=== PATIENT | male | born 1930 | race Caucasian/White ===

== ENCOUNTER 2017-03-14 21:44 | Emergency (ER) | payer OTHER ==
[~2017-03-14] VITALS: Ht 165.1 cm; Wt 110.7 kg
[~2017-03-14 21:44] MED LIST: ASPI81TA28 PO; ATEN-175 PO; CHOL100010 PO; CPR500 PO; HYG/25 PO; INDO25CA14 PO; LOSA50TA54 PO; OXYB10TA PO; PANT40TA PO; ZNTT/150 PO
[2017-03-14 21:50] VITALS: Ht 165.1 cm; Wt 110.7 kg
[2017-03-14] MEDS ORDERED: TNR50 PO (22:33)
[2017-03-14] MEDS ORDERED: CHOL100010 PO (22:33)
[2017-03-14] MEDS ORDERED: OPTIRAY 320 IV PRN (22:45)
--- NOTE | 2017-03-14 22:52 | DIAGNOSTIC IMAGING REPORT ---
CHEST ONE VIEW PORTABLE CLINICAL HISTORY: abd pain, fever dyspnea COMPARISON STUDY: 05/22/2015 FINDINGS: Moderate stable cardiomegaly. Diaphragms are smooth. Slight prominence of pulmonary vasculature and basilar interstitial findings.. No well-defined focal infiltrate. IMPRESSION: Moderate stable cardia megaly. Slight basilar interstitial prominence. No focal infiltrate. The above report was generated using voice recognition software. It may contain grammatical, syntax or spelling errors. Electronically signed by: Dre Murguia M.D. 03/14/2017 10:50 PM Dictated Date/Time: 03/14/2017 10:49 PM
[2017-03-14 23:38] LABS: BASO % 0.2 %; BASO ABS # 0.02 K/uL (0-0.2); COMPLETE YES; EOS % 1.8 %; HEMATOCRIT 39.1 % (42-52); IG% 0.2 %; LYMPH % 4.9 %; LYMPH ABS # 0.47 K/uL (1.2-3.4); MEAN CELL VOLUME 90.1 fL (80-100); MEAN CORPUSCULAR HEMOGLOBIN 30.2 pg (25-34); MEAN CORPUSCULAR HGB CONC 33.5 g/dl (32-36); MEAN PLATELET VOLUME 9.7 fL (7.4-10.4); MONO % 10.5 %; NEUT % 82.4 %; PLATELET COUNT 188 K/uL (130-400); RED BLOOD COUNT 4.34 M/uL (4.7-6.1); WHITE BLOOD COUNT 9.54 K/uL (4.8-10.8)
[2017-03-14 23:54] LABS: ALT/SGPT 10 U/L (12-78); AST/SGOT 14 U/L (15-37); BLOOD UREA NITROGEN 17 mg/dl (7-18); BUN/CREATININE RATIO 12.9 (10-20); CALCIUM 8.7 mg/dl (8.5-10.1); CARBON DIOXIDE 29 mmol/L (21-32); CHLORIDE 102 mmol/L (98-107); GLUCOSE 107 mg/dl (70-99); POTASSIUM 4.1 mmol/L (3.5-5.1); SODIUM 139 mmol/L (136-145)
[2017-03-14 23:56] LABS: ALB/GLOB RATIO 1.1 (0.9-2); ALKALINE PHOSPHATASE 44 U/L (45-117)
[2017-03-15 01:28] VITALS: TEMP 37.4
[2017-03-15] MEDS ORDERED: GI COCKTAIL PO STA (02:09)
[2017-03-15] MEDS ORDERED: ALUMINUM/MAGNESIUM SUSP 30 ML UDC ONE (02:13)
[2017-03-15] MEDS ORDERED: LIDOCAINE HCL 2% VISC SOLN 20 ML UDC ONE (02:13)
--- NOTE | 2017-03-15 02:14 | EMERGENCY ROOM VISIT NOTE ---
ED Visit Note First contact with patient: 22:16 The patient was seen and examined with IZZY Delgado. I agree with the history , physical and findings. Please see the note for disposition and details.
--- NOTE | 2017-03-15 03:21 | EMERGENCY ROOM VISIT NOTE ---
History First contact with patient: 22:16 Chief Complaint: NAUSEA Stated Complaint: SICK STOMACH, CHILLS Nursing Triage Summary: Patients states, "He has been very sick in the stomach to the point that it takes it all out of him. He only eats a few bites." Denies CP, SOB, N/V/D. History of Present Illness The patient is a 87 year old male who presents to the Emergency Room accompanied by his and daughter with complaints of abdominal pain. The patient reports that he has had symptoms for 1-2 months. He states the pain occurs after eating. The pain comes in waves and is "all over" the abdomen. He states that this pain occurs every time after he eats. He denies any vomiting. He denies nausea. He does report a history of stomach issues and states that his primary care provider has started on Zantac. The patient states that he is fairly healthy. He has had a prior cholecystectomy and appendectomy. He denies any fevers/chills, urinary symptoms, changes in bowel movements, chest pain or shortness of breath. Review of Systems A complete 10 point review of systems was reviewed with the patient with pertinent positives and negatives as per history of present illness. All else were negative. Past Medical/Surgical History Medical Problems: (1) Carotid artery stenosis (2) CKD (chronic kidney disease), stage III (3) GERD (gastroesophageal reflux disease) (4) Gout (5) HTN (hypertension) Surgical Problems: (1) S/P appendectomy (2) S/P cholecystectomy (3) S/P repair of ventral hernia (4) Status post total left knee replacement Family History Insignificant due to advanced age Social History Smoking Status: Never Smoker Alcohol Use: none Marital Status: Housing Status: lives with family Current/Historical Medications Scheduled Aspirin (Aspirin Ec), 81 MG PO DAILY Atenolol (Atenolol), 100 MG PO DAILY Chlorthalidone (Hygroton), 25 MG PO DAILY Cholecalciferol (Vitamin D), 1,000 UNITS PO DAILY Ciprofloxacin (Ciprofloxacin HCl), 1 TAB PO BIDM Losartan Potassium (Cozaar), 50 MG PO DAILY Oxybutynin Chloride Er (Ditropan Xl), 10 MG PO DAILY Pantoprazole (Protonix), 40 MG PO DAILY Scheduled PRN Indomethacin (Indomethacin), 25 MG PO TIDM PRN for Gout pain Ranitidine (Zantac), 150 MG PO BID PRN for GERD Physical Exam Vital Signs Date Time Temp Pulse Resp B/P (MAP) Pulse Ox O2 Delivery O2 Flow Rate FiO2 03/15/17 03:23 66 16 121/57 93 Room Air 03/15/17 03:03 69 20 118/54 93 Room Air 03/15/17 01:28 37.4 80 16 119/57 94 Room Air 03/14/17 23:55 80 16 119/57 94 Room Air 03/14/17 21:50 37.7 80 18 162/72 94 Room Air Physical Exam VITALS: Vitals are noted on the nurse's note and reviewed by myself. Vital signs stable. GENERAL: This is an 87-year-old male, in no acute distress, nondiaphoretic, well -developed well-nourished. HEENT: Normocephalic. PERRLA. Mucous membranes moist. Neck is supple without nuchal rigidity. HEART: Regular rate and rhythm without murmurs gallops or rubs. LUNGS: Clear to auscultation bilaterally without wheezes, rales or rhonchi. ABDOMEN: Positive bowel sounds x 4. Soft, nontender without masses or organomegaly. NEURO: Patient was alert and oriented to person place and time. Medical Decision & Procedures ER Provider Diagnostic Interpretation: CT ABDOMEN & PELVIS: No evidence of colitis or bowel obstruction. Appendectomy. Left inguinal hernia containing fat and bowel. No secondary bowel obstruction. Small fat-containing right inguinal hernia. Cardiomegaly. Small hiatal hernia. Fatty liver and too small to characterize low attenuation foci. Cholecystectomy. Left renal cysts. Bilateral small low attenuation lesions. Nonobstructing left renal stone. Abdominal mesh. Radiologist: Sabrina Meyer MD Laboratory Results 03/14/17 23:21 Red Blood Count 4.34, Mean Corpuscular Volume 90.1, Mean Corpuscular Hemoglobin 30.2, Mean Corpuscular Hemoglobin Concent 33.5, Mean Platelet Volume 9.7, Neutrophils (%) (Auto) 82.4, Lymphocytes (%) (Auto) 4.9, Monocytes (%) (Auto) 10.5, Eosinophils (%) (Auto) 1.8, Basophils (%) (Auto) 0.2, Neutrophils # (Auto ) 7.86, Lymphocytes # (Auto) 0.47, Monocytes # (Auto) 1.00, Eosinophils # (Auto ) 0.17, Basophils # (Auto) 0.02 03/14/17 23:21 Test 03/14/17 23:21 White Blood Count 9.54 K/uL (4.8-10.8) Red Blood Count 4.34 M/uL (4.7-6.1) Hemoglobin 13.1 g/dL (14.0-18.0) Hematocrit 39.1 % (42-52) Mean Corpuscular Volume 90.1 fL (80-100) Mean Corpuscular Hemoglobin 30.2 pg (25-34) Mean Corpuscular Hemoglobin Concent 33.5 g/dl (32-36) Platelet Count 188 K/uL (130-400) Mean Platelet Volume 9.7 fL (7.4-10.4) Neutrophils (%) (Auto) 82.4 % Lymphocytes (%) (Auto) 4.9 % Monocytes (%) (Auto) 10.5 % Eosinophils (%) (Auto) 1.8 % Basophils (%) (Auto) 0.2 % Neutrophils # (Auto) 7.86 K/uL (1.4-6.5) Lymphocytes # (Auto) 0.47 K/uL (1.2-3.4) Monocytes # (Auto) 1.00 K/uL (0.11-0.59) Eosinophils # (Auto) 0.17 K/uL (0-0.5) Basophils # (Auto) 0.02 K/uL (0-0.2) RDW Standard Deviation 42.0 fL (36.4-46.3) RDW Coefficient of Variation 12.8 % (11.5-14.5) Immature Granulocyte % (Auto) 0.2 % Immature Granulocyte # (Auto) 0.02 K/uL (0.00-0.02) Anion Gap 8.0 mmol/L (3-11) Est Creatinine Clear Calc Drug Dose 46.8 ml/min Estimated GFR () 57.3 Estimated GFR (Non- 49.4 BUN/Creatinine Ratio 12.9 (10-20) Lactic Acid Level 1.0 mmol/L (0.4-2.0) Calcium Level 8.7 mg/dl (8.5-10.1) Total Bilirubin 1.3 mg/dl (0.2-1) Aspartate Amino Transf (AST/SGOT) 14 U/L (15-37) Alanine Aminotransferase (ALT/SGPT) 10 U/L (12-78) Alkaline Phosphatase 44 U/L (45-117) Troponin I < 0.015 ng/ml (0-0.045) Total Protein 6.9 gm/dl (6.4-8.2) Albumin 3.6 gm/dl (3.4-5.0) Globulin 3.3 gm/dl (2.5-4.0) Albumin/Globulin Ratio 1.1 (0.9-2) Lipase 105 U/L (73-393) Medications Administered Medications (Trade) Dose Ordered Sig/Vicky Route Start Time Stop Time Status Last Admin Dose Admin Al Hydroxide/Mg Hydroxide (Maalox Susp) 30 ml STK-MED ONCE .ROUTE 03/15/17 02:13 03/15/17 02:15 DC 03/15/17 02:19 30 ML Lidocaine HCl (Viscous Lidocaine 2% Soln) 20 ml STK-MED ONCE .ROUTE 03/15/17 02:13 03/15/17 02:15 DC 03/15/17 02:19 20 ML ECG Indication: abdominal pain Rate (beats per minute): 80 Rhythm: normal sinus Findings: RBBB (incomplete), no acute ischemic change ED Course The patient was evaluated as above. Labs were drawn and IV access was obtained. CT of the abdomen and pelvis was performed and read by statrad as above. Patient was given a GI cocktail. Patient was reevaluated and states is feeling better. He denies any complaints at this time. Discharge instructions were reviewed with the patient. The patient verbalized understanding of my assessment and treatment plan and was discharged home in good condition. Medical Decision Differential diagnosis includes gastroenteritis, gastritis, duodenal ulcer, bowel obstruction, mesenteric ischemia, intestinal ischemia, SMA syndrome, pancreatitis, hepatitis, diverticulitis, malignancy, among others. The patient is an 87-year-old male who presents today complaining of abdominal pain which has been present intermittently for one month. There has been no associated vomiting or changes in bowel movements. Labs revealed no leukocytosis, concerning anemia or significant electrolyte abnormalities. Lipase was not elevated. Lactic acid was within normal limits. Troponin was not elevated. CT of the abdomen and pelvis showed no acute infectious or inflammatory findings. Patient was unable to provide a urine sample despite a 5 + hours stay in the emergency department. He requested discharge prior to providing a urine sample and I recommended that he follow-up with his primary care provider to have his urine checked. The patient had some improvement with a GI cocktail. I do not suspect this is secondary to an ischemic process as his lactic acid is not elevated and he has no leukocytosis. The patient has no abdominal tenderness on my examination. I' m unsure of the cause of his pain. It may be gastritis. He does take Protonix and Zantac at home. He was encouraged to follow-up closely with his primary care provider for further evaluation and treatment. He was advised to return here if his symptoms worsen in the meantime. The patient was independently evaluated by Dr. Schultz, ED attending physician, who agreed with my assessment and treatment plan. Based on the patient's presentation and work up, I feel the patient is stable for outpatient treatment. The patient was educated to return to the emergency department for any worsening of their current condition or new/concerning symptoms. He will follow up with his PCP. Medication Reconcilliation Current Medication List: was personally reviewed by me Blood Pressure Screening Patient's blood pressure: Normal blood pressure Impression Primary Impression: Epigastric abdominal pain Departure Information Dispostion Home / Self-Care Condition GOOD Referrals Bert Gresham M.D. (PCP) Patient Instructions [facility] Additional Instructions You have been treated in the Emergency Department for your Abdominal Pain. Laboratory results and imaging studies have ruled out any emergent causes for your abdominal pain which would warrant admission or surgery. You may use Maalox as needed for any symptoms. Drink plenty of water and stay well hydrated. As with any trip to the Emergency Department, you should follow-up with your Primary Care Provider from today's visit. Return to the emergency department if your symptoms persist despite treatment plan outlined above or if the following symptoms occur: increased fevers, chills , worsening nausea/vomiting, blood in your stool or urine.
[2017-03-15 03:23] VITALS: BP 121/57; PULSE 66; O2SAT 93
--- NOTE | 2017-03-15 07:31 | DIAGNOSTIC IMAGING REPORT ---
ABD/PELVIS IV CONTRAST ONLY CLINICAL HISTORY: 87 years-old Male presenting with abdominal pain, difficulty eating, chills. TECHNIQUE: Multidetector CT of the abdomen and pelvis was performed after the administration of intravenous contrast. IV contrast: 92 mL of Optiray 320. A dose lowering technique was used consistent with the principles of ALARA (as low as reasonably achievable). COMPARISON: 12/29/2012. CT DOSE (mGy.cm): The estimated cumulative dose is 1431.00 mGy.cm. FINDINGS: Cytology Supervisor topogram: Cholecystectomy clips noted. Lung bases: Minimal dependent changes likely atelectasis. Multichamber enlargement of the heart. Aortic valve and coronary artery calcification. No pericardial or pleural effusion. Liver: Few small hypodensities, indeterminate but likely hepatic cysts or hamartomas. Normal liver morphology. Patent hepatic vasculature. Biliary: No intrahepatic or extrahepatic biliary ductal dilatation. Gallbladder surgically absent. Pancreas: Moderate parenchymal atrophy. Spleen: Splenule noted. Adrenal glands: Normal. Kidneys and ureters: Multiple well-defined hypodensities in the kidneys bilaterally, left greater than right, likely simple cysts. Nonobstructing 4 mm calculus at the lower pole the left kidney. Nonspecific perinephric fat stranding bilaterally. Ureters normal. Bladder: Although the bladder is incompletely distended, suggestion of circumferential bladder wall thickening. Pelvic organs: Prostate and seminal vesicles normal. Bowel: Peripherally calcified focus adjacent to the sigmoid colon in the mesentery may represent a lymph node, diverticulum or prior fat necrosis. The left inguinal hernia contains the junction of the descending and sigmoid colon. No pericolonic inflammatory change. No gross evidence of bowel wall thickening. Small fat-containing focus in the descending duodenum may represent an intramural lipoma. No bowel obstruction. Appendix surgically absent. Peritoneal cavity: No free fluid or intraperitoneal gas. Vasculature: Atherosclerosis of the normal caliber abdominal aorta. Tortuosity and irregularity of the aortic contour most pronounced in the infrarenal portion. IVC patent. Lymph nodes: No enlarged lymph nodes in the abdomen or pelvis. Abdominal wall: Evidence of surgical mesh along the ventral midline abdominal wall from prior hernia repair. Small fat-containing umbilical hernia. Bilateral inguinal hernias, left greater than right. Musculoskeletal: Degenerative changes of the spine. IMPRESSION: 1. No convincing evidence of acute intra-abdominal pathology. 2. Patient is now status post appendectomy. 3. Left inguinal hernia containing large bowel are no bowel obstruction. 4. Nonobstructing 4 mm calculus at the lower pole the left kidney. Electronically signed by: Yordy Gerard M.D. 03/15/2017 7:30 AM Dictated Date/Time: 03/15/2017 7:15 AM
[2017-04-05] MEDS ORDERED: DAPT500I IV (19:04)
== END 2017-03-15 03:25 | disposition home or self-care (01) ==
LOC: C.EDB 21:44 → C.EDA 03-15 03:25
DX: R10.9 Unspecified abdominal pain (principal); Z90.49 Acquired absence of other specified parts of digestive tract; N18.3 Chronic kidney disease, stage 3 (moderate); I12.9 Hypertensive chronic kidney disease with stage 1 through stage 4 chronic kidney disease, or unspecified chronic kidney disease; K21.9 Gastro-esophageal reflux disease without esophagitis; M10.9 Gout, unspecified; Z96.652 Presence of left artificial knee joint; Z79.82 Long term (current) use of aspirin; Z79.899 Other long term (current) drug therapy

== ENCOUNTER 2017-03-29 18:12 | Inpatient (IN) | payer OTHER ==
[~2017-03-29] VITALS: Ht 167.6 cm; Wt 108.3 kg
[~2017-03-29 18:12] MED LIST changes: -ATEN-175 PO; +TNR50 PO
[2017-03-29] MEDS ORDERED: VANCOMYCIN INJ 2,000 MG in SODIUM CHLORIDE 0.9% 500ML 500 ML IV STA (18:20)
[2017-03-29] MEDS ORDERED: SODIUM CHLORIDE 0.9% 1000ML 1,000 ML IV STA ×2 (18:20)
[2017-03-29] MEDS ORDERED: LEVAQUIN 750MG / 150ML D5W IV STA (18:20)
[2017-03-29] MEDS ORDERED: ACETAMINOPHEN 500 MG TAB PO STA (18:20)
[2017-03-29] MEDS ORDERED: LEVOFLOXACIN PO (18:32)
[2017-03-29 18:33] LABS: HEMATOCRIT 41.8 % (42-52); MEAN CELL VOLUME 87.8 fL (80-100); MEAN CORPUSCULAR HEMOGLOBIN 29.6 pg (25-34); MEAN CORPUSCULAR HGB CONC 33.7 g/dl (32-36); PLATELET COUNT 203 K/uL (130-400); RED BLOOD COUNT 4.76 M/uL (4.7-6.1); WHITE BLOOD COUNT 12.63 K/uL (4.8-10.8)
[2017-03-29] MEDS ORDERED: OMEG10007 PO (18:33)
[2017-03-29 18:45] LABS: INR 1.1 (0.9-1.1); PARTIAL THROMBOPLASTIN RATIO 1.1; PROTHROMBIN TIME (PATIENT) 11.5 SECONDS (9.0-12.0)
[2017-03-29] MEDS ORDERED: OPTIRAY 320 IV PRN (18:45)
[2017-03-29 18:58] LABS: CALCIUM 8.9 mg/dl (8.5-10.1); CREATININE 1.8 mg/dl (0.60-1.40); MAGNESIUM 1.2 mg/dl (1.8-2.4); POTASSIUM 3.1 mmol/L (3.5-5.1)
[2017-03-29 19:03] LABS: BASO % 0.1 %; BASO ABS # 0.01 K/uL (0-0.2); COMPLETE YES; EOS % 0.2 %; IG% 0.4 %; LYMPH % 1.9 %; LYMPH ABS # 0.24 K/uL (1.2-3.4); MONO % 1.6 %; NEUT % 95.8 %
--- NOTE | 2017-03-29 19:06 | DIAGNOSTIC IMAGING REPORT ---
CHEST ONE VIEW PORTABLE HISTORY: EVALUATE WEAKNESS COMPARISON: Chest 03/14/2017. FINDINGS: The heart remains mildly enlarged. No pneumothorax. Bibasilar interstitial thickening persists. Stable blunting the left lateral costophrenic sulcus. No pneumothorax. IMPRESSION: No change in the cardiomegaly and bibasilar interstitial thickening. Electronically signed by: Geoff Alford M.D. 03/29/2017 7:04 PM Dictated Date/Time: 03/29/2017 7:03 PM
[2017-03-29 19:34] LABS: CKMB/CK RATIO 0.8 (0-3.0); THYROID STIMULATING HORMONE 1.75 uIu/ml (0.300-4.500)
[2017-03-29] MEDS ORDERED: MAGNESIUM SULFATE 1GM / D5W 1 GM BAG IV STA (19:34)
[2017-03-29] MEDS ORDERED: POTASSIUM CHLORIDE 10 MEQ / 100ML WTR IV STA (19:34)
[2017-03-29 20:38] LABS: URINE APPEARANCE CLOUDY (CLEAR); URINE BILIRUBIN NEG (NEG); URINE COLOR YELLOW; URINE NITRITE POS (NEG); URINE SPECIFIC GRAVITY 1.017 (1.000-1.030); UROBILINOGEN NEG (NEG)
[2017-03-29 20:42] LABS: MANUAL MICROSCOPIC REQUIRED? NO; REVIEW REQ? NO
--- NOTE | 2017-03-29 20:47 | DIAGNOSTIC IMAGING REPORT ---
(CHEST) THORAX WITHOUT, ABD/PELVIS NO IV OR ORAL CONT CT DOSE: 1602.73 mGy.cm HISTORY: fever of unknown origin, sepsis TECHNIQUE: Multiaxial CT images of the chest, abdomen, pelvis were performed without contrast. A dose lowering technique was utilized adhering to the principles of ALARA. COMPARISON: Abdomen and pelvis CT 03/15/2017. FINDINGS: No mediastinal or hilar lymphadenopathy. The heart is normal in size. No pleural or pericardial effusions. Coronary artery calcifications are again noted. 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 Stable rim calcified low density structure posterior to the descending thoracic aorta. The long-term stability favors a benign process. Tiny hiatus hernia. No suspicious lytic or blastic osseous lesions. No pneumothorax. Bibasilar linear densities are nonspecific but favor subsegmental atelectasis. No pneumoperitoneum. No pneumatosis. Prior anterior abdominal wall mesh. Tiny fat-containing umbilical hernia. Small fat-containing right inguinal hernia. Left inguinal hernia contains a short segment of the descending colon/sigmoid colon junction. This remains unchanged. The unenhanced spleen, adrenal glands, and pancreas are unremarkable. Cholecystectomy. Bilateral perinephric edema, unchanged. There are few stones within the lower pole the left kidney with the largest measuring 7 mm. Hepatic and bilateral renal hypodense lesions are not significant changed. Incomplete characterize on this noncontrast study but favor cysts. No change in the bilateral perinephric edema. No ureteral stones. No hydronephrosis. The bladder is not well-distended but appears unremarkable. Dominant left renal hypodense lesion measures approximately 4.6 cm. No retroperitoneal lymphadenopathy. Suboptimal evaluation for bowel pathology due to the lack of intravenous and oral contrast. However, there is no definite bowel wall thickening or obstruction. The appendix is surgically absent. IMPRESSION: 1. Bibasilar linear densities within the lungs are nonspecific but favor subsegmental atelectasis. No focal lung consolidations to suggest pneumonia. 2. No significant change within the abdomen and pelvis since the prior studies. No acute infectious process identified. 3. Left inguinal hernia containing a short segment of the colon. No evidence for bowel obstruction. 4. Prior appendectomy. 5. Stable bilateral perinephric edema. 6. Left-sided nephrolithiasis. No ureteral stones. No hydronephrosis. 7. Additional findings as described above. Electronically signed by: Geoff Alford M.D. 03/29/2017 8:46 PM Dictated Date/Time: 03/29/2017 8:32 PM
--- NOTE | 2017-03-29 21:24 | EMERGENCY ROOM VISIT NOTE ---
History Report prepared by Mikeibe: Mona Perez Under the Supervision of: Dr. Gibson Shea M.D. First contact with patient: 18:15 Stated Complaint: BACK PAIN, DIZZY, NAUSEA History of Present Illness The patient is an 87 year old male who presents to the Emergency Room with complaints of worsening bilateral flank pain for the past 1 week. He was brought to the ED via EMS from home. The patient was seen here in the ED recently for similar symptoms. He was sent home with no antibiotics, but followed up with his PCP, Dr. Irwin with [facility], and received a call today to start Levaquin. He has taken 1 pill so far. His O2 was 85% on room air in the field and EMS placed him on 2LNC. He was also tachycardic and hypotensive in the field, so EMS started him on fluids, giving him 500 mL in the field. The patient also complains of a cough, breathing issues, nausea and dizziness. He has not had much of an appetite recently but has states he has not vomited. The patient denies LOC, headache, chills, diaphoresis, visual changes, neck pain, chest pain, abdominal pain, melena, hematochezia, urinary symptoms, numbness, weakness, lymphadenopathy, rash, or other complaints. 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 A total of ten systems were reviewed and were otherwise negative. Past Medical & Surgical Medical Problems: (1) Carotid artery stenosis (2) CKD (chronic kidney disease), stage III (3) GERD (gastroesophageal reflux disease) (4) Gout (5) HTN (hypertension) (6) Sepsis (7) UTI (urinary tract infection) Surgical Problems: (1) S/P appendectomy (2) S/P cholecystectomy (3) S/P repair of ventral hernia (4) Status post total left knee replacement Family History Insignificant due to advanced age Social History Smoking Status: Never Smoker Alcohol Use: none Drug Use: none Marital Status: Housing Status: lives with family Occupation Status: retired Current/Historical Medications Scheduled Aspirin (Aspirin Ec), 81 MG PO DAILY Atenolol (Atenolol), 100 MG PO DAILY Chlorthalidone (Hygroton), 25 MG PO DAILY Cholecalciferol (Vitamin D), 1,000 UNITS PO DAILY Fish Oil ([place]-3), 2 CAP PO DAILY Losartan Potassium (Cozaar), 50 MG PO DAILY Oxybutynin Chloride Er (Ditropan Xl), 10 MG PO DAILY Pantoprazole (Protonix), 40 MG PO DAILY [Levofloxacin], 1 TAB PO DAILY Scheduled PRN Ranitidine (Zantac), 150 MG PO BID PRN for GERD Allergies Coded Allergies: Amoxicillin (Verified Allergy, Severe, SWELLING OF TONGUE AND THROAT, ) Omeprazole (Verified Allergy, Unknown, ?, 01/11/12) Phenobarbital (Verified Allergy, Unknown, ?, 01/11/12) Statins (Verified Allergy, Unknown, RASH, 12/08/11) Physical Exam Vital Signs Date Time Temp Pulse Resp B/P (MAP) Pulse Ox O2 Delivery O2 Flow Rate FiO2 03/29/17 19:56 117 20 120/67 97 Nasal Cannula 2.0 03/29/17 18:45 121 03/29/17 18:41 94 Nasal Cannula 2.0 03/29/17 18:28 94 Nasal Cannula 2.0 03/29/17 18:20 37.5 120 22 95/59 95 Room Air Physical Exam GENERAL: Awake, alert, tired-appearing, in no distress HENT: Normocephalic, atraumatic. Oropharynx unremarkable. EYES: Normal conjunctiva. Sclera non-icteric. NECK: Supple. No nuchal rigidity. FROM. No JVD. RESPIRATORY: Clear to auscultation. CARDIAC: Tachycardic heart rate, normal rhythm. Extremities warm and well perfused. Pulses equal. ABDOMEN: Soft, non-distended. LLQ tenderness to palpation. No rebound or guarding. No masses. RECTAL: Deferred. MUSCULOSKELETAL: Chest examination reveals no tenderness. The back is symmetrical on inspection without obvious abnormality. There is no CVA tenderness to palpation. No joint edema. LOWER EXTREMITIES: Calves are equal size bilaterally and non-tender. No edema. No discoloration. NEURO: Normal sensorium. No sensory or motor deficits noted. SKIN: No rash or jaundice noted. Medical Decision & Procedures ER Provider Diagnostic Interpretation: Radiology results as stated below per my review and radiologist interpretation: CHEST ONE VIEW PORTABLE HISTORY: EVALUATE WEAKNESS COMPARISON: Chest 03/14/2017. FINDINGS: The heart remains mildly enlarged. No pneumothorax. Bibasilar interstitial thickening persists. Stable blunting the left lateral costophrenic sulcus. No pneumothorax. IMPRESSION: No change in the cardiomegaly and bibasilar interstitial thickening. Electronically signed by: Geoff Alford M.D. 03/29/2017 7:04 PM (CHEST) THORAX WITHOUT, ABD/PELVIS NO IV OR ORAL CONT CT DOSE: 1602.73 mGy.cm HISTORY: fever of unknown origin, sepsis TECHNIQUE: Multiaxial CT images of the chest, abdomen, pelvis were performed without contrast. A dose lowering technique was utilized adhering to the principles of ALARA. COMPARISON: Abdomen and pelvis CT 03/15/2017. FINDINGS: No mediastinal or hilar lymphadenopathy. The heart is normal in size. No pleural or pericardial effusions. Coronary artery calcifications are again noted. 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 Stable rim calcified low density structure posterior to the descending thoracic aorta. The long-term stability favors a benign process. Tiny hiatus hernia. No suspicious lytic or blastic osseous lesions. No pneumothorax. Bibasilar linear densities are nonspecific but favor subsegmental atelectasis. No pneumoperitoneum. No pneumatosis. Prior anterior abdominal wall mesh. Tiny fat-containing umbilical hernia. Small fat-containing right inguinal hernia. Left inguinal hernia contains a short segment of the descending colon/sigmoid colon junction. This remains unchanged. The unenhanced spleen, adrenal glands, and pancreas are unremarkable. Cholecystectomy. Bilateral perinephric edema, unchanged. There are few stones within the lower pole the left kidney with the largest measuring 7 mm. Hepatic and bilateral renal hypodense lesions are not significant changed. Incomplete characterize on this noncontrast study but favor cysts. No change in the bilateral perinephric edema. No ureteral stones. No hydronephrosis. The bladder is not well-distended but appears unremarkable. Dominant left renal hypodense lesion measures approximately 4.6 cm. No retroperitoneal lymphadenopathy. Suboptimal evaluation for bowel pathology due to the lack of intravenous and oral contrast. However, there is no definite bowel wall thickening or obstruction. The appendix is surgically absent. IMPRESSION: 1. Bibasilar linear densities within the lungs are nonspecific but favor subsegmental atelectasis. No focal lung consolidations to suggest pneumonia. 2. No significant change within the abdomen and pelvis since the prior studies. No acute infectious process identified. 3. Left inguinal hernia containing a short segment of the colon. No evidence for bowel obstruction. 4. Prior appendectomy. 5. Stable bilateral perinephric edema. 6. Left-sided nephrolithiasis. No ureteral stones. No hydronephrosis. 7. Additional findings as described above. Electronically signed by: Geoff Alford M.D. 03/29/2017 8:46 PM Laboratory Results 03/29/17 17:36 Red Blood Count 4.76, Mean Corpuscular Volume 87.8, Mean Corpuscular Hemoglobin 29.6, Mean Corpuscular Hemoglobin Concent 33.7, Mean Platelet Volume 10.0, Neutrophils (%) (Auto) 95.8, Lymphocytes (%) (Auto) 1.9, Monocytes (%) (Auto) 1.6, Eosinophils (%) (Auto) 0.2, Basophils (%) (Auto) 0.1, Neutrophils # (Auto) 12.11, Lymphocytes # (Auto) 0.24, Monocytes # (Auto) 0.20, Eosinophils # (Auto) 0.02, Basophils # (Auto) 0.01 03/29/17 17:36 Test 03/29/17 17:36 03/29/17 18:20 03/29/17 18:48 03/29/17 20:45 White Blood Count 12.63 K/uL (4.8-10.8) Red Blood Count 4.76 M/uL (4.7-6.1) Hemoglobin 14.1 g/dL (14.0-18.0) Hematocrit 41.8 % (42-52) Mean Corpuscular Volume 87.8 fL (80-100) Mean Corpuscular Hemoglobin 29.6 pg (25-34) Mean Corpuscular Hemoglobin Concent 33.7 g/dl (32-36) Platelet Count 203 K/uL (130-400) Mean Platelet Volume 10.0 fL (7.4-10.4) Neutrophils (%) (Auto) 95.8 % Lymphocytes (%) (Auto) 1.9 % Monocytes (%) (Auto) 1.6 % Eosinophils (%) (Auto) 0.2 % Basophils (%) (Auto) 0.1 % Neutrophils # (Auto) 12.11 K/uL (1.4-6.5) Lymphocytes # (Auto) 0.24 K/uL (1.2-3.4) Monocytes # (Auto) 0.20 K/uL (0.11-0.59) Eosinophils # (Auto) 0.02 K/uL (0-0.5) Basophils # (Auto) 0.01 K/uL (0-0.2) RDW Standard Deviation 41.5 fL (36.4-46.3) RDW Coefficient of Variation 13.0 % (11.5-14.5) Immature Granulocyte % (Auto) 0.4 % Immature Granulocyte # (Auto) 0.05 K/uL (0.00-0.02) Prothrombin Time 11.5 SECONDS (9.0-12.0) Prothromb Time International Ratio 1.1 (0.9-1.1) Activated Partial Thromboplast Time 27.6 SECONDS (21.0-31.0) Partial Thromboplastin Ratio 1.1 Anion Gap 14.0 mmol/L (3-11) Est Creatinine Clear Calc Drug Dose 34.2 ml/min Estimated GFR () 38.6 Estimated GFR (Non- 33.3 BUN/Creatinine Ratio 10.0 (10-20) Calcium Level 8.9 mg/dl (8.5-10.1) Magnesium Level 1.2 mg/dl (1.8-2.4) Total Bilirubin 2.0 mg/dl (0.2-1) Direct Bilirubin 0.4 mg/dl (0-0.2) Aspartate Amino Transf (AST/SGOT) 19 U/L (15-37) Alanine Aminotransferase (ALT/SGPT) 16 U/L (12-78) Alkaline Phosphatase 49 U/L (45-117) Total Creatine Kinase 86 U/L (39-308) Creatine Kinase MB 0.7 ng/ml (0.5-3.6) Creatine Kinase MB Ratio 0.8 (0-3.0) Troponin I 0.062 ng/ml (0-0.045) Total Protein 7.3 gm/dl (6.4-8.2) Albumin 3.7 gm/dl (3.4-5.0) Lipase 122 U/L (73-393) Thyroid Stimulating Hormone (TSH) 1.750 uIu/ml (0.300-4.500) Urine Color YELLOW Urine Appearance CLOUDY (CLEAR) Urine pH 6.0 (4.5-7.5) Urine Specific [place] 1.017 (1.000-1.030) Urine Protein 1+ (NEG) Urine Glucose (UA) NEG (NEG) Urine Ketones TRACE (NEG) Urine Occult Blood 1+ (NEG) Urine Nitrite POS (NEG) Urine Bilirubin NEG (NEG) Urine Urobilinogen NEG (NEG) Urine Leukocyte Esterase TRACE (NEG) Urine WBC (Auto) 5-10 /hpf (0-5) Urine RBC (Auto) 5-10 /hpf (0-4) Urine Hyaline Casts (Auto) 1-5 /lpf (0-5) Urine Epithelial Cells (Auto) 5-10 /lpf (0-5) Urine Bacteria (Auto) 4+ (NEG) Bedside Lactic Acid Venous 3.11 mmol/L (0.90-1.70) Laboratory results reviewed by me Medications Administered Medications (Trade) Dose Ordered Sig/Vicky Route Start Time Stop Time Status Last Admin Dose Admin Sodium Chloride 1,000 ml @ 999 mls/hr Q1H1M STAT IV 03/29/17 18:20 03/29/17 19:20 DC 03/29/17 18:40 999 MLS/HR Acetaminophen (Tylenol Tab) 1,000 mg NOW STAT PO 03/29/17 18:20 03/29/17 18:25 DC 03/29/17 19:49 1,000 MG Levofloxacin (Levaquin / D5W) 750 mg NOW STAT IV 03/29/17 18:20 03/29/17 18:25 DC 03/29/17 19:50 750 MG Vancomycin HCl 2000 mg/Sodium Chloride 540 ml @ 200 mls/hr ONE STAT IV 03/29/17 18:20 03/29/17 21:01 DC 03/29/17 21:17 200 MLS/HR Potassium Chloride (Kcl 10 Meq / Wtr) 10 meq NOW STAT IV 03/29/17 19:34 03/29/17 19:35 DC 03/29/17 19:50 10 MEQ Magnesium Sulfate (Magnesium Sulfate) 2 gm NOW STAT IV 03/29/17 19:34 03/29/17 19:35 DC 03/29/17 19:51 2 GM ECG Indication: nausea Rate (beats per minute): 119 Rhythm: sinus tachycardia Findings: LAFB, nonspecific-ST abn, no acute ischemic change, no ectopy Change: Pre-Hospital EKG on 03/29/17: Sinus tachycardia, rate of 137, non-specific ST abnormalities, Left Anterior Fascicular Block. ED Course 1815: The patient was evaluated in room A12. A complete history and physical exam was performed. 1819: Vancomycin HCl 2000 mg/NSS 540 ml @ 200 mls/hr IV, Levaquin 750 mg IV, Tylenol 1000 mg PO, NSS 1000 ml @ 125 mls/hr IV, NSS 1000 ml @ 999 mls/hr IV. 1849: I spoke with the patients family. They said he had blood work done at [facility] recently which showed a possible infection. 1933: Magnesium Sulfate 2 gm IV, Potassium Chloride 10 meq IV. 1943: I reevaluated the patient. He is feeling better but his BP is still high. 2025: I discussed the patients case with Dr. Villatoro, [facility] Hospitalist. The patient will be further evaluated. 2054: I reevaluated the patient. He is resting comfortably and his vitals are stable. I discussed my recommendation he remain in the hospital for further evaluation and management and he and his family verbalized complete understanding and agreement. Medical Decision Triage Nursing notes reviewed. The patient's presentation and history were concerning for fever and weakness. Family also notes the patient had some pain with urination. Etiologies such as metabolic, infection, hypo/hyperglycemia, electrolyte abnormalities, cardiac sources, intracerebral event, toxicologic, neurologic, as well as others were entertained. The patient was evaluated. He was hypotensive, tachycardic and febrile. He was treated as above. He was hydrated. He did well with this. His lactate was mildly elevated as well as his white blood cell count. The patient was empirically given Levaquin and vancomycin after cultures. He did note some cough. Chest x-ray was performed. Because of his symptoms and some difficulty figuring the source of his infection a CT scan of the chest, abdomen and pelvis was performed. These findings as above. The patient's urinalysis returned with significant findings concerning for infection. The patient had an elevated troponin, hypomagnesemia and hypokalemia. He received IV magnesium and IV potassium. On reassessment he was doing well. I updated family. Consultation was made with [facility] Internal Medicine. The patient was evaluated in the Emergency Room for further management. Medication Reconcilliation Current Medication List: was personally reviewed by me Blood Pressure Screening Patient's blood pressure: Normal blood pressure Blood pressure disposition: Did not require urgent referral Consults Time Called: 2023 [facility]ing Phys[facility] Return[facility] Call: 2025 I [facility] the [facility] The patient will be further evaluated. Impression Primary Impression: Sepsis Additional Impressions: Elevated troponin Elevated LFTs Hypomagnesemia Hypokalemia Fever Urinary tract infection Critical Care I have personally spent greater than 30 minutes of critical care time in the direct management of this patient. This includes bedside care, interpretation of diagnostic studies, and testing, discussion with consultants, patient, and family members, and other required patient management activities. This 30 minutes is in excess of all separately billable procedures. Scribe Attestation The scribe's documentation has been prepared under my direction and personally reviewed by me in its entirety. I confirm that the note above accurately reflects all work, treatment, procedures, and medical decision making performed by me. Departure Information Dispostion Being Evaluated By Hospitalist Referrals Bert Gresham M.D. (PCP) Problem Qualifiers
[2017-03-29] MEDS ORDERED: ONDANSETRON INJ 2 MG/ML 2 ML VIAL IV PRN (21:30)
[2017-03-29] MEDS ORDERED: SODIUM CHLORIDE 0.9% 1000ML 1,000 ML IV SCH (21:45)
[2017-03-29] MEDS ORDERED: LEVOFLOXACIN CONSULT ACTIVE PRN (22:05)
[2017-03-29 22:15] VITALS: BP 114/65; PULSE 107; TEMP 37.1; O2SAT 95; Ht 167.6 cm; Wt 108.3 kg
--- NOTE | 2017-03-29 22:58 | History and Physical ---
History & Physical Date & Time of Service: Mar 29, 2017 ~ 21:00 Chief Complaint: Weakness, Nausea Primary Care Physician: Bert Gresham M.D. History of Present Illness 87 year old male who presents to the ED with weakness and nausea. Patient reports he has been sick for the past 6 weeks. He reports generally not feeling well. He was seen in in the ED on 03/14 for similar symptoms and work up including labs and CT abd/pelvis was unrevealing. He also has been evaluated by his PCP and has had a negative work up with labs, blood cultures, and echocardiogram with was unrevealing as well. Patient reports persistent nausea and a very poor appetite. He reports weight loss but he unsure of exactly how much (PCP notes reports 17 pounds). He has felt generally weak. He has had chills but denies fever. He has chronic exertional shortness of breath at baseline which is unchanged. He reports an occasional dry cough. He has felt lightheaded and dizzy and times but denies any syncopal event. No chest pain. He has some mild intermittent left sided abdominal pain. He denies vomiting, diarrhea, BRBPR, or dark tarry stools. He reports he had urinary burning that developed today. In the ED, patient's U/A is consistent with UTI. CT abd/pelvis is negative for acute findings. He is tachycardic but other vitals are stable. POC lactic acid 3.11. Creat 1.8 (up from baseline ~ 1.3). K+ and Mg+ are also low. He was given IVF, Vanco, Levaquin, Tylenol, and Mg+ and K+ replacements. Past Medical/Surgical History Medical Problems: (1) Carotid artery stenosis Permanent Comment: 50-69% MADALYN, < 50% LICA 01/2014 Status: Chronic (2) CKD (chronic kidney disease), stage III Status: Chronic (3) GERD (gastroesophageal reflux disease) Status: Chronic (4) Gout Status: Chronic (5) HTN (hypertension) Status: Chronic Surgical Problems: (1) S/P appendectomy Status: Chronic (2) S/P cholecystectomy Status: Chronic (3) S/P repair of ventral hernia Status: Chronic (4) Status post total left knee replacement Status: Chronic Family History Insignificant due to advanced age Social History Smoking Status: Former Smoker Alcohol Use: none Marital Status: Housing status: lives with family Immunizations History of Influenza Vaccine: Yes Influenza Vaccine Date: Mar 01, 2017 History of Tetanus Vaccine?: Yes Tetanus Immunization Date: Jul 11, 2012 History of Pneumococcal: Yes Pneumococcal Date: Aug 28, 2014 Allergies Coded Allergies: Amoxicillin (Verified Allergy, Severe, SWELLING OF TONGUE AND THROAT, ) Omeprazole (Verified Allergy, Unknown, ?, 01/11/12) Phenobarbital (Verified Allergy, Unknown, ?, 01/11/12) Statins (Verified Allergy, Unknown, RASH, 12/08/11) Home Medications Scheduled Aspirin (Aspirin Ec), 81 MG PO DAILY Chlorthalidone (Hygroton), 25 MG PO DAILY Cholecalciferol (Vitamin D), 1,000 UNITS PO DAILY Losartan Potassium (Cozaar), 50 MG PO DAILY Oxybutynin Chloride Er (Ditropan Xl), 10 MG PO DAILY Pantoprazole (Protonix), 40 MG PO DAILY Scheduled PRN Ranitidine (Zantac), 150 MG PO BID PRN for GERD Review of Systems ROS per HPI, all other systems reviewed and negative Physical Exam Vital Signs Date Time Temp Pulse Resp B/P (MAP) Pulse Ox O2 Delivery O2 Flow Rate FiO2 03/29/17 22:19 36.8 113 22 105/51 96 03/29/17 21:27 36.8 113 22 105/51 96 Nasal Cannula 2.0 03/29/17 19:56 117 20 120/67 97 Nasal Cannula 2.0 03/29/17 18:45 121 03/29/17 18:41 94 Nasal Cannula 2.0 03/29/17 18:28 94 Nasal Cannula 2.0 03/29/17 18:20 37.5 120 22 95/59 95 Room Air General Appearance: WD/WN, no apparent distress Head: normocephalic, atraumatic Eyes: normal inspection, EOMI, sclerae normal ENT: hearing grossly normal, + pertinent finding (dry mucous membranes) Neck: supple, no JVD, trachea midline Respiratory/Chest: lungs clear, normal breath sounds, no respiratory distress Cardiovascular: no edema, normal peripheral pulses, + tachycardia (regular rhythm) Abdomen/GI: normal bowel sounds, non tender, soft, no organomegaly Extremities/Musculoskelatal: normal inspection, no calf tenderness Neurologic/Psych: no motor/sensory deficits, alert, normal mood/affect, oriented x 3 Skin: normal color, warm/dry Diagnostics Laboratory Results Results Past 24 Hours Test 03/29/17 17:36 03/29/17 18:20 03/29/17 18:48 03/29/17 20:45 Range/Units White Blood Count 12.63 4.8-10.8 K/uL Red Blood Count 4.76 4.7-6.1 M/uL Hemoglobin 14.1 14.0-18.0 g/dL Hematocrit 41.8 42-52 % Mean Corpuscular Volume 87.8 80-100 fL Mean Corpuscular Hemoglobin 29.6 25-34 pg Mean Corpuscular Hemoglobin Concent 33.7 32-36 g/dl Platelet Count 203 130-400 K/uL Mean Platelet Volume 10.0 7.4-10.4 fL Neutrophils (%) (Auto) 95.8 % Lymphocytes (%) (Auto) 1.9 % Monocytes (%) (Auto) 1.6 % Eosinophils (%) (Auto) 0.2 % Basophils (%) (Auto) 0.1 % Neutrophils # (Auto) 12.11 1.4-6.5 K/uL Lymphocytes # (Auto) 0.24 1.2-3.4 K/uL Monocytes # (Auto) 0.20 0.11-0.59 K/uL Eosinophils # (Auto) 0.02 0-0.5 K/uL Basophils # (Auto) 0.01 0-0.2 K/uL RDW Standard Deviation 41.5 36.4-46.3 fL RDW Coefficient of Variation 13.0 11.5-14.5 % Immature Granulocyte % (Auto) 0.4 % Immature Granulocyte # (Auto) 0.05 0.00-0.02 K/uL Prothrombin Time 11.5 9.0-12.0 SECONDS Prothromb Time International Ratio 1.1 0.9-1.1 Activated Partial Thromboplast Time 27.6 21.0-31.0 SECONDS Partial Thromboplastin Ratio 1.1 Sodium Level 136 136-145 mmol/L Potassium Level 3.1 3.5-5.1 mmol/L Chloride Level 101 98-107 mmol/L Carbon Dioxide Level 21 21-32 mmol/L Anion Gap 14.0 3-11 mmol/L Blood Urea Nitrogen 18 7-18 mg/dl Creatinine 1.80 0.60-1.40 mg/dl Est Creatinine Clear Calc Drug Dose 34.2 ml/min Estimated GFR () 38.6 Estimated GFR (Non- 33.3 BUN/Creatinine Ratio 10.0 10-20 Random Glucose 142 70-99 mg/dl Calcium Level 8.9 8.5-10.1 mg/dl Magnesium Level 1.2 1.8-2.4 mg/dl Total Bilirubin 2.0 0.2-1 mg/dl Direct Bilirubin 0.4 0-0.2 mg/dl Aspartate Amino Transf (AST/SGOT) 19 15-37 U/L Alanine Aminotransferase (ALT/SGPT) 16 12-78 U/L Alkaline Phosphatase 49 45-117 U/L Total Creatine Kinase 86 39-308 U/L Creatine Kinase MB 0.7 0.5-3.6 ng/ml Creatine Kinase MB Ratio 0.8 0-3.0 Troponin I 0.062 0-0.045 ng/ml Total Protein 7.3 6.4-8.2 gm/dl Albumin 3.7 3.4-5.0 gm/dl Lipase 122 73-393 U/L Thyroid Stimulating Hormone (TSH) 1.750 0.300-4.500 uIu/ml Urine Color YELLOW Urine Appearance CLOUDY CLEAR Urine pH 6.0 4.5-7.5 Urine Specific [place] 1.017 1.000-1.030 Urine Protein 1+ NEG Urine Glucose (UA) NEG NEG Urine Ketones TRACE NEG Urine Occult Blood 1+ NEG Urine Nitrite POS NEG Urine Bilirubin NEG NEG Urine Urobilinogen NEG NEG Urine Leukocyte Esterase TRACE NEG Urine WBC (Auto) 5-10 0-5 /hpf Urine RBC (Auto) 5-10 0-4 /hpf Urine Hyaline Casts (Auto) 1-5 0-5 /lpf Urine Epithelial Cells (Auto) 5-10 0-5 /lpf Urine Bacteria (Auto) 4+ NEG Bedside Lactic Acid Venous 3.11 0.90-1.70 mmol/L Influenza Type A Antigen Neg for Influ A NEG Influenza Type B Antigen Neg for Influ B NEG Test 03/29/17 21:29 Range/Units Microbiology Results 03/29/17 Blood Culture, Received Pending 03/29/17 Blood Culture, Received Pending 03/29/17 Urine Culture, Received Pending Diagnostic Radiology CXR IMPRESSION: No change in the cardiomegaly and bibasilar interstitial thickening. CT CHEST/ABD/PELVIS IMPRESSION: 1. Bibasilar linear densities within the lungs are nonspecific but favor subsegmental atelectasis. No focal lung consolidations to suggest pneumonia. 2. No significant change within the abdomen and pelvis since the prior studies. No acute infectious process identified. 3. Left inguinal hernia containing a short segment of the colon. No evidence for bowel obstruction. 4. Prior appendectomy. 5. Stable bilateral perinephric edema. 6. Left-sided nephrolithiasis. No ureteral stones. No hydronephrosis. 7. Additional findings as described above. Impression Assessment and Plan SEVERE SEPSIS DUE TO UTI - admit to tele - patient presenting to the ED with several weeks of feeling generally ill, weak , and nauseous; in the ED, U/A consistent with UTI - WBC 12.6K, tachycardic, elevated POC lactic acid; BP stable - s/p Levaquin and Vanco in the ED; for now will continue with Levaquin only; Vanco dose should provide coverage for 24 hours due to decreased renal function - will await preliminary urine culture results and add back if needed - noted prior urine culture grew Enterococcus from 2015 - CT chest/abd/pelvis negative for acute findings - will give an additional 1L IVF then start maintenance @ 125ml/hr - recheck and follow lactic acid - blood and urine cultures ELEVATED TROPONIN - likely demand ischemia from sepsis - no reports of chest pain, EKG without acute ST changes - recent outpatient echo - EF 55-59%, mild aortic stenosis - continue to trend cardiac enzymes NICKO ON CKD STAGE III - baseline creat ~ 1.3, up to 1.8 today - likely prerenal due to poor PO intake / sepsis - hold ARB and diuretic - IVF, follow up labs in AM HYPOKALEMIA, HYPOMAGNESEMIA - due to poor PO intake - replace, follow up labs in AM NAUSEA, POOR APPETITE - suspect due to acute illness/UTI - if does not improve, could consider GI consult for possible EGD HTN - BP borderline low and also with NICKO so will hold ARB and chlorthalidone DVT PROPHYLAXIS - SQ Heparin CODE STATUS - Patient is a full code as per my discussion with him. DISPO - In my clinical judgment this beneficiary meets acute admission criteria, established by [facility], that includes being hospitalized through two midnights. VTE Prophylaxis VTE Risk Assessment Done? Y/N: Yes Risk Level: Moderate Note ATTENDING ADDENDUM Record reviewed. Patient interviewed and examined in ED. Care coordinated with LV Bey. Please refer to her documentation for patient's history. Briefly, 87 YO male with history of hypertension, CKD, and other problems. Presented to ED with generalized weakness, nausea, dysuria. EXAM: General- no acute distress VS- as noted HEENT- anicteric Neck- no JVD Lungs- clear to auscultation Heart- RRR, tachy Abdomen- + BS, soft, nontender Extremities- no pretibial edema or calf tenderness Neuro- alert DATA: WBC 12,630. Lactate 3.1. Creatinine 1.8. K 3.1, Mg 1.2. Trop 0.062. UA - WBC's, bacteria Other lab studies as noted. CXR- cardiomegaly, no infiltrates CT chest / abdomen - bibasilar atelectasis, no pulmonary infiltrates, left renal calculi, no ureteral calculi, perinephric stranding, left inguinal hernia without bowel obstruction. EKG performed at 18:[address] at 120 / minute, incomplete RBBB, poor R-wave progression, slight lateral ST depression (compared to tracings 03/14/17 and 05/22/15, rate increased and ST segments now depressed laterally) . ASSESSMENT AND PLAN: Severe sepsis (per 2001 definition and current CMS guidelines), probably secondary to UTI. Systolic BP's > 90. WBC 12,630. Serum lactate 3.1. Blood and urine cultures obtained in ED. Allergic to penicillin. Received broad spectrum antibiotic coverage in ED with levofloxacin and vancomycin. Continue levofloxacin. No further dosing of vancomycin unless warranted per cultures. Troponin slightly elevated. Suspect that troponin elevation nonspecific due to sepsis and does not represent an acute coronary syndrome. Nevertheless, chest x-ray shows cardiomegaly and EKG is abnormal. Check serial cardiac markers. Check echo. Replace K and Mg. Follow. Please refer to CLARENCE Nielsen's documentation for discussion of other issues. Gibson Gallagher MD .
[2017-03-29] MEDS ORDERED: POTASSIUM CHLORIDE 20 MEQ TABCR PO ONE (23:30)
[2017-03-30] VITALS (9 sets, daily range): BP systolic 97–138; BP diastolic 61–77; PULSE 70–86; TEMP 36.4–37.5; O2SAT 97–99
[2017-03-30] MEDS: MAGNESIUM SULFATE 1GM / D5W 1 GM in PREMIXED IN D5W 100 ML IV SCH ×2 (00:32→01:32)
[2017-03-30] MEDS: SODIUM CHLORIDE 0.9% 1000ML 1,000 ML IV SCH ×4 (01:29→15:46)
[2017-03-30] MEDS: HEPARIN SOD 5000 UNIT/0.5 ML CARP SQ SCH ×3 (05:51→20:59)
[2017-03-30] MEDS ORDERED: PERFLUTREN LIPID MICROSPHERE (DEFINITY) IV ONE (06:50)
[2017-03-30 08:04] LABS: HEMATOCRIT 32.9 % (42-52); MEAN CELL VOLUME 89.4 fL (80-100); MEAN CORPUSCULAR HEMOGLOBIN 30.7 pg (25-34); MEAN CORPUSCULAR HGB CONC 34.3 g/dl (32-36); MEAN PLATELET VOLUME 9.6 fL (7.4-10.4); PLATELET COUNT 153 K/uL (130-400); RED BLOOD COUNT 3.68 M/uL (4.7-6.1); WHITE BLOOD COUNT 12.49 K/uL (4.8-10.8)
[2017-03-30] MEDS: PANTOprazole SOD 40 MG TAB PO SCH (08:05)
[2017-03-30] MEDS: ASPIRIN 81 MG ECTAB PO SCH (08:05)
[2017-03-30] MEDS: OXYBUTYNIN CHLORIDE 5 MG TABCR PO SCH (08:06)
[2017-03-30] MEDS: CHOLECALCIFEROL 1000 INTER.UNIT TAB PO SCH (08:06)
[2017-03-30 08:33] LABS: BUN/CREATININE RATIO 13.9 (10-20); CALCIUM 7.5 mg/dl (8.5-10.1); CREATININE 1.3 mg/dl (0.60-1.40); MAGNESIUM 2.1 mg/dl (1.8-2.4); POTASSIUM 4.4 mmol/L (3.5-5.1)
[2017-03-30 08:37] LABS: CHOLESTEROL/HDL RATIO 3.8; CKMB/CK RATIO 1.8 (0-3.0)
--- NOTE | 2017-03-30 10:12 | ECHOCARDIOGRAM REPORT ---
*NOTICE TO RECEIVING LIBERTARIAN AGENCY This information is strictly Confidential and protected under [place] law. [place] law prohibits you from making any further disclosure of this information unless further disclosure is expressly permitted by the written consent of the person to whom it pertains or is authorized by law. A general authorization for the release of medical or other information is not sufficient for this purpose. Hospital accepts no responsibility if the information is made available to any other person, INCLUDING THE PATIENT. Interpretation Summary * Name: JESS ESCUDERO Study Date: 03/30/2017 06:30 AM BP: 97/61 mmHg * Patient Location: C.2T\S\S242\S\2 HR: 86 * : 1930 (M/d/yyy) Gender: Male Height: 66 in * Age: 87 yrs Ethnicity: CA Weight: 229 lb * Ordering Physician: Gibson Gallagher * Performed By: Shamika Mora * * Reason For Study: ELEVATED TROPONIN, ABNORMAL EKG * BSA: 2.1 m2 * -- Conclusions -- * Normal LV chamber size with borderline concentric LVH. * Normal LV systolic function, EF 65-70%. * No segmental left ventricular wall motion abnormalities are noted. * Grade II diastolic dysfunction. * No significant valvular pathology. * Small anterior and apical pericardial effusion without hemodynamic significance. Stranding present to suggest chronicity. Procedure Details * A complete two-dimensional transthoracic echocardiogram was performed (2D, M-mode, Doppler and color flow Doppler). * The study was technically difficult. * A contrast injection of Definity was performed to improve assessment of LV function. * Contrast was injected into an intravenous site in the left arm. * One vial of Definity ultrasound contrast was diluted in normal saline to a total volume of 10 ml. A total of '2' ml of solution was administered during imaging. * Lot # [id number] of Definity utilized for procedure. * Expiration date 04/07. * The attending nurse who injected the contrast agent was JAMARCUS LORENZO RN. Left Ventricle * The left ventricle is normal in size. * There is borderline concentric left ventricular hypertrophy. * Ejection Fraction = 65-70%. * Left ventricular systolic function is normal. * No segmental left ventricular wall motion abnormalities are noted. * The left ventricular wall motion is normal. Right Ventricle * The right ventricular cavity size is normal (basal dimension <4.2 cm in right ventricular apical 4-chamber view). * The right ventricular systolic function is normal as assessed by tricuspid annular plane systolic excursion (TAPSE) (normal >1.5 cm). Atria * The left atrial size is normal. * Right atrial size is normal. * No ASD detected; PFO is not assessed. Mitral Valve * The mitral valve is normal in structure and function. Tricuspid Valve * The tricuspid valve is normal in structure and function. Aortic Valve * The aortic valve is not well visualized. * No hemodynamically significant valvular aortic stenosis. * There is no significant aortic regurgitation. Pulmonic Valve * The pulmonary valve is not well seen, but the Doppler examination is normal without significant regurgitation or stenosis. Great Vessels * The aortic root and proximal ascending aorta are normal sized. Pericardium/Pleural * Small pericardial effusion. * There are no echocardiographic indications of cardiac tamponade. Left Ventricular Diastolic Function * Diastolic dysfunction, Grade II (pseudonormalization pattern). MMode 2D Measurements and Calculations IVSd 1.0 cm IVSs 1.7 cm LVIDd 4.6 cm LVIDs 2.9 cm LVPWd 1.2 cm LVPWs 2.0 cm IVS/LVPW 0.87 FS 36.8 % EDV(Teich) 96.8 ml ESV(Teich) 32.2 ml EF(Teich) 66.7 % EDV(cubed) 96.6 ml ESV(cubed) 24.4 ml EF(cubed) 74.7 % % IVS thick 72.2 % % LVPW thick 69.8 % LV mass(C)d 177.7 grams LV mass(C)dI 83.9 grams/m\S\2 LV mass(C)s 221.6 grams LV mass(C)sI 104.6 grams/m\S\2 SV(Teich) 64.5 ml SI(Teich) 30.5 ml/m\S\2 SV(cubed) 72.2 ml SI(cubed) 34.1 ml/m\S\2 asc Aorta Diam 3.3 cm LVOT diam 2.1 cm LVOT area 3.5 cm\S\2 LVAd ap4 37.7 cm\S\2 LVLd ap4 8.4 cm EDV(MOD-sp4) 140.8 ml EDV(sp4-el) 143.1 ml LVAs ap4 20.0 cm\S\2 LVLs ap4 7.4 cm ESV(MOD-sp4) 46.8 ml ESV(sp4-el) 46.0 ml EF(MOD-sp4) 66.8 % EF(sp4-el) 67.8 % LVAd ap2 31.6 cm\S\2 LVLd ap2 7.9 cm EDV(MOD-sp2) 101.4 ml EDV(sp2-el) 107.5 ml LVAs ap2 16.5 cm\S\2 LVLs ap2 6.9 cm ESV(MOD-sp2) 33.7 ml ESV(sp2-el) 33.7 ml EF(MOD-sp2) 66.7 % EF(sp2-el) 68.6 % LVLd %diff -6.69 % EDV(MOD-bp) 120.2 ml LVLs %diff -7.86 % ESV(MOD-bp) 40.9 ml EF(MOD-bp) 66.0 % SV(MOD-sp4) 94.1 ml SI(MOD-sp4) 44.4 ml/m\S\2 SV(MOD-sp2) 67.7 ml SI(MOD-sp2) 32.0 ml/m\S\2 SV(MOD-bp) 79.4 ml SI(MOD-bp) 37.5 ml/m\S\2 SV(sp4-el) 97.1 ml SI(sp4-el) 45.8 ml/m\S\2 SV(sp2-el) 73.8 ml SI(sp2-el) 34.8 ml/m\S\2 Doppler Measurements and Calculations MV E max colton 104.2 cm/sec MV A max colton 87.4 cm/sec MV E/A 1.2 MV dec time 0.20 sec Ao V2 max 195.0 cm/sec Ao max PG 15.2 mmHg Ao max PG (full) 12.8 mmHg GUALBERTO(V,A) 1.4 cm\S\2 GUALBERTO(V,D) 1.4 cm\S\2 LV V1 max PG 2.4 mmHg LV V1 max 76.9 cm/sec PA V2 max 91.7 cm/sec PA max PG 3.4 mmHg
--- NOTE | 2017-03-30 19:22 | Progress Note ---
Medicine Progress Note Date & Time of Visit: Mar 30, 2017 at 10:08. Subjective Pt was seen and examined Lying in bed with no distress Pt said that he feels slightly better today he said that he continue to feel week denies any chest pain, palpitation, dizziness and SOB Objective Last 8 Hrs Date Time Temp Pulse Resp B/P (MAP) Pulse Ox O2 Delivery O2 Flow Rate FiO2 03/30/17 16:00 Nasal Cannula 2.0 03/30/17 15:51 36.6 75 18 138/69 (92) 98 Nasal Cannula 2.0 03/30/17 12:00 99 Nasal Cannula 2.0 03/30/17 11:25 36.5 74 18 118/72 (87) 98 Nasal Cannula 2.0 Physical Exam: General- No acute distress Head- atraumatic Eyes- PERRL, EOMI ENT- oropharynx clear Neck- supple, no JVD Lungs- clear to auscultation Heart- regular rhythm Abdomen- normal bowel sounds, soft Extremities- no calf tenderness Neuro- alert, oriented x 3; PERRL, EOMI Skin- warm & dry Laboratory Results: Last 24 Hours Test 03/29/17 20:45 03/29/17 22:58 03/30/17 07:29 Influenza Type A Antigen Neg for Influ A Influenza Type B Antigen Neg for Influ B Lactic Acid Level 2.4 mmol/L 1.2 mmol/L Creatine Kinase MB 0.8 ng/ml 1.8 ng/ml Creatine Kinase MB Ratio 1.8 Troponin I 0.225 ng/ml 0.138 ng/ml White Blood Count 12.49 K/uL Red Blood Count 3.68 M/uL Hemoglobin 11.3 g/dL Hematocrit 32.9 % Mean Corpuscular Volume 89.4 fL Mean Corpuscular Hemoglobin 30.7 pg Mean Corpuscular Hemoglobin Concent 34.3 g/dl RDW Standard Deviation 43.2 fL RDW Coefficient of Variation 13.2 % Platelet Count 153 K/uL Mean Platelet Volume 9.6 fL Sodium Level 139 mmol/L Potassium Level 4.4 mmol/L Chloride Level 107 mmol/L Carbon Dioxide Level 27 mmol/L Anion Gap 5.0 mmol/L Blood Urea Nitrogen 18 mg/dl Creatinine 1.30 mg/dl Est Creatinine Clear Calc Drug Dose 46.1 ml/min Estimated GFR () 57.3 Estimated GFR (Non- 49.4 BUN/Creatinine Ratio 13.9 Random Glucose 97 mg/dl Calcium Level 7.5 mg/dl Magnesium Level 2.1 mg/dl Total Creatine Kinase 98 U/L Triglycerides Level 89 mg/dl Cholesterol Level 119 mg/dl HDL Cholesterol 31 mg/dl LDL Cholesterol, Calculated 70 mg/dl VLDL Cholesterol, Calculated 18 mg/dl Cholesterol/HDL Ratio 3.8 Date/Time Source Procedure Growth Status 03/29/17 19:17 Blood Blood Culture Pending Received Assessment & Plan SEVERE SEPSIS DUE TO UTI Meet sepsis criteria on admission with WBC 12.6K, tachycardic, elevated POC lactic acid, with positive UA Received Levaquin and Vanco in the ED preliminary urine culture results and add back if needed Prior urine culture grew Enterococcus from 2014 CT chest/abd/pelvis showed no acute findings Received IVL Continue monitor cbc Blood cx penting Urine cx grew pinpoint, will reincubate Received Vanco Continue Levaquin ELEVATED TROPONIN likely demand ischemia from sepsis and NICKO Denies any chest pain EKG showed no ischemic ST changes CM trending down ECHO done today showed * Normal LV chamber size with borderline concentric LVH. * Normal LV systolic function, EF 65-70%. * No segmental left ventricular wall motion abnormalities are noted. * Grade II diastolic dysfunction. * No significant valvular pathology. * Small anterior and apical pericardial effusion without hemodynamic significance. Stranding present to suggest chronicity. NICKO ON CKD STAGE III Baseline creat ~ 1.3 Creatine on admission 1.8 today Creatine improved to 1.3 today Likely prerenal due to dehydration from poor PO intake / sepsis Continue holding ARB and diuretic Received On IVF HYPOKALEMIA, HYPOMAGNESEMIA Due to poor PO intake Stable Continue monitor WEAKNESS Due to acute illness fall precaution PT/OT NAUSEA, POOR APPETITE suspect due to acute illness/UTI if does not improve, could consider GI consult for possible EGD stable HTN BP was in the low side continue holding BP med Monitor BP DVT PROPHYLAXIS SQ Heparin CODE STATUS FULL CODE Current Inpatient Medications: Current Inpatient Medications Medications (Trade) Dose Ordered Sig/Vicky Route Start Time Stop Time Status Last Admin Dose Admin Ioversol (Optiray 320) 111 ml UD PRN IV 03/29/17 18:45 04/02/17 18:44 Heparin Sodium (Porcine) (Heparin Sq 5000 Unit/0.5ml) 5,000 unit Q8 SQ 03/30/17 06:00 04/29/17 05:59 03/30/17 13:50 5,000 UNIT Sodium Chloride 1,000 ml @ 125 mls/hr Q8H IV 03/29/17 21:20 04/28/17 21:19 03/30/17 15:46 125 MLS/HR Acetaminophen (Tylenol Tab) 650 mg Q4H PRN PO 03/29/17 21:30 04/28/17 21:29 Ondansetron HCl (Zofran Inj) 4 mg Q6H PRN IV 03/29/17 21:30 04/28/17 21:29 Levofloxacin (Consult) 1 ea UD PRN N/A 03/29/17 22:05 04/28/17 22:04 Aspirin (Ecotrin Tab) 81 mg DAILY PO 03/30/17 09:00 04/29/17 08:59 03/30/17 08:05 81 MG Cholecalciferol (Vitamin D Tab) 1,000 inter.unit DAILY PO 03/30/17 09:00 04/29/17 08:59 03/30/17 08:06 1,000 INTER.UNIT Oxybutynin Chloride (Ditropan-Xl Tab) 10 mg DAILY PO 03/30/17 09:00 04/29/17 08:59 03/30/17 08:06 10 MG Pantoprazole Sodium (Protonix Tab) 40 mg DAILY PO 03/30/17 09:00 04/29/17 08:59 03/30/17 08:05 40 MG Levofloxacin 750 mg/Prmx 150 ml @ 100 mls/hr Q48H IV 03/31/17 20:00 04/08/17 19:59
[2017-03-30] MEDS ORDERED: ACETAMINOPHEN 500 MG TAB PO ONE ×2 (21:30→23:40)
[2017-03-31] VITALS (9 sets, daily range): BP systolic 110–164; BP diastolic 68–89; PULSE 75–106; TEMP 36.6–37.6; O2SAT 91–100
[2017-03-31] MEDS ORDERED: ZOLPIDEM TARTRATE 5 MG TAB ONE (02:22)
[2017-03-31] MEDS ORDERED: ZOLPIDEM TARTRATE 5 MG TAB PO ONE ×2 (02:30→21:30)
[2017-03-31] MEDS: HEPARIN SOD 5000 UNIT/0.5 ML CARP SQ SCH ×3 (05:59→21:20)
[2017-03-31] MEDS ORDERED: VANCOMYCIN CONSULT ACTIVE PRN (06:32)
[2017-03-31] MEDS ORDERED: VANCOMYCIN INJ 2,000 MG in SODIUM CHLORIDE 0.9% 500ML 500 ML IV ONE (07:00)
[2017-03-31 07:17] LABS: HEMATOCRIT 35.2 % (42-52); MEAN CORPUSCULAR HEMOGLOBIN 29.7 pg (25-34); MEAN PLATELET VOLUME 9.7 fL (7.4-10.4); PLATELET COUNT 157 K/uL (130-400); RED BLOOD COUNT 3.91 M/uL (4.7-6.1); WHITE BLOOD COUNT 7.96 K/uL (4.8-10.8)
[2017-03-31] MEDS: OXYBUTYNIN CHLORIDE 5 MG TABCR PO SCH (07:53)
[2017-03-31] MEDS: ASPIRIN 81 MG ECTAB PO SCH (07:53)
[2017-03-31] MEDS: PANTOprazole SOD 40 MG TAB PO SCH (07:53)
[2017-03-31] MEDS: CHOLECALCIFEROL 1000 INTER.UNIT TAB PO SCH (07:53)
[2017-03-31 07:57] LABS: CREATININE 1.2 mg/dl (0.60-1.40)
[2017-03-31 07:58] LABS: BUN/CREATININE RATIO 13.8 (10-20); CALCIUM 8.2 mg/dl (8.5-10.1); POTASSIUM 4.2 mmol/L (3.5-5.1)
--- NOTE | 2017-03-31 09:00 | Pharmacy Progress Note ---
Pharmacy Abx Dose Short Note Date of Service Mar 31, 2017. Assessment & Plan Pt is being re-started on Vancomycin after 1/2 BC growing Gram(+) cocci ( sensitivities pending). He received 2000mg on 03/29/17. And now receiving 2nd loading dose of 2000mg (19mg/kg). Goal trough: 15-20mcg/mL. Pt population p'kinetics: T1/2=14.8hrs, ke=0.0467, Vd= 0.6. His renal fxn is close enough to his baseline that I fee comfortable initiating a scheduled maintenance dose. Will start maintenance dose of 1500mg ( 14mg/kg) q16 at 1800 on 03/31/17. Trough ordered for 04/02/17 @0130. Leukocytosis resolving, afebrile. UA from 03/29/17 (+) for nitrites. Good gram(- ) coverage with Levaquin. Levaquin may need increased to LVQ 750mg QD if eCrCl remains >50cc/min. Pharmacy will continue to monitor UO and renal fxn. Pharmacy will continue to follow and will adjust dose/frequency as necessary. Thank you.
--- NOTE | 2017-03-31 11:04 | Progress Note ---
Progress Note Date of Service Mar 31, 2017. Progress Note ID Consult Dictated #[id number] A/P: 1. GPC sepsis 2. Leukocytosis -Continue abx, follow final ID/sensitivity -Repeat cultures ordered -thank you
[2017-03-31] MEDS ORDERED: CHLORTHALIDONE 25 MG TAB PO ONE (11:37)
--- NOTE | 2017-03-31 11:38 | INFECT. DISEASE CONSULTATION ---
DATE OF CONSULTATION: 03/31/2017 REQUESTING PHYSICIAN: Julianna Diaz MD HISTORY OF PRESENT ILLNESS: This is an 87-year-old gentleman who was admitted with increasing weakness and nausea. His family is at the bedside. He reports he has had very poor p.o. intake for the last 2 weeks and has not been feeling like himself. Per the H&P, he has had a significant workup as an outpatient which was unremarkable. As part of his workup in the ER, blood cultures were obtained and 1/2 sets are growing gram positive cocci. Repeat cultures were repeated today. His urinalysis had only 5-10 WBCs, 4+ bacteria. He states he has been having increased frequency and has been having significant urination, but he denies any dysuria or hematuria associated with this. He has no abdominal pain. He states he has had an almost 20-pound weight loss in the past few weeks. He has some occasional dry cough but denies any productive cough or hemoptysis. He has no shortness of breath or chest pain. He has no vomiting or diarrhea. He denies any rectal bleeding. He initially had a white blood cell count of 12.6 and this improved to 7.9. A flu swab was negative in the ER. Urine culture is pending. He did have a CAT scan of the chest, abdomen and pelvis which was negative for infection; however, he does have a retained abdominal mesh. There is no surrounding collection. An echocardiogram was done to rule out endocarditis and transthoracic echo was negative. He was placed on Levaquin and vancomycin. He remains on these antibiotics and appears to be tolerating them well. He has been afebrile since admission. On exam today, he states overall he is feeling significantly better. He did eat breakfast but did not finish his meal. He has no complaints at this time. All remaining review of systems is reviewed and unremarkable. PAST MEDICAL HISTORY: Significant for carotid artery stenosis, chronic kidney disease, GERD, gout, hypertension. FAMILY HISTORY: Noncontributory. PAST SURGICAL HISTORY: Significant for appendectomy, cholecystectomy, ventral hernia repair with mesh placement and the left knee replacement. SOCIAL HISTORY: Significant for history of tobacco use. He has no drug or alcohol use. He lives with family. He denies any sick contacts. ALLERGIES: INCLUDE PENICILLIN, OMEPRAZOLE, PHENOBARBITAL AND STATIN DRUGS. CURRENT MEDICATIONS: Include Levaquin, vancomycin, aspirin, vitamin D, Ditropan, Protonix, subQ heparin, Tylenol, and Zofran. PHYSICAL EXAMINATION: VITAL SIGNS: He is afebrile, pulse 86, respiratory rate 18, blood pressure 143/73, oxygen saturation is 99% on 2 liters nasal cannula. GENERAL: He is awake, alert and oriented x3. He is in no acute distress. HEENT: Mucous membranes are moist. Extraocular muscles are intact. HEART: Regular and I do not auscultate a murmur. LUNGS: Clear bilaterally. ABDOMEN: Soft, nontender, and nondistended. There is no edema bilaterally. LABORATORY STUDIES: CBC today reveals a white blood cell count of 7.9, hemoglobin 11.6, platelets are 157. Chemistry panel: Sodium 138, potassium 4.2, chloride 106, bicarbonate 28, BUN 17, creatinine 1.2, glucose 96. LFTs in the ER were within normal limits. Lactic acid was 2.4, down to 1.2. Urinalysis again and 4+ bacteria and 5-10 WBCs. Flu swab was negative. Blood cultures from the 9th are growing gram positive cocci in 1 out of 2 sets. Urine culture is pinpoint growth and is being reintubated. Blood cultures from the 11th are pending. IMAGING: As above. ASSESSMENT AND PLAN: 1. Gram Gram-positive septicemia. 2. Leukocytosis, resolved at this time. He will remain on empiric antibiotics pending the results of repeat blood cultures as well as identification of his gram positive from the bloodstream and additional antibiotic recommendation will be made at that time. Thank you for this consultation.
--- NOTE | 2017-03-31 11:41 | Progress Note ---
Medicine Progress Note Date & Time of Visit: Mar 31, 2017 at 11:28. Subjective Pt was seen examined Lying in bed comfortable with and daughter at bedside Pt said that he feels much better today he said that he slept well last night his strength is getting better has not had a BM yet denies any chest pain, palpitation, dizziness and sob Objective Last 8 Hrs Date Time Temp Pulse Resp B/P (MAP) Pulse Ox O2 Delivery O2 Flow Rate FiO2 03/31/17 08:00 99 Nasal Cannula 2.0 03/31/17 07:41 36.7 86 18 143/73 (96) 99 Nasal Cannula 2.0 03/31/17 04:08 36.6 106 18 123/76 (92) 97 Nasal Cannula 2.0 03/31/17 04:00 Nasal Cannula 2.0 Physical Exam: General- No acute distress Head- atraumatic Eyes- PERRL, EOMI ENT- oropharynx clear Neck- supple, no JVD Lungs- +mild wheezing Heart- regular rhythm Abdomen- normal bowel sounds, soft Extremities- no calf tenderness Neuro- alert, oriented x 3; PERRL, EOMI Skin- warm & dry Laboratory Results: Last 24 Hours Test 03/31/17 07:01 White Blood Count 7.96 K/uL Red Blood Count 3.91 M/uL Hemoglobin 11.6 g/dL Hematocrit 35.2 % Mean Corpuscular Volume 90.0 fL Mean Corpuscular Hemoglobin 29.7 pg Mean Corpuscular Hemoglobin Concent 33.0 g/dl RDW Standard Deviation 43.0 fL RDW Coefficient of Variation 13.2 % Platelet Count 157 K/uL Mean Platelet Volume 9.7 fL Sodium Level 138 mmol/L Potassium Level 4.2 mmol/L Chloride Level 106 mmol/L Carbon Dioxide Level 28 mmol/L Anion Gap 4.0 mmol/L Blood Urea Nitrogen 17 mg/dl Creatinine 1.20 mg/dl Est Creatinine Clear Calc Drug Dose 51.0 ml/min Estimated GFR () 63.1 Estimated GFR (Non- 54.4 BUN/Creatinine Ratio 13.8 Random Glucose 96 mg/dl Calcium Level 8.2 mg/dl Magnesium Level 2.0 mg/dl Date/Time Source Procedure Growth Status 03/31/17 10:15 Blood Blood Culture Pending Received 03/31/17 09:59 Blood Blood Culture Pending Received Assessment & Plan SEVERE SEPSIS Meet sepsis criteria on admission with WBC 12.6K, tachycardic, elevated POC lactic acid, with positive UA Received Levaquin and Vanco in the ED preliminary urine culture results and add back if needed Prior urine culture grew Enterococcus from 2014 CT chest/abd/pelvis showed no acute findings Received IVF Continue monitor cbc Blood cx grew gram positive cocci Urine cx grew pinpoint Restarted IV vanco Continue Levaquin ID consulted will repeat blood cx echo already done on 03/30 did not mention any feature for vegetation continue monitor ELEVATED TROPONIN likely demand ischemia from sepsis and NICKO Denies any chest pain EKG showed no ischemic ST changes CM trending down ECHO done today showed * Normal LV chamber size with borderline concentric LVH. * Normal LV systolic function, EF 65-70%. * No segmental left ventricular wall motion abnormalities are noted. * Grade II diastolic dysfunction. * No significant valvular pathology. * Small anterior and apical pericardial effusion without hemodynamic significance. Stranding present to suggest chronicity. NICKO ON CKD STAGE III Baseline creat ~ 1.3 Creatine on admission 1.8 today Creatine improved to 1.2 today Likely prerenal due to dehydration from poor PO intake / sepsis Continue holding ARB Will resume chlorthalidone since mild wheezing presents on exam D/C IVF HYPOKALEMIA, HYPOMAGNESEMIA Due to poor PO intake Stable Continue monitor WEAKNESS Due to acute illness fall precaution PT/OT NAUSEA, POOR APPETITE suspect due to acute illness/UTI if does not improve, could consider GI consult for possible EGD stable HTN BP was in the low side continue holding losartan Resume chlorthalidone Monitor BP DVT PROPHYLAXIS SQ Heparin CODE STATUS FULL CODE DISPOSITION Will discharge once medically stable Current Inpatient Medications: Current Inpatient Medications Medications (Trade) Dose Ordered Sig/Vicky Route Start Time Stop Time Status Last Admin Dose Admin Ioversol (Optiray 320) 111 ml UD PRN IV 03/29/17 18:45 04/02/17 18:44 Heparin Sodium (Porcine) (Heparin Sq 5000 Unit/0.5ml) 5,000 unit Q8 SQ 03/30/17 06:00 04/29/17 05:59 03/31/17 05:59 5,000 UNIT Acetaminophen (Tylenol Tab) 650 mg Q4H PRN PO 03/29/17 21:30 04/28/17 21:29 Ondansetron HCl (Zofran Inj) 4 mg Q6H PRN IV 03/29/17 21:30 04/28/17 21:29 Levofloxacin (Consult) 1 ea UD PRN N/A 03/29/17 22:05 04/28/17 22:04 Aspirin (Ecotrin Tab) 81 mg DAILY PO 03/30/17 09:00 04/29/17 08:59 03/31/17 07:53 81 MG Cholecalciferol (Vitamin D Tab) 1,000 inter.unit DAILY PO 03/30/17 09:00 04/29/17 08:59 03/31/17 07:53 1,000 INTER.UNIT Oxybutynin Chloride (Ditropan-Xl Tab) 10 mg DAILY PO 03/30/17 09:00 04/29/17 08:59 03/31/17 07:53 10 MG Pantoprazole Sodium (Protonix Tab) 40 mg DAILY PO 03/30/17 09:00 04/29/17 08:59 03/31/17 07:53 40 MG Levofloxacin 750 mg/Prmx 150 ml @ 100 mls/hr Q48H IV 03/31/17 20:00 04/08/17 19:59 Vancomycin HCl (Consult) 1 ea UD PRN N/A 03/31/17 06:32 04/30/17 06:31 Vancomycin HCl 1500 mg/Sodium Chloride 530 ml @ 200 mls/hr Q16H IV 03/31/17 18:00 04/10/17 17:59
[2017-03-31] MEDS: ACETAMINOPHEN 325 MG TAB PO PRN (16:43)
[2017-03-31] MEDS: VANCOMYCIN INJ 1,500 MG in SODIUM CHLORIDE 0.9% 500ML 500 ML IV SCH (18:04)
[2017-03-31] MEDS ORDERED: LEVOFLOXACIN 750MG / D5W IV SCH (20:00)
[2017-04-01] VITALS (11 sets, daily range): BP systolic 136–167; BP diastolic 71–85; PULSE 79–109; TEMP 36.6–36.9; O2SAT 93–99
[2017-04-01] MEDS: HEPARIN SOD 5000 UNIT/0.5 ML CARP SQ SCH ×3 (05:50→20:59)
[2017-04-01] MEDS: CHOLECALCIFEROL 1000 INTER.UNIT TAB PO SCH (07:57)
[2017-04-01] MEDS: OXYBUTYNIN CHLORIDE 5 MG TABCR PO SCH (07:57)
[2017-04-01] MEDS: PANTOprazole SOD 40 MG TAB PO SCH (07:57)
[2017-04-01] MEDS: ASPIRIN 81 MG ECTAB PO SCH (07:57)
[2017-04-01] MEDS: CHLORTHALIDONE 25 MG TAB PO SCH (07:58)
[2017-04-01] MEDS: VANCOMYCIN INJ 1,500 MG in SODIUM CHLORIDE 0.9% 500ML 500 ML IV SCH (10:29)
[2017-04-01 14:15] LABS: CREATININE 1.1 mg/dl (0.60-1.40)
[2017-04-01] MEDS ORDERED: LEVOFLOXACIN 750MG / D5W IV SCH (20:00)
--- NOTE | 2017-04-01 20:06 | Progress Note ---
Medicine Progress Note Date & Time of Visit: Apr 01, 2017 at 10:00. Subjective Pt was seen and examined Lying in bed with no distress Pt said that he feels much better he said that he walked with PT he said that he is getting a little stronger denies any fever, palpitation, dizziness and sob Objective Last 8 Hrs Date Time Temp Pulse Resp B/P (MAP) Pulse Ox O2 Delivery O2 Flow Rate FiO2 04/01/17 16:00 99 Nasal Cannula 2.0 04/01/17 15:37 36.6 79 18 137/75 (95) 97 Room Air 04/01/17 12:17 36.8 82 16 155/81 (105) 94 Room Air Physical Exam: General- No acute distress Head- atraumatic Eyes- PERRL, EOMI ENT- oropharynx clear Neck- supple, no JVD Lungs- +mild wheezing Heart- regular rhythm Abdomen- normal bowel sounds, soft Extremities- no calf tenderness Neuro- alert, oriented x 3; PERRL, EOMI Skin- warm & dry Laboratory Results: Last 24 Hours Test 04/01/17 13:46 Creatinine 1.10 mg/dl Est Creatinine Clear Calc Drug Dose 55.6 ml/min Estimated GFR () 70.1 Estimated GFR (Non- 60.5 Assessment & Plan SEVERE SEPSIS Meet sepsis criteria on admission with WBC 12.6K, tachycardic, elevated POC lactic acid, with positive UA Received Levaquin and Vanco in the ED preliminary urine culture results and add back if needed Prior urine culture grew Enterococcus from 2014 CT chest/abd/pelvis showed no acute findings Received IVF Continue monitor cbc Blood cx grew gram positive cocci Urine cx grew pinpoint Restarted IV vanco Continue Levaquin ID consulted will repeat blood cx echo already done on 03/30 did not mention any feature for vegetation continue monitor 04/01 Clinically improved Preliminary blood cx grew staph species Repeat blood cx pending ID on board recommended to continue current abx WBC normal ELEVATED TROPONIN likely demand ischemia from sepsis and NICKO Denies any chest pain EKG showed no ischemic ST changes CM trending down ECHO done today showed * Normal LV chamber size with borderline concentric LVH. * Normal LV systolic function, EF 65-70%. * No segmental left ventricular wall motion abnormalities are noted. * Grade II diastolic dysfunction. * No significant valvular pathology. * Small anterior and apical pericardial effusion without hemodynamic significance. Stranding present to suggest chronicity. NICKO ON CKD STAGE III Baseline creat ~ 1.3 Creatine on admission 1.8 today Creatine improved to 1.1 today Likely prerenal due to dehydration from poor PO intake / sepsis Continue holding ARB Will resume chlorthalidone since mild wheezing presents on exam D/C IVF HYPOKALEMIA, HYPOMAGNESEMIA Due to poor PO intake Stable Continue monitor WEAKNESS Due to acute illness fall precaution PT/OT NAUSEA, POOR APPETITE suspect due to acute illness/UTI if does not improve, could consider GI consult for possible EGD Resolved HTN BP was in the low side Resume chlorthalidone will consider to resume losartan in am Monitor BP DVT PROPHYLAXIS SQ Heparin CODE STATUS FULL CODE DISPOSITION Will discharge once medically stable D/c telemetry Consultants: ID Current Inpatient Medications: Current Inpatient Medications Medications (Trade) Dose Ordered Sig/Vicky Route Start Time Stop Time Status Last Admin Dose Admin Ioversol (Optiray 320) 111 ml UD PRN IV 03/29/17 18:45 04/02/17 18:44 Heparin Sodium (Porcine) (Heparin Sq 5000 Unit/0.5ml) 5,000 unit Q8 SQ 03/30/17 06:00 04/29/17 05:59 04/01/17 14:17 5,000 UNIT Acetaminophen (Tylenol Tab) 650 mg Q4H PRN PO 03/29/17 21:30 04/28/17 21:29 03/31/17 16:43 650 MG Ondansetron HCl (Zofran Inj) 4 mg Q6H PRN IV 03/29/17 21:30 04/28/17 21:29 Levofloxacin (Consult) 1 ea UD PRN N/A 03/29/17 22:05 04/28/17 22:04 Aspirin (Ecotrin Tab) 81 mg DAILY PO 03/30/17 09:00 04/29/17 08:59 04/01/17 07:57 81 MG Cholecalciferol (Vitamin D Tab) 1,000 inter.unit DAILY PO 03/30/17 09:00 04/29/17 08:59 04/01/17 07:57 1,000 INTER.UNIT Oxybutynin Chloride (Ditropan-Xl Tab) 10 mg DAILY PO 03/30/17 09:00 04/29/17 08:59 04/01/17 07:57 10 MG Pantoprazole Sodium (Protonix Tab) 40 mg DAILY PO 03/30/17 09:00 04/29/17 08:59 04/01/17 07:57 40 MG Vancomycin HCl (Consult) 1 ea UD PRN N/A 03/31/17 06:32 04/30/17 06:31 Vancomycin HCl 1500 mg/Sodium Chloride 530 ml @ 200 mls/hr Q16H IV 03/31/17 18:00 04/10/17 17:59 04/01/17 10:29 200 MLS/HR Chlorthalidone (Hygroton Tab) 25 mg DAILY PO 04/01/17 09:00 05/01/17 08:59 04/01/17 07:58 25 MG Levofloxacin 750 mg/Prmx 150 ml @ 100 mls/hr Q24H IV 04/01/17 20:00 04/08/17 19:59
[2017-04-02] MEDS: ACETAMINOPHEN 325 MG TAB PO PRN (00:36)
[2017-04-02] MEDS ORDERED: VANCOMYCIN TROUGH ONE (01:30)
[2017-04-02] MEDS: VANCOMYCIN INJ 1,500 MG in SODIUM CHLORIDE 0.9% 500ML 500 ML IV SCH (02:53)
[2017-04-02] MEDS: HEPARIN SOD 5000 UNIT/0.5 ML CARP SQ SCH ×3 (05:14→22:00)
[2017-04-02 07:10] LABS: HEMATOCRIT 37.3 % (42-52); MEAN CELL VOLUME 87.6 fL (80-100); MEAN CORPUSCULAR HEMOGLOBIN 28.9 pg (25-34); MEAN PLATELET VOLUME 9.5 fL (7.4-10.4); PLATELET COUNT 158 K/uL (130-400); RED BLOOD COUNT 4.26 M/uL (4.7-6.1); WHITE BLOOD COUNT 5.63 K/uL (4.8-10.8)
[2017-04-02 07:41] LABS: BUN/CREATININE RATIO 8.7 (10-20); CALCIUM 8.7 mg/dl (8.5-10.1); CREATININE 1.2 mg/dl (0.60-1.40); POTASSIUM 4.4 mmol/L (3.5-5.1)
[2017-04-02 07:44] VITALS: BP 159/79; PULSE 76; TEMP 36.4; O2SAT 95
[2017-04-02] MEDS: ASPIRIN 81 MG ECTAB PO SCH (09:10)
[2017-04-02] MEDS: CHLORTHALIDONE 25 MG TAB PO SCH (09:10)
[2017-04-02] MEDS: CHOLECALCIFEROL 1000 INTER.UNIT TAB PO SCH (09:10)
[2017-04-02] MEDS: OXYBUTYNIN CHLORIDE 5 MG TABCR PO SCH (09:11)
[2017-04-02] MEDS: PANTOprazole SOD 40 MG TAB PO SCH (09:11)
[2017-04-02] MEDS ORDERED: NURSING VERBAL MED ORDER ONE (10:00)
[2017-04-02] MEDS ORDERED: PROMETHAZINE HCL INJ 12.5 MG in SODIUM CHLORIDE 0.9% 50ML 50 ML IV ONE (10:15)
--- NOTE | 2017-04-02 11:27 | Pharmacy Progress Note ---
Pharmacy Antibiotic Prog Note Date of Service Apr 02, 2017. Subjective The patient is currently receiving vancomycin 1500 mg IV every 16 hours. The patient is currently on day # 3 of resumed vancomycin IV therapy. Objective Height (Feet): 5 Height (Inches): 6.00 Weight (Kilograms): 108.300 Lab Results (24hrs): Test 04/01/17 13:46 04/02/17 01:21 04/02/17 06:52 Creatinine 1.10 mg/dl (0.60-1.40) 1.20 mg/dl (0.60-1.40) Est Creatinine Clear Calc Drug Dose 55.6 ml/min 51.0 ml/min Estimated GFR () 70.1 63.1 Estimated GFR (Non- 60.5 54.4 Vancomycin Level Trough 20.6 mcg/ml (SEE COMMENT) White Blood Count 5.63 K/uL (4.8-10.8) Red Blood Count 4.26 M/uL (4.7-6.1) Hemoglobin 12.3 g/dL (14.0-18.0) Hematocrit 37.3 % (42-52) Mean Corpuscular Volume 87.6 fL (80-100) Mean Corpuscular Hemoglobin 28.9 pg (25-34) Mean Corpuscular Hemoglobin Concent 33.0 g/dl (32-36) RDW Standard Deviation 41.8 fL (36.4-46.3) RDW Coefficient of Variation 13.1 % (11.5-14.5) Platelet Count 158 K/uL (130-400) Mean Platelet Volume 9.5 fL (7.4-10.4) Sodium Level 135 mmol/L (136-145) Potassium Level 4.4 mmol/L (3.5-5.1) Chloride Level 102 mmol/L (98-107) Carbon Dioxide Level 25 mmol/L (21-32) Anion Gap 8.0 mmol/L (3-11) Blood Urea Nitrogen 10 mg/dl (7-18) BUN/Creatinine Ratio 8.7 (10-20) Random Glucose 118 mg/dl (70-99) Calcium Level 8.7 mg/dl (8.5-10.1) Assessment & Plan Assessment * 87 yo M with Staphylococcal bacteremia with unclear source. ? urinary as patient was symptomatic but no definitive organism isolated in urine culture. * Repeat blood cultures currently w no growth * On levofloxacin and vancomycin * ID consulted * Goal vancomycin trough 15-20 mcg/mL * Trough of 20.6 mcg/mL is slightly supratherapeutic. * Would normally continue current dose despite this as would prefer higher trough for bacteremia and this trough is only slightly supratherapeutic. However, will instead decrease dose very slightly as this patient is at risk for accumulation 2nd BMI * Repeat trough prior to 3rd dose of new regimen Vancomycin Plan * Decrease vancomycin 1250 mg IV q16h * Trough 04/04 @ 0130 Recommendation * Consider discontinuation of levofloxacin IV. Or if continued therapy desired , please consider transition to PO Pharmacy will continue to follow and will adjust dose/frequency as necessary. Thank you
--- NOTE | 2017-04-02 11:45 | Progress Note ---
Subjective Date of Service: Apr 02, 2017. Subjective Pt evaluation today including: conversation w/ patient, physical exam, chart review, lab review pt feeling much better, denies fevers. tolerating abx. repeat blood cultures pending, initial blood culture with staph species, final pending. echo negative but limited, tte. 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 denies wounds, lacerations, dental issues etc, unclear source of staph. currently feeling much better. no cp, no cough, no n/v/d. all remaining ros reviewed and are negative. Objective Vital Signs Date Time Temp Pulse Resp B/P (MAP) Pulse Ox O2 Delivery O2 Flow Rate FiO2 04/02/17 08:00 Room Air 04/02/17 07:44 36.4 76 18 159/79 (105) 95 04/02/17 00:00 Room Air 04/01/17 22:19 36.9 109 18 167/85 (112) 95 Room Air 04/01/17 22:00 36.9 79 20 96 2.0 04/01/17 20:00 Room Air 04/01/17 19:58 36.9 79 20 166/80 (108) 96 Room Air 04/01/17 16:00 99 Nasal Cannula 2.0 04/01/17 15:37 36.6 79 18 137/75 (95) 97 Room Air 04/01/17 12:17 36.8 82 16 155/81 (105) 94 Room Air 04/01/17 12:00 99 Nasal Cannula 2.0 Physical Exam General Appearance: WD/WN, no apparent distress Eyes: normal inspection, EOMI Neck: supple Respiratory/Chest: lungs clear, normal breath sounds, no respiratory distress Cardiovascular: regular rate, rhythm, no edema Abdomen: soft Extremities: non-tender, normal inspection, no pedal edema Neurologic/Psychiatric: alert, oriented x 3 Skin: normal color Laboratory Results Item Value Date Time Blood Culture - Preliminary Resulted 03/29/17 1842 Blood Staph Species Blood Culture - Preliminary Resulted 03/29/17 1917 Blood Staph Species Blood Culture - Preliminary Resulted 03/31/17 0959 Blood NO GROWTH TO DATE. Blood Culture - Preliminary Resulted 03/31/17 1015 Blood NO GROWTH TO DATE. Last 24 Hours Test 04/01/17 13:46 04/02/17 01:21 04/02/17 06:52 Creatinine 1.10 mg/dl 1.20 mg/dl Est Creatinine Clear Calc Drug Dose 55.6 ml/min 51.0 ml/min Estimated GFR () 70.1 63.1 Estimated GFR (Non- 60.5 54.4 Vancomycin Level Trough 20.6 mcg/ml White Blood Count 5.63 K/uL Red Blood Count 4.26 M/uL Hemoglobin 12.3 g/dL Hematocrit 37.3 % Mean Corpuscular Volume 87.6 fL Mean Corpuscular Hemoglobin 28.9 pg Mean Corpuscular Hemoglobin Concent 33.0 g/dl RDW Standard Deviation 41.8 fL RDW Coefficient of Variation 13.1 % Platelet Count 158 K/uL Mean Platelet Volume 9.5 fL Sodium Level 135 mmol/L Potassium Level 4.4 mmol/L Chloride Level 102 mmol/L Carbon Dioxide Level 25 mmol/L Anion Gap 8.0 mmol/L Blood Urea Nitrogen 10 mg/dl BUN/Creatinine Ratio 8.7 Random Glucose 118 mg/dl Calcium Level 8.7 mg/dl Assessment and Plan (1) Staphylococcus aureus septicemia Assessment & Plan: awaiting final culture results. repeat cultures negative, ok for picc. 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 tentative stop date 04/28. will need weekly cbc, cmp, while on abx. has pcn allergy, will change to dapto today for once daily dosing but will await insurance coverage. if dapto not covered would continue with vanco.
[2017-04-02 15:08] VITALS: BP 156/79; PULSE 87; TEMP 36.7; O2SAT 95
[2017-04-02] MEDS ORDERED: VANCOMYCIN INJ 1,250 MG in SODIUM CHLORIDE 0.9% 250ML 250 ML IV SCH (18:00)
[2017-04-02] MEDS: DAPTOmycin IV 600 MG in SODIUM CHLORIDE 0.9% 50ML 50 ML IV SCH (18:18)
--- NOTE | 2017-04-02 19:44 | Progress Note ---
Medicine Progress Note Date & Time of Visit: Apr 02, 2017 at 09:30. Subjective Pt was seen and examined Pt said that he did not have a good night last night He said that he had headache last night He said that headache usually resolves after drinking coffee He said that he drink 2 cups of coffee last night, then feel nauseated after that He was given Phenergan this morning that makes him sleeping and drowsy Denies any chest pain, palpitation, dizziness and SOB Objective Last 8 Hrs Date Time Temp Pulse Resp B/P (MAP) Pulse Ox O2 Delivery O2 Flow Rate FiO2 04/02/17 15:45 Room Air 04/02/17 15:08 36.7 87 20 156/79 (104) 95 Physical Exam: General- No acute distress Head- atraumatic Eyes- PERRL, EOMI ENT- oropharynx clear Neck- supple, no JVD Lungs- No wheezing Heart- regular rhythm Abdomen- normal bowel sounds, soft Extremities- no calf tenderness Neuro- alert, oriented x 3; PERRL, EOMI Skin- warm & dry Laboratory Results: Last 24 Hours Test 04/02/17 01:21 04/02/17 06:52 Vancomycin Level Trough 20.6 mcg/ml White Blood Count 5.63 K/uL Red Blood Count 4.26 M/uL Hemoglobin 12.3 g/dL Hematocrit 37.3 % Mean Corpuscular Volume 87.6 fL Mean Corpuscular Hemoglobin 28.9 pg Mean Corpuscular Hemoglobin Concent 33.0 g/dl RDW Standard Deviation 41.8 fL RDW Coefficient of Variation 13.1 % Platelet Count 158 K/uL Mean Platelet Volume 9.5 fL Sodium Level 135 mmol/L Potassium Level 4.4 mmol/L Chloride Level 102 mmol/L Carbon Dioxide Level 25 mmol/L Anion Gap 8.0 mmol/L Blood Urea Nitrogen 10 mg/dl Creatinine 1.20 mg/dl Est Creatinine Clear Calc Drug Dose 51.0 ml/min Estimated GFR () 63.1 Estimated GFR (Non- 54.4 BUN/Creatinine Ratio 8.7 Random Glucose 118 mg/dl Calcium Level 8.7 mg/dl Assessment & Plan SEVERE SEPSIS Meet sepsis criteria on admission with WBC 12.6K, tachycardic, elevated POC lactic acid, with positive UA Received Levaquin and Vanco in the ED preliminary urine culture results and add back if needed Prior urine culture grew Enterococcus from 2014 CT chest/abd/pelvis showed no acute findings Received IVF Continue monitor cbc Blood cx grew gram positive cocci Urine cx grew pinpoint Restarted IV vanco Continue Levaquin ID consulted will repeat blood cx echo already done on 03/30 did not mention any feature for vegetation continue monitor 04/02 Clinically improved WBC normal, afebrile blood cx grew coag neg staph not lugdunensis Abx changed to dapto since it is once daily Repeat blood cx no growth so far ID on board recommended 4 weeks of IV abx with Dapto or vanco whichever his insurance will cover Consent sign for picc line placement Will talk to sample case porter in the morning to arrange for home abx infusion ELEVATED TROPONIN likely demand ischemia from sepsis and NICKO Denies any chest pain EKG showed no ischemic ST changes CM trends down ECHO done today showed * Normal LV chamber size with borderline concentric LVH. * Normal LV systolic function, EF 65-70%. * No segmental left ventricular wall motion abnormalities are noted. * Grade II diastolic dysfunction. * No significant valvular pathology. * Small anterior and apical pericardial effusion without hemodynamic significance. Stranding present to suggest chronicity. INCKO ON CKD STAGE III Baseline creat ~ 1.3 Creatine on admission 1.8 today Creatine improved to 1.2 today Likely prerenal due to dehydration from poor PO intake / sepsis Continue holding ARB on chlorthalidone since mild wheezing presents on exam D/Dione IVF HYPOKALEMIA, HYPOMAGNESEMIA Due to poor PO intake Stable Continue monitor WEAKNESS Due to acute illness fall precaution PT/OT NAUSEA, POOR APPETITE suspect due to acute illness/UTI if does not improve, could consider GI consult for possible EGD Resolved HTN BP was in the low side Resume chlorthalidone Resume losartan in am Monitor BP DVT PROPHYLAXIS SQ Heparin CODE STATUS FULL CODE DISPOSITION D/dione telemetry Will need 4 weeks IV abx Consultants: ID Current Inpatient Medications: Current Inpatient Medications Medications (Trade) Dose Ordered Sig/Vicky Route Start Time Stop Time Status Last Admin Dose Admin Heparin Sodium (Porcine) (Heparin Sq 5000 Unit/0.5ml) 5,000 unit Q8 SQ 03/30/17 06:00 04/29/17 05:59 04/02/17 14:14 5,000 UNIT Acetaminophen (Tylenol Tab) 650 mg Q4H PRN PO 03/29/17 21:30 04/28/17 21:29 04/02/17 00:36 650 MG Ondansetron HCl (Zofran Inj) 4 mg Q6H PRN IV 03/29/17 21:30 04/28/17 21:29 04/02/17 08:29 4 MG Aspirin (Ecotrin Tab) 81 mg DAILY PO 03/30/17 09:00 04/29/17 08:59 04/02/17 09:10 81 MG Cholecalciferol (Vitamin D Tab) 1,000 inter.unit DAILY PO 03/30/17 09:00 04/29/17 08:59 04/02/17 09:10 1,000 INTER.UNIT Oxybutynin Chloride (Ditropan-Xl Tab) 10 mg DAILY PO 03/30/17 09:00 04/29/17 08:59 04/02/17 09:11 10 MG Pantoprazole Sodium (Protonix Tab) 40 mg DAILY PO 03/30/17 09:00 04/29/17 08:59 04/02/17 09:11 40 MG Chlorthalidone (Hygroton Tab) 25 mg DAILY PO 04/01/17 09:00 05/01/17 08:59 04/02/17 09:10 25 MG Daptomycin 600 mg/ Sodium Chloride 62 ml @ 100 mls/hr DAILY@1800 IV 04/02/17 18:00 04/28/17 17:59 04/02/17 18:18 100 MLS/HR
[2017-04-02] MEDS ORDERED: HydrALAZINE HCL 20 MG/ML VIAL IV. PRN (19:45)
[2017-04-03] VITALS (8 sets, daily range): BP systolic 75–139; BP diastolic 46–78; PULSE 76–94; TEMP 36.6–37; O2SAT 93–97
[2017-04-03 05:56] LABS: HEMATOCRIT 36.9 % (42-52); MEAN CELL VOLUME 87.9 fL (80-100); MEAN CORPUSCULAR HEMOGLOBIN 29.8 pg (25-34); MEAN CORPUSCULAR HGB CONC 33.9 g/dl (32-36); MEAN PLATELET VOLUME 9.8 fL (7.4-10.4); PLATELET COUNT 176 K/uL (130-400); WHITE BLOOD COUNT 6.59 K/uL (4.8-10.8)
[2017-04-03] MEDS: HEPARIN SOD 5000 UNIT/0.5 ML CARP SQ SCH ×3 (06:15→20:46)
[2017-04-03 06:37] LABS: BUN/CREATININE RATIO 10.1 (10-20); CALCIUM 8.9 mg/dl (8.5-10.1); CREATININE 1.3 mg/dl (0.60-1.40); POTASSIUM 3.7 mmol/L (3.5-5.1)
[2017-04-03] MEDS ORDERED: LOSARTAN POTASSIUM 50 MG TAB PO SCH (09:00)
[2017-04-03] MEDS: CHLORTHALIDONE 25 MG TAB PO SCH (09:24)
[2017-04-03] MEDS: CHOLECALCIFEROL 1000 INTER.UNIT TAB PO SCH (09:24)
[2017-04-03] MEDS: PANTOprazole SOD 40 MG TAB PO SCH (09:24)
[2017-04-03] MEDS: ASPIRIN 81 MG ECTAB PO SCH (09:24)
[2017-04-03] MEDS: OXYBUTYNIN CHLORIDE 5 MG TABCR PO SCH (09:24)
--- NOTE | 2017-04-03 10:58 | Progress Note ---
Medicine Progress Note Date & Time of Visit: Apr 03, 2017 at 10:52. Subjective Pt was seen and examined Lying in bed with no distress Pt said that he feels fine He said that he does not have any nausea Denies any chest pain, palpitation, dizziness and SOB Objective Last 8 Hrs Date Time Temp Pulse Resp B/P (MAP) Pulse Ox O2 Delivery O2 Flow Rate FiO2 04/03/17 07:37 36.6 94 18 122/78 (93) 94 Physical Exam: General- No acute distress Head- atraumatic Eyes- PERRL, EOMI ENT- oropharynx clear Neck- supple, no JVD Lungs- No wheezing Heart- regular rhythm Abdomen- normal bowel sounds, soft Extremities- no calf tenderness Neuro- alert, oriented x 3; PERRL, EOMI Skin- warm & dry Laboratory Results: Last 24 Hours Test 04/03/17 05:21 White Blood Count 6.59 K/uL Red Blood Count 4.20 M/uL Hemoglobin 12.5 g/dL Hematocrit 36.9 % Mean Corpuscular Volume 87.9 fL Mean Corpuscular Hemoglobin 29.8 pg Mean Corpuscular Hemoglobin Concent 33.9 g/dl RDW Standard Deviation 41.6 fL RDW Coefficient of Variation 12.9 % Platelet Count 176 K/uL Mean Platelet Volume 9.8 fL Sodium Level 136 mmol/L Potassium Level 3.7 mmol/L Chloride Level 102 mmol/L Carbon Dioxide Level 26 mmol/L Anion Gap 8.0 mmol/L Blood Urea Nitrogen 13 mg/dl Creatinine 1.30 mg/dl Est Creatinine Clear Calc Drug Dose 47.1 ml/min Estimated GFR () 57.3 Estimated GFR (Non- 49.4 BUN/Creatinine Ratio 10.1 Random Glucose 118 mg/dl Calcium Level 8.9 mg/dl Assessment & Plan SEVERE SEPSIS Meet sepsis criteria on admission with WBC 12.6K, tachycardic, elevated POC lactic acid, with positive UA Received Levaquin and Vanco in the ED preliminary urine culture results and add back if needed Prior urine culture grew Enterococcus from 2014 CT chest/abd/pelvis showed no acute findings Received IVF Continue monitor cbc Blood cx grew gram positive cocci Urine cx grew pinpoint Restarted IV vanco Continue Levaquin ID consulted will repeat blood cx echo already done on 03/30 did not mention any feature for vegetation continue monitor 04/03 Clinically improved WBC normal, afebrile blood cx grew coag neg staph not lugdunensis Abx changed to dapto since it is once daily Repeat blood cx preliminary report showed no growth ID on board recommended 4 weeks of IV abx with Dapto or vanco whichever his insurance will cover(Will give 2 scripts to community case manager to check with insurance ) Tentative antibiotic stops date 04/28. Will need weekly cbc, cmp while on abx. Consent sign for picc line placement assistant general manager is working to arrange for home abx infusion and home health services Waiting for insurance approval ELEVATED TROPONIN likely demand ischemia from sepsis and NICKO Denies any chest pain EKG showed no ischemic ST changes CM trends down ECHO done today showed * Normal LV chamber size with borderline concentric LVH. * Normal LV systolic function, EF 65-70%. * No segmental left ventricular wall motion abnormalities are noted. * Grade II diastolic dysfunction. * No significant valvular pathology. * Small anterior and apical pericardial effusion without hemodynamic significance. Stranding present to suggest chronicity. NICKO ON CKD STAGE III Baseline creat ~ 1.3 Creatine on admission 1.8 today Creatine improved to 1.2 today Likely prerenal due to dehydration from poor PO intake / sepsis Continue holding ARB on chlorthalidone since mild wheezing presents on exam D/Dione IVF HYPOKALEMIA, HYPOMAGNESEMIA Due to poor PO intake Stable Continue monitor WEAKNESS Due to acute illness fall precaution PT/OT NAUSEA, POOR APPETITE suspect due to acute illness/UTI if does not improve, could consider GI consult for possible EGD Resolved HTN BP was in the low side Continue chlorthalidone and Losartan Monitor BP DVT PROPHYLAXIS SQ Heparin CODE STATUS FULL CODE DISPOSITION D/dione telemetry Will need 4 weeks IV abx Consultants: ID Current Inpatient Medications: Current Inpatient Medications Medications (Trade) Dose Ordered Sig/Vicky Route Start Time Stop Time Status Last Admin Dose Admin Heparin Sodium (Porcine) (Heparin Sq 5000 Unit/0.5ml) 5,000 unit Q8 SQ 03/30/17 06:00 04/29/17 05:59 04/03/17 06:15 5,000 UNIT Acetaminophen (Tylenol Tab) 650 mg Q4H PRN PO 03/29/17 21:30 04/28/17 21:29 04/02/17 00:36 650 MG Ondansetron HCl (Zofran Inj) 4 mg Q6H PRN IV 03/29/17 21:30 11/8/17 21:29 04/02/17 08:29 4 MG Aspirin (Ecotrin Tab) 81 mg DAILY PO 03/30/17 09:00 04/29/17 08:59 04/03/17 09:24 81 MG Cholecalciferol (Vitamin D Tab) 1,000 inter.unit DAILY PO 03/30/17 09:00 04/29/17 08:59 04/03/17 09:24 1,000 INTER.UNIT Oxybutynin Chloride (Ditropan-Xl Tab) 10 mg DAILY PO 03/30/17 09:00 04/29/17 08:59 04/03/17 09:24 10 MG Pantoprazole Sodium (Protonix Tab) 40 mg DAILY PO 03/30/17 09:00 04/29/17 08:59 04/03/17 09:24 40 MG Chlorthalidone (Hygroton Tab) 25 mg DAILY PO 04/01/17 09:00 05/01/17 08:59 04/03/17 09:24 25 MG Daptomycin 600 mg/ Sodium Chloride 62 ml @ 100 mls/hr DAILY@1800 IV 04/02/17 18:00 04/28/17 17:59 04/02/17 18:18 100 MLS/HR Losartan Potassium (coZAAR TAB) 50 mg DAILY PO 04/03/17 09:00 05/03/17 08:59 04/03/17 09:24 50 MG Hydralazine HCl (HydrALAZINE INJ) 5 mg Q6 PRN IV. 04/02/17 19:45 05/02/17 19:44 Heparin Sodium (Porcine) (Heparin 10 Unit/ ml 5 ml Flush) 5 ml PRN PRN FLUSH 04/02/17 22:15 05/02/17 22:14 04/03/17 05:21 5 ML
[2017-04-03] MEDS: ACETAMINOPHEN 325 MG TAB PO PRN ×2 (14:25→23:29)
[2017-04-03] MEDS ORDERED: SODIUM CHLORIDE 0.9% 500ML 500 ML IV SCH (15:30)
[2017-04-03] MEDS ORDERED: SODIUM CHLORIDE 0.9% 1000ML 500 ML IV SCH (17:00)
[2017-04-03] MEDS ORDERED: NURSING VERBAL MED ORDER ONE (17:00)
[2017-04-03] MEDS: DAPTOmycin IV 600 MG in SODIUM CHLORIDE 0.9% 50ML 50 ML IV SCH (17:52)
--- NOTE | 2017-04-03 22:20 | DIAGNOSTIC IMAGING REPORT ---
LEFT ANKLE 2 VIEWS CLINICAL HISTORY: Left ankle pain. FINDINGS: AP and lateral views of the left ankle are obtained. No prior studies are available for comparison at the time of dictation. The skeletal structures are osteopenic. No fracture is seen. The ankle mortise is intact. There are dorsal and plantar calcaneal enthesophytes. Degenerative spurring is seen along the anterior tibial plafond. No joint effusion is identified. Mild soft tissue edema is noted. There is atherosclerotic calcification of the regional arteries. IMPRESSION: Osteopenia and degenerative change as above. No left ankle fracture is seen. Electronically signed by: Jesús Burnett M.D. 04/03/2017 10:19 PM Dictated Date/Time: 04/03/2017 10:18 PM
--- NOTE | 2017-04-03 22:21 | DIAGNOSTIC IMAGING REPORT ---
RIGHT ANKLE 2 VIEWS CLINICAL HISTORY: Right ankle pain. FINDINGS: AP and lateral views of the right ankle are obtained. No prior studies are available for comparison at the time of dictation. The skeletal structures are osteopenic. No fracture is seen. The ankle mortise is intact. A large enthesophyte versus chronic avulsion injury is seen along the inferior aspect of the medial malleolus. There is a large dorsal calcaneal enthesophyte. No joint effusion is identified. Mild soft tissue edema is noted. There is atherosclerotic calcification of the regional arteries. IMPRESSION: Osteopenia and degenerative change as above. No right ankle fracture is seen. Electronically signed by: Jesús Burnett M.D. 04/03/2017 10:20 PM Dictated Date/Time: 04/03/2017 10:19 PM
[2017-04-04] MEDS ORDERED: VANCOMYCIN TROUGH ONE (01:30)
[2017-04-04] MEDS: HEPARIN SOD 5000 UNIT/0.5 ML CARP SQ SCH ×3 (06:03→21:19)
[2017-04-04 07:09] LABS: CREATININE 1.7 mg/dl (0.60-1.40)
[2017-04-04 07:24] VITALS: BP 134/76; PULSE 83; TEMP 36.8; O2SAT 95
[2017-04-04] MEDS ORDERED: SODIUM CHLORIDE 0.9% 1000ML 1,000 ML IV SCH ×2 (07:45→18:45)
[2017-04-04 08:00] VITALS: O2SAT 95
[2017-04-04] MEDS: ASPIRIN 81 MG ECTAB PO SCH (08:36)
[2017-04-04] MEDS: OXYBUTYNIN CHLORIDE 5 MG TABCR PO SCH (08:36)
[2017-04-04] MEDS: PANTOprazole SOD 40 MG TAB PO SCH (08:36)
[2017-04-04] MEDS: CHOLECALCIFEROL 1000 INTER.UNIT TAB PO SCH (08:36)
[2017-04-04] MEDS: CHLORTHALIDONE 25 MG TAB PO SCH (08:36)
[2017-04-04 14:41] VITALS: BP 128/73; PULSE 97; TEMP 36.7; O2SAT 92
[2017-04-04 17:34] VITALS: O2SAT 92
[2017-04-04] MEDS: DAPTOmycin IV 600 MG in SODIUM CHLORIDE 0.9% 50ML 50 ML IV SCH (17:40)
--- NOTE | 2017-04-04 18:33 | Progress Note ---
Medicine Progress Note Date & Time of Visit: Apr 04, 2017 at 10:21. Subjective Pt was seen and examined Sitting in chair with no distress with daughter and at bedside Pt said that he continue to have tenderness in his ankle Pt said that he does have gout and his gout usually starts like that he said that he last gout attack was last month He said that he has prednisone at home to take when he has a gout attack Denies any chest pain, palpitation, fever and SOB Objective Last 8 Hrs Date Time Temp Pulse Resp B/P (MAP) Pulse Ox O2 Delivery O2 Flow Rate FiO2 04/04/17 17:34 92 Room Air 04/04/17 14:41 36.7 97 20 128/73 (91) 92 Room Air Physical Exam: General- No acute distress Head- atraumatic Eyes- PERRL, EOMI ENT- oropharynx clear Neck- supple, no JVD Lungs- No wheezing Heart- regular rhythm Abdomen- normal bowel sounds, soft Extremities- no calf tenderness, +b/l ankle tenderness Neuro- alert, oriented x 3; PERRL, EOMI Skin- warm & dry Laboratory Results: Last 24 Hours Test 04/04/17 05:45 Creatinine 1.70 mg/dl Est Creatinine Clear Calc Drug Dose 36.0 ml/min Estimated GFR () 41.4 Estimated GFR (Non- 35.7 Assessment & Plan SEVERE SEPSIS Meet sepsis criteria on admission with WBC 12.6K, tachycardic, elevated POC lactic acid, with positive UA Received Levaquin and Vanco in the ED preliminary urine culture results and add back if needed Prior urine culture grew Enterococcus from 2014 CT chest/abd/pelvis showed no acute findings Received IVF Continue monitor cbc Blood cx grew gram positive cocci Urine cx grew pinpoint Restarted IV vanco Continue Levaquin ID consulted will repeat blood cx echo already done on 03/30 did not mention any feature for vegetation continue monitor 04/04 Clinically improved WBC normal, afebrile blood cx grew coag neg staph not lugdunensis Abx changed to dapto since it is once daily Repeat blood cx preliminary report showed no growth ID on board recommended 4 weeks of IV abx with Dapto or vanco whichever his insurance will cover(Will give 2 scripts to window caser to check with insurance ) Tentative antibiotic stops date 04/28. Will need weekly cbc, cmp while on abx. Consent signed and for picc line placed statement clerks manager is working to arrange for home abx infusion and home health services Insurance approval pending due to the weekend ELEVATED TROPONIN likely demand ischemia from sepsis and NICKO Denies any chest pain EKG showed no ischemic ST changes CM trends down ECHO done today showed * Normal LV chamber size with borderline concentric LVH. * Normal LV systolic function, EF 65-70%. * No segmental left ventricular wall motion abnormalities are noted. * Grade II diastolic dysfunction. * No significant valvular pathology. * Small anterior and apical pericardial effusion without hemodynamic significance. Stranding present to suggest chronicity. NICKO ON CKD STAGE III Baseline creat ~ 1.3 Creatine on admission 1.8 today Creatine 1.7 today Likely prerenal due to dehydration from poor PO intake / sepsis Continue holding ARB and diuretic Today dose of Chlorthalidone already given Continue IVF Continue monitor BMP GOUT/ B/L ANKLE TENDERNESS C/o b/l ankle tenderness Ankles Xray showed Osteopenia and degenerative. No left ankle fracture unable to give NSAIDs because of Elevating creatine Will start on low dose prednisone Continue Tylenol prn continue monitor HYPOKALEMIA, HYPOMAGNESEMIA Due to poor PO intake Stable Continue monitor WEAKNESS Due to acute illness fall precaution PT/OT NAUSEA, POOR APPETITE suspect due to acute illness/UTI if does not improve, could consider GI consult for possible EGD Resolved HTN BP was in the low side Continue chlorthalidone and Losartan Monitor BP DVT PROPHYLAXIS SQ Heparin CODE STATUS FULL CODE DISPOSITION D/dione telemetry Will need 4 weeks IV abx Consultants: ID Current Inpatient Medications: Current Inpatient Medications Medications (Trade) Dose Ordered Sig/Vicky Route Start Time Stop Time Status Last Admin Dose Admin Heparin Sodium (Porcine) (Heparin Sq 5000 Unit/0.5ml) 5,000 unit Q8 SQ 03/30/17 06:00 04/29/17 05:59 04/04/17 14:11 5,000 UNIT Acetaminophen (Tylenol Tab) 650 mg Q4H PRN PO 03/29/17 21:30 04/28/17 21:29 04/03/17 23:29 650 MG Ondansetron HCl (Zofran Inj) 4 mg Q6H PRN IV 03/29/17 21:30 04/28/17 21:29 04/02/17 08:29 4 MG Aspirin (Ecotrin Tab) 81 mg DAILY PO 03/30/17 09:00 04/29/17 08:59 04/04/17 08:36 81 MG Cholecalciferol (Vitamin D Tab) 1,000 inter.unit DAILY PO 03/30/17 09:00 04/29/17 08:59 04/04/17 08:36 1,000 INTER.UNIT Oxybutynin Chloride (Ditropan-Xl Tab) 10 mg DAILY PO 03/30/17 09:00 04/29/17 08:59 04/04/17 08:36 10 MG Pantoprazole Sodium (Protonix Tab) 40 mg DAILY PO 03/30/17 09:00 04/29/17 08:59 04/04/17 08:36 40 MG Chlorthalidone (Hygroton Tab) 25 mg DAILY PO 04/01/17 09:00 05/01/17 08:59 Future Hold 04/04/17 08:36 25 MG Daptomycin 600 mg/ Sodium Chloride 62 ml @ 100 mls/hr DAILY@1800 IV 04/02/17 18:00 04/28/17 17:59 04/04/17 17:40 100 MLS/HR Losartan Potassium (coZAAR TAB) 50 mg DAILY PO 04/03/17 09:00 05/03/17 08:59 Future Hold 04/03/17 09:24 50 MG Hydralazine HCl (HydrALAZINE INJ) 5 mg Q6 PRN IV. 04/02/17 19:45 05/02/17 19:44 Heparin Sodium (Porcine) (Heparin 10 Unit/ ml 5 ml Flush) 5 ml PRN PRN FLUSH 04/02/17 22:15 05/02/17 22:14 04/04/17 05:45 5 ML Sodium Chloride 1,000 ml @ 80 mls/hr [id number] IV 04/04/17 07:45 04/04/17 20:14 04/04/17 08:32 80 MLS/HR
[2017-04-05] VITALS: BP 145/72; PULSE 88; TEMP 36.6; O2SAT 95
[2017-04-05] MEDS: ACETAMINOPHEN 325 MG TAB PO PRN (01:15)
[2017-04-05] MEDS: HEPARIN SOD 5000 UNIT/0.5 ML CARP SQ SCH ×2 (06:10→14:31)
[2017-04-05 06:26] LABS: BUN/CREATININE RATIO 12.4 (10-20); CALCIUM 8.3 mg/dl (8.5-10.1); CREATININE 1.74 mg/dl (0.60-1.40); POTASSIUM 3.8 mmol/L (3.5-5.1); URIC ACID 8.6 mg/dl (2.6-7.2)
[2017-04-05 07:14] VITALS: BP 153/71; PULSE 91; TEMP 36.6; O2SAT 95
[2017-04-05 08:00] VITALS: O2SAT 95
[2017-04-05] MEDS: CHOLECALCIFEROL 1000 INTER.UNIT TAB PO SCH (08:16)
[2017-04-05] MEDS: ASPIRIN 81 MG ECTAB PO SCH (08:16)
[2017-04-05] MEDS: PANTOprazole SOD 40 MG TAB PO SCH (08:18)
[2017-04-05] MEDS: OXYBUTYNIN CHLORIDE 5 MG TABCR PO SCH (08:18)
--- NOTE | 2017-04-05 10:32 | Progress Note ---
Subjective Date of Service: Apr 05, 2017. Subjective pt afebrile. tolerating abx. repeat blood cultures negative to date. no overnight events. awaiting insurance approval. Objective Vital Signs Date Time Temp Pulse Resp B/P (MAP) Pulse Ox O2 Delivery O2 Flow Rate FiO2 04/05/17 07:14 36.6 91 20 153/71 (98) 95 Room Air 04/05/17 00:00 36.6 88 20 145/72 (96) 95 Room Air 04/05/17 00:00 Room Air 04/04/17 17:34 92 Room Air 04/04/17 14:41 36.7 97 20 128/73 (91) 92 Room Air Laboratory Results Item Value Date Time Blood Culture - Final Complete 03/29/17 1842 Blood Coag Neg Staph Not Lugdunensis Blood Culture - Final Complete 03/29/17 1917 Blood Coag Neg Staph Not Lugdunensis Blood Culture - Preliminary Resulted 03/31/17 0959 Blood NO GROWTH TO DATE. Blood Culture - Preliminary Resulted 03/31/17 1015 Blood NO GROWTH TO DATE. Last 24 Hours Test 04/05/17 05:18 Sodium Level 137 mmol/L Potassium Level 3.8 mmol/L Chloride Level 103 mmol/L Carbon Dioxide Level 25 mmol/L Anion Gap 9.0 mmol/L Blood Urea Nitrogen 22 mg/dl Creatinine 1.74 mg/dl Est Creatinine Clear Calc Drug Dose 35.2 ml/min Estimated GFR () 40.3 Estimated GFR (Non- 34.7 BUN/Creatinine Ratio 12.4 Random Glucose 110 mg/dl Uric Acid 8.6 mg/dl Calcium Level 8.3 mg/dl Assessment and Plan (1) Sepsis due to coagulase-negative staphylococcal infection Assessment & Plan: will continue dapto, awaiting approval. alternate is vanco. repeat cultures negative, will need 4 weeks from first negative, echo negative but difficult.
[2017-04-05] MEDS ORDERED: SODIUM CHLORIDE 0.9% 1000ML 1,000 ML IV SCH (11:00)
--- NOTE | 2017-04-05 15:32 | Progress Note ---
Medicine Progress Note Date & Time of Visit: Apr 05, 2017 at 10:09. Subjective Pt was seen and examined Lying in bed comfortable with no distress reading newspaper Pt said that he feels much better today He said that the pain in his ankles improve significantly He said that he walked yesterday with no distress Denies any chest pain, palpitation, dizziness and SOB Objective Last 8 Hrs Date Time Temp Pulse Resp B/P (MAP) Pulse Ox O2 Delivery O2 Flow Rate FiO2 04/05/17 08:00 95 Room Air 04/05/17 07:14 36.6 91 20 153/71 (98) 95 Room Air Physical Exam: General- No acute distress Head- atraumatic Eyes- PERRL, EOMI ENT- oropharynx clear Neck- supple, no JVD Lungs- No wheezing Heart- regular rhythm Abdomen- normal bowel sounds, soft Extremities- no calf tenderness, +b/l ankle tenderness Neuro- alert, oriented x 3; PERRL, EOMI Skin- warm & dry Laboratory Results: Last 24 Hours Test 04/05/17 05:18 Sodium Level 137 mmol/L Potassium Level 3.8 mmol/L Chloride Level 103 mmol/L Carbon Dioxide Level 25 mmol/L Anion Gap 9.0 mmol/L Blood Urea Nitrogen 22 mg/dl Creatinine 1.74 mg/dl Est Creatinine Clear Calc Drug Dose 35.2 ml/min Estimated GFR () 40.3 Estimated GFR (Non- 34.7 BUN/Creatinine Ratio 12.4 Random Glucose 110 mg/dl Uric Acid 8.6 mg/dl Calcium Level 8.3 mg/dl Assessment & Plan SEVERE SEPSIS Meet sepsis criteria on admission with WBC 12.6K, tachycardic, elevated POC lactic acid, with positive UA Received Levaquin and Vanco in the ED preliminary urine culture results and add back if needed Prior urine culture grew Enterococcus from 2014 CT chest/abd/pelvis showed no acute findings Received IVF Continue monitor cbc Blood cx grew gram positive cocci Urine cx grew pinpoint Restarted IV vanco Continue Levaquin ID consulted will repeat blood cx echo already done on 03/30 did not mention any feature for vegetation continue monitor 04/05 Clinically improved WBC normal, afebrile blood cx grew coag neg staph not lugdunensis Abx changed to dapto since it is once daily Repeat blood cx preliminary report showed no growth ID on board recommended 4 weeks of IV abx with Dapto or vanco whichever his insurance will cover(Will give 2 scripts to case specialist to check with insurance ) Tentative antibiotic stops date 04/28. Will need weekly cbc, cmp while on abx. Consent signed and for picc line placed commercial manager arranged for home abx infusion with Dapto and home health services Follow up with Sury CHOWDHURY on 04/09 @ 7:45 AM ELEVATED TROPONIN likely demand ischemia from sepsis and NICKO Denies any chest pain EKG showed no ischemic ST changes CM trends down ECHO done today showed * Normal LV chamber size with borderline concentric LVH. * Normal LV systolic function, EF 65-70%. * No segmental left ventricular wall motion abnormalities are noted. * Grade II diastolic dysfunction. * No significant valvular pathology. * Small anterior and apical pericardial effusion without hemodynamic significance. Stranding present to suggest chronicity. NICKO ON CKD STAGE III Creatine on 03/18/17 was 1.5 Creatine on admission 1.8 today Likely prerenal due to dehydration from poor PO intake / sepsis Creatine 1.6 today Continue holding Losartan and Chlorthalidone Continue IVF Continue monitor BMP GOUT/ B/L ANKLE TENDERNESS C/o b/l ankle tenderness Ankles Xray showed Osteopenia and degenerative. No left ankle fracture unable to give NSAIDs because of Elevating creatine Will start on low dose prednisone Continue Tylenol prn Uric acid elevated 8.6, consider to add allopurinol as an outpatient (Defer to PCP) HYPOKALEMIA, HYPOMAGNESEMIA Due to poor PO intake Stable Continue monitor WEAKNESS Due to acute illness fall precaution PT/OT NAUSEA, POOR APPETITE suspect due to acute illness/UTI if does not improve, could consider GI consult for possible EGD Resolved HTN BP was in the low side Hold chlorthalidone and Losartan due to elevate creatine Consider decrease chlorthalidone to 12.5 mg daily on discharge Monitor BP DVT PROPHYLAXIS SQ Heparin CODE STATUS FULL CODE DISPOSITION D/C home today if creatine trending down Continue IV abx with Dapto for 4 weeks Consultants: ID Current Inpatient Medications: Current Inpatient Medications Medications (Trade) Dose Ordered Sig/Vicky Route Start Time Stop Time Status Last Admin Dose Admin Heparin Sodium (Porcine) (Heparin Sq 5000 Unit/0.5ml) 5,000 unit Q8 SQ 03/30/17 06:00 04/29/17 05:59 04/05/17 14:31 5,000 UNIT Acetaminophen (Tylenol Tab) 650 mg Q4H PRN PO 03/29/17 21:30 04/28/17 21:29 04/05/17 01:15 650 MG Ondansetron HCl (Zofran Inj) 4 mg Q6H PRN IV 03/29/17 21:30 04/28/17 21:29 04/02/17 08:29 4 MG Aspirin (Ecotrin Tab) 81 mg DAILY PO 03/30/17 09:00 04/29/17 08:59 04/05/17 08:16 81 MG Cholecalciferol (Vitamin D Tab) 1,000 inter.unit DAILY PO 03/30/17 09:00 04/29/17 08:59 04/05/17 08:16 1,000 INTER.UNIT Oxybutynin Chloride (Ditropan-Xl Tab) 10 mg DAILY PO 03/30/17 09:00 04/29/17 08:59 04/05/17 08:18 10 MG Pantoprazole Sodium (Protonix Tab) 40 mg DAILY PO 03/30/17 09:00 04/29/17 08:59 04/05/17 08:18 40 MG Chlorthalidone (Hygroton Tab) 25 mg DAILY PO 04/01/17 09:00 05/01/17 08:59 Future Hold 04/04/17 08:36 25 MG Daptomycin 600 mg/ Sodium Chloride 62 ml @ 100 mls/hr DAILY@1800 IV 04/02/17 18:00 04/28/17 17:59 04/04/17 17:40 100 MLS/HR Losartan Potassium (coZAAR TAB) 50 mg DAILY PO 04/03/17 09:00 05/03/17 08:59 Future Hold 04/03/17 09:24 50 MG Hydralazine HCl (HydrALAZINE INJ) 5 mg Q6 PRN IV. 04/02/17 19:45 05/02/17 19:44 Heparin Sodium (Porcine) (Heparin 10 Unit/ ml 5 ml Flush) 5 ml PRN PRN FLUSH 04/02/17 22:15 05/02/17 22:14 04/04/17 05:45 5 ML Sodium Chloride 1,000 ml @ 100 mls/hr Q10H IV 04/05/17 11:00 04/05/17 20:59 04/05/17 12:20 100 MLS/HR
[2017-04-05 15:35] VITALS: BP 149/75; PULSE 93; TEMP 36.7; O2SAT 96
[2017-04-05] MEDS: DAPTOmycin IV 600 MG in SODIUM CHLORIDE 0.9% 50ML 50 ML IV SCH (16:07)
[2017-04-05 18:03] LABS: CREATININE 1.63 mg/dl (0.60-1.40)
[2017-04-05 18:40] VITALS: BP 149/75; PULSE 93; TEMP 36.7; O2SAT 96
[2017-04-05] MEDS ORDERED: DAPT500I IV (19:04)
--- NOTE | 2017-04-05 19:15 | Discharge Instructions ---
Discharge Instructions Date of Service Apr 05, 2017. Admission Reason for Admission: Sepsis, Uti Discharge Discharge Diagnosis / Problem: Sepsis, NICKO ON CKD STAGE III, Elevated troponin , Gout, Hypertention Discharge Goals Goal(s): Decrease discomfort, Improve function, Improve disease control Activity Recommendations Activity Limitations: resume your previous activity (as tolerated) . Instructions / Follow-Up Instructions / Follow-Up Discharge home with home services Follow up with Brea CHOWDHURY (Dr. [place] colleague) on 04/09 @ 7:45 AM Continue antibiotic Daptomycin home infusion tentative completion on 04/28 Check CBC and CMP weekly while on IV daptomycin antibiotic Check BMP on 04/08 to monitor kidney function Hold chlorthalidone for now. Your physician will tell you when to resume it after the blood test on . Monitor your blood pressure Increase fluid intake avoid medications that can damage your kidney such as aleve, ibuprofen, motrin, naproxen, meloxicam,.. Fall precaution Keep PICC line area clean Current Hospital Diet Patient's current hospital diet: AHA Diet (Heart Healthy) Discharge Diet Recommended Diet: AHA Diet (Heart Healthy) Pending Studies Studies pending at discharge: no Laboratory Results Lipid Panel Test 03/30/17 07:29 Range/Units Triglycerides Level 89 0-150 mg/dl Cholesterol Level 119 0-200 mg/dl HDL Cholesterol 31 mg/dl Cholesterol/HDL Ratio 3.8 LDL Cholesterol, Calculated 70 mg/dl Medical Emergencies . Who to Call and When: Medical Emergencies: If at any time you feel your situation is an emergency, please call 911 immediately. . Non-Emergent Contact Non-Emergency issues call your: Primary Care Provider Call Non-Emergent contact if: you have a fever, your pain is not controlled, you have any medication questions . . "Provider Documentation" section prepared by Julianna Diaz. . VTE Core Measure Inpt VTE Proph given/why not?: Unfractionated heparin SQ
--- NOTE | 2017-04-06 08:03 | Discharge Summary ---
Discharge Summary Date of Service Apr 06, 2017. Discharge Summary Admission Date: Mar 29, 2017 at 21:22 Discharge Date: Apr 05, 2017 Discharge Disposition: Home with services Principal Diagnosis: Sepsis Secondary Diagnoses/Problems: ELEVATED TROPONIN NICKO ON CKD STAGE III GOUT/ B/L ANKLE TENDERNESS HYPOKALEMIA/ HYPOMAGNESEMIA NAUSEA/ POOR APPETITE WEAKNESS HTN Procedures: (CHEST) THORAX WITHOUT, ABD/PELVIS NO IV OR ORAL CONT CT DOSE: 1602.73 mGy.cm HISTORY: fever of unknown origin, sepsis TECHNIQUE: Multiaxial CT images of the chest, abdomen, pelvis were performed without contrast. A dose lowering technique was utilized adhering to the principles of ALARA. COMPARISON: Abdomen and pelvis CT 03/15/2017. FINDINGS: No mediastinal or hilar lymphadenopathy. The heart is normal in size. No pleural or pericardial effusions. Coronary artery calcifications are again noted. 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 Stable rim calcified low density structure posterior to the descending thoracic aorta. The long-term stability favors a benign process. Tiny hiatus hernia. No suspicious lytic or blastic osseous lesions. No pneumothorax. Bibasilar linear densities are nonspecific but favor subsegmental atelectasis. No pneumoperitoneum. No pneumatosis. Prior anterior abdominal wall mesh. Tiny fat-containing umbilical hernia. Small fat-containing right inguinal hernia. Left inguinal hernia contains a short segment of the descending colon/sigmoid colon junction. This remains unchanged. The unenhanced spleen, adrenal glands, and pancreas are unremarkable. Cholecystectomy. Bilateral perinephric edema, unchanged. There are few stones within the lower pole the left kidney with the largest measuring 7 mm. Hepatic and bilateral renal hypodense lesions are not significant changed. Incomplete characterize on this noncontrast study but favor cysts. No change in the bilateral perinephric edema. No ureteral stones. No hydronephrosis. The bladder is not well-distended but appears unremarkable. Dominant left renal hypodense lesion measures approximately 4.6 cm. No retroperitoneal lymphadenopathy. Suboptimal evaluation for bowel pathology due to the lack of intravenous and oral contrast. However, there is no definite bowel wall thickening or obstruction. The appendix is surgically absent. IMPRESSION: 1. Bibasilar linear densities within the lungs are nonspecific but favor subsegmental atelectasis. No focal lung consolidations to suggest pneumonia. 2. No significant change within the abdomen and pelvis since the prior studies. No acute infectious process identified. 3. Left inguinal hernia containing a short segment of the colon. No evidence for bowel obstruction. 4. Prior appendectomy. 5. Stable bilateral perinephric edema. 6. Left-sided nephrolithiasis. No ureteral stones. No hydronephrosis. 7. Additional findings as described above. Electronically signed by: Geoff Alford M.D. 03/29/2017 8:46 PM Dictated Date/Time: 03/29/2017 8:32 PM (CHEST) THORAX WITHOUT, ABD/PELVIS NO IV OR ORAL CONT CT DOSE: 1602.73 mGy.cm HISTORY: fever of unknown origin, sepsis TECHNIQUE: Multiaxial CT images of the chest, abdomen, pelvis were performed without contrast. A dose lowering technique was utilized adhering to the principles of ALARA. COMPARISON: Abdomen and pelvis CT 03/15/2017. FINDINGS: No mediastinal or hilar lymphadenopathy. The heart is normal in size. No pleural or pericardial effusions. Coronary artery calcifications are again noted. 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 Stable rim calcified low density structure posterior to the descending thoracic aorta. The long-term stability favors a benign process. Tiny hiatus hernia. No suspicious lytic or blastic osseous lesions. No pneumothorax. Bibasilar linear densities are nonspecific but favor subsegmental atelectasis. No pneumoperitoneum. No pneumatosis. Prior anterior abdominal wall mesh. Tiny fat-containing umbilical hernia. Small fat-containing right inguinal hernia. Left inguinal hernia contains a short segment of the descending colon/sigmoid colon junction. This remains unchanged. The unenhanced spleen, adrenal glands, and pancreas are unremarkable. Cholecystectomy. Bilateral perinephric edema, unchanged. There are few stones within the lower pole the left kidney with the largest measuring 7 mm. Hepatic and bilateral renal hypodense lesions are not significant changed. Incomplete characterize on this noncontrast study but favor cysts. No change in the bilateral perinephric edema. No ureteral stones. No hydronephrosis. The bladder is not well-distended but appears unremarkable. Dominant left renal hypodense lesion measures approximately 4.6 cm. No retroperitoneal lymphadenopathy. Suboptimal evaluation for bowel pathology due to the lack of intravenous and oral contrast. However, there is no definite bowel wall thickening or obstruction. The appendix is surgically absent. IMPRESSION: 1. Bibasilar linear densities within the lungs are nonspecific but favor subsegmental atelectasis. No focal lung consolidations to suggest pneumonia. 2. No significant change within the abdomen and pelvis since the prior studies. No acute infectious process identified. 3. Left inguinal hernia containing a short segment of the colon. No evidence for bowel obstruction. 4. Prior appendectomy. 5. Stable bilateral perinephric edema. 6. Left-sided nephrolithiasis. No ureteral stones. No hydronephrosis. 7. Additional findings as described above. Electronically signed by: Geoff Alford M.D. 03/29/2017 8:46 PM Dictated Date/Time: 03/29/2017 8:32 PM CHEST ONE VIEW PORTABLE HISTORY: EVALUATE WEAKNESS COMPARISON: Chest 03/14/2017. FINDINGS: The heart remains mildly enlarged. No pneumothorax. Bibasilar interstitial thickening persists. Stable blunting the left lateral costophrenic sulcus. No pneumothorax. IMPRESSION: No change in the cardiomegaly and bibasilar interstitial thickening. Electronically signed by: Geoff Alford M.D. 03/29/2017 7:04 PM Dictated Date/Time: 03/29/2017 7:03 PM RIGHT ANKLE 2 VIEWS CLINICAL HISTORY: Right ankle pain. FINDINGS: AP and lateral views of the right ankle are obtained. No prior studies are available for comparison at the time of dictation. The skeletal structures are osteopenic. No fracture is seen. The ankle mortise is intact. A large enthesophyte versus chronic avulsion injury is seen along the inferior aspect of the medial malleolus. There is a large dorsal calcaneal enthesophyte. No joint effusion is identified. Mild soft tissue edema is noted. There is atherosclerotic calcification of the regional arteries. IMPRESSION: Osteopenia and degenerative change as above. No right ankle fracture is seen. Electronically signed by: Jesús Burnett M.D. 04/03/2017 10:20 PM Dictated Date/Time: 04/03/2017 10:19 PM LEFT ANKLE 2 VIEWS CLINICAL HISTORY: Left ankle pain. FINDINGS: AP and lateral views of the left ankle are obtained. No prior studies are available for comparison at the time of dictation. The skeletal structures are osteopenic. No fracture is seen. The ankle mortise is intact. There are dorsal and plantar calcaneal enthesophytes. Degenerative spurring is seen along the anterior tibial plafond. No joint effusion is identified. Mild soft tissue edema is noted. There is atherosclerotic calcification of the regional arteries. IMPRESSION: Osteopenia and degenerative change as above. No left ankle fracture is seen. Electronically signed by: Jesús Burnett M.D. 04/03/2017 10:19 PM Dictated Date/Time: 04/03/2017 10:18 PM Consultations: ID Medication Reconciliation New Medications: Daptomycin (Daptomycin) 500 Mg Inj 600 MG IV DAILY for 30 Days Complete antibiotic on 04/28 Continued Medications: Aspirin (Aspirin Ec) 81 Mg Tab 81 MG PO DAILY Cholecalciferol (Vitamin D) 1,000 Unit Tab 1000 UNITS PO DAILY Losartan Potassium (Cozaar) 50 Mg Tab 50 MG PO DAILY, TAB Oxybutynin Chloride Er (Ditropan Xl) 10 Mg Tab 10 MG PO DAILY, TAB Pantoprazole (Protonix) 40 Mg Tab 40 MG PO DAILY, #30 0 Refills Ranitidine (Zantac) 150 Mg Tab 150 MG PO BID PRN for GERD Discontinued Medications: Chlorthalidone (Hygroton) 25 Mg Tab 25 MG PO DAILY, TAB Admission Information HPI (per Admitting provider): 87 year old male who presents to the ED with weakness and nausea. Patient reports he has been sick for the past 6 weeks. He reports generally not feeling well. He was seen in in the ED on 03/14 for similar symptoms and work up including labs and CT abd/pelvis was unrevealing. He also has been evaluated by his PCP and has had a negative work up with labs, blood cultures, and echocardiogram with was unrevealing as well. Patient reports persistent nausea and a very poor appetite. He reports weight loss but he unsure of exactly how much (PCP notes reports 17 pounds). He has felt generally weak. He has had chills but denies fever. He has chronic exertional shortness of breath at baseline which is unchanged. He reports an occasional dry cough. He has felt lightheaded and dizzy and times but denies any syncopal event. No chest pain. He has some mild intermittent left sided abdominal pain. He denies vomiting, diarrhea, BRBPR, or dark tarry stools. He reports he had urinary burning that developed today. In the ED, patient's U/A is consistent with UTI. CT abd/pelvis is negative for acute findings. He is tachycardic but other vitals are stable. POC lactic acid 3.11. Creat 1.8 (up from baseline ~ 1.3). K+ and Mg+ are also low. He was given IVF, Vanco, Levaquin, Tylenol, and Mg+ and K+ replacements. Physical Exam (per Admitting): General Appearance: WD/WN, no apparent distress Head: normocephalic, atraumatic Eyes: normal inspection, EOMI, sclerae normal ENT: hearing grossly normal, + pertinent finding (dry mucous membranes) Neck: supple, no JVD, trachea midline Respiratory/Chest: lungs clear, normal breath sounds, no respiratory distress Cardiovascular: no edema, normal peripheral pulses, + tachycardia (regular rhythm) Abdomen/GI: normal bowel sounds, non tender, soft, no organomegaly Extremities/Musculoskelatal: normal inspection, no calf tenderness Neurologic/Psych: no motor/sensory deficits, alert, normal mood/affect, oriented x 3 Skin: normal color, warm/dry Hospital Course SEVERE SEPSIS Meet sepsis criteria on admission with WBC 12.6K, tachycardic, elevated POC lactic acid, with positive UA Received Levaquin and Vanco in the ED preliminary urine culture results and add back if needed Prior urine culture grew Enterococcus from 2014 CT chest/abd/pelvis showed no acute findings Received IVF Continue monitor cbc Blood cx grew gram positive cocci Urine cx grew pinpoint Restarted IV vanco Continue Levaquin ID consulted will repeat blood cx echo already done on 03/30 did not mention any feature for vegetation continue monitor 04/05 Clinically improved WBC normal, afebrile blood cx grew coag neg staph not lugdunensis Abx changed to dapto since it is once daily Repeat blood cx preliminary report showed no growth ID on board recommended 4 weeks of IV abx with Dapto or vanco whichever his insurance will cover(Will give 2 scripts to residential case manager to check with insurance ) Tentative antibiotic stops date 04/28. Will need weekly cbc, cmp while on abx. Consent signed and for picc line placed manager urology arranged for home abx infusion with Dapto and home health services Follow up with Sury CHOWDHURY on 04/09 @ 7:45 AM ELEVATED TROPONIN likely demand ischemia from sepsis and NICKO Denies any chest pain EKG showed no ischemic ST changes CM trends down ECHO done today showed * Normal LV chamber size with borderline concentric LVH. * Normal LV systolic function, EF 65-70%. * No segmental left ventricular wall motion abnormalities are noted. * Grade II diastolic dysfunction. * No significant valvular pathology. * Small anterior and apical pericardial effusion without hemodynamic significance. Stranding present to suggest chronicity. NICKO ON CKD STAGE III Creatine on 03/18/17 was 1.5 Creatine on admission 1.8 today Likely prerenal due to dehydration from poor PO intake / sepsis Creatine 1.6 today Continue holding Losartan and Chlorthalidone Continue IVF Continue monitor BMP GOUT/ B/L ANKLE TENDERNESS C/o b/l ankle tenderness Ankles Xray showed Osteopenia and degenerative. No left ankle fracture unable to give NSAIDs because of Elevating creatine Will start on low dose prednisone Continue Tylenol prn Uric acid elevated 8.6, consider to add allopurinol as an outpatient (Defer to PCP) HYPOKALEMIA, HYPOMAGNESEMIA Due to poor PO intake Stable Continue monitor WEAKNESS Due to acute illness fall precaution PT/OT NAUSEA, POOR APPETITE suspect due to acute illness/UTI if does not improve, could consider GI consult for possible EGD Resolved HTN BP was in the low side Hold chlorthalidone and Losartan due to elevate creatine Consider decrease chlorthalidone to 12.5 mg daily on discharge Monitor BP DVT PROPHYLAXIS SQ Heparin CODE STATUS FULL CODE DISPOSITION D/C home today if creatine trending down Continue IV abx with Dapto for 4 weeks Total time spent on discharge = 40 minutes This includes examination of the patient, discharge planning, medication reconciliation, and communication with other providers. Discharge Instructions Discharge Instructions Date of Service Apr 05, 2017. Admission Reason for Admission: Sepsis, Uti Discharge Discharge Diagnosis / Problem: Sepsis, NICKO ON CKD STAGE III, Elevated troponin , Gout, Hypertention Discharge Goals Goal(s): Decrease discomfort, Improve function, Improve disease control Activity Recommendations Activity Limitations: resume your previous activity (as tolerated) . Instructions / Follow-Up Instructions / Follow-Up Discharge home with home services Follow up with Brea CHOWDHURY (Dr. Gresham colleague) on 04/09 @ 7:45 AM Continue antibiotic Daptomycin home infusion tentative completion on 04/28 Check CBC and CMP weekly while on IV daptomycin antibiotic (Lab order given) Check BMP on 04/08 to monitor kidney function (Lab order given) Hold chlorthalidone for now. Your physician will tell you when to resume it after the blood test on . Monitor your blood pressure Increase fluid intake avoid medications that can damage your kidney such as Aleve, ibuprofen, Motrin, naproxen, meloxicam,.. Fall precaution Keep PICC line area clean Current Hospital Diet Patient's current hospital diet: AHA Diet (Heart Healthy) Discharge Diet Recommended Diet: AHA Diet (Heart Healthy) Pending Studies Studies pending at discharge: no Laboratory Results Lipid Panel Test 03/30/17 07:29 Range/Units Triglycerides Level 89 0-150 mg/dl Cholesterol Level 119 0-200 mg/dl HDL Cholesterol 31 mg/dl Cholesterol/HDL Ratio 3.8 LDL Cholesterol, Calculated 70 mg/dl Medical Emergencies . Who to Call and When: Medical Emergencies: If at any time you feel your situation is an emergency, please call 911 immediately. . Non-Emergent Contact Non-Emergency issues call your: Primary Care Provider Call Non-Emergent contact if: you have a fever, your pain is not controlled, you have any medication questions . . "Provider Documentation" section prepared by Julianna Diaz. . VTE Core Measure Inpt VTE Proph given/why not?: Unfractionated heparin SQ Additional Copies To Bert Gresham M.D.
== END 2017-04-05 19:51 | disposition home health service (06) | DRG 872 ==
LOC: EDBD 18:12 → C.EDA 18:13 → C.2T 21:22 → ENRESERV 21:45 → C.MS2W 04-01 22:13
PROVIDERS: ADMIT Hospitalist; ATTEND Internal Medicine
DX: A41.01 Sepsis due to Methicillin susceptible Staphylococcus aureus (principal); N39.0 Urinary tract infection, site not specified; N17.9 Acute kidney failure, unspecified; I24.8 Other forms of acute ischemic heart disease; N18.3 Chronic kidney disease, stage 3 (moderate); K21.9 Gastro-esophageal reflux disease without esophagitis; M10.9 Gout, unspecified; I12.9 Hypertensive chronic kidney disease with stage 1 through stage 4 chronic kidney disease, or unspecified chronic kidney disease; R65.20 Severe sepsis without septic shock; E87.6 Hypokalemia; E83.42 Hypomagnesemia; Z79.82 Long term (current) use of aspirin; Z79.899 Other long term (current) drug therapy

== ENCOUNTER 2017-04-09 09:15 | Emergency (ER) | payer OTHER ==
[~2017-04-09] VITALS: Ht 167.6 cm; Wt 107.0 kg
[~2017-04-09 09:15] MED LIST changes: -CPR500 PO; +DAPT500I IV; -HYG/25 PO; -INDO25CA14 PO; -TNR50 PO
[2017-04-09 09:20] VITALS: BP 155/86; PULSE 82; TEMP 36.8; O2SAT 98; Ht 167.6 cm; Wt 107.0 kg
--- NOTE | 2017-04-09 17:03 | EMERGENCY ROOM VISIT NOTE ---
History Report prepared by Raymundo: Gerardo Tierney Under the Supervision of: Dr. Gibson Shea M.D. First contact with patient: 09:40 Chief Complaint: PICC LINE CLOTTED Stated Complaint: PICC LINE-CALL IV TEAM-PER PATIENT History of Present Illness The patient is a 87 year old male who presents to the Emergency Room with complaints of constant redness of a PICC line site beginning today. The patient presents today with concerns of possible infection. He had the line placed in his right arm one week ago. He is seen by home health nursing who told him the PICC line appeared normal yesterday. The patient was admitted to the hospital for sepsis and UTI last week before his PICC line was placed. He has had regular Heparin flushes of his PICC line since placement. The patient denies fevers, chills, SOB, urinary symptoms, abnormal leg swelling, or arm swelling. Source of History: patient Onset: Today Position: arm (right) Quality: other (redness of PICC line site) Timing: constant Review of Systems See HPI for pertinent positives and negatives. A total of six systems were reviewed and were otherwise negative. Past Medical & Surgical Medical Problems: (1) Carotid artery stenosis (2) CKD (chronic kidney disease), stage III (3) GERD (gastroesophageal reflux disease) (4) Gout (5) HTN (hypertension) (6) Sepsis due to coagulase-negative staphylococcal infection (7) Staphylococcus aureus septicemia Surgical Problems: (1) S/P appendectomy (2) S/P cholecystectomy (3) S/P repair of ventral hernia (4) Status post total left knee replacement Family History Insignificant due to advanced age Social History Smoking Status: Never Smoker Alcohol Use: none Marital Status: Housing Status: lives with family Current/Historical Medications Scheduled Aspirin (Aspirin Ec), 81 MG PO DAILY Cholecalciferol (Vitamin D), 1,000 UNITS PO DAILY Daptomycin (Daptomycin), 600 MG IV DAILY Losartan Potassium (Cozaar), 50 MG PO DAILY Oxybutynin Chloride Er (Ditropan Xl), 10 MG PO DAILY Pantoprazole (Protonix), 40 MG PO DAILY Scheduled PRN Ranitidine (Zantac), 150 MG PO BID PRN for GERD Allergies Coded Allergies: Amoxicillin (Verified Allergy, Severe, SWELLING OF TONGUE AND THROAT, 11/ 29/15) Omeprazole (Verified Allergy, Unknown, ?, 01/11/12) Phenobarbital (Verified Allergy, Unknown, ?, 01/11/12) Statins (Verified Allergy, Unknown, RASH, 12/08/11) Physical Exam Vital Signs Date Time Temp Pulse Resp B/P (MAP) Pulse Ox O2 Delivery O2 Flow Rate FiO2 04/09/17 09:20 36.8 82 16 155/86 98 Room Air Physical Exam GENERAL: Awake, alert, well-appearing, in no distress HENT: Normocephalic, atraumatic. Oropharynx unremarkable. EYES: Normal conjunctiva. Sclera non-icteric. NECK: Supple. No nuchal rigidity. FROM. No JVD. RESPIRATORY: Clear to auscultation. CARDIAC: Regular rate, normal rhythm. Extremities warm and well perfused. Pulses equal. ABDOMEN: Soft, non-distended. No tenderness to palpation. No rebound or guarding. No masses. RUE: PICC Line in place. Small amount of dried blood around the insertion site. No tenderness, swelling or erythema. PICC line functioning well. LOWER EXTREMITIES: Calves are equal size bilaterally and non-tender. No discoloration. 1+ LE edema noted bilaterally. NEURO: Normal sensorium. No sensory or motor deficits noted. SKIN: No rash or jaundice noted. Medical Decision & Procedures ED Course 0950: The patient was evaluated in room B8. A complete history and physical exam was performed. IV team is present at bedside. 1005: I reevaluated the patient. Discussed results and discharge instructions: he verbalized understanding and agreement. The patient is ready for discharge. Medical Decision Patient presented to emergency department for evaluation of his PICC line. Etiologies such as cellulitis, abscess, MRSA infection, dermatitis, drug eruption,necrotizing fasciitis, DVT as well as others were entertained. The site was looking good. The PICC line was vomiting well. There was some small amount of blood that is down onto the gel dressing. I believe this is what caused the red appearance. There is no stigmata of DVT. There are no palpable cords or edema. The patient feels well. IV team did evaluate the line and it was functioning normally. The dressing was changed. I discussed conservative management with patient and . They felt very comfortable. If he has any problems with Bactrim and Cipro for reevaluation. By the evaluation outlined above other emergent etiologies such as those listed in the differential, as well as others, were deemed relatively unlikely. The patient was educated about the findings as listed above. All questions were answered and the patient was pleased with the treatment. Return instructions were outlined and the patient was discharged in stable condition. The patient was referred to his PCP for follow-up for a recheck of the current condition. Impression Primary Impression: Bleeding from PICC line Scribe Attestation The scribe's documentation has been prepared under my direction and personally reviewed by me in its entirety. I confirm that the note above accurately reflects all work, treatment, procedures, and medical decision making performed by me. Departure Information Dispostion Home / Self-Care Referrals Bert Gresham M.D. (PCP) Forms HOME CARE DOCUMENTATION FORM, IMPORTANT VISIT INFORMATION, WORK / SCHOOL INSTRUCTIONS Patient Instructions My [facility] Additional Instructions Continue current care of the PICC line. Return to the ER immediately for spreading redness, fevers, pus-like drainage, severe pain, or as needed. Follow-up with scheduled appointments. Return to the Emergency Room for any PICC line problems as well.
[2017-05-02] MEDS ORDERED: CYAN10004 PO (04:27)
== END 2017-04-09 10:04 | disposition home or self-care (01) ==
LOC: C.EDB 09:16
DX: T82.838A Hemorrhage due to vascular prosthetic devices, implants and grafts, initial encounter (principal); Y84.8 Other medical procedures as the cause of abnormal reaction of the patient, or of later complication, without mention of misadventure at the time of the procedure; I12.9 Hypertensive chronic kidney disease with stage 1 through stage 4 chronic kidney disease, or unspecified chronic kidney disease; N18.3 Chronic kidney disease, stage 3 (moderate); K21.9 Gastro-esophageal reflux disease without esophagitis; Z96.652 Presence of left artificial knee joint; Z79.82 Long term (current) use of aspirin

== ENCOUNTER 2017-04-09 20:15 | Emergency (ER) | payer OTHER ==
[~2017-04-09] VITALS: Ht 167.6 cm; Wt 106.3 kg
[2017-04-09 20:18] VITALS: BP 154/87; PULSE 118; TEMP 36.9; O2SAT 94; Ht 167.6 cm; Wt 106.3 kg
--- NOTE | 2017-04-09 22:14 | DIAGNOSTIC IMAGING REPORT ---
ULTRASOUND VENOUS DOPPLER ULTRASOUND OF THE RIGHT UPPER EXTREMITY CLINICAL HISTORY: Right arm pain area indwelling PICC catheter. COMPARISON STUDY: No previous studies for comparison. FINDINGS: No intraluminal thrombus was visualized. The internal jugular, subclavian, axillary, cephalic, brachial, basilic, radial, and ulnar veins were patent. A right-sided PICC catheter is visualized. IMPRESSION: No evidence of right upper extremity DVT. Electronically signed by: Wilner Epperson M.D. 04/09/2017 10:12 PM Dictated Date/Time: 04/09/2017 10:11 PM
--- NOTE | 2017-04-09 22:55 | EMERGENCY ROOM VISIT NOTE ---
History First contact with patient: 20:32 Chief Complaint: NEED IV START Stated Complaint: PAIN FROM PICC LINE History of Present Illness The patient is a 87 year old male who presents to the Emergency Room via private vehicle accompanied by female with complaints of "pain from PICC line". The patient states that he was here this morning and had his PICC line dressing repositioned as it was hurting him. He states that for more the PICC line is out of the vein through the skin and the short piece that is extruding from the arm to administer medication is no longer in a straight line, rather it is bent and he believes this is causing him resistance with medication infusion and subsequent pain. He is here to have this redressed in a more parallel or straight position with the vein. He notes his last infusion was around 4 PM and was painful at that region. Review of Systems A complete 6-point Review of Systems was discussed with the patient, with pertinent positives and negatives listed in the History of Present Illness. All remaining Review of Systems questions can be considered negative unless otherwise specified. Past Medical/Surgical History Medical Problems: (1) Carotid artery stenosis (2) CKD (chronic kidney disease), stage III (3) GERD (gastroesophageal reflux disease) (4) Gout (5) HTN (hypertension) (6) Sepsis due to coagulase-negative staphylococcal infection (7) Staphylococcus aureus septicemia Surgical Problems: (1) S/P appendectomy (2) S/P cholecystectomy (3) S/P repair of ventral hernia (4) Status post total left knee replacement Family History Insignificant due to advanced age Social History Smoking Status: Never Smoker Alcohol Use: none Marital Status: Housing Status: lives with family Current/Historical Medications Scheduled Aspirin (Aspirin Ec), 81 MG PO DAILY Cholecalciferol (Vitamin D), 1,000 UNITS PO DAILY Daptomycin (Daptomycin), 600 MG IV DAILY Losartan Potassium (Cozaar), 50 MG PO DAILY Oxybutynin Chloride Er (Ditropan Xl), 10 MG PO DAILY Pantoprazole (Protonix), 40 MG PO DAILY Scheduled PRN Ranitidine (Zantac), 150 MG PO BID PRN for GERD Physical Exam Vital Signs Date Time Temp Pulse Resp B/P (MAP) Pulse Ox O2 Delivery O2 Flow Rate FiO2 04/09/17 20:18 36.9 118 18 154/87 94 Room Air Physical Exam VITAL SIGNS - Vital signs and nursing notes were reviewed. Stable. GENERAL -87-year-old male appearing his stated age who is in no acute distress. Communicates well with provider and answers questions appropriately. SKIN - Without rashes. No petechial rashes. There is a small red Speck near the PICC line insertion. No drainage noted. ARM: No tenderness around the PICC line or throughout the arm. Medical Decision & Procedures ER Provider Diagnostic Interpretation: ULTRASOUND VENOUS DOPPLER ULTRASOUND OF THE RIGHT UPPER EXTREMITY CLINICAL HISTORY: Right arm pain area indwelling PICC catheter. COMPARISON STUDY: No previous studies for comparison. FINDINGS: No intraluminal thrombus was visualized. The internal jugular, subclavian, axillary, cephalic, brachial, basilic, radial, and ulnar veins were patent. A right-sided PICC catheter is visualized. IMPRESSION: No evidence of right upper extremity DVT. Electronically signed by: Wilner Epperson M.D. 04/09/2017 10:12 PM Dictated Date/Time: 04/09/2017 10:11 PM Medical Decision Patient was seen and evaluated as above. He presents today to have the dressing change of his PICC line so that the external portion of the catheter is straight and not a 90 angle. I had this evaluated by the PICC line team and they recommended ultrasound first. This was performed and found to be negative with results as above. Patient then preferred that the dressing be changed. I consult the PICC line team who came and change the dressing. This was successful. Patient was happy. He'll be discharged home in good condition. He was noted to be hypertensive, but I believe that secondary to situation. Medication list was reviewed. He was also seen by the attending physician. In evaluation treatment this patient the following differential diagnoses were entertained: Need for PICC line readjustment, among others. Impression Primary Impression: picc line irritation Departure Information Dispostion Home / Self-Care Condition GOOD Referrals Bert Gresham M.D. (PCP) Patient Instructions My [facility] Additional Instructions You were seen in the emergency Department for a change of the PICC line direction. Ultrasound was also normal. Please resume your normal medications. Please return with any new/concerning symptoms.
== END 2017-04-09 23:01 | disposition home or self-care (01) ==
LOC: C.EDB 20:16 → C.EDD 23:01
DX: T82.848A Pain due to vascular prosthetic devices, implants and grafts, initial encounter (principal); X58.XXXA Exposure to other specified factors, initial encounter; I65.29 Occlusion and stenosis of unspecified carotid artery; I12.9 Hypertensive chronic kidney disease with stage 1 through stage 4 chronic kidney disease, or unspecified chronic kidney disease; N18.3 Chronic kidney disease, stage 3 (moderate); K21.9 Gastro-esophageal reflux disease without esophagitis; M10.9 Gout, unspecified; Z96.652 Presence of left artificial knee joint; Z79.82 Long term (current) use of aspirin

== ENCOUNTER 2017-05-02 00:45 | Inpatient (IN) | payer OTHER ==
[2017-05-02] VITALS (11 sets, daily range): BP systolic 135–175; BP diastolic 74–85; PULSE 82–98; TEMP 36.4–37.2; O2SAT 93–98; Ht 167.6 cm; Wt 100.0 kg
[~2017-05-02] VITALS: Ht 167.6 cm; Wt 100.0 kg
[2017-05-02] MEDS ORDERED: ONDANSETRON INJ 2 MG/ML 2 ML VIAL ONE ×2 (01:06→09:45)
--- NOTE | 2017-05-02 01:14 | EMERGENCY ROOM VISIT NOTE ---
History Report prepared by Mikeibmaisha: Carolina Blunt Under the Supervision of: Dr. Flaquita Manning D.O. First contact with patient: 00:57 Chief Complaint: CONSTIPATION Stated Complaint: CONSTIPATION/STOMACH CRAMPING Nursing Triage Summary: pt c/o constipation x 4 days with lower abd cramping. pt took m.o.m x 2 and fleets enema x 2 without results. pt reports dry heaving. pt was here last month for blood infection. LBM 4 days ago History of Present Illness The patient is an 87 year old male who presents to the Emergency Room with complaints of constant constipation beginning 4 days ago. The patient had a blood infection a month ago and was on antibiotics. He is not on antibiotics anymore. Per nursing note, the patient took m.o.m. twice and used a fleet enema twice without any results. The patient notes abdominal cramping and dry heaving. His last bowel movement was 4 days ago. The patient has a history of a cholecystectomy, appendectomy, and a hernia. Source of History: patient Onset: 4 days ago Position: abdomen Quality: other (cramping) Modifying Factors (Relieving): other (none) Note: The patient notes abdominal cramping and dry heaving. Review of Systems See HPI for pertinent positives & negatives. A total of 10 systems reviewed and were otherwise negative. Past Medical & Surgical Medical Problems: (1) Carotid artery stenosis (2) CKD (chronic kidney disease), stage III (3) GERD (gastroesophageal reflux disease) (4) Gout (5) HTN (hypertension) (6) Sepsis due to coagulase-negative staphylococcal infection (7) Staphylococcus aureus septicemia Surgical Problems: (1) S/P appendectomy (2) S/P cholecystectomy (3) S/P repair of ventral hernia (4) Status post total left knee replacement Family History Insignificant due to advanced age Social History Smoking Status: Never Smoker Alcohol Use: none Marital Status: Housing Status: lives with family Current/Historical Medications Scheduled Aspirin (Aspirin Ec), 81 MG PO DAILY Cholecalciferol (Vitamin D), 1,000 UNITS PO DAILY Cyanocobalamin (Vitamin B-12), 1,000 MCG INJ MONTHLY Furosemide (Lasix), 20 MG PO UD Losartan Potassium (Cozaar), 50 MG PO DAILY Ondasetron Odt (Zofran Odt), 4 MG SL Q6H Oxybutynin Chloride Er (Ditropan Xl), 10 MG PO DAILY Pantoprazole (Protonix), 40 MG PO DAILY Scheduled PRN Acetaminophen Tab (Tylenol), 325 MG PO for Headache Promethazine Hcl (Phenergan), 25 MG PO Q6H PRN for Nausea or Vomiting Ranitidine (Zantac), 150 MG PO BID PRN for GERD Allergies Coded Allergies: Amoxicillin (Verified Allergy, Severe, SWELLING OF TONGUE AND THROAT, ) Daptomycin (Verified Allergy, Unknown, unknown, 05/02/17) Lethargy/ Weakness Omeprazole (Verified Allergy, Unknown, ?, 01/11/12) Phenobarbital (Verified Allergy, Unknown, ?, 01/11/12) Statins (Verified Allergy, Unknown, RASH, 12/08/11) Physical Exam Vital Signs Date Time Temp Pulse Resp B/P (MAP) Pulse Ox O2 Delivery O2 Flow Rate FiO2 05/02/17 04:09 103 24 149/73 95 Nasal Cannula 2.0 05/02/17 03:06 101 24 171/89 99 Nasal Cannula 2.0 05/02/17 02:32 101 05/02/17 01:57 101 16 175/95 96 Nasal Cannula 2.0 05/02/17 00:54 93 Nasal Cannula 2.0 05/02/17 00:49 36.7 100 20 149/74 89 Room Air Physical Exam HEENT: Head - normocephalic and atraumatic Pupils are equal, round, and reactive to light. Extraocular eye muscles are intact, and sclera are anicteric. Nose - moist nasal mucosa without discharge. Mouth - dry buccal mucosa. Oropharynx is nonerythematous and there is no tonsillar exudate or edema noted. Neck: Supple; no JVD, nuchal rigidity, cervical lymphadenopathy. Heart: Regular rate and rhythm. There is a normal S1 and S2 with no murmurs, clicks, or gallops appreciated. Lungs: Clear to auscultation bilaterally with no wheezes, rales, or rhonchi. Abdomen: Distended, absent bowel sounds, pain to right of umbilicus and right lower quadrant with palpation. Extremities: No evidence of cyanosis, clubbing, or edema. There are easily palpable peripheral pulses. Skin: warm and dry with good turgor and no rashes. Medical Decision & Procedures ER Provider Diagnostic Interpretation: Radiology results as stated below per my review and the radiologist's interpretation: Obstruction series: multiple dilated loops of small bowel, small air fluids levels, moderate colonic rectal retention, concerning for possible small bowel obstructions, significant scoliosis. CT ABDOMEN & PELVIS with contrast: Impression: Large bowel obstruction with the transitional point within a left inguinal hernia. No evidence of incarceration. Additional findings: Probable atelectasis and scarring within the lung bases. Gallbladder is surgically absent. There are a 2 low density lesions within both hepatic lobes, which are too small to characterize. Spleen, pancreas and adrenal glands are unremarkable. Cysts are seen within both kidneys. No obstructing calculus within the left kidney. No hydronephrosis. Urinary bladder is unremarkable. Appendix is not visualized and may be surgically absent. Degenerative changes of the osseous structures. Radiologist: Eric Foss Laboratory Results Test 05/02/17 00:55 05/02/17 01:18 05/02/17 03:05 Total Bilirubin 1.1 mg/dl (0.2-1) Aspartate Amino Transf (AST/SGOT) 17 U/L (15-37) Alanine Aminotransferase (ALT/SGPT) 17 U/L (12-78) Alkaline Phosphatase 41 U/L (45-117) Troponin I < 0.015 ng/ml (0-0.045) Total Protein 7.3 gm/dl (6.4-8.2) Albumin 3.6 gm/dl (3.4-5.0) Globulin 3.7 gm/dl (2.5-4.0) Albumin/Globulin Ratio 1.0 (0.9-2) Immature Granulocyte % (Auto) 0.3 % White Blood Count 14.53 K/uL (4.8-10.8) Red Blood Count 4.25 M/uL (4.7-6.1) Hemoglobin 12.7 g/dL (14.0-18.0) Hematocrit 38.1 % (42-52) Mean Corpuscular Volume 89.6 fL (80-100) Mean Corpuscular Hemoglobin 29.9 pg (25-34) Mean Corpuscular Hemoglobin Concent 33.3 g/dl (32-36) Platelet Count 238 K/uL (130-400) Mean Platelet Volume 8.9 fL (7.4-10.4) Neutrophils (%) (Auto) 84.8 % Lymphocytes (%) (Auto) 3.9 % Monocytes (%) (Auto) 9.6 % Eosinophils (%) (Auto) 1.2 % Basophils (%) (Auto) 0.2 % Neutrophils # (Auto) 12.32 K/uL (1.4-6.5) Lymphocytes # (Auto) 0.56 K/uL (1.2-3.4) Monocytes # (Auto) 1.40 K/uL (0.11-0.59) Eosinophils # (Auto) 0.17 K/uL (0-0.5) Basophils # (Auto) 0.03 K/uL (0-0.2) Immature Granulocyte # (Auto) 0.05 K/uL (0.00-0.02) Urine Color DK YELLOW Urine Appearance CLEAR (CLEAR) Urine pH 8.0 (4.5-7.5) Urine Specific [place] 1.026 (1.000-1.030) Urine Protein NEG (NEG) Urine Glucose (UA) NEG (NEG) Urine Ketones 1+ (NEG) Urine Occult Blood NEG (NEG) Urine Nitrite NEG (NEG) Urine Bilirubin NEG (NEG) Urine Urobilinogen POS (NEG) Urine Leukocyte Esterase NEG (NEG) Urine WBC (Auto) 1-5 /hpf (0-5) Urine RBC (Auto) 0-4 /hpf (0-4) Urine Hyaline Casts (Auto) 1-5 /lpf (0-5) Urine Epithelial Cells (Auto) 10-20 /lpf (0-5) Urine Bacteria (Auto) NEG (NEG) Laboratory results per my review. Medications Administered Medications (Trade) Dose Ordered Sig/Vicky Route Start Time Stop Time Status Last Admin Dose Admin Ondansetron HCl (Zofran Inj) 4 mg STK-MED ONCE .ROUTE 05/02/17 01:06 05/02/17 01:07 DC 05/02/17 01:08 4 MG Sodium Chloride 1,000 ml @ 200 mls/hr Q5H STAT IV 05/02/17 03:32 05/02/17 07:26 DC 05/02/17 04:04 200 MLS/HR Ondansetron HCl (Zofran Inj) 4 mg NOW STAT IV 05/02/17 03:49 05/02/17 03:50 DC 05/02/17 04:04 4 MG Procedure Zofran IV, NSS IV ECG Indication: other (constipation) Rate (beats per minute): 93 Rhythm: normal sinus Findings: 1st degree AV block, ST depression (AV 1) Comparison ECG Date: 06/13/17 Change: ST depression is new ED Course 0101: Past medical records reviewed. The patient was evaluated in room B11B. A complete history and physical exam was performed. An IV lock was initiated and labs are drawn as above. 0106: Zofran Inj 4 mg IV. The patient went for plain films of the abdomen which were concerning for bowel obstruction. He then went for CT scan of the abdomen/pelvis which revealed evidence of a large bowel obstruction. 0318: Discussed the patient's case with Dr. Guevara Surgery. 0331: Discussed the patient's case with Dr. Malcolm. The patient will be evaluated for further management. 0332: Sodium Chloride 1000 ml @ 200 mls/hr [place]. [address]: The patient is resting with at beside. He wants something for his nausea. 0349: Zofran Inj 4 mg IV. Medical Decision The patient is a 87 year old male who presents to the Emergency Room with complaints of constant constipation beginning 4 days ago. Differential diagnosis includes: small bowel obstruction, constipation, colitis, diverticulitis, ileus. Lab results show: White blood cell count of 14.5, hemoglobin 12.7, hematocrit 38.1, platelet count 238 Normal renal function, glucose 149, normal troponin, total bilirubin of 1.1 Urinalysis 1+ ketones and positive urobilinogen This is an 87 year old male patient who presents to the emergency department describing episodes of crampy abdominal pain for the past 4 days. He has not had a bowel movement since that time. On Physical exam, the patient's abdomen is significantly distended. X-ray was concerning for bowel obstruction. CT scan confirmed large bowel obstruction. I discussed the case with surgery first and they recommended evaluation by medicine and consult surgery. I discussed the case with the [facility] Hospitalist and they will evaluate for further management. The patient remains hemodynamically stable. Medication Reconcilliation Current Medication List: was personally reviewed by me Blood Pressure Screening Patient's blood pressure: Elevated blood pressure Blood pressure disposition: Referred to PCP (evaluated by hospitalist) Consults Time Called: 315 Consulting Physician: Dr. BerumenG Surgery Returned Call: [phone] Discussed the patient's case. Additional Consults: Time Called: 330 Consulted Physician: Dr. Malcolm Returned Call: [phone] Additional Comments: Discussed the patient's case. The patient will be evaluated for further management. Impression Primary Impression: Large bowel obstruction Scribe Attestation The scribe's documentation has been prepared under my direction and personally reviewed by me in its entirety. I confirm that the note above accurately reflects all work, treatment, procedures, and medical decision making performed by me. Departure Information Dispostion Being Evaluated By Hospitalist Referrals Bert Gresham M.D. (PCP) Patient Instructions My [facility]
[2017-05-02 01:25] LABS: BASO % 0.2 %; BASO ABS # 0.03 K/uL (0-0.2); COMPLETE YES; EOS % 1.2 %; HEMATOCRIT 38.1 % (42-52); IG% 0.3 %; LYMPH % 3.9 %; LYMPH ABS # 0.56 K/uL (1.2-3.4); MEAN CELL VOLUME 89.6 fL (80-100); MEAN CORPUSCULAR HEMOGLOBIN 29.9 pg (25-34); MEAN CORPUSCULAR HGB CONC 33.3 g/dl (32-36); MEAN PLATELET VOLUME 8.9 fL (7.4-10.4); MONO % 9.6 %; NEUT % 84.8 %; PLATELET COUNT 238 K/uL (130-400); RED BLOOD COUNT 4.25 M/uL (4.7-6.1); WHITE BLOOD COUNT 14.53 K/uL (4.8-10.8)
[2017-05-02 01:43] LABS: ALT/SGPT 17 U/L (12-78); AST/SGOT 17 U/L (15-37); BLOOD UREA NITROGEN 15 mg/dl (7-18); BUN/CREATININE RATIO 11.4 (10-20); CALCIUM 9.1 mg/dl (8.5-10.1); CARBON DIOXIDE 31 mmol/L (21-32); CHLORIDE 99 mmol/L (98-107); CREATININE 1.29 mg/dl (0.60-1.40); GLUCOSE 149 mg/dl (70-99); POTASSIUM 3.6 mmol/L (3.5-5.1); SODIUM 138 mmol/L (136-145)
[2017-05-02 01:46] LABS: ALKALINE PHOSPHATASE 41 U/L (45-117)
[2017-05-02] MEDS ORDERED: OPTIRAY 320 IV PRN (02:15)
[2017-05-02 03:18] LABS: URINE APPEARANCE CLEAR (CLEAR); URINE BILIRUBIN NEG (NEG); URINE COLOR DK YELLOW; URINE NITRITE NEG (NEG); URINE SPECIFIC GRAVITY 1.026 (1.000-1.030); UROBILINOGEN POS (NEG)
[2017-05-02 03:20] LABS: MANUAL MICROSCOPIC REQUIRED? NO; REVIEW REQ? NO; SULFASALICYLIC ACID NEG (NEG)
[2017-05-02] MEDS ORDERED: SODIUM CHLORIDE 0.9% 1000ML 1,000 ML IV STA (03:32)
[2017-05-02] MEDS ORDERED: ONDANSETRON INJ 2 MG/ML 2 ML VIAL IV STA (03:49)
[2017-05-02] MEDS ORDERED: ONDANSETRON INJ 2 MG/ML 2 ML VIAL IV PRN ×2 (04:15→08:45)
[2017-05-02] MEDS ORDERED: CYAN10004 PO (04:27)
[2017-05-02] MEDS ORDERED: FURO-85 PO (04:27)
[2017-05-02] MEDS ORDERED: ACET325T96 PO (04:27)
[2017-05-02] MEDS ORDERED: PROM12.56 PO (04:27)
[2017-05-02] MEDS ORDERED: ONDA4TAB10 SL (04:27)
[2017-05-02] MEDS ORDERED: CYAN100048 INJ (04:27)
[2017-05-02] MEDS ORDERED: MoRPHine SULFATE 2 MG/ML CARP IV PRN ×2 (04:30→11:45)
--- NOTE | 2017-05-02 04:56 | History and Physical ---
History & Physical Date & Time of Service: May 02, 2017 at 04:34 Chief Complaint: Constipation/Stomach Cramping Primary Care Physician: Bert Gresham M.D. History of Present Illness Source: patient, spouse, clinic records, hospital records 87 year old male with PMH of HTN, Gout, CKD Stage 3, Vit D def, Pernicious anemia, recently discharge from [facility] for sepsis and was treated for 4 weeks IV abx that was completed last Wednesday, presents to the Emergency Room with complaints of constipation associated with LLQ abdominal pain. Pt said that he was doing fine until for days ago he developed constipation. He said that he took laxative and enema with no relief. Pt said that his last bowel movement was 4 days ago. He said that yesterday He developed severe abdominal pain associated with nausea/dry heaving. He describes the pain as cramping, come and goes, grade 4/10. Pain is non radiating. He said that last time he ate something was for breakfast (barely ate breakfast yesterday). He said that he feels weak. Denies any chest pain, palpitation, fever and SOB. Past Medical/Surgical History Medical Problems: (1) Carotid artery stenosis Permanent Comment: 50-69% MADALYN, < 50% LICA 01/2014 Status: Chronic (2) CKD (chronic kidney disease), stage III Status: Chronic (3) GERD (gastroesophageal reflux disease) Status: Chronic (4) Gout Status: Chronic (5) HTN (hypertension) Status: Chronic Surgical Problems: (1) S/P appendectomy Status: Chronic (2) S/P cholecystectomy Status: Chronic (3) S/P repair of ventral hernia Status: Chronic (4) Status post total left knee replacement Status: Chronic Family History Insignificant due to advanced age Social History Smoking Status: Never Smoker Marital Status: Housing status: lives with family Immunizations History of Influenza Vaccine: Yes Influenza Vaccine Date: Mar 01, 2017 History of Tetanus Vaccine?: Yes Tetanus Immunization Date: Jul 11, 2012 History of Pneumococcal: Yes Pneumococcal Date: Aug 28, 2014 Allergies Coded Allergies: Amoxicillin (Verified Allergy, Severe, SWELLING OF TONGUE AND THROAT, ) Daptomycin (Verified Allergy, Unknown, unknown, 05/02/17) Lethargy/ Weakness Omeprazole (Verified Allergy, Unknown, ?, 01/11/12) Phenobarbital (Verified Allergy, Unknown, ?, 01/11/12) Statins (Verified Allergy, Unknown, RASH, 12/08/11) Home Medications Scheduled Aspirin (Aspirin Ec), 81 MG PO DAILY Cholecalciferol (Vitamin D), 1,000 UNITS PO DAILY Cyanocobalamin (Vitamin B-12), 1,000 MCG INJ MONTHLY Furosemide (Lasix), 20 MG PO UD Losartan Potassium (Cozaar), 50 MG PO DAILY Ondasetron Odt (Zofran Odt), 4 MG SL Q6H Oxybutynin Chloride Er (Ditropan Xl), 10 MG PO DAILY Pantoprazole (Protonix), 40 MG PO DAILY Scheduled PRN Acetaminophen Tab (Tylenol), 325 MG PO for Headache Promethazine Hcl (Phenergan), 25 MG PO Q6H PRN for Nausea or Vomiting Ranitidine (Zantac), 150 MG PO BID PRN for GERD Review of Systems Constitutional: + weakness, + fatigue, No fever Eyes: No eye pain, No discharge ENT: No nasal symptoms, No sore throat Respiratory: No cough, No sputum, No shortness of breath Cardiovascular: No chest pain, No claudication, No palpitations Abdomen: + pain, + nausea, + constipation Musculoskeletal: No calf pain Genitourinary - Male: No dysuria Neurologic: + weakness Psychiatric: No substance abuse Endocrine: + fatigue Hematologic / Lymphatic: No abnormal bleeding/bruising Integumentary: No rash, No itch Physical Exam Vital Signs Date Time Temp Pulse Resp B/P (MAP) Pulse Ox O2 Delivery O2 Flow Rate FiO2 05/02/17 04:09 103 24 149/73 95 Nasal Cannula 2.0 05/02/17 03:06 101 24 171/89 99 Nasal Cannula 2.0 05/02/17 02:32 101 05/02/17 01:57 101 16 175/95 96 Nasal Cannula 2.0 05/02/17 00:54 93 Nasal Cannula 2.0 05/02/17 00:49 36.7 100 20 149/74 89 Room Air General Appearance: WD/WN, no apparent distress, + moderate distress Head: normocephalic, atraumatic Eyes: PERRL, EOMI ENT: hearing grossly normal Neck: no JVD, trachea midline Respiratory/Chest: normal breath sounds, no respiratory distress, no accessory muscle use Cardiovascular: no JVD, + tachycardia Abdomen/GI: + tenderness (LLQ, hypoactive bowel sound) Back: no CVA tenderness Extremities/Musculoskelatal: no calf tenderness, + swelling Neurologic/Psych: no motor/sensory deficits, alert, normal mood/affect Skin: warm/dry, no rash Diagnostics Laboratory Results Results Past 24 Hours Test 05/02/17 00:55 05/02/17 01:18 05/02/17 03:05 Range/Units Sodium Level 138 136-145 mmol/L Potassium Level 3.6 3.5-5.1 mmol/L Chloride Level 99 98-107 mmol/L Carbon Dioxide Level 31 21-32 mmol/L Anion Gap 8.0 3-11 mmol/L Blood Urea Nitrogen 15 7-18 mg/dl Creatinine 1.29 0.60-1.40 mg/dl Est Creatinine Clear Calc Drug Dose 50.1 ml/min Estimated GFR () 57.8 Estimated GFR (Non- 49.9 BUN/Creatinine Ratio 11.4 10-20 Random Glucose 149 70-99 mg/dl Calcium Level 9.1 8.5-10.1 mg/dl Total Bilirubin 1.1 0.2-1 mg/dl Aspartate Amino Transf (AST/SGOT) 17 15-37 U/L Alanine Aminotransferase (ALT/SGPT) 17 12-78 U/L Alkaline Phosphatase 41 45-117 U/L Troponin I < 0.015 0-0.045 ng/ml Total Protein 7.3 6.4-8.2 gm/dl Albumin 3.6 3.4-5.0 gm/dl Globulin 3.7 2.5-4.0 gm/dl Albumin/Globulin Ratio 1.0 0.9-2 White Blood Count 14.53 4.8-10.8 K/uL Red Blood Count 4.25 4.7-6.1 M/uL Hemoglobin 12.7 14.0-18.0 g/dL Hematocrit 38.1 42-52 % Mean Corpuscular Volume 89.6 80-100 fL Mean Corpuscular Hemoglobin 29.9 25-34 pg Mean Corpuscular Hemoglobin Concent 33.3 32-36 g/dl Platelet Count 238 130-400 K/uL Mean Platelet Volume 8.9 7.4-10.4 fL Neutrophils (%) (Auto) 84.8 % Lymphocytes (%) (Auto) 3.9 % Monocytes (%) (Auto) 9.6 % Eosinophils (%) (Auto) 1.2 % Basophils (%) (Auto) 0.2 % Neutrophils # (Auto) 12.32 1.4-6.5 K/uL Lymphocytes # (Auto) 0.56 1.2-3.4 K/uL Monocytes # (Auto) 1.40 0.11-0.59 K/uL Eosinophils # (Auto) 0.17 0-0.5 K/uL Basophils # (Auto) 0.03 0-0.2 K/uL RDW Standard Deviation 44.7 36.4-46.3 fL RDW Coefficient of Variation 13.7 11.5-14.5 % Immature Granulocyte % (Auto) 0.3 % Immature Granulocyte # (Auto) 0.05 0.00-0.02 K/uL Urine Color DK YELLOW Urine Appearance CLEAR CLEAR Urine pH 8.0 4.5-7.5 Urine Specific [place] 1.026 1.000-1.030 Urine Protein NEG NEG Urine Glucose (UA) NEG NEG Urine Ketones 1+ NEG Urine Occult Blood NEG NEG Urine Nitrite NEG NEG Urine Bilirubin NEG NEG Urine Urobilinogen POS NEG Urine Leukocyte Esterase NEG NEG Urine WBC (Auto) 1-5 0-5 /hpf Urine RBC (Auto) 0-4 0-4 /hpf Urine Hyaline Casts (Auto) 1-5 0-5 /lpf Urine Epithelial Cells (Auto) 10-20 0-5 /lpf Urine Bacteria (Auto) NEG NEG Diagnostic Radiology CT ABDOMEN & PELVIS with contrast: Impression: Large bowel obstruction with the transitional point within a left inguinal hernia. No evidence of incarceration. Additional findings: Probable atelectasis and scarring within the lung bases. Gallbladder is surgically absent. There are a 2 low density lesions within both hepatic lobes, which are too small to characterize. Spleen, pancreas and adrenal glands are unremarkable. Cysts are seen within both kidneys. No obstructing calculus within the left kidney. No hydronephrosis. Urinary bladder is unremarkable. Appendix is not visualized and may be surgically absent. Degenerative changes of the osseous structures. Radiologist: Eric Foss Impression Assessment and Plan Large Bowel obstruction Present with constipation associated with abdominal pain CT abd/pelvis showed aarge bowel obstruction with the transitional point within a left inguinal hernia. No evidence of incarceration. Additional findings: Probable atelectasis and scarring within the lung bases. Elevated WBC Will keep NPO Conservative management for now Surgery consult Morphine for pain IVF and Zofran If starting to vomit, consider NG tube Check abdominal xray Consider abx if pt becomes decompensated or WBC trending up for bacterial translocation Continue monitor Matt Inguinal Hernia Surgery on board, waiting for input CKD stage 3 Creatine 1.29 on admission Stable Continue monitor BMP HTN BP elevated mostly due to abdominal pain On Losartan (Hold since NPO) Consider PRN IV BP med since NPO DVT px SCDs for now (in case pt going to OR) will start on heparin subq if no plan for surgery CODE STATUS FULL NO mech ventilation as per my discussion with patient and . Level of Care Med/Surg Resuscitation Status FULL NO MECH VENTILATION VTE Prophylaxis VTE Risk Assessment Done? Y/N: Yes Risk Level: Moderate Given or contraindicated: SCD's
--- NOTE | 2017-05-02 06:50 | DIAGNOSTIC IMAGING REPORT ---
ABDOMEN 2VIEW W/PA CHEST RTN HISTORY: 87 years-old Male eval for sbo follow-up study to evaluate small bowel obstruction COMPARISON: Chest radiograph 03/29/2017, CT 03/29/2017, CT 05/02/2017 TECHNIQUE: AP view of the chest with supine and left lateral decubitus views of the abdomen FINDINGS: Cardiac silhouette is again moderately enlarged. Atherosclerosis of the aorta. Mild right hemidiaphragmatic elevation without pneumothorax or pleural effusion. Bibasilar reticular interstitial opacities appear unchanged, right greater the left. Bones are grossly intact. There are a few air-fluid levels noted in the central abdomen. There is a dilated loop of large bowel within the right midabdomen measuring up to 9 cm transversely. No evidence of small bowel obstruction. Vascular calcifications of the pelvis. Degenerative changes of the spine and hips. No pneumoperitoneum identified.] Cholecystectomy clips noted. IMPRESSION: 1. Dilated loop of large bowel of the right midabdomen is better evaluated on comparison CT of same day. No pneumoperitoneum. 2. Cardiomegaly with unchanged bibasilar interstitial opacities. The above report was generated using voice recognition software. It may contain grammatical, syntax or spelling errors. Electronically signed by: Vidal Prasad M.D. 05/02/2017 6:49 AM Dictated Date/Time: 05/02/2017 6:44 AM
--- NOTE | 2017-05-02 07:00 | DIAGNOSTIC IMAGING REPORT ---
ABDOMEN AND PELVIS CT WITH IV CONTRAST CT DOSE: 1675.03 mGy.cm HISTORY: Acute abdominal distention with concern for small bowel obstruction eval for sbo TECHNIQUE: Multiaxial CT images of the abdomen and pelvis were performed following the use of intravenous contrast. 92 mL Optiray 320 was administered A dose lowering technique was utilized adhering to the principles of ALARA. COMPARISON STUDY: CT abdomen and pelvis 03/29/2017. FINDINGS: Moderate enlargement of the imaged inferior cardiac chambers. Dense calcifications of the mitral and aortic annulus with coronary arterial calcifications. Bibasilar and subpleural reticular and groundglass opacities appear unchanged from comparison study suggesting chronic interstitial scarring. No pneumoperitoneum identified. 10 mm low attenuating lesion of the lateral left hepatic lobe is indeterminate, however suggests cyst with similar appearing unchanged and 1.3 cm lesions of the inferior right hepatic lobe also suggesting cysts which are unchanged. Prior cholecystectomy. No intrahepatic biliary ductal dilation. The spleen and adrenal glands are unremarkable. Moderate to severe diffuse pancreatic atrophy. Multiple low attenuating lesions of the bilateral kidneys are again seen suggesting cysts, largest measuring up to 4.8 cm within the inferior pole left kidney. Unchanged mild bilateral perinephric infiltrative changes. Nonobstructing calculi of the inferior pole left kidney again seen measuring up to 7 mm. No ureteral calculi or hydronephrosis. Ureters and urinary bladder are unremarkable. Phleboliths of the pelvis are noted. Moderate to extensive atherosclerotic plaquing of the abdominal aorta with dominant aortic tortuosity. There is mild ectasia of the infrarenal abdominal aorta measuring up to 2.5 cm transversely. Fluid noted within the distal esophagus. Probable lipoma of the duodenum, 7 mm which is unchanged. There is a large left inguinal hernia which contains nonobstructed loop of the transverse colon. Transition point is noted within the hernia sac as seen on image 465 series 3. No pneumatosis or pneumoperitoneum. Dilated fluid-filled large bowel with air-fluid levels noted proximally to the obstruction. Post surgical changes compatible with prior appendectomy. Peripherally there is no small bowel obstruction. Postsurgical changes of prior ventral abdominal wall herniorrhaphy. Small fat filled periumbilical hernia, diastases 1.5 cm. Bones are mildly demineralized. Multilevel degenerative changes of the spine, hips and pelvis. IMPRESSION: 1. Moderate-sized left inguinal hernia contains mesenteric fat and an obstructed loop of transverse colon with fluid-filled large bowel dilation present proximally. No pneumatosis or pneumoperitoneum. No small bowel obstruction. 2. Left nephrolithiasis without ureteral calculi or hydronephrosis. 3. Prior cholecystectomy and appendectomy. 4. Cardiomegaly with unchanged bibasilar reticular interstitial opacities suggesting chronic scarring. 5. Additional findings as above. Electronically signed by: Vidal Prasad M.D. 05/02/2017 6:59 AM Dictated Date/Time: 05/02/2017 6:49 AM
--- NOTE | 2017-05-02 08:17 | Medical Consult ---
Consultation Date of Consultation: May 02, 2017. Attending Physician: Suzette Crawley D.O. Reason for Consultation: large bowel obstruction, left inguinal hernia History of Present Illness 87 year old male admitted overnight with large bowel obstruction and left inguinal hernia with colonic transition point. He was admitted last month with sepsis of unknown source and treated with IV antibiotics as outpatient. He became constipated a few days ago and hasn't been able to have a bowel movement since despite laxatives. He presented to ED with cramping pain and some nausea. CT showed left inguinal hernia containing colon with transition point, no evidence of ischemia on imaging. Past Medical/Surgical History PMHx: CKD stage III, recent sepsis, GERD, HTN, CAD, Gout PSHX: ventral hernia repair, appendectomy, cholecystectomy, L TKA Family History Insignificant due to advanced age Social History Smoking Status: Former Smoker Marital Status: Housing Status: lives with family Allergies Coded Allergies: Amoxicillin (Verified Allergy, Severe, SWELLING OF TONGUE AND THROAT, ) Daptomycin (Verified Allergy, Unknown, unknown, 05/02/17) Lethargy/ Weakness Omeprazole (Verified Allergy, Unknown, ?, 01/11/12) Phenobarbital (Verified Allergy, Unknown, ?, 01/11/12) Statins (Verified Allergy, Unknown, RASH, 12/08/11) Home Medications Active Reported Vitamin B-12 (Cyanocobalamin) 1,000 Mcg Sub 1,000 Mcg INJ MONTHLY Tylenol (Acetaminophen) 325 Mg Tab 325 Mg PO PRN Phenergan (Promethazine Hcl) 12.5 Mg Tab 25 Mg PO Q6H PRN Zofran Odt (Ondansetron HCl) 4 Mg Tab 4 Mg SL Q6H Lasix (Furosemide) 20 Mg Tab 20 Mg PO UD 1 tab daily prn for lower extremities swelling and weight gain Vitamin D (Cholecalciferol) 1,000 Unit Tab 1,000 Units PO DAILY Cozaar (Losartan Potassium) 50 Mg Tab 50 Mg PO DAILY Ditropan Xl (Oxybutynin Chloride) 10 Mg Tab 10 Mg PO DAILY Aspirin Ec (Aspirin) 81 Mg Tab 81 Mg PO DAILY Protonix (Pantoprazole Sodium) 40 Mg Tab 40 Mg PO DAILY Zantac (Ranitidine HCl) 150 Mg Tab 150 Mg PO BID PRN Current Inpatient Medications Current Inpatient Medications Medications (Trade) Dose Ordered Sig/Vicky Route Start Time Stop Time Status Last Admin Dose Admin Ioversol (Optiray 320) 100 ml UD PRN IV 05/02/17 02:15 05/06/17 02:14 Ondansetron HCl (Zofran Inj) 4 mg Q6H PRN IV 05/02/17 04:15 06/01/17 04:14 Morphine Sulfate (MoRPHine SULFATE INJ) 2 mg Q4HWA PRN IV 05/02/17 04:30 05/16/17 04:29 Sodium Chloride 1,000 ml @ 80 mls/hr [id number] IV 05/02/17 12:00 06/01/17 11:59 Review of Systems 10 point review of systems negative except as above Physical Exam Date Time Temp Pulse Resp B/P (MAP) Pulse Ox O2 Delivery O2 Flow Rate FiO2 05/02/17 07:31 36.9 98 18 167/81 (109) 97 Nasal Cannula 2.0 05/02/17 05:35 37.2 96 16 175/81 96 Nasal Cannula 2.0 05/02/17 04:09 103 24 149/73 95 Nasal Cannula 2.0 05/02/17 03:06 101 24 171/89 99 Nasal Cannula 2.0 05/02/17 02:32 101 05/02/17 01:57 101 16 175/95 96 Nasal Cannula 2.0 05/02/17 00:54 93 Nasal Cannula 2.0 05/02/17 00:49 36.7 100 20 149/74 89 Room Air General Appearance: WD/WN, no apparent distress, + obese Head: normocephalic, atraumatic Eyes: normal inspection, PERRL ENT: normal ENT inspection, TMs normal Neck: supple, no adenopathy, no JVD Respiratory/Chest: chest non-tender, lungs clear, normal breath sounds, no respiratory distress, no accessory muscle use Cardiovascular: regular rate, rhythm, no JVD, normal peripheral pulses Abdomen/GI: soft, + tenderness, + distended, + hernia (incarcerated left inguinal hernia, no evidence of strangulation.) Genitourinary - Male: normal male genitalia, normal phallus, normal testicles Back: normal inspection, no CVA tenderness Extremities/Musculoskelatal: normal inspection Neurologic/Psych: 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, alert, normal mood/affect, oriented x 3 Skin: normal color, warm/dry, no rash Lymphatic: no adenopathy Laboratory Results Last 24 Hours Test 05/02/17 00:55 05/02/17 01:18 05/02/17 03:05 Sodium Level 138 mmol/L Potassium Level 3.6 mmol/L Chloride Level 99 mmol/L Carbon Dioxide Level 31 mmol/L Anion Gap 8.0 mmol/L Blood Urea Nitrogen 15 mg/dl Creatinine 1.29 mg/dl Est Creatinine Clear Calc Drug Dose 50.1 ml/min Estimated GFR () 57.8 Estimated GFR (Non- 49.9 BUN/Creatinine Ratio 11.4 Random Glucose 149 mg/dl Calcium Level 9.1 mg/dl Total Bilirubin 1.1 mg/dl Aspartate Amino Transf (AST/SGOT) 17 U/L Alanine Aminotransferase (ALT/SGPT) 17 U/L Alkaline Phosphatase 41 U/L Troponin I < 0.015 ng/ml Total Protein 7.3 gm/dl Albumin 3.6 gm/dl Globulin 3.7 gm/dl Albumin/Globulin Ratio 1.0 White Blood Count 14.53 K/uL Red Blood Count 4.25 M/uL Hemoglobin 12.7 g/dL Hematocrit 38.1 % Mean Corpuscular Volume 89.6 fL Mean Corpuscular Hemoglobin 29.9 pg Mean Corpuscular Hemoglobin Concent 33.3 g/dl Platelet Count 238 K/uL Mean Platelet Volume 8.9 fL Neutrophils (%) (Auto) 84.8 % Lymphocytes (%) (Auto) 3.9 % Monocytes (%) (Auto) 9.6 % Eosinophils (%) (Auto) 1.2 % Basophils (%) (Auto) 0.2 % Neutrophils # (Auto) 12.32 K/uL Lymphocytes # (Auto) 0.56 K/uL Monocytes # (Auto) 1.40 K/uL Eosinophils # (Auto) 0.17 K/uL Basophils # (Auto) 0.03 K/uL RDW Standard Deviation 44.7 fL RDW Coefficient of Variation 13.7 % Immature Granulocyte % (Auto) 0.3 % Immature Granulocyte # (Auto) 0.05 K/uL Urine Color DK YELLOW Urine Appearance CLEAR Urine pH 8.0 Urine Specific Olden 1.026 Urine Protein NEG Urine Glucose (UA) NEG Urine Ketones 1+ Urine Occult Blood NEG Urine Nitrite NEG Urine Bilirubin NEG Urine Urobilinogen POS Urine Leukocyte Esterase NEG Urine WBC (Auto) 1-5 /hpf Urine RBC (Auto) 0-4 /hpf Urine Hyaline Casts (Auto) 1-5 /lpf Urine Epithelial Cells (Auto) 10-20 /lpf Urine Bacteria (Auto) NEG ABDOMEN AND PELVIS CT WITH IV CONTRAST CT DOSE: 1675.03 mGy.cm HISTORY: Acute abdominal distention with concern for small bowel obstruction eval for sbo TECHNIQUE: Multiaxial CT images of the abdomen and pelvis were performed following the use of intravenous contrast. 92 mL Optiray 320 was administered A dose lowering technique was utilized adhering to the principles of ALARA. COMPARISON STUDY: CT abdomen and pelvis 03/29/2017. FINDINGS: Moderate enlargement of the imaged inferior cardiac chambers. Dense calcifications of the mitral and aortic annulus with coronary arterial calcifications. Bibasilar and subpleural reticular and groundglass opacities appear unchanged from comparison study suggesting chronic interstitial scarring. No pneumoperitoneum identified. 10 mm low attenuating lesion of the lateral left hepatic lobe is indeterminate, however suggests cyst with similar appearing unchanged and 1.3 cm lesions of the inferior right hepatic lobe also suggesting cysts which are unchanged. Prior cholecystectomy. No intrahepatic biliary ductal dilation. The spleen and adrenal glands are unremarkable. Moderate to severe diffuse pancreatic atrophy. Multiple low attenuating lesions of the bilateral kidneys are again seen suggesting cysts, largest measuring up to 4.8 cm within the inferior pole left kidney. Unchanged mild bilateral perinephric infiltrative changes. Nonobstructing calculi of the inferior pole left kidney again seen measuring up to 7 mm. No ureteral calculi or hydronephrosis. Ureters and urinary bladder are unremarkable. Phleboliths of the pelvis are noted. Moderate to extensive atherosclerotic plaquing of the abdominal aorta with dominant aortic tortuosity. There is mild ectasia of the infrarenal abdominal aorta measuring up to 2.5 cm transversely. Fluid noted within the distal esophagus. Probable lipoma of the duodenum, 7 mm which is unchanged. There is a large left inguinal hernia which contains nonobstructed loop of the transverse colon. Transition point is noted within the hernia sac as seen on image 465 series 3. No pneumatosis or pneumoperitoneum. Dilated fluid-filled large bowel with air-fluid levels noted proximally to the obstruction. Post surgical changes compatible with prior appendectomy. Peripherally there is no small bowel obstruction. Postsurgical changes of prior ventral abdominal wall herniorrhaphy. Small fat filled periumbilical hernia, diastases 1.5 cm. Bones are mildly demineralized. Multilevel degenerative changes of the spine, hips and pelvis. IMPRESSION: 1. Moderate-sized left inguinal hernia contains mesenteric fat and an obstructed loop of transverse colon with fluid-filled large bowel dilation present proximally. No pneumatosis or pneumoperitoneum. No small bowel obstruction. 2. Left nephrolithiasis without ureteral calculi or hydronephrosis. 3. Prior cholecystectomy and appendectomy. 4. Cardiomegaly with unchanged bibasilar reticular interstitial opacities suggesting chronic scarring. 5. Additional findings as above. Assessment & Plan 87 year old male with incarcerated left inguinal hernia with large bowel obstruction, no evidence of strangulation at this time. Plan for left inguinal hernia repair with mesh, possible bowel resection today in OR Risks discussed to include but not limited bleeding, infection, recurrence, need for future or more extensive surgery, damage to surrounding structures, need for laparotomy, bowel resection, or colostomy, chronic pain, and risks of anesthesia abx pre op the diagnosis, treatment options, details of surgery, recovery, and plan of care were discussed, all questions answered, the patient expressed understanding and agrees to proceed with surgery as planned
[2017-05-02] MEDS ORDERED: EpHEDrine SULFATE INJ 50 MG/ML AMP IV PRN (08:45)
[2017-05-02] MEDS ORDERED: FENTANYL CITRATE INJ 50 MCG/1 ML 2 ML VIAL IV PRN (08:45)
[2017-05-02] MEDS ORDERED: ATROPINE SULFATE 0.1 MG/ML 5ML SYR IV PRN (08:45)
[2017-05-02] MEDS ORDERED: GLYCOPYRROLATE INJ 0.2 MG/ML VIAL ONE (09:45)
[2017-05-02] MEDS ORDERED: FENTANYL CITRATE INJ 50 MCG/1 ML 2 ML VIAL ONE (09:45)
[2017-05-02] MEDS ORDERED: LIDOCAINE HCL 2% 2 ML VIAL (20MG/ML) ONE (09:45)
[2017-05-02] MEDS ORDERED: PROPOFOL IV EMULSION 10 MG/ML 20 ML VIAL IV ONE ×2 (09:45→10:52)
[2017-05-02] MEDS ORDERED: DEXAMETHASONE SOD INJ 4 MG/ML VIAL ONE (09:45)
[2017-05-02] MEDS ORDERED: NEOSTIGMINE METHYLSULFATE 5 MG/5 ML SYR ONE (09:45)
[2017-05-02] MEDS ORDERED: BUPIVACAINE 0.5 % 5 MG/1 ML MPF 30ML VIAL ONE ×2 (11:10→11:12)
--- NOTE | 2017-05-02 11:22 | [facility] Post Operative Brief Note ---
Immediate Operative Summary Operative Date May 02, 2017. Pre-Operative Diagnosis Incarcerated left inguinal hernia with obstruction Post-Operative Diagnosis Same as preoperative diagnosis Procedure(s) Performed Repair left incarcerated inguinal hernia with mesh Surgeon Dr. Valentin License Examiner Surgeon(s) Humble Brandon Estimated Blood Loss 6ml Findings Large direct inguinal hernia. After relaxation the colon had reduced, the hernia sac was not opened. Repaired with plug and patch. Closest papito. Specimens None Drains None Anesthesia GETA Complication(s) None Disposition Recovery Room / PACU
[2017-05-02] MEDS ORDERED: MoRPHine SULFATE 4 MG/ML 1 ML CARP\\VIAL IV PRN (11:45)
[2017-05-02] MEDS ORDERED: OXYCODONE/ACETAMINOPHEN 5-325 TAB PO PRN ×2 (11:45)
--- NOTE | 2017-05-02 11:52 | [facility] Operative Report ---
Operative Report Operative Date May 02, 2017. Pre-Operative Diagnosis Incarcerated left inguinal hernia with obstruction Post-Operative Diagnosis incarcerated direct left inguinal hernia with large bowel obstruction Procedure(s) Performed Open left inguinal hernia repair with plug and patch mesh, incarcerated Surgeon Dr. Valentin Car Washer Surgeon(s) Humble Brandon Estimated Blood Loss 6ml Findings Large direct inguinal hernia. After relaxation the colon had reduced, the hernia sac was not opened. Repaired with plug and patch. Closed with papito. Specimens None Drains None Anesthesia GETA Complication(s) None Disposition Recovery Room / PACU Indications 87-year-old male admitted overnight with incarcerated left inguinal hernia containing colon causing a large bowel obstruction. There was no evidence of ischemia to the bowel. Plan for open left inguinal hernia repair with mesh and possible bowel resection. The risks of the procedure were discussed, all questions were answered, and the patient agreed to proceed with surgery as planned. Description of Procedure The patient was properly identified, consented, and taken to the operating room where he was placed in the supine position. General endotracheal anesthesia was induced. SCDs and a safety belt were placed. Preoperative antibiotics were administered. The patient's groins and abdomen were prepped and draped in the standard sterile fashion. A surgical timeout was performed and all parties were in agreement that this was the correct patient and procedure to be performed and we continued as planned. After induction, the hernia partially reduced and the colon was no longer palpable within the hernia. Local anesthetic in the form of 0.5% Marcaine was injected along the proposed incision site. An oblique incision was made in the left groin and deepened down to subcutaneous tissue with electrocautery. The aponeurosis of the external oblique muscle was cleared of investing tissue. The initial incision in the external oblique was medial and superior to the patient's body habitus, after this was realized it was closed with a running Vicryl suture. A small incision was made in the aponeurosis of the external oblique muscle with a knife and lengthened under direct visualization with Metzenbaum scissors. Flaps were raised cephalad and caudad on the posterior portion of the external oblique. The ilioinguinal nerve was not identified. The cord structures were circumferentially dissected and encircled with a Goehner drain. A large direct hernia was noted. The hernia sac was dissected away from the cord structures, and reduced back into the abdomen. Hemostasis was achieved within the wound. A large polypropylene plug was placed in the defect and secured into position with interrupted 0 Nurolon sutures. A piece of polypropylene mesh was sewn into place using interrupted 0 Nurolon sutures. It was secured to the pubic tubercle medially, the inguinal ligament caudad, and the conjoined tendon cephalad. The internal ring was recreated by securing the tails and could accommodate the tip of the surgeons fifth digit. The wound was irrigated and hemostasis confirmed. The aponeurosis of the external oblique was then closed with a running 3-0 Vicryl suture. The wound was irrigated. Camila's fascia was reapproximated with interrupted 3-0 Vicryl suture. The skin was closed with papito, and a sterile dressing was placed over the incision. The patient was extubated in the operating room and taken to the PACU for recovery without apparent incident. All sponge, instrument, and needle counts were correct at the conclusion of the procedure. The patient tolerated the procedure well. I attest to the content of the Intraoperative Record and any orders documented therein. Any exceptions are noted below.
--- NOTE | 2017-05-02 11:57 | Anesthesiology Progress Note ---
Anesthesia Post Op Note Date & Time May 02, 2017 at 11:57 Vital Signs Pain Intensity: 0 Vital Signs Past 12 Hours Date Time Temp Pulse Resp B/P (MAP) Pulse Ox O2 Delivery O2 Flow Rate FiO2 05/02/17 11:45 100 20 149/79 100 Oxymask 10 05/02/17 11:35 102 18 145/74 98 Oxymask 10 05/02/17 11:27 36.8 101 18 140/71 98 Oxymask 10 05/02/17 07:45 97 Nasal Cannula 2.0 05/02/17 07:31 36.9 98 18 167/81 (109) 97 Nasal Cannula 2.0 05/02/17 05:35 37.2 96 16 175/81 96 Nasal Cannula 2.0 05/02/17 04:09 103 24 149/73 95 Nasal Cannula 2.0 05/02/17 03:06 101 24 171/89 99 Nasal Cannula 2.0 05/02/17 02:32 101 05/02/17 01:57 101 16 175/95 96 Nasal Cannula 2.0 05/02/17 00:54 93 Nasal Cannula 2.0 05/02/17 00:49 36.7 100 20 149/74 89 Room Air Notes Mental Status: alert / awake / arousable, participated in evaluation Pt Amnestic to Procedure: Yes Nausea / Vomiting: adequately controlled Pain: adequately controlled Airway Patency, RR, SpO2: stable & adequate BP & HR: stable & adequate Hydration State: stable & adequate Anesthetic Complications: no major complications apparent
[2017-05-02] MEDS: SODIUM CHLORIDE 0.9% 1000ML 1,000 ML IV SCH (12:30)
--- NOTE | 2017-05-02 15:46 | Progress Note ---
Medicine Progress Note Date & Time of Visit: May 02, 2017 at 15:46. Subjective Patient was seen after surgery; has no complaints other than soreness at the incision site. No complaints otherwise. Patients at the bedside and was updated. Objective Last 8 Hrs Date Time Temp Pulse Resp B/P (MAP) Pulse Ox O2 Delivery O2 Flow Rate FiO2 05/02/17 15:15 37.0 87 18 159/78 (105) 95 Nasal Cannula 3.0 05/02/17 14:15 36.5 97 18 158/85 (109) 97 Nasal Cannula 3.0 05/02/17 13:15 88 18 150/80 (103) 96 05/02/17 12:43 36.4 86 18 154/79 (104) 98 Nasal Cannula 3.0 05/02/17 12:15 97 Nasal Cannula 3.0 05/02/17 12:15 36.4 95 16 151/79 (103) 97 Nasal Cannula 3.0 05/02/17 12:15 97 Nasal Cannula 3.0 05/02/17 12:05 36.4 93 20 151/87 100 Nasal Cannula 3 05/02/17 11:55 36.4 97 20 145/87 100 Nasal Cannula 3 05/02/17 11:45 100 20 149/79 100 Oxymask 10 05/02/17 11:35 102 18 145/74 98 Oxymask 10 05/02/17 11:27 36.8 101 18 140/71 98 Oxymask 10 Physical Exam: GENERAL: Patient is in no acute distress. HEENT: No acute trauma, mucous membranes moist, no nasal congestion, no scleral icterus. NECK: No stridor, trachea is midline. LUNGS: Clear to auscultation bilaterally, no wheeze, no rhonchi, breath sounds equal. HEART: Without murmurs gallops or rubs, regular rate and rhythm. ABDOMEN: Soft, bowel sounds positive, distended, mildly tender in lower quadrants EXTREMITIES: No cyanosis or edema, full range of motion of all the joints without pain or difficulty, no signs for acute trauma. NEUROLOGIC: Oriented x 3, no acute motor or sensory deficits, no focal weakness. SKIN: No rash, no jaundice, no diaphoresis. Laboratory Results: Last 24 Hours Test 05/02/17 00:55 05/02/17 01:18 05/02/17 03:05 Sodium Level 138 mmol/L Potassium Level 3.6 mmol/L Chloride Level 99 mmol/L Carbon Dioxide Level 31 mmol/L Anion Gap 8.0 mmol/L Blood Urea Nitrogen 15 mg/dl Creatinine 1.29 mg/dl Est Creatinine Clear Calc Drug Dose 50.1 ml/min Estimated GFR () 57.8 Estimated GFR (Non- 49.9 BUN/Creatinine Ratio 11.4 Random Glucose 149 mg/dl Calcium Level 9.1 mg/dl Total Bilirubin 1.1 mg/dl Aspartate Amino Transf (AST/SGOT) 17 U/L Alanine Aminotransferase (ALT/SGPT) 17 U/L Alkaline Phosphatase 41 U/L Troponin I < 0.015 ng/ml Total Protein 7.3 gm/dl Albumin 3.6 gm/dl Globulin 3.7 gm/dl Albumin/Globulin Ratio 1.0 White Blood Count 14.53 K/uL Red Blood Count 4.25 M/uL Hemoglobin 12.7 g/dL Hematocrit 38.1 % Mean Corpuscular Volume 89.6 fL Mean Corpuscular Hemoglobin 29.9 pg Mean Corpuscular Hemoglobin Concent 33.3 g/dl Platelet Count 238 K/uL Mean Platelet Volume 8.9 fL Neutrophils (%) (Auto) 84.8 % Lymphocytes (%) (Auto) 3.9 % Monocytes (%) (Auto) 9.6 % Eosinophils (%) (Auto) 1.2 % Basophils (%) (Auto) 0.2 % Neutrophils # (Auto) 12.32 K/uL Lymphocytes # (Auto) 0.56 K/uL Monocytes # (Auto) 1.40 K/uL Eosinophils # (Auto) 0.17 K/uL Basophils # (Auto) 0.03 K/uL RDW Standard Deviation 44.7 fL RDW Coefficient of Variation 13.7 % Immature Granulocyte % (Auto) 0.3 % Immature Granulocyte # (Auto) 0.05 K/uL Urine Color DK YELLOW Urine Appearance CLEAR Urine pH 8.0 Urine Specific [place] 1.026 Urine Protein NEG Urine Glucose (UA) NEG Urine Ketones 1+ Urine Occult Blood NEG Urine Nitrite NEG Urine Bilirubin NEG Urine Urobilinogen POS Urine Leukocyte Esterase NEG Urine WBC (Auto) 1-5 /hpf Urine RBC (Auto) 0-4 /hpf Urine Hyaline Casts (Auto) 1-5 /lpf Urine Epithelial Cells (Auto) 10-20 /lpf Urine Bacteria (Auto) NEG Assessment & Plan Large Bowel obstruction: secondary to incarcerated left inguinal hernia -pt presented with constipation, abdominal pain -CT abd/pelvis: large bowel obstruction with the transitional point within a left inguinal hernia. No evidence of incarceration. Additional findings: Probable atelectasis and scarring within the lung bases. -Surgery consulted, patient underwent operation and repair of incarcerated left inguinal hernia earlier today -leukocytosis likely reactive, repeat labs in AM -NPO, diet to be advanced as per Surgery -PRN pain control and anti-emetics -IV fluids continued CKD Stage III: -Cr: 1.29 on admission -remains stable -monitor -avoid nephrotoxic medications HTN: -BP was elevated, likely situational due to abdominal pain -continue Losartan when able to take PO -monitor for now Current Inpatient Medications: Current Inpatient Medications Medications (Trade) Dose Ordered Sig/Vicky Route Start Time Stop Time Status Last Admin Dose Admin Ioversol (Optiray 320) 100 ml UD PRN IV 05/02/17 02:15 05/06/17 02:14 Ondansetron HCl (Zofran Inj) 4 mg Q6H PRN IV 05/02/17 04:15 06/01/17 04:14 Sodium Chloride 1,000 ml @ 80 mls/hr [id number] IV 05/02/17 12:00 06/01/17 11:59 05/02/17 12:30 80 MLS/HR Docusate Sodium (coLACE CAP) 100 mg BID PO 05/02/17 21:00 06/01/17 20:59 Polyethylene (Miralax Powder Packet) 17 gm DAILY PO 05/03/17 09:00 06/02/17 08:59 Oxycodone/ Acetaminophen (Percocet 5-325mg Tab) 1 tab Q4H PRN PO 05/02/17 11:45 05/16/17 11:44 Morphine Sulfate (MoRPHine SULFATE INJ) 2 mg Q3H PRN IV 05/02/17 11:45 05/16/17 11:44 Oxycodone/ Acetaminophen (Percocet 5-325mg Tab) 2 tab Q4H PRN PO 05/02/17 11:45 05/16/17 11:44 Morphine Sulfate (MoRPHine SULFATE INJ) 4 mg Q3H PRN IV 05/02/17 11:45 05/16/17 11:44
[2017-05-02] MEDS: DOCUSATE SODIUM 100 MG CAP PO SCH (20:59)
[2017-05-03] MEDS ORDERED: ACETAMINOPHEN 325 MG TAB PO PRN (00:30)
[2017-05-03] MEDS: SODIUM CHLORIDE 0.9% 1000ML 1,000 ML IV SCH ×2 (00:49→13:36)
[2017-05-03 03:05] VITALS: BP 133/72; PULSE 86; TEMP 36.7; O2SAT 90
[2017-05-03 06:20] LABS: HEMATOCRIT 32.3 % (42-52); MEAN CORPUSCULAR HEMOGLOBIN 29.5 pg (25-34); MEAN CORPUSCULAR HGB CONC 32.8 g/dl (32-36); MEAN PLATELET VOLUME 9.5 fL (7.4-10.4); PLATELET COUNT 244 K/uL (130-400); RED BLOOD COUNT 3.59 M/uL (4.7-6.1); WHITE BLOOD COUNT 13.06 K/uL (4.8-10.8)
[2017-05-03 06:54] LABS: BUN/CREATININE RATIO 13.6 (10-20); CREATININE 1.21 mg/dl (0.60-1.40); POTASSIUM 4.1 mmol/L (3.5-5.1)
[2017-05-03 07:07] LABS: CALCIUM 7.7 mg/dl (8.5-10.1)
[2017-05-03 07:36] VITALS: BP 132/70; PULSE 82; TEMP 36.9; O2SAT 92
[2017-05-03 08:16] VITALS: O2SAT 92
--- NOTE | 2017-05-03 08:27 | Surgery Progress Note ---
Surgery Progress Note Date of Service May 03, 2017. Subjective Post OP Day: 1 + feeling well, + ambulating, + flatus, + diet (clears), No bowel movement, No nausea Objective Vital Signs: Date Time Temp Pulse Resp B/P (MAP) Pulse Ox O2 Delivery O2 Flow Rate FiO2 05/03/17 08:16 92 Room Air 05/03/17 07:36 36.9 82 16 132/70 (90) 92 Room Air 05/03/17 03:05 36.7 86 16 133/72 (92) 90 Room Air 05/02/17 23:50 Room Air 05/02/17 22:50 36.8 82 16 135/74 (94) 93 Room Air 05/02/17 20:22 94 Room Air 05/02/17 19:51 36.7 97 16 154/79 (104) 96 Nasal Cannula 3.0 05/02/17 15:45 Nasal Cannula 3.0 05/02/17 15:15 37.0 87 18 159/78 (105) 95 Nasal Cannula 3.0 05/02/17 14:15 36.5 97 18 158/85 (109) 97 Nasal Cannula 3.0 05/02/17 13:15 88 18 150/80 (103) 96 05/02/17 12:43 36.4 86 18 154/79 (104) 98 Nasal Cannula 3.0 05/02/17 12:15 97 Nasal Cannula 3.0 05/02/17 12:15 36.4 95 16 151/79 (103) 97 Nasal Cannula 3.0 05/02/17 12:15 97 Nasal Cannula 3.0 05/02/17 12:05 36.4 93 20 151/87 100 Nasal Cannula 3 05/02/17 11:55 36.4 97 20 145/87 100 Nasal Cannula 3 05/02/17 11:45 100 20 149/79 100 Oxymask 10 05/02/17 11:35 102 18 145/74 98 Oxymask 10 05/02/17 11:27 36.8 101 18 140/71 98 Oxymask 10 Abdomen: non distended, soft Incision(s): dry (dressing) Laboratory Results: Results Past 24 Hours Test 05/03/17 05:34 Range/Units White Blood Count 13.06 4.8-10.8 K/uL Red Blood Count 3.59 4.7-6.1 M/uL Hemoglobin 10.6 14.0-18.0 g/dL Hematocrit 32.3 42-52 % Mean Corpuscular Volume 90.0 80-100 fL Mean Corpuscular Hemoglobin 29.5 25-34 pg Mean Corpuscular Hemoglobin Concent 32.8 32-36 g/dl RDW Standard Deviation 45.9 36.4-46.3 fL RDW Coefficient of Variation 13.7 11.5-14.5 % Platelet Count 244 130-400 K/uL Mean Platelet Volume 9.5 7.4-10.4 fL Sodium Level 136 136-145 mmol/L Potassium Level 4.1 3.5-5.1 mmol/L Chloride Level 101 98-107 mmol/L Carbon Dioxide Level 28 21-32 mmol/L Anion Gap 7.0 3-11 mmol/L Blood Urea Nitrogen 16 7-18 mg/dl Creatinine 1.21 0.60-1.40 mg/dl Est Creatinine Clear Calc Drug Dose 48.5 ml/min Estimated GFR () 62.5 Estimated GFR (Non- 53.9 BUN/Creatinine Ratio 13.6 10-20 Random Glucose 125 70-99 mg/dl Calcium Level 7.7 8.5-10.1 mg/dl Assessment & Plan s/p repair incarcerated left inguinal hernia advance diet, probably keep here today seen with Dr. Valentin
[2017-05-03] MEDS: DOCUSATE SODIUM 100 MG CAP PO SCH ×2 (08:54→20:28)
[2017-05-03] MEDS: POLYETHYLENE (MIRALAX) 17 GM PACK PO SCH (08:54)
[2017-05-03 11:39] VITALS: BP 142/86; PULSE 90; TEMP 36.9; O2SAT 92
[2017-05-03 15:09] VITALS: BP 152/83; PULSE 107; TEMP 36.4; O2SAT 95
[2017-05-03] MEDS ORDERED: NURSING DECISION MEDICATION ORDER SCH (15:15)
[2017-05-03] MEDS ORDERED: COUGH DROP (SUGAR FREE) LOZ 24 LOZ/1 BOX PO PRN (15:30)
--- NOTE | 2017-05-03 17:13 | Progress Note ---
Medicine Progress Note Date & Time of Visit: May 03, 2017 at 17:11. Subjective Patient reports feeling well other than not sleeping well at night. States he had a BM today. Denies any nausea. Diet being advanced by surgery and patient is tolerating liquids thus far. Minimal pain in the LLQ. No overnight events noted. Objective Last 8 Hrs Date Time Temp Pulse Resp B/P (MAP) Pulse Ox O2 Delivery O2 Flow Rate FiO2 05/03/17 15:09 36.4 107 18 152/83 (106) 95 Room Air 05/03/17 15:05 Room Air 05/03/17 11:39 36.9 90 14 142/86 (104) 92 Room Air Physical Exam: GENERAL: Patient is in no acute distress. HEENT: No acute trauma, mucous membranes moist, no nasal congestion, no scleral icterus. NECK: No stridor, trachea is midline. LUNGS: Clear to auscultation bilaterally, no wheeze, no rhonchi, breath sounds equal. HEART: Without murmurs gallops or rubs, regular rate and rhythm. ABDOMEN: Soft, bowel sounds positive, distended, mildly tender in left lower quadrant EXTREMITIES: No cyanosis or edema, full range of motion of all the joints without pain or difficulty, no signs for acute trauma. NEUROLOGIC: Oriented x 3, no acute motor or sensory deficits, no focal weakness. SKIN: No rash, no jaundice, no diaphoresis. Laboratory Results: Last 24 Hours Test 05/03/17 05:34 White Blood Count 13.06 K/uL Red Blood Count 3.59 M/uL Hemoglobin 10.6 g/dL Hematocrit 32.3 % Mean Corpuscular Volume 90.0 fL Mean Corpuscular Hemoglobin 29.5 pg Mean Corpuscular Hemoglobin Concent 32.8 g/dl RDW Standard Deviation 45.9 fL RDW Coefficient of Variation 13.7 % Platelet Count 244 K/uL Mean Platelet Volume 9.5 fL Sodium Level 136 mmol/L Potassium Level 4.1 mmol/L Chloride Level 101 mmol/L Carbon Dioxide Level 28 mmol/L Anion Gap 7.0 mmol/L Blood Urea Nitrogen 16 mg/dl Creatinine 1.21 mg/dl Est Creatinine Clear Calc Drug Dose 48.5 ml/min Estimated GFR () 62.5 Estimated GFR (Non- 53.9 BUN/Creatinine Ratio 13.6 Random Glucose 125 mg/dl Calcium Level 7.7 mg/dl Assessment & Plan Large Bowel obstruction: secondary to incarcerated left inguinal hernia -pt presented with constipation, abdominal pain -CT abd/pelvis: large bowel obstruction with the transitional point within a left inguinal hernia. No evidence of incarceration. Additional findings: Probable atelectasis and scarring within the lung bases. -Surgery consulted, patient underwent operation and repair of incarcerated left inguinal hernia POD#1 -leukocytosis likely reactive, not trending up -diet to be advanced as per Surgery; had clear liquids earlier today, and diet advance ordered by Surgery for this evening -PRN pain control and anti-emetics -IV fluids continued, can likely stop now that taking PO CKD Stage III: -Cr: 1.29 on admission-->1.22 today -remains stable -monitor -avoid nephrotoxic medications HTN: -BP was elevated, likely situational due to abdominal pain -restart Losartan -monitor for now Current Inpatient Medications: Current Inpatient Medications Medications (Trade) Dose Ordered Sig/Vicky Route Start Time Stop Time Status Last Admin Dose Admin Ioversol (Optiray 320) 100 ml UD PRN IV 05/02/17 02:15 05/06/17 02:14 Ondansetron HCl (Zofran Inj) 4 mg Q6H PRN IV 05/02/17 04:15 06/01/17 04:14 Sodium Chloride 1,000 ml @ 80 mls/hr [id number] IV 05/02/17 12:00 06/01/17 11:59 05/03/17 13:36 80 MLS/HR Docusate Sodium (coLACE CAP) 100 mg BID PO 05/02/17 21:00 06/01/17 20:59 05/03/17 08:54 100 MG Polyethylene (Miralax Powder Packet) 17 gm DAILY PO 05/03/17 09:00 06/02/17 08:59 05/03/17 08:54 17 GM Oxycodone/ Acetaminophen (Percocet 5-325mg Tab) 1 tab Q4H PRN PO 05/02/17 11:45 05/16/17 11:44 Morphine Sulfate (MoRPHine SULFATE INJ) 2 mg Q3H PRN IV 05/02/17 11:45 05/16/17 11:44 Oxycodone/ Acetaminophen (Percocet 5-325mg Tab) 2 tab Q4H PRN PO 05/02/17 11:45 05/16/17 11:44 Morphine Sulfate (MoRPHine SULFATE INJ) 4 mg Q3H PRN IV 05/02/17 11:45 05/16/17 11:44 Acetaminophen (Tylenol Tab) 650 mg Q6 PRN PO 05/03/17 00:30 06/02/17 00:29 Menthol (Nice Deyanira) 1 deyanira PRN PRN PO 05/03/17 15:30 06/02/17 15:29 05/03/17 15:26 1 DEYANIRA
[2017-05-03 22:58] VITALS: BP 144/74; PULSE 95; TEMP 36.8; O2SAT 92
[2017-05-04 07:15] VITALS: BP 171/79; PULSE 76; TEMP 36.7; O2SAT 92
[2017-05-04 07:45] LABS: HEMATOCRIT 32.6 % (42-52); MEAN CELL VOLUME 90.8 fL (80-100); MEAN CORPUSCULAR HEMOGLOBIN 29.2 pg (25-34); MEAN CORPUSCULAR HGB CONC 32.2 g/dl (32-36); MEAN PLATELET VOLUME 9.3 fL (7.4-10.4); PLATELET COUNT 226 K/uL (130-400); RED BLOOD COUNT 3.59 M/uL (4.7-6.1); WHITE BLOOD COUNT 8.96 K/uL (4.8-10.8)
[2017-05-04 08:11] LABS: BUN/CREATININE RATIO 17.1 (10-20); CALCIUM 8.1 mg/dl (8.5-10.1); CREATININE 1.13 mg/dl (0.60-1.40); POTASSIUM 3.8 mmol/L (3.5-5.1)
[2017-05-04] MEDS: DOCUSATE SODIUM 100 MG CAP PO SCH (08:48)
[2017-05-04] MEDS: POLYETHYLENE (MIRALAX) 17 GM PACK PO SCH (08:48)
[2017-05-04] MEDS ORDERED: LOSARTAN POTASSIUM 50 MG TAB PO SCH (09:00)
[2017-05-04 10:03] VITALS: BP 150/71
--- NOTE | 2017-05-04 10:29 | Surgery Progress Note ---
Surgery Progress Note Date of Service May 04, 2017. Subjective Post OP Day: 2 + feeling well, + bowel movement (multiple), + pain controlled (minimal pain), + diet (regular), No nausea Objective Vital Signs: Date Time Temp Pulse Resp B/P (MAP) Pulse Ox O2 Delivery O2 Flow Rate FiO2 05/04/17 10:03 150/71 (97) 05/04/17 07:20 Room Air 05/04/17 07:15 36.7 76 16 171/79 (109) 92 Room Air 05/03/17 23:21 Room Air 05/03/17 22:58 36.8 95 16 144/74 (97) 92 Room Air 05/03/17 15:09 36.4 107 18 152/83 (106) 95 Room Air 05/03/17 15:05 Room Air 05/03/17 11:39 36.9 90 14 142/86 (104) 92 Room Air Abdomen: non tender, non distended, soft Incision(s): clean, dry, no erythema Laboratory Results: Results Past 24 Hours Test 05/04/17 07:24 Range/Units White Blood Count 8.96 4.8-10.8 K/uL Red Blood Count 3.59 4.7-6.1 M/uL Hemoglobin 10.5 14.0-18.0 g/dL Hematocrit 32.6 42-52 % Mean Corpuscular Volume 90.8 80-100 fL Mean Corpuscular Hemoglobin 29.2 25-34 pg Mean Corpuscular Hemoglobin Concent 32.2 32-36 g/dl RDW Standard Deviation 45.7 36.4-46.3 fL RDW Coefficient of Variation 13.8 11.5-14.5 % Platelet Count 226 130-400 K/uL Mean Platelet Volume 9.3 7.4-10.4 fL Sodium Level 139 136-145 mmol/L Potassium Level 3.8 3.5-5.1 mmol/L Chloride Level 101 98-107 mmol/L Carbon Dioxide Level 31 21-32 mmol/L Anion Gap 7.0 3-11 mmol/L Blood Urea Nitrogen 19 7-18 mg/dl Creatinine 1.13 0.60-1.40 mg/dl Est Creatinine Clear Calc Drug Dose 51.9 ml/min Estimated GFR () 67.8 Estimated GFR (Non- 58.5 BUN/Creatinine Ratio 17.1 10-20 Random Glucose 97 70-99 mg/dl Calcium Level 8.1 8.5-10.1 mg/dl Assessment & Plan s/p repair incarcerated left inguinal hernia tolerating diet bowel function returned ok for d/c from surgical standpoint seen with Dr. Valentin
--- NOTE | 2017-05-04 10:43 | Discharge Instructions ---
Discharge Instructions Date of Service May 04, 2017. Admission Reason for Admission: Large Bowel Obstruction Discharge Discharge Diagnosis / Problem: repair of left inguinal hernia Discharge Goals Goal(s): Decrease discomfort Activity Recommendations Activity Limitations: as noted below Shower/Bathe: no limitations (ok to shower) . Instructions / Follow-Up Instructions / Follow-Up Call to schedule appt with Dr. Valentin in 1-2 weeks, [address], [phone] You may take Tylenol or ibuprofen for pain Current Hospital Diet Patient's current hospital diet: Regular Diet Discharge Diet Recommended Diet: Regular Diet Procedures Procedures Performed: Repair left incarcerated inguinal hernia with mesh Pending Studies Studies pending at discharge: no Laboratory Results Lipid Panel Test 03/30/17 07:29 Range/Units Triglycerides Level 89 0-150 mg/dl Cholesterol Level 119 0-200 mg/dl HDL Cholesterol 31 mg/dl Cholesterol/HDL Ratio 3.8 LDL Cholesterol, Calculated 70 mg/dl Medical Emergencies . Who to Call and When: Medical Emergencies: If at any time you feel your situation is an emergency, please call 911 immediately. . Non-Emergent Contact Non-Emergency issues call your: Surgeon Call Non-Emergent contact if: you have a fever, temperature is above 101.5, your pain is not controlled, wound has increased redness . "Provider Documentation" section prepared by Ricci Finch. . VTE Core Measure Inpt VTE Proph given/why not?: SCD's
--- NOTE | 2017-05-04 12:56 | Progress Note ---
Subjective Date of Service: May 04, 2017. Subjective Pt evaluation today including: conversation w/ patient, physical exam, lab review, review of studies Saw/examined the patient in room 320 He is feeling well +bowel movement no abdominal pain good PO intake Problem List Medical Problems: (1) Large bowel obstruction Status: Acute Review of Systems Constitutional: No fever, No chills Respiratory: No cough, No sputum, No shortness of breath Cardiac: No chest pain Abdomen: No pain, No nausea, No vomiting, No diarrhea, No constipation, No GI bleeding Medications Current Inpatient Medications Medications (Trade) Dose Ordered Sig/Vicky Route Start Time Stop Time Status Last Admin Dose Admin Ioversol (Optiray 320) 100 ml UD PRN IV 05/02/17 02:15 05/06/17 02:14 Ondansetron HCl (Zofran Inj) 4 mg Q6H PRN IV 05/02/17 04:15 06/01/17 04:14 Docusate Sodium (coLACE CAP) 100 mg BID PO 05/02/17 21:00 06/01/17 20:59 05/03/17 08:54 100 MG Polyethylene (Miralax Powder Packet) 17 gm DAILY PO 05/03/17 09:00 06/02/17 08:59 05/03/17 08:54 17 GM Oxycodone/ Acetaminophen (Percocet 5-325mg Tab) 1 tab Q4H PRN PO 05/02/17 11:45 05/16/17 11:44 Morphine Sulfate (MoRPHine SULFATE INJ) 2 mg Q3H PRN IV 05/02/17 11:45 05/16/17 11:44 Oxycodone/ Acetaminophen (Percocet 5-325mg Tab) 2 tab Q4H PRN PO 05/02/17 11:45 05/16/17 11:44 Morphine Sulfate (MoRPHine SULFATE INJ) 4 mg Q3H PRN IV 05/02/17 11:45 05/16/17 11:44 Acetaminophen (Tylenol Tab) 650 mg Q6 PRN PO 05/03/17 00:30 06/02/17 00:29 05/04/17 02:14 650 MG Menthol (Nice Deyanira) 1 deyanira PRN PRN PO 05/03/17 15:30 06/02/17 15:29 05/03/17 15:26 1 DEYANIRA Losartan Potassium (coZAAR TAB) 50 mg QAM PO 05/04/17 09:00 06/03/17 08:59 05/04/17 08:48 50 MG Objective Vital Signs Date Time Temp Pulse Resp B/P (MAP) Pulse Ox O2 Delivery O2 Flow Rate FiO2 05/04/17 10:03 150/71 (97) 05/04/17 07:20 Room Air 05/04/17 07:15 36.7 76 16 171/79 (109) 92 Room Air 05/03/17 23:21 Room Air 05/03/17 22:58 36.8 95 16 144/74 (97) 92 Room Air 05/03/17 15:09 36.4 107 18 152/83 (106) 95 Room Air 05/03/17 15:05 Room Air Physical Exam General Appearance: no apparent distress Respiratory/Chest: chest non-tender, lungs clear, normal breath sounds, no respiratory distress, no accessory muscle use Cardiovascular: regular rate, rhythm, no edema, no murmur Abdomen: normal bowel sounds, non tender, soft Laboratory Results Last 24 Hours Test 05/04/17 07:24 White Blood Count 8.96 K/uL Red Blood Count 3.59 M/uL Hemoglobin 10.5 g/dL Hematocrit 32.6 % Mean Corpuscular Volume 90.8 fL Mean Corpuscular Hemoglobin 29.2 pg Mean Corpuscular Hemoglobin Concent 32.2 g/dl RDW Standard Deviation 45.7 fL RDW Coefficient of Variation 13.8 % Platelet Count 226 K/uL Mean Platelet Volume 9.3 fL Sodium Level 139 mmol/L Potassium Level 3.8 mmol/L Chloride Level 101 mmol/L Carbon Dioxide Level 31 mmol/L Anion Gap 7.0 mmol/L Blood Urea Nitrogen 19 mg/dl Creatinine 1.13 mg/dl Est Creatinine Clear Calc Drug Dose 51.9 ml/min Estimated GFR () 67.8 Estimated GFR (Non- 58.5 BUN/Creatinine Ratio 17.1 Random Glucose 97 mg/dl Calcium Level 8.1 mg/dl Assessment and Plan Large Bowel obstruction: secondary to incarcerated left inguinal hernia 05/04 s/p repair of left inguinal hernia POD #2 white count resolved +bowel movement +pain controlled plan to d/c home today -pt presented with constipation, abdominal pain -CT abd/pelvis: large bowel obstruction with the transitional point within a left inguinal hernia. No evidence of incarceration. Additional findings: Probable atelectasis and scarring within the lung bases. -Surgery consulted, patient underwent operation and repair of incarcerated left inguinal hernia POD#1 -leukocytosis likely reactive, not trending up -diet to be advanced as per Surgery; had clear liquids earlier today, and diet advance ordered by Surgery for this evening -PRN pain control and anti-emetics -IV fluids continued, can likely stop now that taking PO CKD Stage III: -Cr: 1.29 on admission-->1.22 today -remains stable -monitor -avoid nephrotoxic medications HTN: -BP was elevated, likely situational due to abdominal pain -restart Losartan -monitor for now
[2017-05-04 13:04] VITALS: BP 150/71; PULSE 76; TEMP 36.7; O2SAT 92
--- NOTE | 2017-05-04 13:06 | Discharge Summary ---
Discharge Summary Date of Service May 04, 2017. Discharge Summary Admission Date: May 02, 2017 at 04:14 Discharge Date: May 04, 2017 Discharge Disposition: Home Principal Diagnosis: Large Incarcerated Inguinal Hernia s/p repair Bowel Obstruction Medication Reconciliation Continued Medications: Acetaminophen Tab (Tylenol) 325 Mg Tab 325 MG PO PRN for Headache, TAB Aspirin (Aspirin Ec) 81 Mg Tab 81 MG PO DAILY Cholecalciferol (Vitamin D) 1,000 Unit Tab 1000 UNITS PO DAILY Cyanocobalamin (Vitamin B-12) 1,000 Mcg Sub 1000 MCG INJ MONTHLY Furosemide (Lasix) 20 Mg Tab 20 MG PO UD, TAB 1 tab daily prn for lower extremities swelling and weight gain Losartan Potassium (Cozaar) 50 Mg Tab 50 MG PO DAILY, TAB Ondasetron Odt (Zofran Odt) 4 Mg Tab 4 MG SL Q6H for Nausea, TAB Oxybutynin Chloride Er (Ditropan Xl) 10 Mg Tab 10 MG PO DAILY, TAB Pantoprazole (Protonix) 40 Mg Tab 40 MG PO DAILY, 0 Refills Promethazine Hcl (Phenergan) 12.5 Mg Tab 25 MG PO Q6H PRN for Nausea or Vomiting, TAB Ranitidine (Zantac) 150 Mg Tab 150 MG PO BID PRN for GERD Admission Information HPI (per Admitting provider): 87 year old male with PMH of HTN, Gout, CKD Stage 3, Vit D def, Pernicious anemia, recently discharge from [facility] for sepsis and was treated for 4 weeks IV abx that was completed last Wednesday, presents to the Emergency Room with complaints of constipation associated with LLQ abdominal pain. Pt said that he was doing fine until for days ago he developed constipation. He said that he took laxative and enema with no relief. Pt said that his last bowel movement was 4 days ago. He said that yesterday He developed severe abdominal pain associated with nausea/dry heaving. He describes the pain as cramping, come and goes, grade 4/10. Pain is non radiating. He said that last time he ate something was for breakfast (barely ate breakfast yesterday). He said that he feels weak. Denies any chest pain, palpitation, fever and SOB. Physical Exam (per Admitting): General Appearance: WD/WN, no apparent distress, + moderate distress Head: normocephalic, atraumatic Eyes: PERRL, EOMI ENT: hearing grossly normal Neck: no JVD, trachea midline Respiratory/Chest: normal breath sounds, no respiratory distress, no accessory muscle use Cardiovascular: no JVD, + tachycardia Abdomen/GI: + tenderness (LLQ, hypoactive bowel sound) Back: no CVA tenderness Extremities/Musculoskelatal: no calf tenderness, + swelling Neurologic/Psych: no motor/sensory deficits, alert, normal mood/affect Skin: warm/dry, no rash Hospital Course Large Bowel obstruction: secondary to incarcerated left inguinal hernia 11/14 s/p repair of left inguinal hernia POD #2 white count resolved +bowel movement +pain controlled plan to d/c home today -pt presented with constipation, abdominal pain -CT abd/pelvis: large bowel obstruction with the transitional point within a left inguinal hernia. No evidence of incarceration. Additional findings: Probable atelectasis and scarring within the lung bases. -Surgery consulted, patient underwent operation and repair of incarcerated left inguinal hernia POD#1 -leukocytosis likely reactive, not trending up -diet to be advanced as per Surgery; had clear liquids earlier today, and diet advance ordered by Surgery for this evening -PRN pain control and anti-emetics -IV fluids continued, can likely stop now that taking PO CKD Stage III: -Cr: 1.29 on admission-->1.22 today -remains stable -monitor -avoid nephrotoxic medications HTN: -BP was elevated, likely situational due to abdominal pain -restart Losartan -monitor for now Total time spent on discharge = 35 minutes This includes examination of the patient, discharge planning, medication reconciliation, and communication with other providers. Discharge Instructions Call to schedule appt with Dr. Valentin in 1-2 weeks, [address] , [phone] You may take Tylenol or ibuprofen for pain Please follow-up with Dr. Gresham on May 07 at 1:05PM
== END 2017-05-04 13:58 | disposition home or self-care (01) | DRG 352 ==
LOC: EDBD 00:45 → C.EDB 00:46 → C.3E 04:14 → ENRESERV 04:20 → CANRESERV 04:20 → EDBEDREQSVC 04:28 → ENRESERV 04:42
PROVIDERS: ADMIT Internal Medicine; ATTEND Family Medicine
PROC: 0YU60JZ Supplement Left Inguinal Region with Synthetic Substitute, Open Approach (ICD-10-PCS; principal; 2017-05-02 08:30)
DX: K40.30 Unilateral inguinal hernia, with obstruction, without gangrene, not specified as recurrent (principal); D72.829 Elevated white blood cell count, unspecified; I12.9 Hypertensive chronic kidney disease with stage 1 through stage 4 chronic kidney disease, or unspecified chronic kidney disease; N18.3 Chronic kidney disease, stage 3 (moderate); I25.10 Atherosclerotic heart disease of native coronary artery without angina pectoris; K21.9 Gastro-esophageal reflux disease without esophagitis; E55.9 Vitamin D deficiency, unspecified; E66.9 Obesity, unspecified; Z68.35 Body mass index [BMI] 35.0-35.9, adult; Z96.652 Presence of left artificial knee joint; Z87.891 Personal history of nicotine dependence; Z79.82 Long term (current) use of aspirin; Z79.899 Other long term (current) drug therapy

== ENCOUNTER 2017-09-16 11:10 | Inpatient (IN) | payer OTHER ==
[~2017-09-16] VITALS: Ht 170.2 cm; Wt 91.0 kg
[~2017-09-16 11:10] MED LIST changes: +ACET-1693 PO; -CHOL100010 PO; +CYAN100048 PO; -DAPT500I IV; +FURO-85 PO; +ONDA4TAB10 SL; +PROM12.529 PO; +RANI150T85 PO; -ZNTT/150 PO
[2017-09-16] MEDS ORDERED: CYNI1000 (11:44)
[2017-09-16] MEDS: ONDANSETRON INJ 2 MG/ML 2 ML VIAL IV STA ×2 (12:10→14:52)
[2017-09-16] MEDS ORDERED: SODIUM CHLORIDE 0.9% 1000ML 1,000 ML IV STA (12:10)
--- NOTE | 2017-09-16 12:18 | EMERGENCY ROOM VISIT NOTE ---
History Report prepared by Raymundo: Vadim Dillon Under the Supervision of: Dr. Jim Benito M.D. First contact with patient: 12:06 Chief Complaint: VOMITING Stated Complaint: SICK STOMACH, TOTAL WEAKNESS Nursing Triage Summary: Per , reports pt vomited last night and now "it has just wiped him out". Dx with UTI on Wednesday is on Bactrim. hx of trouble with abx. pt c/o weakness, nauseated, vomiting. urine dark. c/o abd pain in abd. denies diarrhea History of Present Illness The patient is an 87 year old male with a history of hypertension, CKD stage 3, pernicious anemia, a large bowel obstruction, and left inguinal hernia who presents to the Emergency Room with complaints of a worsening illness that started around 1700 yesterday evening. He states that he got sick after eating soup, and has been dry heaving this morning. Per the patient's family, the patient has not been eating at all recently, and has been weak due to that. The patient states that he has had a cough and some abdominal pain. No chest pain, mild dyspnea on exertion. He says that he has not vomited however. The patient' s family notes that the patient has been very tired recently. The patient was diagnosed with a UTI at his primary care physician's office ([facility]) 2 days ago, and was put on Bactrim, which he has been compliant with but has not taken today yet. The patient was diagnosed due to urine odor and color. The patient denies any pain with urination, blood in the urine, or urinary incontinence. The patient states that currently he does not feel like dry heaving, as he calmed down somewhat since being here. He adds that he is an ex-smoker, and quit in the 1960s. He takes Losartan for his hypertension. The patient states that he has not had any recent falls within the past few days. He says that he had his hernia removed recently. Source of History: patient, family Onset: 1700 yesterday evening Position: other (global) Quality: other (illness) Timing: worsening Associated Symptoms: + cough, + abdominal pain, + fatigue, + weakness, No chest pain, No SOB, No vomiting, No urinary symptoms (no pain, blood, incontinence) Note: Associated symptoms: Dry heaving. Review of Systems See HPI for pertinent positives and negatives. A total of ten systems were reviewed and were otherwise negative. Past Medical & Surgical Medical Problems: (1) Carotid artery stenosis (2) CKD (chronic kidney disease), stage III (3) GERD (gastroesophageal reflux disease) (4) Gout (5) HTN (hypertension) (6) Inguinal hernia (7) Sepsis due to coagulase-negative staphylococcal infection (8) Staphylococcus aureus septicemia Surgical Problems: (1) Hx of inguinal hernia surgery (2) S/P appendectomy (3) S/P cholecystectomy (4) S/P repair of ventral hernia (5) Status post total left knee replacement Family History Insignificant due to advanced age Social History Smoking Status: Former Smoker Alcohol Use: none Marital Status: Housing Status: lives with family Current/Historical Medications Scheduled Aspirin (Aspirin Ec), 81 MG PO DAILY Cholecalciferol (Vitamin D), 1,000 UNITS PO DAILY Cyanocobalamin (Vitamin B-12), 1,000 MCG PO DAILY Cyanocobalamin (Cyanocobalamin), Unknown Dose MONTHLY Furosemide (Lasix), 20 MG PO UD Losartan Potassium (Cozaar), 50 MG PO DAILY Ondasetron Odt (Zofran Odt), 4 MG SL Q6H Oxybutynin Chloride Er (Ditropan Xl), 10 MG PO DAILY Pantoprazole (Protonix), 40 MG PO DAILY Scheduled PRN Acetaminophen Tab (Tylenol), 325 MG PO for Headache Promethazine Hcl (Phenergan), 25 MG PO Q6H PRN for Nausea or Vomiting Ranitidine (Zantac), 150 MG PO BID PRN for GERD Allergies Coded Allergies: Amoxicillin (Verified Allergy, Severe, SWELLING OF TONGUE AND THROAT, 09/16) Baclofen (Unverified Allergy, Unknown, VERY SLEEPY, 09/16/17) Daptomycin (Verified Allergy, Unknown, unknown, 09/16/17) Lethargy/ Weakness Omeprazole (Verified Allergy, Unknown, ?, 09/16/17) Phenobarbital (Verified Allergy, Unknown, ?, 09/16/17) Statins (Verified Allergy, Unknown, RASH, 09/16/17) Physical Exam Vital Signs Date Time Temp Pulse Resp B/P (MAP) Pulse Ox O2 Delivery O2 Flow Rate FiO2 09/16/17 17:48 92 Room Air 3/29/18 17:12 79 22 129/73 97 Nasal Cannula 2.0 09/16/17 15:17 98 Nasal Cannula 3.0 09/16/17 15:14 86 18 160/85 84 Room Air 09/16/17 14:50 103 18 180/102 98 Room Air 09/16/17 12:02 97 09/16/17 11:17 37.1 104 20 184/94 96 Room Air Physical Exam Physical Exam GENERAL: He is oriented to person, place, and time. He appears well-developed and well-nourished. He does not appear distressed. HENT: Exam performed. Head: Normocephalic and atraumatic. Right Ear: External ear normal. No mastoid tenderness. Left Ear: External ear normal. No mastoid tenderness. Mouth/Throat: The oropharynx is clear and moist. No trismus in the jaw. No dental abscesses or uvula swelling. No oropharyngeal exudate or tonsillar abscesses. ____ EYES: Conjunctivae and EOM are normal. Pupils are equal, round, and reactive to light. Right eye exhibits no discharge. Left eye exhibits no discharge. No scleral icterus. ____ NECK: Normal range of motion. Neck supple. No JVD present. No spinous process tenderness present. No carotid bruit present. No rigidity. No tracheal deviation and normal range of motion present. No Brudzinski's sign and no Kernig 's sign noted. ____ CV: Tachycardic rate, regular rhythm, normal heart sounds and intact distal pulses. There is no peripheral edema. Palpable radial pulses bue. ____ PULM/CHEST: Effort normal and breath sounds normal. No respiratory distress. No stridor. He has no wheezes. He has no rales. Chest Wall: He exhibits no tenderness. ____ ABD: Old scar on anterior abdomen. The abdomen is soft. Bowel sounds are normal. He has no distension. No mass is present. There is no tenderness. There is no rebound, no guarding, no Hager's sign and no tenderness at McBurney's point. Rovsig negative MUSC/SKEL: Normal range of motion. There is no peripheral edema, tenderness or deformity. LYMPH: No cervical adenopathy. ____ NEURO: He is alert and oriented to person, place, and time. He has normal strength. No cranial nerve deficit or sensory deficit. Coordination and gait normal. GCS eye subscore is 4. GCS verbal subscore is 5. GCS motor subscore is 6. Cerebellar tests wnl. ____ SKIN: Skin is warm and dry. He is not diaphoretic. ____ PSYCH: He has a normal mood and affect. He behavior is normal. Judgment and thought content normal. ____ Medical Decision & Procedures ER Provider Diagnostic Interpretation: Radiology results as stated below per my review and radiologist interpretation: CHEST 2 VIEWS ROUTINE CLINICAL HISTORY: cough fatigue dyspnea COMPARISON STUDY: 05/02/2017 FINDINGS: Moderate cardiomegaly. Prominent pulmonary vasculature. Diaphragms are smooth. IMPRESSION: Mild congestive failure The above report was generated using voice recognition software. It may contain grammatical, syntax or spelling errors. Electronically signed by: Dre Murguia M.D. 09/16/2017 1:47 PM Dictated Date/Time: 09/16/2017 1:[address] OF THE ABDOMEN AND PELVIS WITH CONTRAST CLINICAL HISTORY: Suprapubic/right lower quadrant pain. COMPARISON STUDY: CT of the abdomen and pelvis May 02, 2017. TECHNIQUE: Following IV administration of 114 mL of Optiray-320, axial images of the abdomen and pelvis were obtained from the lung bases to the proximal femurs. Images were reviewed in the axial, sagittal, and coronal planes. IV contrast was administered without complication. A dose lowering technique was utilized adhering to the principles of ALARA. CT DOSE: 932.34 mGycm FINDINGS: Visualized portions of the lower chest demonstrate mild cardiomegaly. A small right and trace left pleural effusion are noted. A 2.3 cm partially peripherally calcified bladder attenuation left para-aortic focus located at the level of the lower descending thoracic cord is unchanged from earlier exams. This is benign. No pneumatosis, free air or portal venous gas is present. Multiple renal and hepatic cysts are noted. Several subcentimeter renal lesions are too small to characterize and likely reflect cysts. A few left renal calculi measure up to 9 mm. There are no ureteral calculi. There is no hydronephrosis or hydroureter. There is extensive plaque of the abdominal aorta. There is no evidence for a bowel obstruction. The appendix is surgically absent. A ventral hernia repair with mesh is noted. A left inguinal hernia repair with mesh is noted. No lymphadenopathy is present. There are no suspicious osseous lesions. The appendix is not visualized. A calcified peritoneal body within the lower abdomen is unchanged. IMPRESSION: 1. No acute process within the abdomen or pelvis. 2. Small right and trace left pleural effusions. 3. No bowel obstruction. Status post ventral and left inguinal hernia repairs with mesh. Electronically signed by: Justino Power M.D. 09/16/2017 2:23 PM Dictated Date/Time: 09/16/2017 2:[address] ANGIOGRAPHY OF THE CHEST, PULMONARY EMBOLUS PROTOCOL CLINICAL HISTORY: Hypoxia. COMPARISON STUDY: Chest CT April 08, 2017. TECHNIQUE: Following IV administration of 94 mL of Optiray-320, helical axial images of the chest were obtained utilizing the pulmonary embolus protocol. Maximal intensity projections and sagittal and coronal reformats were viewed on an independent 3D workstation. IV contrast was administered without complication. A dose lowering technique was utilized adhering to the principles of ALARA. CT DOSE: 642.55 mGycm FINDINGS: No pulmonary emboli are identified although the segmental and subsegmental pulmonary arteries within the lower lobes are suboptimally assessed due to respiratory motion. The heart is moderately enlarged. There is no pericardial effusion. There is moderate coronary artery calcification. Small right and trace left pleural effusions are noted. Associated airspace opacity favors atelectasis. There is no pneumothorax. Lungs are suboptimally assessed due to respiratory motion artifact. There may be mild interlobular septal thickening and groundglass opacities which favor pulmonary edema. There has been interval development of mild mediastinal and bilateral hilar lymphadenopathy since chest CT of March 29, 2017. Index subcarinal lymph node measures 2.2 cm. Index right hilar node measures 1.1 cm. Index right paratracheal node measures 1.1 cm. Cyst are noted within visualized portions of the kidneys. There is contrast within the collecting systems from recent contrast-enhanced abdominal CT. IMPRESSION: 1. No pulmonary emboli identified although segmental and subsegmental pulmonary arteries within the lower lobes suboptimally assessed due to respiratory motion. 2. Small right and trace left pleural effusions with associated atelectasis. No consolidation to suggest pneumonia. 3. Suspected mild pulmonary edema. 4. Interval development of mediastinal and bilateral hilar lymphadenopathy since chest CT of March 29, 2017. This is nonspecific and a follow-up chest CT in 3 months is recommended to ensure resolution. Electronically signed by: Justino Power M.D. 09/16/2017 5:11 PM Dictated Date/Time: 09/16/2017 5:00 PM Laboratory Results 09/16/17 12:30 Red Blood Count 4.39, Mean Corpuscular Volume 87.5, Mean Corpuscular Hemoglobin 30.1, Mean Corpuscular Hemoglobin Concent 34.4, Mean Platelet Volume 9.2, Neutrophils (%) (Auto) 76.8, Lymphocytes (%) (Auto) 6.6, Monocytes (%) (Auto) 13.1, Eosinophils (%) (Auto) 3.1, Basophils (%) (Auto) 0.2, Neutrophils # (Auto ) 3.52, Lymphocytes # (Auto) 0.30, Monocytes # (Auto) 0.60, Eosinophils # (Auto ) 0.14, Basophils # (Auto) 0.01 09/16/17 12:30 Test 09/16/17 12:30 09/16/17 12:35 09/16/17 13:00 09/16/17 15:30 White Blood Count 4.58 K/uL (4.8-10.8) Red Blood Count 4.39 M/uL (4.7-6.1) Hemoglobin 13.2 g/dL (14.0-18.0) Hematocrit 38.4 % (42-52) Mean Corpuscular Volume 87.5 fL (80-100) Mean Corpuscular Hemoglobin 30.1 pg (25-34) Mean Corpuscular Hemoglobin Concent 34.4 g/dl (32-36) Platelet Count 168 K/uL (130-400) Mean Platelet Volume 9.2 fL (7.4-10.4) Neutrophils (%) (Auto) 76.8 % Lymphocytes (%) (Auto) 6.6 % Monocytes (%) (Auto) 13.1 % Eosinophils (%) (Auto) 3.1 % Basophils (%) (Auto) 0.2 % Neutrophils # (Auto) 3.52 K/uL (1.4-6.5) Lymphocytes # (Auto) 0.30 K/uL (1.2-3.4) Monocytes # (Auto) 0.60 K/uL (0.11-0.59) Eosinophils # (Auto) 0.14 K/uL (0-0.5) Basophils # (Auto) 0.01 K/uL (0-0.2) RDW Standard Deviation 48.0 fL (36.4-46.3) RDW Coefficient of Variation 15.2 % (11.5-14.5) Immature Granulocyte % (Auto) 0.2 % Immature Granulocyte # (Auto) 0.01 K/uL (0.00-0.02) Anion Gap 7.0 mmol/L (3-11) Est Creatinine Clear Calc Drug Dose 49.6 ml/min Estimated GFR () 66.4 Estimated GFR (Non- 57.3 BUN/Creatinine Ratio 9.0 (10-20) Lactic Acid Level 1.2 mmol/L (0.4-2.0) Calcium Level 8.9 mg/dl (8.5-10.1) Aspartate Amino Transf (AST/SGOT) 22 U/L (15-37) Alanine Aminotransferase (ALT/SGPT) 14 U/L (12-78) Alkaline Phosphatase 50 U/L (45-117) Total Protein 7.2 gm/dl (6.4-8.2) Albumin 3.5 gm/dl (3.4-5.0) Globulin 3.7 gm/dl (2.5-4.0) Albumin/Globulin Ratio 0.9 (0.9-2) Lipase 79 U/L (73-393) Influenza Type A Antigen Neg for Influ A (NEG) Influenza Type B Antigen Neg for Influ B (NEG) Urine Color YELLOW Urine Appearance CLEAR (CLEAR) Urine pH 7.5 (4.5-7.5) Urine Specific [place] 1.014 (1.000-1.030) Urine Protein NEG (NEG) Urine Glucose (UA) NEG (NEG) Urine Ketones TRACE (NEG) Urine Occult Blood NEG (NEG) Urine Nitrite POS (NEG) Urine Bilirubin NEG (NEG) Urine Urobilinogen NEG (NEG) Urine Leukocyte Esterase SMALL (NEG) Urine WBC (Auto) >30 /hpf (0-5) Urine RBC (Auto) 0-4 /hpf (0-4) Urine Hyaline Casts (Auto) 1-5 /lpf (0-5) Urine Epithelial Cells (Auto) 10-20 /lpf (0-5) Urine Bacteria (Auto) NEG (NEG) Total Bilirubin 1.1 mg/dl (0.2-1) Direct Bilirubin 0.3 mg/dl (0-0.2) Ammonia < 10.0 umol/L (11-32) Test 09/16/17 17:30 Troponin I 0.021 ng/ml (0-0.045) Laboratory results reviewed by me Medications Administered Medications (Trade) Dose Ordered Sig/Vicky Route Start Time Stop Time Status Last Admin Dose Admin Sodium Chloride 1,000 ml @ 125 mls/hr Q8H STAT IV 09/16/17 12:10 09/16/17 20:09 09/16/17 13:44 125 MLS/HR Ondansetron HCl (Zofran Inj) 4 mg NOW STAT IV 09/16/17 12:10 09/16/17 12:12 DC 09/16/17 14:52 4 MG Ketorolac Tromethamine (Toradol Inj) 15 mg NOW STAT IV 09/16/17 13:46 09/16/17 13:47 DC 09/16/17 13:54 15 MG Ceftriaxone Sodium (Rocephin Inj) 1 gm NOW STAT IV 09/16/17 17:53 09/16/17 17:54 DC 09/16/17 18:05 1 GM ECG Per My Interpretation Indication: nausea Rate (beats per minute): 104 Rhythm: sinus tachycardia Findings: other (CT, QRS intervals within normal limits. QTC interval is 494. No ST elevation or ST depression. Peaked T-waves V4 and V5) ED Course 1207: The patient was evaluated in room B12B. A complete history and physical exam was performed. 1210: Zofran Inj 4 mg IV, NSS 1000 ml @ 125 mls/hr IV. 1344: I reevaluated the patient and he states that he no longer is feeling nauseous. On repeat abdominal exam, he has suprapubic and right lower quadrant tenderness. We will obtain a CT of the abdomen. 1346: Toradol Inj 15 mg IV. 1431: I reevaluated the patient and he says that he is feeling "sick and nauseous". He refused the Zofran earlier. We will give the patient Zofran and will check his ammonia level as well as his total and direct bilirubin levels. 1555: I was called to bedside by the nursing staff, as the patient's oxygen saturation dropped to 84% on room air, but he quickly responded on 3 liters. The family states that the patient has been more short of breath with ambulation for the last few days. While on oxygen, he feels fine. I will order a CTA of the chest and repeat troponin. 1745: CTA negative for PE. Given the patient became hypoxic on room air, the patient will be admitted to the medicine service. Upon reexamination, the patient was resting. I discussed the test results and treatment plan with him. He expressed understanding and agreement. The patient will be evaluated for further management. 1749: I discussed the patient with Rosalind Rouse - she will evaluate the patient for further treatment. 1753: Rocephin Inj 1 gm IV for UTI. Medical Decision 1344: I reevaluated the patient and he states that he no longer is feeling nauseous. On repeat abdominal exam, he has suprapubic and right lower quadrant tenderness. We will obtain a CT of the abdomen. 1431: I reevaluated the patient and he says that he is feeling "sick and nauseous". He refused the Zofran earlier. We will give the patient Zofran and will check his ammonia level as well as his total and direct bilirubin levels. 1555: I was called to bedside by the nursing staff, as the patient's oxygen saturation dropped to 84% on room air, but he quickly responded on 3 liters. The family states that the patient has been more short of breath with ambulation for the last few days. While on oxygen, he feels fine. I will order a CTA of the chest and repeat troponin. 1745: CTA negative for PE. Given the patient became hypoxic on room air, the patient will be admitted to the medicine service. Upon reexamination, the patient was resting. I discussed the test results and treatment plan with him. He expressed understanding and agreement. The patient will be evaluated for further management. 1749: I discussed the patient with Rosalind Rouse - she will evaluate the patient for further treatment. 1753: Rocephin Inj 1 gm IV for UTI. Medication Reconcilliation Current Medication List: was personally reviewed by me Blood Pressure Screening Patient's blood pressure: Normal blood pressure Consults Time Called: 1746 Consulting Physician: Rosalind Rouse Returned Call: 1748 I discussed the patient with Rosalind Rouse - she will evaluate the patient for further treatment. Impression Primary Impression: Hypoxia Additional Impressions: Nausea & vomiting Dyspnea Abdominal pain UTI (urinary tract infection) Critical Care I have personally spent greater than 40 minutes of critical care time in the direct management of this patient. This includes bedside care, interpretation of diagnostic studies, and testing, discussion with consultants, patient, and family members, and other required patient management activities. This 40 minutes is in excess of all separately billable procedures. Scribe Attestation The scribe's documentation has been prepared under my direction and personally reviewed by me in its entirety. I confirm that the note above accurately reflects all work, treatment, procedures, and medical decision making performed by me. The chart was completed utilizing [employer] Speech voice recognition software. Grammatical errors, random word insertions, pronoun errors, and incomplete sentences are an occasional consequence of this system due to software limitations, ambient noise, and hardware issues. Any formal questions or concerns about the content, text, or information contained within the body of this dictation should be directly addressed to the physician for clarification. Departure Information Dispostion Being Evaluated By Hospitalist Referrals Bert Gresham M.D. (PCP) Patient Instructions [facility] Problem Qualifiers Additional Impressions: Nausea & vomiting Vomiting type: unspecified Vomiting Intractability: unspecified Qualified Codes: R11.2 - Nausea with vomiting, unspecified Dyspnea Dyspnea type: unspecified Qualified Codes: R06.00 - Dyspnea, unspecified Abdominal pain Abdominal location: unspecified location Qualified Codes: R10.9 - Unspecified abdominal pain UTI (urinary tract infection) Urinary tract infection type: site unspecified Hematuria presence: without hematuria Qualified Codes: N39.0 - Urinary tract infection, site not specified
[2017-09-16 12:47] LABS: BASO % 0.2 %; BASO ABS # 0.01 K/uL (0-0.2); EOS % 3.1 %; EOS ABS # 0.14 K/uL (0-0.5); HEMATOCRIT 38.4 % (42-52); HEMOGLOBIN 13.2 g/dL (14.0-18.0); IG# 0.01 K/uL (0.00-0.02); LYMPH % 6.6 %; MEAN CELL VOLUME 87.5 fL (80-100); MEAN CORPUSCULAR HEMOGLOBIN 30.1 pg (25-34); MEAN CORPUSCULAR HGB CONC 34.4 g/dl (32-36); MEAN PLATELET VOLUME 9.2 fL (7.4-10.4); MONO % 13.1 %; NEUT % 76.8 %; NEUT ABS # 3.52 K/uL (1.4-6.5); PLATELET COUNT 168 K/uL (130-400); RED CELL DISTRIBUTION WIDTH CV 15.2 % (11.5-14.5); WHITE BLOOD COUNT 4.58 K/uL (4.8-10.8)
[2017-09-16 13:01] LABS: ALBUMIN 3.5 gm/dl (3.4-5.0); ALT/SGPT 14 U/L (12-78); AST/SGOT 22 U/L (15-37); BLOOD UREA NITROGEN 10 mg/dl (7-18); CALCIUM 8.9 mg/dl (8.5-10.1); CARBON DIOXIDE 27 mmol/L (21-32); CREATININE 1.15 mg/dl (0.60-1.40); GLUCOSE 99 mg/dl (70-99); LIPASE 79 U/L (73-393); POTASSIUM 3.8 mmol/L (3.5-5.1); SODIUM 135 mmol/L (136-145)
[2017-09-16 13:06] LABS: ALKALINE PHOSPHATASE 50 U/L (45-117); TOTAL PROTEIN 7.2 gm/dl (6.4-8.2)
[2017-09-16 13:30] LABS: INFLUENZA B ANTIGEN Neg for Influ B (NEG)
[2017-09-16] MEDS ORDERED: KETOROLAC TROMETHAMINE 30 MG/ML VIAL IV STA (13:46)
--- NOTE | 2017-09-16 13:48 | DIAGNOSTIC IMAGING REPORT ---
CHEST 2 VIEWS ROUTINE CLINICAL HISTORY: cough fatigue dyspnea COMPARISON STUDY: 05/02/2017 FINDINGS: Moderate cardiomegaly. Prominent pulmonary vasculature. Diaphragms are smooth. IMPRESSION: Mild congestive failure The above report was generated using voice recognition software. It may contain grammatical, syntax or spelling errors. Electronically signed by: Dre Murguia M.D. 09/16/2017 1:47 PM Dictated Date/Time: 09/16/2017 1:46 PM
[2017-09-16] MEDS ORDERED: OPTIRAY 320 IV PRN ×2 (14:00→16:15)
--- NOTE | 2017-09-16 14:24 | DIAGNOSTIC IMAGING REPORT ---
CT OF THE ABDOMEN AND PELVIS WITH CONTRAST CLINICAL HISTORY: Suprapubic/right lower quadrant pain. COMPARISON STUDY: CT of the abdomen and pelvis May 02, 2017. TECHNIQUE: Following IV administration of 114 mL of Optiray-320, axial images of the abdomen and pelvis were obtained from the lung bases to the proximal femurs. Images were reviewed in the axial, sagittal, and coronal planes. IV contrast was administered without complication. A dose lowering technique was utilized adhering to the principles of ALARA. CT DOSE: 932.34 mGycm FINDINGS: Visualized portions of the lower chest demonstrate mild cardiomegaly. A small right and trace left pleural effusion are noted. A 2.3 cm partially peripherally calcified bladder attenuation left para-aortic focus located at the level of the lower descending thoracic cord is unchanged from earlier exams. This is benign. No pneumatosis, free air or portal venous gas is present. Multiple renal and hepatic cysts are noted. Several subcentimeter renal lesions are too small to characterize and likely reflect cysts. A few left renal calculi measure up to 9 mm. There are no ureteral calculi. There is no hydronephrosis or hydroureter. There is extensive plaque of the abdominal aorta. There is no evidence for a bowel obstruction. The appendix is surgically absent. A ventral hernia repair with mesh is noted. A left inguinal hernia repair with mesh is noted. No lymphadenopathy is present. There are no suspicious osseous lesions. The appendix is not visualized. A calcified peritoneal body within the lower abdomen is unchanged. IMPRESSION: 1. No acute process within the abdomen or pelvis. 2. Small right and trace left pleural effusions. 3. No bowel obstruction. Status post ventral and left inguinal hernia repairs with mesh. Electronically signed by: Justino Power M.D. 09/16/2017 2:23 PM Dictated Date/Time: 09/16/2017 2:14 PM
[2017-09-16] MEDS ORDERED: ONDANSETRON INJ 2 MG/ML 2 ML VIAL ONE (14:49)
--- NOTE | 2017-09-16 17:12 | DIAGNOSTIC IMAGING REPORT ---
CT ANGIOGRAPHY OF THE CHEST, PULMONARY EMBOLUS PROTOCOL CLINICAL HISTORY: Hypoxia. COMPARISON STUDY: Chest CT April 08, 2017. TECHNIQUE: Following IV administration of 94 mL of Optiray-320, helical axial images of the chest were obtained utilizing the pulmonary embolus protocol. Maximal intensity projections and sagittal and coronal reformats were viewed on an independent 3D workstation. IV contrast was administered without complication. A dose lowering technique was utilized adhering to the principles of ALARA. CT DOSE: 642.55 mGycm FINDINGS: No pulmonary emboli are identified although the segmental and subsegmental pulmonary arteries within the lower lobes are suboptimally assessed due to respiratory motion. The heart is moderately enlarged. There is no pericardial effusion. There is moderate coronary artery calcification. Small right and trace left pleural effusions are noted. Associated airspace opacity favors atelectasis. There is no pneumothorax. Lungs are suboptimally assessed due to respiratory motion artifact. There may be mild interlobular septal thickening and groundglass opacities which favor pulmonary edema. There has been interval development of mild mediastinal and bilateral hilar lymphadenopathy since chest CT of March 29, 2017. Index subcarinal lymph node measures 2.2 cm. Index right hilar node measures 1.1 cm. Index right paratracheal node measures 1.1 cm. Cyst are noted within visualized portions of the kidneys. There is contrast within the collecting systems from recent contrast-enhanced abdominal CT. IMPRESSION: 1. No pulmonary emboli identified although segmental and subsegmental pulmonary arteries within the lower lobes suboptimally assessed due to respiratory motion. 2. Small right and trace left pleural effusions with associated atelectasis. No consolidation to suggest pneumonia. 3. Suspected mild pulmonary edema. 4. Interval development of mediastinal and bilateral hilar lymphadenopathy since chest CT of March 29, 2017. This is nonspecific and a follow-up chest CT in 3 months is recommended to ensure resolution. Electronically signed by: Justino Power M.D. 09/16/2017 5:11 PM Dictated Date/Time: 09/16/2017 5:00 PM
[2017-09-16] MEDS ORDERED: CEFTRIAXONE SOD INJ 1 GM ADDVIAL IV STA (17:53)
--- NOTE | 2017-09-16 19:36 | History and Physical ---
History & Physical Date & Time of Service: Sep 16, 2017 at 19:36 Chief Complaint: Sick Stomach, Total Weakness Primary Care Physician: Bert Gresham M.D. History of Present Illness Source: patient, family Patient is an 87 yr male with PMH of HTN, Gout, CKD III, Vit D def, Pernicious anemia, GERD, H/O large bowel obstruction presents with history of not feeling himself since yesterday. He noticed developing RLQ abdominal pain associated with nausea after eating soup yesterday. Abd pain is sharp to dull, intermittent , non radiating, with no aggravating/relieving factors and is associated with nausea. Denies any history of fever, chills, diarrhea. Reports chronic constipation and his last BM was yesterday. Also reports poor appetite and generalized weakness lately. Patient states he lost weight intentionally by changing his diet in last 2 months. Reports about 40 pounds weight loss in last 2 months. Patient states having intermittent dry cough and ABDULLAHI which is chronic since last 6 months. Patient was diagnosed to have UTI 2 days ago and currently on Bactrim which he took 3 doses. Reports Increased urinary frequency, but denies hematuria, Dysuria. Reports having a fall in Jun 2017 resulting in head trauma causing chronic headache. Denies any Isolated weakness in extremities, change in vision. Denies any history of chest pain, orthopnea, PND, dizziness, pedal edema, LOC, slurred speech, facial deformity, vomiting, abdominal pain, diarrhea. Patient was noted to have Hypoxia 84% on RA and improved with 2 Liters NC. Past Medical/Surgical History Medical Problems: (1) Bleeding from PICC line (2) Carotid artery stenosis (3) CKD (chronic kidney disease), stage III (4) GERD (gastroesophageal reflux disease) (5) Gout (6) HTN (hypertension) (7) Inguinal hernia (8) Large bowel obstruction (9) Sepsis due to coagulase-negative staphylococcal infection (10) Staphylococcus aureus septicemia Surgical Problems: (1) Hx of inguinal hernia surgery (2) S/P appendectomy (3) S/P cholecystectomy (4) S/P repair of ventral hernia (5) Status post total left knee replacement Family History Insignificant due to advanced age Reviewed, Not contributory Social History Smoking Status: Former Smoker Alcohol Use: none Drug Use: none Marital Status: Housing status: lives with family Immunizations History of Influenza Vaccine: Yes Influenza Vaccine Date: Mar 01, 2017 History of Tetanus Vaccine?: Yes Tetanus Immunization Date: Jul 11, 2012 History of Pneumococcal: Yes Pneumococcal Date: Aug 28, 2014 Allergies Coded Allergies: Amoxicillin (Verified Allergy, Severe, SWELLING OF TONGUE AND THROAT, 09/16) Baclofen (Unverified Allergy, Unknown, VERY SLEEPY, 09/16/17) Daptomycin (Verified Allergy, Unknown, unknown, 09/16/17) Lethargy/ Weakness Omeprazole (Verified Allergy, Unknown, ?, 09/16/17) Phenobarbital (Verified Allergy, Unknown, ?, 09/16/17) Statins (Verified Allergy, Unknown, RASH, 09/16/17) Home Medications Scheduled Aspirin (Aspirin Ec), 81 MG PO DAILY Cholecalciferol (Vitamin D), 1,000 UNITS PO DAILY Cyanocobalamin (Vitamin B-12), 1,000 MCG PO DAILY Cyanocobalamin (Cyanocobalamin), Unknown Dose MONTHLY Furosemide (Lasix), 20 MG PO UD Losartan Potassium (Cozaar), 50 MG PO DAILY Ondasetron Odt (Zofran Odt), 4 MG SL Q6H Oxybutynin Chloride Er (Ditropan Xl), 10 MG PO DAILY Pantoprazole (Protonix), 40 MG PO DAILY Scheduled PRN Acetaminophen Tab (Tylenol), 325 MG PO for Headache Promethazine Hcl (Phenergan), 25 MG PO Q6H PRN for Nausea or Vomiting Ranitidine (Zantac), 150 MG PO BID PRN for GERD Review of Systems See HPI for pertinent positives & negatives. A total of 10 systems reviewed and were otherwise negative. Physical Exam Vital Signs Date Time Temp Pulse Resp B/P (MAP) Pulse Ox O2 Delivery O2 Flow Rate FiO2 09/16/17 17:48 92 Room Air 09/16/17 17:12 79 22 129/73 97 Nasal Cannula 2.0 09/16/17 15:17 98 Nasal Cannula 3.0 09/16/17 15:14 86 18 160/85 84 Room Air 09/16/17 14:50 103 18 180/102 98 Room Air 09/16/17 12:02 97 09/16/17 11:17 37.1 104 20 184/94 96 Room Air General Appearance: WD/WN, no apparent distress Head: normocephalic, atraumatic Eyes: normal inspection, PERRL, EOMI, sclerae normal ENT: normal ENT inspection, hearing grossly normal Neck: supple, trachea midline Respiratory/Chest: chest non-tender, normal breath sounds, no accessory muscle use, + wheezing (scattered) Cardiovascular: regular rate, rhythm, no edema, no murmur Abdomen/GI: normal bowel sounds, soft, + tenderness (RLQ) Back: normal inspection Extremities/Musculoskelatal: normal inspection, no pedal edema Neurologic/Psych: 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 as tested, no motor/sensory deficits, alert, normal mood/affect, oriented x 3 Skin: normal color, warm/dry, + pertinent finding (Well healed Vertical scar on abdomen) Diagnostics Laboratory Results Results Past 24 Hours Test 09/16/17 12:30 09/16/17 12:35 09/16/17 13:00 09/16/17 15:30 Range/Units White Blood Count 4.58 4.8-10.8 K/uL Red Blood Count 4.39 4.7-6.1 M/uL Hemoglobin 13.2 14.0-18.0 g/dL Hematocrit 38.4 42-52 % Mean Corpuscular Volume 87.5 80-100 fL Mean Corpuscular Hemoglobin 30.1 25-34 pg Mean Corpuscular Hemoglobin Concent 34.4 32-36 g/dl Platelet Count 168 130-400 K/uL Mean Platelet Volume 9.2 7.4-10.4 fL Neutrophils (%) (Auto) 76.8 % Lymphocytes (%) (Auto) 6.6 % Monocytes (%) (Auto) 13.1 % Eosinophils (%) (Auto) 3.1 % Basophils (%) (Auto) 0.2 % Neutrophils # (Auto) 3.52 1.4-6.5 K/uL Lymphocytes # (Auto) 0.30 1.2-3.4 K/uL Monocytes # (Auto) 0.60 0.11-0.59 K/uL Eosinophils # (Auto) 0.14 0-0.5 K/uL Basophils # (Auto) 0.01 0-0.2 K/uL RDW Standard Deviation 48.0 36.4-46.3 fL RDW Coefficient of Variation 15.2 11.5-14.5 % Immature Granulocyte % (Auto) 0.2 % Immature Granulocyte # (Auto) 0.01 0.00-0.02 K/uL Sodium Level 135 136-145 mmol/L Potassium Level 3.8 3.5-5.1 mmol/L Chloride Level 101 98-107 mmol/L Carbon Dioxide Level 27 21-32 mmol/L Anion Gap 7.0 3-11 mmol/L Blood Urea Nitrogen 10 7-18 mg/dl Creatinine 1.15 0.60-1.40 mg/dl Est Creatinine Clear Calc Drug Dose 49.6 ml/min Estimated GFR () 66.4 Estimated GFR (Non- 57.3 BUN/Creatinine Ratio 9.0 10-20 Random Glucose 99 70-99 mg/dl Lactic Acid Level 1.2 0.4-2.0 mmol/L Calcium Level 8.9 8.5-10.1 mg/dl Total Bilirubin 1.3 1.1 0.2-1 mg/dl Aspartate Amino Transf (AST/SGOT) 22 15-37 U/L Alanine Aminotransferase (ALT/SGPT) 14 12-78 U/L Alkaline Phosphatase 50 45-117 U/L Troponin I < 0.015 0-0.045 ng/ml Total Protein 7.2 6.4-8.2 gm/dl Albumin 3.5 3.4-5.0 gm/dl Globulin 3.7 2.5-4.0 gm/dl Albumin/Globulin Ratio 0.9 0.9-2 Lipase 79 73-393 U/L Influenza Type A Antigen Neg for Influ A NEG Influenza Type B Antigen Neg for Influ B NEG Urine Color YELLOW Urine Appearance CLEAR CLEAR Urine pH 7.5 4.5-7.5 Urine Specific [place] 1.014 1.000-1.030 Urine Protein NEG NEG Urine Glucose (UA) NEG NEG Urine Ketones TRACE NEG Urine Occult Blood NEG NEG Urine Nitrite POS NEG Urine Bilirubin NEG NEG Urine Urobilinogen NEG NEG Urine Leukocyte Esterase SMALL NEG Urine WBC (Auto) >30 0-5 /hpf Urine RBC (Auto) 0-4 0-4 /hpf Urine Hyaline Casts (Auto) 1-5 0-5 /lpf Urine Epithelial Cells (Auto) 10-20 0-5 /lpf Urine Bacteria (Auto) NEG NEG Direct Bilirubin 0.3 0-0.2 mg/dl Ammonia < 10.0 11-32 umol/L Test 09/16/17 17:30 Range/Units Troponin I 0.021 0-0.045 ng/ml Microbiology Results 09/16/17 Blood Culture, Received Pending 09/16/17 Blood Culture, Received Pending 09/16/17 Urine Culture, Received Pending Diagnostic Radiology CTA: 1. No pulmonary emboli identified although segmental and subsegmental pulmonary arteries within the lower lobes suboptimally assessed due to respiratory motion. 2. Small right and trace left pleural effusions with associated atelectasis. No consolidation to suggest pneumonia. 3. Suspected mild pulmonary edema. 4. Interval development of mediastinal and bilateral hilar lymphadenopathy since chest CT of March 29, 2017. This is nonspecific and a follow-up chest CT in 3 months is recommended to ensure resolution. CT ABD: 1. No acute process within the abdomen or pelvis. 2. Small right and trace left pleural effusions. 3. No bowel obstruction. Status post ventral and left inguinal hernia repairs with mesh. CXR: Mild congestive failure EKG EKG: Sinus tachycardia Left anterior fascicular block Impression Assessment and Plan Acute on chronic Diastolic Heart Failure: Hypoxia: CTA: No PE, No consolidation, Small right and trace left pleural effusions, mild pulmonary edema, Mild mediastinal and bilateral hilar lymphadenopathy BNP elevated No overt signs of volume overload on exam Last ECHO in Mar 2017: EF:65-70%, Grade II diastolic dysfunction, Small pericardial effusion Update ECHO to r/o worsening pericardial effusion Will One dose of IV lasix Started PO 20 mg lasix daily (Patient on PRN lasix 20 mg at home for leg edema and weigh gain) Daily weight, I/Os Consider Cardiology consult Oxygen support PRN Will need repeat CT chest to reassess resolution of lymphadenopathy Given weigh loss history could consider work up as outpatient Abdominal Pain: H/O large bowel obstruction and S/P hernia repair CT abd:No acute process within the abdomen or pelvis. No bowel obstruction. Status post ventral and left inguinal hernia repairs with mesh. Monitor clinically Repeat KUB in AM Hold Ditropan Bowel regimen for constipation Given H/O poor appetite, weight loss and age, Consider colonoscopy as outpatient to R/O malignancy UTI: Out Patient Urine Culture: E.coli: Elaine sensitive Hold Bactrim 2/2 to GI symptoms Started on Ceftriaxone HTN: Initially elevated likely situational Continue losartan monitor CKD III: Cr at baseline monitor renal function GERD: Continue PPI DVT Px: Heparin SQ Code Status: Full Code Resuscitation Status VTE Prophylaxis Will order VTE Prophylaxis: Yes
[2017-09-16] MEDS ORDERED: FUROSEMIDE INJ 20 MG in SYRINGE 0 ML IV ONE (19:45)
[2017-09-16] MEDS ORDERED: ONDANSETRON INJ 2 MG/ML 2 ML VIAL IV PRN (19:45)
[2017-09-16] MEDS ORDERED: RANITIDINE HCL 150 MG TAB PO PRN (20:00)
[2017-09-16] MEDS: ALBUT/IPRATROP 3MG/0.5MG NEB 3 ML VIAL INH SCH (20:00)
[2017-09-16] MEDS ORDERED: FUROSEMIDE 40 MG/4 ML VIAL IV STA (21:01)
[2017-09-16 21:53] VITALS: BP 134/69; PULSE 85; TEMP 36.7; O2SAT 98; Ht 170.2 cm; Wt 91.0 kg
[2017-09-16 21:56] LABS: INR 1.1 (0.9-1.1)
[2017-09-16] MEDS ORDERED: CHOL100010 PO (22:33)
[2017-09-17] VITALS (13 sets, daily range): BP systolic 130–148; BP diastolic 71–74; PULSE 79–100; TEMP 36.5–36.8; O2SAT 87–99
[2017-09-17] MEDS ORDERED: FUROSEMIDE 40 MG/4 ML VIAL ONE (00:01)
[2017-09-17] MEDS: HEPARIN SOD 5000 UNIT/0.5 ML CARP SQ SCH ×4 (00:03→20:11)
[2017-09-17] MEDS: ACETAMINOPHEN 325 MG TAB PO PRN ×2 (00:33→14:31)
[2017-09-17 05:52] LABS: HEMATOCRIT 35.8 % (42-52); HEMOGLOBIN 11.9 g/dL (14.0-18.0); MEAN CELL VOLUME 88.8 fL (80-100); MEAN CORPUSCULAR HEMOGLOBIN 29.5 pg (25-34); MEAN CORPUSCULAR HGB CONC 33.2 g/dl (32-36); MEAN PLATELET VOLUME 8.6 fL (7.4-10.4); PLATELET COUNT 138 K/uL (130-400); RED CELL DISTRIBUTION WIDTH CV 15.3 % (11.5-14.5); RED CELL DISTRIBUTION WIDTH SD 49.6 fL (36.4-46.3)
[2017-09-17 06:24] LABS: CALCIUM 8.4 mg/dl (8.5-10.1); CREATININE 1.31 mg/dl (0.60-1.40)
--- NOTE | 2017-09-17 06:59 | Clinical Documentation Query ---
CLINICAL DOCUMENTATION QUERY 87 yo male admitted with acute/chronic CHF. Patient reports approximate 40 # weight loss in 2 months, poor appetite and generalized weakness. Patient also reported a recent bout of vomiting. In your clinical opinion is this patient being managed for: ( ) Severe protein-calorie malnutrition ( X ) Not Agree ( ) Other explanation of clinical findings (Please Explain) ( ) Unable to determine (Please Define) ( ) Need to Discuss The medical record reflects the following clinical findings, treatment, and risk factors. Clinical Indicators: As above Treatment: Daily wts, colonoscopy Risk Factors: Abdominal pain, vomiting, loss of appetite Please clarify and document your clinical opinion in the progress notes and discharge summary. Terms such as "probable", "suspected", "likely", "questionable", "possible", or "still to be ruled out" are acceptable. IF IN AGREEMENT, YOU MUST DOCUMENT ABOVE DIAGNOSTIC STATEMENT IN DAILY PROGRESS NOTES AND DISCHARGE SUMMARY. This document is not part of the patient's record. Thank You, Crystal Alfaro RN [phone]
[2017-09-17] MEDS: ALBUT/IPRATROP 3MG/0.5MG NEB 3 ML VIAL INH SCH ×4 (07:04→19:46)
[2017-09-17] MEDS: DOCUSATE SODIUM 100 MG CAP PO SCH ×2 (07:53→20:09)
[2017-09-17] MEDS: PANTOprazole SOD 40 MG TAB PO SCH (07:53)
[2017-09-17] MEDS: ASPIRIN 81 MG ECTAB PO SCH (07:54)
[2017-09-17] MEDS: LOSARTAN POTASSIUM 50 MG TAB PO SCH (07:54)
[2017-09-17] MEDS: FUROSEMIDE 20 MG TAB PO SCH (07:54)
--- NOTE | 2017-09-17 08:48 | DIAGNOSTIC IMAGING REPORT ---
KUB CLINICAL HISTORY: abdominal pain nausea. COMPARISON STUDY: CT abdomen and pelvis 09/16/2017 FINDINGS: Nonobstructive bowel pattern. Contrast within the urinary bladder from prior contrast study. Moderate degenerative changes of all major osseous structures of the lumbar spine as well as pelvis. IMPRESSION: No acute process. Nonobstructive bowel pattern. The above report was generated using voice recognition software. It may contain grammatical, syntax or spelling errors. Electronically signed by: Dre Murguia M.D. 09/17/2017 8:46 AM Dictated Date/Time: 09/17/2017 8:45 AM
--- NOTE | 2017-09-17 09:45 | ECHOCARDIOGRAM REPORT ---
*NOTICE TO RECEIVING [employer] This information is strictly Confidential and protected under [place] law. [place] law prohibits you from making any further disclosure of this information unless further disclosure is expressly permitted by the written consent of the person to whom it pertains or is authorized by law. A general authorization for the release of medical or other information is not sufficient for this purpose. Hospital accepts no responsibility if the information is made available to any other person, INCLUDING THE PATIENT. Interpretation Summary * Name: JESS ESCUDERO Study Date: 09/17/2017 07:32 AM BP: 134/72 mmHg * Patient Location: [facility]\S\N276\S\1 HR: 79 * : 1930 (M/d/yyyy) Gender: Male Height: 67 in * Age: 87 yrs Ethnicity: [place] Weight: 200 lb * Ordering Physician: Christiano Rubin * Referring Physician: Self, Referred * Performed By: Lisa Rice RDCS * * Reason For Study: CHF * BSA: 2.0 m2 * -- Conclusions -- * No significant change compared to previous study of 03/30/17. * Normal LV chamber size with mild concentric LVH. * Normal LV systolic function, EF 55-60%. * No segmental left ventricular wall motion abnormalities are noted. * Grade II diastolic dysfunction. * Mild mitral annular calcification. * Small anterior and apical pericardial effusion without hemodynamic significance. Stranding present to suggest chronicity. Procedure Details * A contrast injection of Definity was performed to improve assessment of LV function. * Contrast was injected into an intravenous site in the right arm. * One vial of Definity ultrasound contrast was diluted in normal saline to a total volume of 10 ml. A total of '2' ml of solution was administered during imaging. * Lot # [id number] of Definity utilized for procedure. * Expiration date oct 07. * The attending nurse who injected the contrast agent was MARIELA GOMEZ. Left Ventricle * The left ventricle is normal in size. * There is mild concentric left ventricular hypertrophy. * Ejection Fraction = 55-60%. * Left ventricular systolic function is normal. * No segmental left ventricular wall motion abnormalities are noted. * The left ventricular wall motion is normal. Right Ventricle * The right ventricular cavity size is normal (basal dimension <4.2 cm in right ventricular apical 4-chamber view). * The right ventricular systolic function is normal as assessed by tricuspid annular plane systolic excursion (TAPSE) (normal >1.5 cm). Atria * The left atrium is mildly dilated. * Right atrial size is normal. * No ASD detected; PFO is not assessed. Mitral Valve * There is mild mitral annular calcification. * There is no mitral valve stenosis. * There is no mitral regurgitation noted. Tricuspid Valve * The tricuspid valve is normal in structure and function. Aortic Valve * The aortic valve is not well visualized. * No hemodynamically significant valvular aortic stenosis. * There is no significant aortic regurgitation. Pulmonic Valve * The pulmonary valve is not well seen, but the Doppler examination is normal without significant regurgitation or stenosis. Great Vessels * The aortic root and proximal ascending aorta are normal sized. Pericardium/Pleural * Small anterior and apical pericardial effusion without hemodynamic significance. Stranding present to suggest chronicity. Left Ventricular Diastolic Function * Diastolic dysfunction, Grade II (pseudonormalization pattern). MMode 2D Measurements and Calculations IVSd 1.3 cm IVSs 1.6 cm LVIDd 5.1 cm LVIDs 3.7 cm LVPWd 1.5 cm LVPWs 1.9 cm IVS/LVPW 0.85 FS 27.1 % EDV(Teich) 125.1 ml ESV(Teich) 59.5 ml EF(Teich) 52.4 % EDV(cubed) 134.4 ml ESV(cubed) 52.2 ml EF(cubed) 61.2 % % IVS thick 23.9 % % LVPW thick 22.2 % LV mass(C)d 307.6 grams LV mass(C)dI 152.1 grams/m\S\2 LV mass(C)s 270.4 grams LV mass(C)sI 133.7 grams/m\S\2 SV(Teich) 65.6 ml SI(Teich) 32.4 ml/m\S\2 SV(cubed) 82.3 ml SI(cubed) 40.7 ml/m\S\2 LVOT diam 2.0 cm LVOT area 3.1 cm\S\2 LVAd ap4 33.3 cm\S\2 LVLd ap4 8.9 cm EDV(MOD-sp4) 102.8 ml EDV(sp4-el) 105.8 ml LVAs ap4 20.8 cm\S\2 LVLs ap4 8.1 cm ESV(MOD-sp4) 43.7 ml ESV(sp4-el) 45.6 ml EF(MOD-sp4) 57.5 % EF(sp4-el) 56.9 % LVAd ap2 32.9 cm\S\2 LVLd ap2 8.6 cm EDV(MOD-sp2) 102.6 ml EDV(sp2-el) 107.0 ml LVAs ap2 19.8 cm\S\2 LVLs ap2 7.5 cm ESV(MOD-sp2) 43.1 ml ESV(sp2-el) 44.2 ml EF(MOD-sp2) 58.0 % EF(sp2-el) 58.7 % LVLd %diff -3.64 % EDV(MOD-bp) 101.1 ml LVLs %diff -7.78 % ESV(MOD-bp) 44.3 ml EF(MOD-bp) 56.2 % SV(MOD-sp4) 59.1 ml SI(MOD-sp4) 29.2 ml/m\S\2 SV(MOD-sp2) 59.6 ml SI(MOD-sp2) 29.5 ml/m\S\2 SV(MOD-bp) 56.8 ml SI(MOD-bp) 28.1 ml/m\S\2 SV(sp4-el) 60.2 ml SI(sp4-el) 29.8 ml/m\S\2 SV(sp2-el) 62.8 ml SI(sp2-el) 31.1 ml/m\S\2 Doppler Measurements and Calculations MV E max colton 144.5 cm/sec MV A max colton 116.3 cm/sec MV E/A 1.2 MV dec time 0.17 sec Ao V2 max 266.0 cm/sec Ao max PG 28.3 mmHg Ao max PG (full) 24.4 mmHg Ao V2 mean 193.7 cm/sec Ao mean PG 16.6 mmHg Ao mean PG (full) 14.3 mmHg Ao V2 VTI 51.7 cm GUALBERTO(I,A) 1.4 cm\S\2 GUALBERTO(I,D) 1.4 cm\S\2 GUALBERTO(V,A) 1.2 cm\S\2 GUALBERTO(V,D) 1.2 cm\S\2 LV V1 max PG 3.9 mmHg LV V1 mean PG 2.3 mmHg LV V1 max 98.5 cm/sec LV V1 mean 72.4 cm/sec LV V1 VTI 22.4 cm SV(LVOT) 70.1 ml SI(LVOT) 34.7 ml/m\S\2
[2017-09-17] MEDS ORDERED: MAGNESIUM SULFATE 1GM / D5W 1 GM in PREMIXED IN D5W 100 ML IV STA (10:06)
--- NOTE | 2017-09-17 16:06 | Progress Note ---
Subjective Date of Service: Sep 17, 2017. Subjective Pt evaluation today including: conversation w/ patient, physical exam, lab review, review of studies, review of inpatient medication list Saw/examined the patient in room 276 No problems/issues to note today He states he came in because he was feeling sick to his stomach states he had breakfast and lunch today and did not feel nausea/vomiting episodes c/o some dyspnea with exertion as per nursing, he has tachycardic episodes Problem List Medical Problems: (1) Abdominal pain Status: Acute (2) Dyspnea Status: Acute (3) Hypoxia Status: Acute (4) Large bowel obstruction Status: Acute (5) Nausea & vomiting Status: Acute (6) UTI (urinary tract infection) Status: Acute Review of Systems Constitutional: No fever, No chills Respiratory: + dyspnea on exertion, No cough, No sputum, No wheezing, No shortness of breath, No dyspnea at rest, No hemoptysis Cardiac: No chest pain Abdomen: + pain (RLQ, chronic), + nausea (resolved), No vomiting, No diarrhea Medications Current Inpatient Medications Medications (Trade) Dose Ordered Sig/Vicky Route Start Time Stop Time Status Last Admin Dose Admin Ioversol (Optiray 320) 125 ml UD PRN IV 09/16/17 14:00 09/20/17 13:59 Ioversol (Optiray 320) 125 ml UD PRN IV 09/16/17 16:15 09/20/17 16:14 Heparin Sodium (Porcine) (Heparin Sq 5000 Unit/0.5ml) 5,000 unit Q8@0600,1400,2200 SQ 09/16/17 23:30 10/16/17 23:29 09/17/17 14:11 5,000 UNIT Acetaminophen (Tylenol Tab) 650 mg Q4H PRN PO 09/16/17 19:45 10/16/17 19:44 09/17/17 14:31 650 MG Ondansetron HCl (Zofran Inj) 4 mg Q6H PRN IV 09/16/17 19:45 10/16/17 19:44 Ceftriaxone Sodium 1 gm/ Dextrose 50 ml @ 100 mls/hr Q24H IV 09/17/17 18:00 09/21/17 17:59 Albuterol/ Ipratropium (Duoneb) 3 ml QIDR INH 3/29/18 20:00 10/16/17 19:59 09/17/17 14:46 3 ML Aspirin (Ecotrin Tab) 81 mg DAILY PO 09/17/17 09:00 10/17/17 08:59 09/17/17 07:54 81 MG Furosemide (Lasix Tab) 20 mg DAILY PO 09/17/17 09:00 10/17/17 08:59 09/17/17 07:54 20 MG Losartan Potassium (coZAAR TAB) 50 mg DAILY PO 09/17/17 09:00 10/17/17 08:59 09/17/17 07:54 50 MG Pantoprazole Sodium (Protonix Tab) 40 mg DAILY PO 09/17/17 09:00 10/17/17 08:59 09/17/17 07:53 40 MG Ranitidine HCl (zANTac TAB) 150 mg BID PRN PO 09/16/17 20:00 10/16/17 19:59 Docusate Sodium (coLACE CAP) 100 mg BID PO 09/17/17 09:00 10/17/17 08:59 09/17/17 07:53 100 MG Objective Vital Signs Date Time Temp Pulse Resp B/P (MAP) Pulse Ox O2 Delivery O2 Flow Rate FiO2 09/17/17 10:06 96 Nasal Cannula 1.0 09/17/17 08:00 91 Room Air 09/17/17 07:31 36.7 79 16 134/72 (92) 95 Nasal Cannula 1.0 09/17/17 07:06 88 16 95 Nasal Cannula 3.0 09/17/17 04:00 Nasal Cannula 2.0 09/17/17 03:51 36.8 85 16 137/72 (93) 96 Nasal Cannula 1.0 09/17/17 00:00 97 Nasal Cannula 2.0 09/16/17 21:53 36.7 85 20 134/69 98 Room Air 09/16/17 19:56 78 20 129/73 97 Nasal Cannula 2.0 09/16/17 17:48 92 Room Air 09/16/17 17:12 79 22 129/73 97 Nasal Cannula 2.0 09/16/17 15:17 98 Nasal Cannula 3.0 09/16/17 15:14 86 18 160/85 84 Room Air 09/16/17 14:50 103 18 180/102 98 Room Air 09/16/17 12:02 97 09/16/17 11:17 37.1 104 20 184/94 96 Room Air Physical Exam General Appearance: no apparent distress Respiratory/Chest: chest non-tender, lungs clear, normal breath sounds, no respiratory distress, no accessory muscle use Cardiovascular: regular rate, rhythm, no edema, no murmur Abdomen: normal bowel sounds, non tender, soft Laboratory Results Last 24 Hours Test 09/16/17 12:30 09/16/17 12:35 09/16/17 13:00 09/16/17 15:30 White Blood Count 4.58 K/uL Red Blood Count 4.39 M/uL Hemoglobin 13.2 g/dL Hematocrit 38.4 % Mean Corpuscular Volume 87.5 fL Mean Corpuscular Hemoglobin 30.1 pg Mean Corpuscular Hemoglobin Concent 34.4 g/dl Platelet Count 168 K/uL Mean Platelet Volume 9.2 fL Neutrophils (%) (Auto) 76.8 % Lymphocytes (%) (Auto) 6.6 % Monocytes (%) (Auto) 13.1 % Eosinophils (%) (Auto) 3.1 % Basophils (%) (Auto) 0.2 % Neutrophils # (Auto) 3.52 K/uL Lymphocytes # (Auto) 0.30 K/uL Monocytes # (Auto) 0.60 K/uL Eosinophils # (Auto) 0.14 K/uL Basophils # (Auto) 0.01 K/uL RDW Standard Deviation 48.0 fL RDW Coefficient of Variation 15.2 % Immature Granulocyte % (Auto) 0.2 % Immature Granulocyte # (Auto) 0.01 K/uL Prothrombin Time 11.4 SECONDS Prothromb Time International Ratio 1.1 Sodium Level 135 mmol/L Potassium Level 3.8 mmol/L Chloride Level 101 mmol/L Carbon Dioxide Level 27 mmol/L Anion Gap 7.0 mmol/L Blood Urea Nitrogen 10 mg/dl Creatinine 1.15 mg/dl Est Creatinine Clear Calc Drug Dose 49.6 ml/min Estimated GFR () 66.4 Estimated GFR (Non- 57.3 BUN/Creatinine Ratio 9.0 Random Glucose 99 mg/dl Lactic Acid Level 1.2 mmol/L Calcium Level 8.9 mg/dl Total Bilirubin 1.3 mg/dl 1.1 mg/dl Aspartate Amino Transf (AST/SGOT) 22 U/L Alanine Aminotransferase (ALT/SGPT) 14 U/L Alkaline Phosphatase 50 U/L Troponin I < 0.015 ng/ml Total Protein 7.2 gm/dl Albumin 3.5 gm/dl Globulin 3.7 gm/dl Albumin/Globulin Ratio 0.9 Lipase 79 U/L Influenza Type A Antigen Neg for Influ A Influenza Type B Antigen Neg for Influ B Urine Color YELLOW Urine Appearance CLEAR Urine pH 7.5 Urine Specific Elfrida 1.014 Urine Protein NEG Urine Glucose (UA) NEG Urine Ketones TRACE Urine Occult Blood NEG Urine Nitrite POS Urine Bilirubin NEG Urine Urobilinogen NEG Urine Leukocyte Esterase SMALL Urine WBC (Auto) >30 /hpf Urine RBC (Auto) 0-4 /hpf Urine Hyaline Casts (Auto) 1-5 /lpf Urine Epithelial Cells (Auto) 10-20 /lpf Urine Bacteria (Auto) NEG Direct Bilirubin 0.3 mg/dl Ammonia < 10.0 umol/L Test 09/16/17 17:30 09/17/17 05:37 Troponin I 0.021 ng/ml Pro-B-Type Natriuretic Peptide 5466 pg/ml White Blood Count 4.30 K/uL Red Blood Count 4.03 M/uL Hemoglobin 11.9 g/dL Hematocrit 35.8 % Mean Corpuscular Volume 88.8 fL Mean Corpuscular Hemoglobin 29.5 pg Mean Corpuscular Hemoglobin Concent 33.2 g/dl RDW Standard Deviation 49.6 fL RDW Coefficient of Variation 15.3 % Platelet Count 138 K/uL Mean Platelet Volume 8.6 fL Sodium Level 137 mmol/L Potassium Level 4.0 mmol/L Chloride Level 102 mmol/L Carbon Dioxide Level 31 mmol/L Anion Gap 4.0 mmol/L Blood Urea Nitrogen 13 mg/dl Creatinine 1.31 mg/dl Est Creatinine Clear Calc Drug Dose 43.7 ml/min Estimated GFR () 56.7 Estimated GFR (Non- 49.0 BUN/Creatinine Ratio 10.2 Random Glucose 96 mg/dl Calcium Level 8.4 mg/dl Magnesium Level 1.7 mg/dl Assessment and Plan This is an 87 year old male with a PMH of HTN, CKD stage 3, pernicious anemia with monthly B12 injections to end in October 2017, chronic diastolic CHF, GERD, Vitamin D deficiency, recent admission in April 2017 with incarcerated L inguinal hernia and large bowel obstruction - presents with RLQ abdominal pain, nausea/constipation, poor appetite, weakness, recent diagnosis of UTI and weight loss Acute on Chronic Diastolic CHF - mildly hypoxic on admission - BNP elevated - CXR and CTA chest suggest small b/l pleural effusions - updated echo reviewed - normal LVEF, grade 2 diastolic dysfunction noted - received IV lasix, and now on low dose oral - will likely need Lasix intermittently, likely M-W- - outpatient lab-work to f/u on electrolytes and kidney function - wean O2, may need two step Nausea RLQ abdominal Pain - nausea has resolved - likely viral gastroenteritis - states he's had the R lower quadrant pain even before his L inguinal hernia surgery back in April 2017 - this pain is intermittent, and currently has resolved - CT and other exams reviewed - outpatient work-up Urinary Tract Infection - pansensitive UTI - currently on Rocephin - culture here is pending; monitor and can likely d/c on oral agents HTN - continue home medications CKD stage 3 - creatinine at baseline GERD - PPI DVT ppx - subq heparin FULL CODE
[2017-09-17] MEDS ORDERED: CEFTRIAXONE SOD INJ 1 GM in DEXTROSE 5% ADD-VANTAGE 50ML 50 ML IV SCH (18:00)
[2017-09-17] MEDS ORDERED: NURSING DECISION MEDICATION ORDER SCH (20:00)
[2017-09-17] MEDS ORDERED: COUGH DROP (SUGAR FREE) LOZ 24 LOZ/1 BOX LOZ PRN (20:15)
[2017-09-18] VITALS (9 sets, daily range): BP systolic 128–175; BP diastolic 68–83; PULSE 94–110; TEMP 36.6–37.6; O2SAT 89–99
[2017-09-18] MEDS: HEPARIN SOD 5000 UNIT/0.5 ML CARP SQ SCH (06:04)
[2017-09-18] MEDS: ALBUT/IPRATROP 3MG/0.5MG NEB 3 ML VIAL INH SCH ×3 (06:56→14:54)
[2017-09-18] MEDS: ASPIRIN 81 MG ECTAB PO SCH (07:50)
[2017-09-18] MEDS: LOSARTAN POTASSIUM 50 MG TAB PO SCH (07:50)
[2017-09-18] MEDS: PANTOprazole SOD 40 MG TAB PO SCH (07:50)
[2017-09-18] MEDS: FUROSEMIDE 20 MG TAB PO SCH (07:50)
[2017-09-18] MEDS: DOCUSATE SODIUM 100 MG CAP PO SCH (07:51)
[2017-09-18] MEDS: ACETAMINOPHEN 325 MG TAB PO PRN (10:58)
--- NOTE | 2017-09-18 15:10 | Progress Note ---
Subjective Date of Service: Sep 18, 2017. Subjective Pt evaluation today including: conversation w/ patient, physical exam, lab review, review of studies, review of inpatient medication list Saw/examined the patient in room 276 He is doing well and continues to mention that he wants to go home Noted to have some hypoxia with exertion as well as tachycardia with exertion States he does not feel short of breath, no chest pain/palpitations. Problem List Medical Problems: (1) Abdominal pain Status: Acute (2) Dyspnea Status: Acute (3) Hypoxia Status: Acute (4) Large bowel obstruction Status: Acute (5) Nausea & vomiting Status: Acute (6) UTI (urinary tract infection) Status: Acute Review of Systems Constitutional: No fever, No chills, No weakness Respiratory: + dyspnea on exertion, No cough, No sputum, No wheezing, No shortness of breath, No dyspnea at rest, No hemoptysis Cardiac: No chest pain, No edema, No palpitations Abdomen: No pain, No nausea, No vomiting, No diarrhea Medications Current Inpatient Medications Medications (Trade) Dose Ordered Sig/Vicky Route Start Time Stop Time Status Last Admin Dose Admin Ioversol (Optiray 320) 125 ml UD PRN IV 09/16/17 14:00 09/20/17 13:59 Ioversol (Optiray 320) 125 ml UD PRN IV 09/16/17 16:15 09/20/17 16:14 Heparin Sodium (Porcine) (Heparin Sq 5000 Unit/0.5ml) 5,000 unit Q8@0600,1400,2200 SQ 09/16/17 23:30 10/16/17 23:29 09/18/17 06:04 5,000 UNIT Acetaminophen (Tylenol Tab) 650 mg Q4H PRN PO 09/16/17 19:45 10/16/17 19:44 09/18/17 10:58 650 MG Ondansetron HCl (Zofran Inj) 4 mg Q6H PRN IV 09/16/17 19:45 10/16/17 19:44 Ceftriaxone Sodium 1 gm/ Dextrose 50 ml @ 100 mls/hr Q24H IV 09/17/17 18:00 09/21/17 17:59 09/17/17 17:52 100 MLS/HR Albuterol/ Ipratropium (Duoneb) 3 ml QIDR INH 09/16/17 20:00 4/28/18 19:59 09/18/17 14:54 3 ML Aspirin (Ecotrin Tab) 81 mg DAILY PO 09/17/17 09:00 10/17/17 08:59 09/18/17 07:50 81 MG Furosemide (Lasix Tab) 20 mg DAILY PO 09/17/17 09:00 10/17/17 08:59 09/18/17 07:50 20 MG Losartan Potassium (coZAAR TAB) 50 mg DAILY PO 09/17/17 09:00 10/17/17 08:59 09/18/17 07:50 50 MG Pantoprazole Sodium (Protonix Tab) 40 mg DAILY PO 09/17/17 09:00 10/17/17 08:59 09/18/17 07:50 40 MG Ranitidine HCl (zANTac TAB) 150 mg BID PRN PO 09/16/17 20:00 10/16/17 19:59 Docusate Sodium (coLACE CAP) 100 mg BID PO 09/17/17 09:00 10/17/17 08:59 09/18/17 07:51 100 MG Menthol (Nice Deyanira) 1 deyanira PRN PRN DEYANIRA 09/17/17 20:15 10/17/17 20:14 09/17/17 20:09 1 DEYANIRA Objective Vital Signs Date Time Temp Pulse Resp B/P (MAP) Pulse Ox O2 Delivery O2 Flow Rate FiO2 09/18/17 14:54 98 18 99 Nasal Cannula 2.0 09/18/17 12:00 Room Air 09/18/17 11:31 36.7 99 16 133/72 (92) 89 Nasal Cannula 1.0 09/18/17 11:12 102 18 93 Room Air 09/18/17 08:15 Room Air 09/18/17 07:00 36.8 101 20 156/75 (102) 98 2.0 09/18/17 06:57 94 18 98 Nasal Cannula 2.0 09/18/17 04:40 37.6 109 24 159/79 (105) 96 2.0 09/18/17 04:24 Nasal Cannula 2.0 09/18/17 00:23 36.9 110 24 175/83 (113) 99 2.0 09/17/17 23:56 Nasal Cannula 2.0 09/17/17 20:13 36.7 98 18 148/74 (98) 95 Room Air 2.0 09/17/17 19:46 84 18 98 Nasal Cannula 2.0 09/17/17 19:33 99 Nasal Cannula 2.0 09/17/17 18:09 Room Air 09/17/17 15:44 36.5 100 20 130/71 (90) 99 2.0 Physical Exam General Appearance: no apparent distress Respiratory/Chest: chest non-tender, lungs clear, normal breath sounds, no respiratory distress, no accessory muscle use Cardiovascular: regular rate, rhythm, no edema, no murmur Abdomen: normal bowel sounds, soft, + tenderness (RLQ) Neurologic/Psychiatric: no motor/sensory deficits, alert, normal mood/affect Skin: normal color Assessment and Plan This is an 87 year old male with a PMH of HTN, CKD stage 3, pernicious anemia with monthly B12 injections to end in October 2017, chronic diastolic CHF, GERD, Vitamin D deficiency, recent admission in April 2017 with incarcerated L inguinal hernia and large bowel obstruction - presents with RLQ abdominal pain, nausea/constipation, poor appetite, weakness, recent diagnosis of UTI and weight loss Acute on Chronic Diastolic CHF 09/18 - hypoxia with exertion - requiring 2L with exertion - two step performed - script written, CM aware - patient very eager to go home - plan to d/c with portable oxygen - outpatient PCP follow-up for O2 saturation and HR evaluation - repeat chest CT in 2-3 months for evaluation fo bilateral hilar lymphadenopathy 09/17 - mildly hypoxic on admission - BNP elevated - CXR and CTA chest suggest small b/l pleural effusions - updated echo reviewed - normal LVEF, grade 2 diastolic dysfunction noted - received IV lasix, and now on low dose oral - will likely need Lasix intermittently, likely M-W- - outpatient lab-work to f/u on electrolytes and kidney function - wean O2, may need two step Nausea - resolved RLQ abdominal Pain - nausea has resolved - likely viral gastroenteritis - states he's had the R lower quadrant pain even before his L inguinal hernia surgery back in April 2017 - this pain is intermittent, and currently has resolved - CT and other exams reviewed - outpatient work-up Urinary Tract Infection - pansensitive UTI - currently on Rocephin - culture here is pending; monitor and can likely d/c on oral agents HTN - continue home medications CKD stage 3 - creatinine at baseline GERD - PPI DVT ppx - subq heparin FULL CODE
[2017-09-18] MEDS ORDERED: LSX20 PO (15:20)
[2017-09-18] MEDS ORDERED: OXGN (15:20)
[2017-09-18] MEDS ORDERED: POTA10TA PO (15:20)
[2017-09-18] MEDS ORDERED: CIPR-255 PO (15:20)
--- NOTE | 2017-09-18 15:26 | Discharge Instructions ---
Discharge Instructions Date of Service Sep 18, 2017. Admission Reason for Admission: Hypoxia; Uti (Urinary Tract Infection) Discharge Discharge Diagnosis / Problem: Exertional Hypoxia (low oxygen when walking around), UTI Discharge Goals Goal(s): Decrease discomfort, Improve function, Diagnostic testing, Therapeutic intervention Activity Recommendations Activity Limitations: resume your previous activity . Instructions / Follow-Up Instructions / Follow-Up Please follow-up with Dr. Gresham on September 20 at 11:05AM * You will be prescribed oxygen - use 2L when walking around * You will now be on Lasix 20mg daily - take potassium with this * Your primary care doctor should recheck your oxygen levels and HR while you are ambulating/walking around * Your primary care will recheck your electrolytes later this week * You need to have a repeat CT scan of the chest in 2-3 months - PCP can schedule this * Take Cipro (antibiotic) for three more days for a urinary tract infection - repeat urine check may be needed if your symptoms persist Current Hospital Diet Patient's current hospital diet: Regular Diet Discharge Diet Recommended Diet: Regular Diet Pending Studies Studies pending at discharge: no Medical Emergencies . Who to Call and When: Medical Emergencies: If at any time you feel your situation is an emergency, please call 911 immediately. . Non-Emergent Contact Non-Emergency issues call your: Primary Care Provider . . "Provider Documentation" section prepared by Edmund Fountain. .
--- NOTE | 2017-09-18 15:36 | Discharge Summary ---
Discharge Summary Date of Service Sep 18, 2017. Discharge Summary Admission Date: Sep 16, 2017 at 19:42 Discharge Date: Sep 18, 2017 Discharge Disposition: Home Principal Diagnosis: Exertional Hypoxia Acute on Chronic Diastolic CHF UTI Bilateral Hilar Lymphadenopathy Medication Reconciliation New Medications: Ciprofloxacin Hcl (Cipro) 500 Mg Tab 500 MG PO BID for 3 Days, #6 TAB Home O2 Therapy (Oxygen) Gas 2 LITERS NA PRN PRN for ambulation/exertion for 30 Days Potassium Chloride (K-Tabs) 10 Meq Tab 10 MEQ PO DAILY for 30 Days, #30 TABS Furosemide (Furosemide) 20 Mg Tab 20 MG PO DAILY for 30 Days, #30 TAB Continued Medications: Acetaminophen Tab (Tylenol) 325 Mg Tab 325 MG PO PRN for Headache, TAB Aspirin (Aspirin Ec) 81 Mg Tab 81 MG PO DAILY Cholecalciferol (Vitamin D) 1,000 Unit Tab 1000 UNITS PO DAILY Cyanocobalamin (Vitamin B-12) 1,000 Mcg Sub 1000 MCG PO DAILY Cyanocobalamin (Cyanocobalamin) 1,000 Mcg/Ml Inj Unknown Dose MONTHLY Losartan Potassium (Cozaar) 50 Mg Tab 50 MG PO DAILY, TAB Ondasetron Odt (Zofran Odt) 4 Mg Tab 4 MG SL Q6H for Nausea, TAB Oxybutynin Chloride Er (Ditropan Xl) 10 Mg Tab 10 MG PO DAILY, TAB Pantoprazole (Protonix) 40 Mg Tab 40 MG PO DAILY, 0 Refills Promethazine Hcl (Phenergan) 12.5 Mg Tab 25 MG PO Q6H PRN for Nausea or Vomiting, TAB Ranitidine (Zantac) 150 Mg Tab 150 MG PO BID PRN for GERD Discontinued Medications: Furosemide (Lasix) 20 Mg Tab 20 MG PO UD, TAB 1 tab daily prn for lower extremities swelling and weight gain Admission Information HPI (per Admitting provider): Patient is an 87 yr male with PMH of HTN, Gout, CKD III, Vit D def, Pernicious anemia, GERD, H/O large bowel obstruction presents with history of not feeling himself since yesterday. He noticed developing RLQ abdominal pain associated with nausea after eating soup yesterday. Abd pain is sharp to dull, intermittent , non radiating, with no aggravating/relieving factors and is associated with nausea. Denies any history of fever, chills, diarrhea. Reports chronic constipation and his last BM was yesterday. Also reports poor appetite and generalized weakness lately. Patient states he lost weight intentionally by changing his diet in last 2 months. Reports about 40 pounds weight loss in last 2 months. Patient states having intermittent dry cough and ABDULLAHI which is chronic since last 6 months. Patient was diagnosed to have UTI 2 days ago and currently on Bactrim which he took 3 doses. Reports Increased urinary frequency, but denies hematuria, Dysuria. Reports having a fall in Jun 2017 resulting in head trauma causing chronic headache. Denies any Isolated weakness in extremities, change in vision. Denies any history of chest pain, orthopnea, PND, dizziness, pedal edema, LOC, slurred speech, facial deformity, vomiting, abdominal pain, diarrhea. Patient was noted to have Hypoxia 84% on RA and improved with 2 Liters NC. Physical Exam (per Admitting): General Appearance: WD/WN, no apparent distress Head: normocephalic, atraumatic Eyes: normal inspection, PERRL, EOMI, sclerae normal ENT: normal ENT inspection, hearing grossly normal Neck: supple, trachea midline Respiratory/Chest: chest non-tender, normal breath sounds, no accessory muscle use, + wheezing (scattered) Cardiovascular: regular rate, rhythm, no edema, no murmur Abdomen/GI: normal bowel sounds, soft, + tenderness (RLQ) Back: normal inspection Extremities/Musculoskelatal: normal inspection, no pedal edema Neurologic/Psych: broach grinder II-XII nml as tested, no motor/sensory deficits, alert , normal mood/affect, oriented x 3 Skin: normal color, warm/dry, + pertinent finding (Well healed Vertical scar on abdomen) Hospital Course This is an 87 year old male with a PMH of HTN, CKD stage 3, pernicious anemia with monthly B12 injections to end in October 2017, chronic diastolic CHF, GERD, Vitamin D deficiency, recent admission in April 2017 with incarcerated L inguinal hernia and large bowel obstruction - presents with RLQ abdominal pain, nausea/constipation, poor appetite, weakness, recent diagnosis of UTI and weight loss Acute on Chronic Diastolic CHF 09/18 - hypoxia with exertion - requiring 2L with exertion - two step performed - script written, CM aware - patient very eager to go home - plan to d/c with portable oxygen - outpatient PCP follow-up for O2 saturation and HR evaluation - repeat chest CT in 2-3 months for evaluation fo bilateral hilar lymphadenopathy 09/17 - mildly hypoxic on admission - BNP elevated - CXR and CTA chest suggest small b/l pleural effusions - updated echo reviewed - normal LVEF, grade 2 diastolic dysfunction noted - received IV lasix, and now on low dose oral - will likely need Lasix intermittently, likely M-W-F - outpatient lab-work to f/u on electrolytes and kidney function - wean O2, may need two step Nausea - resolved RLQ abdominal Pain - nausea has resolved - likely viral gastroenteritis - states he's had the R lower quadrant pain even before his L inguinal hernia surgery back in April 2017 - this pain is intermittent, and currently has resolved - CT and other exams reviewed - outpatient work-up Urinary Tract Infection - pansensitive UTI - currently on Rocephin - culture here is pending; monitor and can likely d/c on oral agents HTN - continue home medications CKD stage 3 - creatinine at baseline GERD - PPI DVT ppx - subq heparin FULL CODE Total time spent on discharge = 45 minutes This includes examination of the patient, discharge planning, medication reconciliation, and communication with other providers. Discharge Instructions Please follow-up with Dr. Gresham on September 20 at 11:05AM * You will be prescribed oxygen - use 2L when walking around * You will now be on Lasix 20mg daily - take potassium with this * Your primary care doctor should recheck your oxygen levels and HR while you are ambulating/walking around * Your primary care will recheck your electrolytes later this week * You need to have a repeat CT scan of the chest in 2-3 months - PCP can schedule this * Take Cipro (antibiotic) for three more days for a urinary tract infection - repeat urine check may be needed if your symptoms persist
== END 2017-09-18 16:30 | disposition home or self-care (01) | DRG 291 ==
LOC: C.EDB 11:11 → C.MED 19:42 → ENRESERV 19:55
PROVIDERS: ADMIT Internal Medicine; ATTEND Family Medicine
DX: I13.0 Hypertensive heart and chronic kidney disease with heart failure and stage 1 through stage 4 chronic kidney disease, or unspecified chronic kidney disease (principal); I50.33 Acute on chronic diastolic (congestive) heart failure; N39.0 Urinary tract infection, site not specified; B96.20 Unspecified Escherichia coli [E. coli] as the cause of diseases classified elsewhere; R09.02 Hypoxemia; R59.0 Localized enlarged lymph nodes; A08.4 Viral intestinal infection, unspecified; N18.3 Chronic kidney disease, stage 3 (moderate); K21.9 Gastro-esophageal reflux disease without esophagitis; D51.0 Vitamin B12 deficiency anemia due to intrinsic factor deficiency; E55.9 Vitamin D deficiency, unspecified; Z51.81 Encounter for therapeutic drug level monitoring; Z79.899 Other long term (current) drug therapy; Z79.82 Long term (current) use of aspirin; Z87.19 Personal history of other diseases of the digestive system; Z87.891 Personal history of nicotine dependence; Z88.1 Allergy status to other antibiotic agents; Z88.0 Allergy status to penicillin; Z88.8 Allergy status to other drugs, medicaments and biological substances

== ENCOUNTER 2017-09-21 17:13 | Inpatient (IN) | payer OTHER ==
[~2017-09-21] VITALS: Ht 170.2 cm; Wt 90.3 kg
[~2017-09-21 17:13] MED LIST changes: +CHOL100010 PO; +CIPR-255 PO; +CYNI1000; -FURO-85 PO; +LSX20 PO; +OXGN; +POTA10TA PO
[2017-09-21] MEDS ORDERED: SODIUM CHLORIDE 0.9% 250ML 250 ML IV STA ×2 (17:24→18:53)
[2017-09-21] MEDS ORDERED: ALBUT/IPRATROP 3MG/0.5MG NEB 3 ML VIAL INH STA (17:24)
[2017-09-21 17:40] LABS: EOS % 1.6 %; EOS ABS # 0.06 K/uL (0-0.5); HEMATOCRIT 39.6 % (42-52); HEMOGLOBIN 13.3 g/dL (14.0-18.0); IG# 0.02 K/uL (0.00-0.02); LYMPH % 5.4 %; MEAN CELL VOLUME 87.6 fL (80-100); MEAN CORPUSCULAR HEMOGLOBIN 29.4 pg (25-34); MEAN CORPUSCULAR HGB CONC 33.6 g/dl (32-36); MEAN PLATELET VOLUME 9.7 fL (7.4-10.4); MONO % 3.5 %; MONO ABS # 0.13 K/uL (0.11-0.59); PLATELET COUNT 134 K/uL (130-400); RED CELL DISTRIBUTION WIDTH CV 14.8 % (11.5-14.5); RED CELL DISTRIBUTION WIDTH SD 47.7 fL (36.4-46.3); WHITE BLOOD COUNT 3.71 K/uL (4.8-10.8)
[2017-09-21] MEDS ORDERED: POTA-74 PO (17:51)
[2017-09-21 18:01] LABS: ALBUMIN 3.6 gm/dl (3.4-5.0); ALT/SGPT 74 U/L (12-78); AST/SGOT 158 U/L (15-37); BLOOD UREA NITROGEN 18 mg/dl (7-18); CALCIUM 9.7 mg/dl (8.5-10.1); CARBON DIOXIDE 27 mmol/L (21-32); CREATININE 1.26 mg/dl (0.60-1.40); GLUCOSE 102 mg/dl (70-99); LIPASE 130 U/L (73-393); POTASSIUM 3.7 mmol/L (3.5-5.1); SODIUM 135 mmol/L (136-145)
[2017-09-21 18:07] LABS: ALKALINE PHOSPHATASE 638 U/L (45-117); TOTAL PROTEIN 7.4 gm/dl (6.4-8.2)
--- NOTE | 2017-09-21 18:11 | DIAGNOSTIC IMAGING REPORT ---
CHEST ONE VIEW PORTABLE HISTORY: Atypical CHEST PAIN COMPARISON: Chest 09/16/2017. FINDINGS: The heart remains mildly enlarged. Perihilar and interstitial vascular thickening consistent with mild congestive change. Trace bilateral pleural effusions. No pneumothorax. Bibasilar linear densities persist and favor subsegmental atelectasis. IMPRESSION: No change in the cardiomegaly, mild central pulmonary vascular congestion and trace bilateral pleural effusions. Electronically signed by: Geoff Alford M.D. 09/21/2017 6:10 PM Dictated Date/Time: 09/21/2017 5:59 PM
[2017-09-21] MEDS ORDERED: MAGNESIUM SULFATE 1GM / D5W 1 GM BAG IV STA (18:37)
[2017-09-21] MEDS ORDERED: CEFEPIME IV 1,000 MG in DEXTROSE 5% 100ML 100 ML IV STA (18:53)
[2017-09-21] MEDS ORDERED: VANCOMYCIN IV 2,250 MG in SODIUM CHLORIDE 0.9% 500ML 500 ML IV STA (18:53)
[2017-09-21] MEDS ORDERED: SODIUM CHLORIDE 0.9% 500ML 500 ML IV STA (18:56)
[2017-09-21] MEDS ORDERED: VANCOMYCIN CONSULT ACTIVE PRN ×2 (19:00→23:45)
[2017-09-21 19:39] LABS: INFLUENZA A PCR Neg for Influ A (NEG); INFLUENZA B PCR Neg for Influ B (NEG)
[2017-09-21] MEDS ORDERED: ACETAMINOPHEN IV 100 ML IV STA (19:40)
[2017-09-21] MEDS ORDERED: POTASSIUM CHLORIDE 10 MEQ TABCR PO STA (19:43)
--- NOTE | 2017-09-21 19:45 | EMERGENCY ROOM VISIT NOTE ---
History Report prepared by Raymundo: Natalia Mayberry Under the Supervision of: Dr. Dago Martinez M.D. First contact with patient: 17:17 Chief Complaint: SHORTNESS OF BREATH Stated Complaint: NAUSEA, VOMITING, WEAKNESS, SOB Nursing Triage Summary: Patient arrived via ALS from home. Patient was discharged from here last week after being admitted with CHF. Patient states this afternoon started with acute onset SOB, N/V. Denies CP, diarrhea, urinary difficulty. History of Present Illness The patient is an 87 year old male who presents to the Emergency Room with complaints of worsening SOB and generalized weakness starting this afternoon. The patient was discharged on September 18 after admission for diastolic heart failure. He also had a UTI. He was discharged home on oxygen. He felt better upon discharge, but started worsening again this afternoon. He presents to the ED by EMS from home. He received a nebulizer treatment in route. He is nauseous and has vomited 1 time. He is lightheaded and weak. He is having violent chills and an intermittent cough. He denies any fever, congestion, diarrhea, or urinary symptoms. He has not gained any weight. He notes that he has lost weight instead. Source of History: patient, nursing staff Onset: this afternoon Position: other (breathing) Quality: other (SOB) Timing: worsening Associated Symptoms: + chills, + cough, + nausea, + vomiting, + weakness, No fevers, No diarrhea, No urinary symptoms Review of Systems See HPI for pertinent positives and negatives. A total of ten systems were reviewed and were otherwise negative. Past Medical & Surgical Medical Problems: (1) Carotid artery stenosis (2) CKD (chronic kidney disease), stage III (3) GERD (gastroesophageal reflux disease) (4) Gout (5) HTN (hypertension) (6) Inguinal hernia (7) Respiratory failure, acute (8) Sepsis due to coagulase-negative staphylococcal infection (9) Staphylococcus aureus septicemia Surgical Problems: (1) Hx of inguinal hernia surgery (2) S/P appendectomy (3) S/P cholecystectomy (4) S/P repair of ventral hernia (5) Status post total left knee replacement Family History Insignificant due to advanced age Social History Smoking Status: Former Smoker Alcohol Use: none Drug Use: none Marital Status: Housing Status: lives with family Occupation Status: retired Current/Historical Medications Scheduled Aspirin (Aspirin Ec), 81 MG PO DAILY Cholecalciferol (Vitamin D), 1,000 UNITS PO DAILY Ciprofloxacin Hcl (Cipro), 500 MG PO BID Cyanocobalamin (Vitamin B-12), 1,000 MCG PO DAILY Cyanocobalamin (Cyanocobalamin), Unknown Dose MONTHLY Furosemide (Furosemide), 20 MG PO DAILY Losartan Potassium (Cozaar), 50 MG PO DAILY Ondasetron Odt (Zofran Odt), 4 MG SL Q6H Oxybutynin Chloride Er (Ditropan Xl), 10 MG PO DAILY Pantoprazole (Protonix), 40 MG PO DAILY Potassium Chloride (Potassium Chloride Er), 10 MEQ PO DAILY Scheduled PRN Acetaminophen Tab (Tylenol), 325 MG PO for Headache Home O2 Therapy (Oxygen), 2 LITERS NA PRN PRN for ambulation/exertion Promethazine Hcl (Phenergan), 25 MG PO Q6H PRN for Nausea or Vomiting Ranitidine (Zantac), 150 MG PO BID PRN for GERD Allergies Coded Allergies: Amoxicillin (Verified Allergy, Severe, SWELLING OF TONGUE AND THROAT, 09/16) Baclofen (Unverified Allergy, Unknown, VERY SLEEPY, 09/16/17) Daptomycin (Verified Allergy, Unknown, unknown, 09/16/17) Lethargy/ Weakness Omeprazole (Verified Allergy, Unknown, ?, 09/16/17) Phenobarbital (Verified Allergy, Unknown, ?, 09/16/17) Statins (Verified Allergy, Unknown, RASH, 09/16/17) Physical Exam Vital Signs Date Time Temp Pulse Resp B/P (MAP) Pulse Ox O2 Delivery O2 Flow Rate FiO2 09/21/17 19:59 37.4 09/21/17 19:24 124 18 140/68 96 Nasal Cannula 2.0 09/21/17 17:46 131 09/21/17 17:32 98 Nasal Cannula 3.0 09/21/17 17:16 37.6 127 18 177/90 99 Nasal Cannula 3.0 09/21/17 17:16 93 Room Air 09/21/17 17:16 93 Room Air Physical Exam GENERAL: Awake, fatigued and ill-appearing, in no distress HENT: Normocephalic, atraumatic. Dry cracked mucous membranes otherwise oropharynx unremarkable. EYES: Normal conjunctiva. Sclera non-icteric. NECK: Supple. No nuchal rigidity. FROM. No JVD. RESPIRATORY: Diminished breath sounds at the bases with scant isolated wheeze. CARDIAC: ST. Extremities warm and well perfused. Pulses equal. ABDOMEN: Obese, soft, non-distended. No tenderness to palpation. No rebound or guarding. No masses. RECTAL: Deferred. MUSCULOSKELETAL: Chest examination reveals no tenderness. The back is symmetrical on inspection without obvious abnormality. There is no CVA tenderness to palpation. No joint edema. LOWER EXTREMITIES: Calves are equal size bilaterally and non-tender. Scant edema. No discoloration. NEURO: Normal sensorium. No sensory or motor deficits noted. SKIN: No rash or jaundice noted. Medical Decision & Procedures ER Provider Diagnostic Interpretation: Radiology results as stated below per my review and radiologist interpretation: CHEST ONE VIEW PORTABLE HISTORY: Atypical CHEST PAIN COMPARISON: Chest 09/16/2017. FINDINGS: The heart remains mildly enlarged. Perihilar and interstitial vascular thickening consistent with mild congestive change. Trace bilateral pleural effusions. No pneumothorax. Bibasilar linear densities persist and favor subsegmental atelectasis. IMPRESSION: No change in the cardiomegaly, mild central pulmonary vascular congestion and trace bilateral pleural effusions. Electronically signed by: Geoff Alford M.D. 09/21/2017 6:10 PM Dictated Date/Time: 09/21/2017 5:59 PM Laboratory Results 09/21/17 17:00 Red Blood Count 4.52, Mean Corpuscular Volume 87.6, Mean Corpuscular Hemoglobin 29.4, Mean Corpuscular Hemoglobin Concent 33.6, Mean Platelet Volume 9.7, Neutrophils (%) (Auto) 89.0, Lymphocytes (%) (Auto) 5.4, Monocytes (%) (Auto) 3.5, Eosinophils (%) (Auto) 1.6, Basophils (%) (Auto) 0.0, Neutrophils # (Auto) 3.30, Lymphocytes # (Auto) 0.20, Monocytes # (Auto) 0.13, Eosinophils # (Auto) 0.06, Basophils # (Auto) 0.00 09/21/17 17:00 Test 09/21/17 17:00 09/21/17 17:40 09/21/17 20:08 09/21/17 20:13 White Blood Count 3.71 K/uL (4.8-10.8) Red Blood Count 4.52 M/uL (4.7-6.1) Hemoglobin 13.3 g/dL (14.0-18.0) Hematocrit 39.6 % (42-52) Mean Corpuscular Volume 87.6 fL (80-100) Mean Corpuscular Hemoglobin 29.4 pg (25-34) Mean Corpuscular Hemoglobin Concent 33.6 g/dl (32-36) Platelet Count 134 K/uL (130-400) Mean Platelet Volume 9.7 fL (7.4-10.4) Neutrophils (%) (Auto) 89.0 % Lymphocytes (%) (Auto) 5.4 % Monocytes (%) (Auto) 3.5 % Eosinophils (%) (Auto) 1.6 % Basophils (%) (Auto) 0.0 % Neutrophils # (Auto) 3.30 K/uL (1.4-6.5) Lymphocytes # (Auto) 0.20 K/uL (1.2-3.4) Monocytes # (Auto) 0.13 K/uL (0.11-0.59) Eosinophils # (Auto) 0.06 K/uL (0-0.5) Basophils # (Auto) 0.00 K/uL (0-0.2) RDW Standard Deviation 47.7 fL (36.4-46.3) RDW Coefficient of Variation 14.8 % (11.5-14.5) Immature Granulocyte % (Auto) 0.5 % Immature Granulocyte # (Auto) 0.02 K/uL (0.00-0.02) Activated Partial Thromboplast Time 28.5 SECONDS (21.0-31.0) Partial Thromboplastin Ratio 1.1 Anion Gap 10.0 mmol/L (3-11) Est Creatinine Clear Calc Drug Dose 45.1 ml/min Estimated GFR () 59.5 Estimated GFR (Non- 51.3 BUN/Creatinine Ratio 13.9 (10-20) Calcium Level 9.7 mg/dl (8.5-10.1) Magnesium Level 1.4 mg/dl (1.8-2.4) Total Bilirubin 2.4 mg/dl (0.2-1) Direct Bilirubin 1.2 mg/dl (0-0.2) Aspartate Amino Transf (AST/SGOT) 158 U/L (15-37) Alanine Aminotransferase (ALT/SGPT) 74 U/L (12-78) Alkaline Phosphatase 638 U/L (45-117) Troponin I < 0.015 ng/ml (0-0.045) Pro-B-Type Natriuretic Peptide 5244 pg/ml (0-1800) Total Protein 7.4 gm/dl (6.4-8.2) Albumin 3.6 gm/dl (3.4-5.0) Lipase 130 U/L (73-393) Procalcitonin 1.53 ng/ml (0-0.5) Influenza Type A (RT-PCR) Neg for Influ A (NEG) Influenza Type B (RT-PCR) Neg for Influ B (NEG) Urine Color DK YELLOW Urine Appearance CLOUDY (CLEAR) Urine pH 5.0 (4.5-7.5) Urine Specific Lang[place] 1.021 (1.000-1.030) Urine Protein 1+ (NEG) Urine Glucose (UA) NEG (NEG) Urine Ketones TRACE (NEG) Urine Occult Blood TRACE (NEG) Urine Nitrite POS (NEG) Urine Bilirubin 1+ (NEG) Urine Urobilinogen NEG (NEG) Urine Leukocyte Esterase MODERATE (NEG) Urine WBC (Auto) 10-30 /hpf (0-5) Urine RBC (Auto) 5-10 /hpf (0-4) Urine Hyaline Casts (Auto) 1-5 /lpf (0-5) Urine Epithelial Cells (Auto) >30 /lpf (0-5) Urine Bacteria (Auto) NEG (NEG) Urine Renal Epithelial Cells 0-5 /lpf (0-5) Urine Pathogenic Casts 0-3 WBC CASTS /lpf (0) Arterial Blood pH 7.44 (7.35-7.45) Arterial Blood Partial Pressure CO2 43 mmHg (35-46) Arterial Blood Partial Pressure O2 76 mm/Hg (80-95) Arterial Blood HCO3 28 mmol/L (19-24) Arterial Blood Oxygen Saturation 94.6 % (90-95) Arterial Blood Base Excess 3.7 mEq/L (-9-1.8) Arterial Blood Gas Delivery 2 LITERS Hiren Test POS (POS) Lactic Acid Level 1.6 mmol/L (0.4-2.0) Thyroid Stimulating Hormone (TSH) 1.230 uIu/ml (0.300-4.500) Laboratory results reviewed by wi Junaid Administered Medications (Trade) Dose Ordered Sig/Vicky Route Start Time Stop Time Status Last Admin Dose Admin Albuterol/ Ipratropium (Duoneb) 3 ml NOW STAT INH 09/21/17 17:24 09/21/17 17:27 DC 09/21/17 17:40 3 ML Sodium Chloride 250 ml @ 999 mls/hr Q16M STAT IV 09/21/17 17:24 09/21/17 17:39 DC 09/21/17 17:40 999 MLS/HR Magnesium Sulfate (Magnesium Sulfate) 2 gm NOW STAT IV 09/21/17 18:37 09/21/17 18:39 DC 09/21/17 19:06 2 GM Sodium Chloride 250 ml @ 999 mls/hr Q16M STAT IV 09/21/17 18:53 09/21/17 19:08 DC 09/21/17 19:06 999 MLS/HR Vancomycin HCl 2250 mg/Sodium Chloride 545 ml @ 200 mls/hr ONE STAT IV 09/21/17 18:53 09/21/17 21:36 DC 09/21/17 19:57 200 MLS/HR Cefepime HCl 1000 mg/Dextrose 111 ml @ 200 mls/hr NOW STAT IV 09/21/17 18:53 09/21/17 19:26 DC 09/21/17 19:43 200 MLS/HR Sodium Chloride 500 ml @ 100 mls/hr Q5H STAT IV 09/21/17 18:56 09/21/17 19:43 DC 09/21/17 19:06 100 MLS/HR Acetaminophen 100 ml @ 400 mls/hr ONE STAT IV 09/21/17 19:40 09/21/17 19:54 DC 09/21/17 21:02 400 MLS/HR Potassium Chloride (Klor-Con M10) 40 meq NOW STAT PO 09/21/17 19:43 09/21/17 19:46 DC 09/21/17 21:02 40 MEQ ECG Per My Interpretation Indication: SOB/dyspnea Rate (beats per minute): 130 Rhythm: sinus tachycardia Findings: LAFB, RBBB (incomplete), no acute ischemic change Comparison ECG Date: 16-Sep-2017 Change: Similar to prior. ED Course 1720: The patient was evaluated in room B11B. A complete history and physical exam was performed. 1840: Upon reexamination, the patient was stable. I discussed the test results and treatment plan with him. The patient will be evaluated for further management. 1905: I discussed the patient with LUCIANA Rhodes - She will evaluate the patient for further treatment. Medical Decision I reviewed the patient's past medical history, medications, and the nursing notes as described above. Etiologies such as pneumonia, COPD, reactive airway disease, CHF, cardiac ischemia, pulmonary embolism, pneumothorax, musculoskeletal, infections, gastrointestinal, metabolic, hypo/hyperglycemia, electrolyte abnormalities, cardiac sources, intracerebral event, toxicologic, neurologic, as well as others were entertained. The patient is an 87-year-old gentleman with a past medical history of grade 2 diastolic heart failure who presents emergency department with generalized weakness, body aches, nausea over the past 2 days after being discharged from the hospital on the after being admitted for CHF exacerbation as well as UTI. WBC 3.9. Lactate elevated 2.8. Chemistry consistent with dehydration with T bili elevated to 2.8. Chest x-ray with some mild congestion however BNP slightly improved to unchanged from prior. Bedside echo demonstrates 100% IVC variability suggesting intravascular depletion in the setting of possible sepsis. UA pending however given recent UTI on on his last admission will treat empirically for sepsis with Vanc/Cefepime. While the patient does have some evidence of failure, his sinus tachycardia in the setting of his labs and bedside echo does suggest intravascular depletion. Thus, given the patient's respiratory status is stable from his recent discharge will treat with gentle IV fluid hydration at this time though likely will need a combination of hydration and diuresis. Case was discussed with Padma Julien PAC who will evaluate the patient for admission.. Medication Reconcilliation Current Medication List: was personally reviewed by wi Blood Pressure Screening Patient's blood pressure: Elevated blood pressure Referred to hospitalist. Consults Time Called: 1852 Consulting Physician: LUCIANA Rhodes Returned Call: 1905 I discussed the patient with her - She will evaluate the patient for further treatment. Impression Primary Impression: Sepsis Additional Impressions: Dehydration CHF (congestive heart failure) Critical Care I have personally spent greater than 35 minutes of critical care time in the direct management of this patient. This includes bedside care, interpretation of diagnostic studies, and testing, discussion with consultants, patient, and family members, and other required patient management activities. This 35 minutes is in excess of all separately billable procedures. Scribe Attestation The scribe's documentation has been prepared under my direction and personally reviewed by me in its entirety. I confirm that the note above accurately reflects all work, treatment, procedures, and medical decision making performed by me. Departure Information Dispostion Being Evaluated By Hospitalist Referrals Bert Gresham M.D. (PCP) Patient Instructions [facility] Problem Qualifiers
[2017-09-21 20:17] LABS: PTT PATIENT 28.5 SECONDS (21.0-31.0)
[2017-09-21] MEDS ORDERED: OPTIRAY 320 IV PRN (21:00)
--- NOTE | 2017-09-21 21:44 | DIAGNOSTIC IMAGING REPORT ---
HEAD CT NONCONTRAST CT DOSE: 3327.72 mGy.cm HISTORY: Headache. TECHNIQUE: Multiaxial CT images of the head were performed without the use of intravenous contrast. Automated exposure control was utilized for this study. A dose lowering technique was utilized adhering to the principles of ALARA. Comparison: None. Findings: The paranasal sinuses and mastoid air cells are clear. The calvarium and skull base are intact. Mild atrophic changes within the brain. Periventricular white matter hypodensity is nonspecific but suggestive of mild microvascular ischemic changes. There is no mass, midline shift, or acute infarct. Small left subdural hematoma. This measures a maximal thickness of 5 mm. This demonstrates intermediate and hyperdense components consistent with an acute to subacute hematoma. Impression: Small acute to subacute left subdural hematoma. No midline shift. 12-[address] follow-up is recommended to ensure stability. Electronically signed by: Geoff Alford M.D. 09/21/2017 9:43 PM Dictated Date/Time: 09/21/2017 9:37 PM
[2017-09-21 21:54] VITALS: BP 104/46; PULSE 111; TEMP 39.2; O2SAT 93; BMI 31.3
--- NOTE | 2017-09-21 22:15 | DIAGNOSTIC IMAGING REPORT ---
CHEST CTA for PULMONARY ARTERIES CT DOSE: HISTORY: Hypoxia. TECHNIQUE: Multiaxial CT images of the chest were performed following the intravenous administration of contrast to evaluate the pulmonary arteries. Maximal intensity projection images were also obtained. A dose lowering technique was utilized adhering to the principles of ALARA. COMPARISON STUDY: Chest CTA 09/16/2017. FINDINGS: Trace bilateral pleural effusions have slightly improved. No change in the mediastinal and hilar lymphadenopathy. Dominant subcarinal lymph node measures 4.5 x 1.5 cm. The heart remains enlarged. No pericardial effusion. Normal caliber thoracic aorta with no evidence for dissection. The majority of the segmental and subsegmental pulmonary arteries are essentially nondiagnostic due to the respiratory motion artifact. The main and lobar pulmonary arteries appear patent. Mildly distended and fluid-filled esophagus. Stable partially calcified cystic lesion at the base of the left hemithorax posterior to the aorta. This measures 1.9 cm. No suspicious lytic or blastic osseous lesions. Narrowing of the bronchi may be due to expiratory phase. Patchy densities at the bases of the bilateral lower lobes. IMPRESSION: 1. No evidence for central pulmonary embolus. 2. Trace bilateral pleural effusions have slightly improved. 3. No change in the mediastinal and bilateral hilar lymphadenopathy. This is nonspecific and could be due to chronic pulmonary edema, reactive change, or possibly a neoplastic process such as lymphoma. 4. Mildly distended and fluid-filled esophagus. 5. Bibasilar lower lobe densities suggestive of atelectasis. However, a pneumonia could also have a similar appearance. Electronically signed by: Geoff Alford M.D. 09/21/2017 10:13 PM Dictated Date/Time: 09/21/2017 10:05 PM
[2017-09-21] MEDS ORDERED: KETOROLAC TROMETHAMINE 15 MG/ML VIAL IV. STA (22:20)
--- NOTE | 2017-09-21 22:25 | DIAGNOSTIC IMAGING REPORT ---
ABDOMEN AND PELVIS CT WITH IV CONTRAST CT DOSE: HISTORY: Generalized abdominal pain. TECHNIQUE: Multiaxial CT images of the abdomen and pelvis were performed following the use of intravenous contrast. A dose lowering technique was utilized adhering to the principles of ALARA. COMPARISON STUDY: Abdomen and pelvis CT 09/16/2017. FINDINGS: Trace bilateral pleural effusions have improved. Patchy bibasilar densities seen within the lower lobes. No pneumoperitoneum. No pneumatosis. Mild bladder wall thickening. There are few scattered hypodense lesions within the liver. The largest in the right hepatic lobe measures 2.2 cm. These remain unchanged and likely represent cysts. Stable bilateral renal hypodense lesions. Bilateral perinephric edema, unchanged. Left-sided nephrolithiasis, unchanged. Stable peripherally calcified cystic lesion within the left periaortic space adjacent to the descending thoracic aorta. Fluid-filled distal esophagus. The adrenal glands, spleen, and pancreas are unremarkable. 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 This measures 8 mm. Small fat-containing right inguinal hernia. Prior ventral and left inguinal hernia repair. A few mildly enlarged periportal lymph nodes which have increased in size. Dominant lymph node measures 2.0 x 1.9 cm. Cholecystectomy. No bowel wall thickening or obstruction. The appendix is not visualized surgically absent. IMPRESSION: 1. Fluid-filled distal esophagus. 2. No bowel wall thickening or obstruction. 3. Stable left-sided nephrolithiasis. 4. Bladder wall thickening. This could be due to underdistention. Recommend correlation with urinalysis. 5. Trace bilateral pleural effusions have improved. 6. Mild periportal lymphadenopathy which has slightly progressed. Follow-up is recommended to ensure resolution. Electronically signed by: Geoff Alford M.D. 09/21/2017 10:23 PM Dictated Date/Time: 09/21/2017 10:13 PM
[2017-09-21] MEDS ORDERED: PROCHLORPERAZINE INJ 5 MG in SYRINGE 4 ML IV PRN (22:45)
[2017-09-21] MEDS ORDERED: HYDROmorphone INJ 0.5 MG/0.5 ML SYR IV PRN (22:45)
[2017-09-21] MEDS ORDERED: TRAMADOL HCL 50 MG TAB PO PRN (22:45)
[2017-09-21] MEDS ORDERED: NITROGLYCERIN 0.4 MG SL PER TAB CHARGE SL PRN (22:45)
[2017-09-21 23:17] VITALS: BP 110/53; PULSE 96; TEMP 37.3; O2SAT 93
[2017-09-21] MEDS ORDERED: LEVALBUTEROL/IPRATROPIUM NEB INH STA (23:27)
[2017-09-21] MEDS ORDERED: LEVALBUTEROL/IPRATROPIUM NEB INH PRN (23:30)
[2017-09-21] MEDS ORDERED: IPRATROPIUM BROMIDE NEB SOLN 0.02% 2.5 ML VIAL INH STA (23:40)
[2017-09-21] MEDS ORDERED: LEVALBUTEROL 1.25MG/0.5ML NEB INH STA (23:40)
[2017-09-21] MEDS ORDERED: IPRATROPIUM BROMIDE NEB SOLN 0.02% 2.5 ML VIAL INH PRN (23:45)
[2017-09-21] MEDS ORDERED: LEVALBUTEROL 1.25MG/0.5ML NEB INH PRN (23:45)
[2017-09-22] VITALS (11 sets, daily range): BP systolic 110–143; BP diastolic 55–78; PULSE 65–103; TEMP 36.3–36.8; O2SAT 95–100
[2017-09-22] MEDS: DEXTROSE 5% 1000ML 1,000 ML IV SCH (00:58)
[2017-09-22] MEDS ORDERED: LACTULOSE SYRUP 30 GM/45 ML UDP PO STA (01:40)
--- NOTE | 2017-09-22 05:38 | HISTORY & PHYSICAL EXAMINATION ---
DATE OF ADMISSION: 09/21/2017 PRIMARY CARE PHYSICIAN: Bert Gresham MD. CHIEF COMPLAINT: Abdominal pain as per patient. HISTORY OF PRESENT ILLNESS: History obtained from patient, , and records. Limited history from patient secondary to lethargy. Medical history significant for chronic diastolic heart failure (EF 55-60% from 2D echo in 2018), hypertension, PVD, fatty liver as per records, past tobacco abuse, reflux, chronic anemia (baseline hemoglobin of 11-13) Recent confinement last few days ago for decompensated heart failure. The patient also had UTI at that time, although urine cultures showed no growth. Patient sent home on Cipro: This afternoon, patient had shortness of breath, nausea, vomiting. Patient complaining of achy lower abdominal pain. No hematuria. Complaining of lightheadedness, dry cough. Patient denies headaches. At the Emergency Room, the patient given vancomycin and cefepime for sepsis. MEDICAL HISTORY: As above. SURGERIES: He has had hernia surgery, appendectomy, gastrectomy, hernia repair, knee replacement. HOME MEDICATIONS: Include aspirin, Tylenol, vitamin B12, vitamin D, cyanocobalamin, Cozaar, Zofran, Ditropan, potassium chloride, Phenergan, Protonix, Zantac, furosemide, oxybutynin. ALLERGIES: AMOXICILLIN, BACLOFEN, PHENOBARBITAL, OMEPRAZOLE, DAPTOMYCIN, STATIN. FAMILY HISTORY: Could not be obtained. PERSONAL AND SOCIAL HISTORY: Past tobacco abuse per records. Lives with . REVIEW OF SYSTEMS: Could not be obtained. PHYSICAL EXAMINATION: VITAL SIGNS: Blood pressure was noted to be on 130/80, pulse rate noted to be 120, RR 18 temperature 37.6, sats 94 on 2 liters. GENERAL: Noted to be obese, lethargic, no respiratory distress. SKIN: Pallor, warm. HEENT: Alopecia. Pale palpebral conjunctiva. No ptosis. Dry mucosa. Nasal cannula in place. NECK: Short, supple. CHEST: Decreased effort. No tenderness. HEART: Tachycardic. No murmur. ABDOMEN: Minimal hypogastric tenderness, some distention. EXTREMITIES: Minimal LE edema present. No tenderness. NO gross deformity. NEUROLOGIC: Lethargic but coherent. No facial asymmetry. Gait and stance not assessed. LABORATORY DATA: Hemoglobin was noted to be 13.3, WBC 3.71 platelets noted to be 134. Sodium 135, potassium 3.7, chloride 98, CO2 27, BUN 8, creatinine 1.2, glucose 131. BNP 5244. Troponin 0.015. Procalcitonin 1.53. ABG; pH 7.44, pCO2 40, pO2 76 on 2 liters. UA, nitrite positive urine, ketones. Chest x-ray showed mild central pulmonary congestion, effusion. EKG as per my interpretation, rate 130, sinus tachycardia, , LAD, LAFB, incomplete right bundle branch block, no ischemia, poor R-wave progression. CT head small acute/subacute left subdural hematoma, no midline shift. 12-24 hour followup recommended to assure stability. CT thorax, no pulmonary embolus, distended esophagus, unchanged mediastinal bilateral hilar adenopathy, atelectasis. CT abdomen and pelvis showed no obstruction, bladder wall thickening. ASSESSMENT: 1. Encephalopathy multifactorial : Severe sepsis (SIRS plus encephalopathy post lactic acid elevation) secondary to complicated urinary tract infection. Acute hypoxemic respiratory failure, pulmonary congestion on CXR. 2. Subdural hematoma. No recent falls as per patient's except for last one in June 2017 3. Chronic diastolic heart failure Equivocal volume status congestion on x-ray, elevated BNP although patient clinically dry with note of ketonuria. 4. Tobacco abuse per records. 5. hx PVD as per records a 6. anemia, hemoglobin at baseline. PLAN: PCU CS, Vancomycin (hx Enterococcus UTI) and Cefepime for now De-escalate antibiotic rx pending CS results availability Katarina neurochecks for subdural hematoma. Appropriate to hold aspirin for now given intracranial hemorrhage. Case discussed [place] [facility] vocational examiner, Dr. Choe, who recommends repeating CT of the head 12 hours from last study. No further intervention if stable. Okay to resume home ASA after [address] Choe. Patient's agreeable to keeping patient at [facility] for now if no immediate plan for surgery. Supplemental O2. Hold off on additional IV fluids given pulmonary congestion on CXR. Nebs prn, aspiration precautions. PT/OT evaluation. Social service RE discharge planning DVT prophylaxis, SCDs RE intracranial bleed. Full code as per , Mrs. Roseline Davidson. She requests updates from providers at [phone]. MTDD
[2017-09-22 06:20] LABS: BASO % 0.1 %; BASO ABS # 0.01 K/uL (0-0.2); EOS % 0.1 %; EOS ABS # 0.01 K/uL (0-0.5); HEMATOCRIT 33.6 % (42-52); HEMOGLOBIN 11.2 g/dL (14.0-18.0); IG# 0.02 K/uL (0.00-0.02); LYMPH % 3.3 %; LYMPH ABS # 0.23 K/uL (1.2-3.4); MEAN CELL VOLUME 87.3 fL (80-100); MEAN CORPUSCULAR HEMOGLOBIN 29.1 pg (25-34); MEAN CORPUSCULAR HGB CONC 33.3 g/dl (32-36); MEAN PLATELET VOLUME 9.7 fL (7.4-10.4); MONO % 6.2 %; MONO ABS # 0.43 K/uL (0.11-0.59); NEUT ABS # 6.23 K/uL (1.4-6.5); PLATELET COUNT 128 K/uL (130-400); RED CELL DISTRIBUTION WIDTH CV 15.2 % (11.5-14.5); RED CELL DISTRIBUTION WIDTH SD 48.5 fL (36.4-46.3); WHITE BLOOD COUNT 6.93 K/uL (4.8-10.8)
[2017-09-22 07:03] LABS: ALBUMIN 2.8 gm/dl (3.4-5.0); ALKALINE PHOSPHATASE 467 U/L (45-117); ALT/SGPT 80 U/L (12-78); AST/SGOT 132 U/L (15-37); BLOOD UREA NITROGEN 25 mg/dl (7-18); CALCIUM 8.6 mg/dl (8.5-10.1); CARBON DIOXIDE 26 mmol/L (21-32); GLUCOSE 133 mg/dl (70-99); SODIUM 134 mmol/L (136-145); TOTAL PROTEIN 6.1 gm/dl (6.4-8.2)
[2017-09-22] MEDS: RANITIDINE HCL 150 MG TAB PO PRN (07:38)
[2017-09-22] MEDS: LOSARTAN POTASSIUM 50 MG TAB PO SCH (07:38)
[2017-09-22] MEDS: PANTOprazole SOD 40 MG TAB PO SCH (07:38)
[2017-09-22] MEDS ORDERED: CEFEPIME IV 1,000 MG in SYRINGE 0 ML IV SCH (08:00)
[2017-09-22] MEDS ORDERED: CEFEPIME CONSULT ACTIVE PRN (09:00)
--- NOTE | 2017-09-22 09:19 | DIAGNOSTIC IMAGING REPORT ---
CT HEAD WITHOUT CONTRAST (CT) CLINICAL HISTORY: Subdural hematoma. Follow-up examination. COMPARISON STUDY: 09/21/2017 TECHNIQUE: Axial CT of the brain is performed from the vertex to the skull base. IV contrast was not administered for this examination. A dose lowering technique was utilized adhering to the principles of ALARA. CT DOSE: 614.27 mGy.cm FINDINGS: There is no CT evidence of acute cortical infarction. There is no evidence of midline shift. There is no evidence of acute parenchymal hemorrhage. There is a left convexity subdural hematoma measuring 9 mm in maximal thickness. There are patchy white matter hypodensities likely on a small vessel basis. There is no evidence of pathologic ventricular dilatation. There is no evidence of acute sinusitis IMPRESSION: Small acute/subacute left subdural hematoma, similar in size to the preceding examination. Electronically signed by: Wilner Epperson M.D. 09/22/2017 9:17 AM Dictated Date/Time: 09/22/2017 9:13 AM
--- NOTE | 2017-09-22 12:57 | Pharmacy Progress Note ---
Pharmacy Abx Initial Consult Date of Service Sep 22, 2017. Pharmacy Dosing Scope Date of Consult: 09/21/17 Consultation requested by: Dr. Helm Pharmacy is consulted to initiate IV VANCOMYCIN and CEFEPIME therapy, order appropriate labs and adjust drug dose/frequency. Subjective The patient is a 87 year old male admitted on Sep 21, 2017 at 20:28 for NV, SOB, encephalopathy and abdominal pain. Patient felt to have sepsis secondary to complicated UTI. Objective Height (Feet): 5 Height (Inches): 7.00 Weight (Kilograms): 92.700 Vital Signs (Past 12Hrs) Vital Signs Past 12 Hours Date Time Temp Pulse Resp B/P (MAP) Pulse Ox O2 Delivery O2 Flow Rate FiO2 09/22/17 12:00 97 Nasal Cannula 2.0 09/22/17 11:35 36.5 85 18 113/70 (84) 96 09/22/17 08:06 36.8 65 20 123/55 (77) 96 09/22/17 08:00 97 Nasal Cannula 2.0 09/22/17 04:00 Nasal Cannula 2.0 09/22/17 03:13 36.6 76 19 110/59 (76) 97 Nasal Cannula 2.0 Lab Results (24Hrs) Laboratory Tests (24 Hours) Test 09/21/17 17:00 09/21/17 20:13 09/22/17 06:06 Procalcitonin 1.53 ng/ml (0-0.5) H Lactic Acid Level 1.6 mmol/L (0.4-2.0) White Blood Count 6.93 K/uL (4.8-10.8) Red Blood Count 3.85 M/uL (4.7-6.1) L Hemoglobin 11.2 g/dL (14.0-18.0) L Hematocrit 33.6 % (42-52) L Mean Corpuscular Volume 87.3 fL (80-100) Mean Corpuscular Hemoglobin 29.1 pg (25-34) Mean Corpuscular Hemoglobin Concent 33.3 g/dl (32-36) Platelet Count 128 K/uL (130-400) L Mean Platelet Volume 9.7 fL (7.4-10.4) Neutrophils (%) (Auto) 90.0 % Lymphocytes (%) (Auto) 3.3 % Monocytes (%) (Auto) 6.2 % Eosinophils (%) (Auto) 0.1 % Basophils (%) (Auto) 0.1 % Neutrophils # (Auto) 6.23 K/uL (1.4-6.5) Lymphocytes # (Auto) 0.23 K/uL (1.2-3.4) L Monocytes # (Auto) 0.43 K/uL (0.11-0.59) Eosinophils # (Auto) 0.01 K/uL (0-0.5) Basophils # (Auto) 0.01 K/uL (0-0.2) Micro Results Date/Time Source Procedure Growth Status 09/21/17 18:15 Blood Blood Culture Pending Received 09/21/17 17:59 Blood Blood Culture Pending Received 09/21/17 20:08 Urine , Clean Catch Urine Culture Pending Received Risk Factors for Resistance * Hospitalization for 48 hours or more within the past 90 days * Antimicrobial use within the last 90 days (received Rocephin IV during recent admission, discharged on Cipro PO) Assessment & Plan Assessment * 87 year old male admitted for sepsis likely secondary to UTI * He was recently hospitalized the treated for UTI with Rocephin IV and discharged on Cipro PO. An infecting organism was not identified during this recent admission ( 3 organisms in urine cx, likely contaminated) * UA: cloudy, + nitrates, moderate LE, 10-30WBCs, no bacteria, > 30 epis * Blood cxs and urine cx pending * Procal 1.53 * SCr increasing 1.26 -->1.7 (baseline ~1.1-1.2), no hypotension noted Plan Vancomycin IV * Loading dose: 2250 mg (24.8 mg/kg) x 1 given last evening at 1956 * P'kinetic estimates: half life ~21 hours; Vd 0.7L/kg * Maintenance dose: likely to be 1250mg (13.5mg/kg) IV Q 24 hours; will give a single dose at 1999 this evening * If renal fxn remains at current level w/ check a random level ~24 hrs after this evening's dose to guide future doses Cefepime IV * Target dose 2gm Q 12 hrs * eCrCl 30-35cc/min; adjust dose to 2gm IV Q 24 hrs Pharmacy will continue to follow and will adjust dose/frequency as necessary. Thank you.
[2017-09-22] MEDS ORDERED: POLYETHYLENE (MIRALAX) 17 GM PACK PO STA (13:06)
[2017-09-22] MEDS ORDERED: SENNA 8.6 MG TAB PO STA (13:13)
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
[2017-09-22] MEDS ORDERED: VANCOMYCIN IV 1,250 MG in SODIUM CHLORIDE 0.9% 250ML 250 ML IV ONE (20:00)
[2017-09-22] MEDS: CEFEPIME IV 2,000 MG in SYRINGE 7.5 ML IV SCH (20:25)
[2017-09-22] MEDS: ACETAMINOPHEN 325 MG TAB PO PRN (20:26)
[2017-09-23] VITALS (10 sets, daily range): BP systolic 138–168; BP diastolic 72–94; PULSE 93–108; TEMP 36.7–37; O2SAT 90–97
[2017-09-23] MEDS: DEXTROSE 5% 1000ML 1,000 ML IV SCH (00:04)
[2017-09-23 05:58] LABS: BASO % 0.3 %; BASO ABS # 0.02 K/uL (0-0.2); EOS ABS # 0.39 K/uL (0-0.5); HEMATOCRIT 34.2 % (42-52); HEMOGLOBIN 11.2 g/dL (14.0-18.0); IG# 0.02 K/uL (0.00-0.02); LYMPH % 6.9 %; LYMPH ABS # 0.45 K/uL (1.2-3.4); MEAN CELL VOLUME 88.4 fL (80-100); MEAN CORPUSCULAR HEMOGLOBIN 28.9 pg (25-34); MEAN CORPUSCULAR HGB CONC 32.7 g/dl (32-36); MEAN PLATELET VOLUME 10.2 fL (7.4-10.4); MONO % 13.9 %; MONO ABS # 0.91 K/uL (0.11-0.59); NEUT % 72.6 %; NEUT ABS # 4.75 K/uL (1.4-6.5); PLATELET COUNT 150 K/uL (130-400); RED CELL DISTRIBUTION WIDTH CV 15.2 % (11.5-14.5); WHITE BLOOD COUNT 6.54 K/uL (4.8-10.8)
[2017-09-23 06:36] LABS: ALBUMIN 2.7 gm/dl (3.4-5.0); CREATININE 1.34 mg/dl (0.60-1.40); POTASSIUM 4.4 mmol/L (3.5-5.1)
[2017-09-23 06:39] LABS: TOTAL PROTEIN 5.9 gm/dl (6.4-8.2)
[2017-09-23] MEDS: SENNA 8.6 MG TAB PO SCH (07:55)
[2017-09-23] MEDS: POLYETHYLENE (MIRALAX) 17 GM PACK PO SCH (07:55)
[2017-09-23] MEDS: LOSARTAN POTASSIUM 50 MG TAB PO SCH (07:55)
[2017-09-23] MEDS: RANITIDINE HCL 150 MG TAB PO PRN (07:55)
[2017-09-23] MEDS: PANTOprazole SOD 40 MG TAB PO SCH (07:55)
--- NOTE | 2017-09-23 12:13 | Pharmacy Progress Note ---
Pharmacy Abx Dose Short Note Date of Service Sep 23, 2017. Assessment & Plan Assessment * 87 year old male receiving VANCOMYCIN + CEFEPIME for treatment of sepsis likely secondary to UTI * Day # 3 of antimicrobial therapy * He was recently hospitalized the treated for UTI with Rocephin IV and discharged on Cipro PO. An infecting organism was not identified during this recent admission ( 3 organisms in urine cx, likely contaminated) * UA: cloudy, + nitrates, moderate LE, 10-30WBCs, no bacteria, > 30 epis; Urine Cx showed no growth * Blood cxs still pending * Procal 1.53 on 09/21, no repeat lab ordered * SCr stable, slightly improved today vs yesterday (1.34 today vs 1.7 yesterday ; baseline ~1.1-1.2) * No hypotension noted, afebrile last 24 hours, no leukocytosis noted on labs, no L-shift noted Plan Vancomycin * Vancomycin 2250mg (~24.8mg/kg) IV x 1 09/21 @ 1956 * Vancomycin 1250mg (~13.5mg/kg) IV x 1 09/22 @ 2024 * Given stabilizing improving renal fxn, will order a maintenance dose of 1500mg (~16mg/kg) IV Q 24 hours * Goal trough level for complicated UTI w/ sepsis : 15 to 20 mcg/mL however a level of 10 to 15mcg/mL acceptable w/ resolution of sepsis w/ negative blood cx' s * Trough level ordered for: 09/24/17 to confirm targets met Cefepime * eCrCl 30-60cc/min; continue 2gm IV Q 24 hours Pharmacy will continue to follow and will adjust dose/frequency as necessary. Thank you.
--- NOTE | 2017-09-23 15:29 | Gastrointestinal Consultation ---
Gastrointestinal Consultation Date of Consultation: Sep 23, 2017 Attending Physician: Dr. Day Consulting Physician: Dr. Bermudez Reason for Consultation: esophageal dysfunction, r/o infeciton History of Present Illness Patient is a 87 year old male pt of Dr. Gresham with a hx of CHF ([id number]%), PVD , fatty liver, GERD, anemia who presented to the ED yesterday for SOB and an achy lower abdomen. GI is consulted for esophageal dysfunction, r/o infection. He has a hx of recent admissions for sepsis w/o clear source. On arrival at [facility], pt was found to have subdural hematoma on CT. Also, LFTs were elevated at T Bili 2.6 (today 3.1), AST 132 (today 86), ALT 80 (today 72), Alk Phos 467 (424). Lipase was normal. He was mildly febrile at 27.6 on arrival though not with leukocytosis. I was able to speak with the pt in the Medical ICU where he is a bit hard of hearing but is awake, alert, oriented. He denies any difficulty swallowing, epigastric pain or recent reflux. Regarding the abdominal pain, he minimalizes his abdominal pain but he does tell me that he has had very bad nausea and weakness. The abdominal sandrita is diffuse, RLQ, intermittent, mild occurring less than once daily and lasting less than 1/2 hour. The pain is not associated with eating or defecation and does not seem to be associated with the nausea. The and daughter tell me that that they called an ambulance on Wednesday because after eating, he felt nauseated, had sweats/chills, and got "deathly sick, very weak." The family arrived during the interview (/daughter) and tell me that the speech therapist told them that food is getting stuck in the bottom of the esophagus. On arrival CT chest/abdomen with a distal fluid filled esophagus, mild periportal lymphadenopathy at 2cm; there were no bowel abnormalities. Lactic acid was 2.8 but he did not have leukocytosis. Past Medical/Surgical History Medical Problems: (1) Abdominal pain Status: Acute (2) CHF (congestive heart failure) Status: Acute (3) Dehydration Status: Acute (4) Dyspnea Status: Acute (5) Hypoxia Status: Acute (6) Large bowel obstruction Status: Acute (7) Nausea & vomiting Status: Acute (8) Sepsis Status: Acute (9) UTI (urinary tract infection) Status: Acute Past Medical History: 1. CHF 2. PCV 3. UTI 4. GERD Past Surgical History: 1. Hernia surgery, lower abdomen, mess implanted (Apr 2017) 2. Appendectomy 3. Gastrectomy 4. Knee replacement. Family History Insignificant due to advanced age Social History Smoking Status: Former Smoker Alcohol Use: none Drug Use: none Marital Status: Housing Status: lives with family Occupation Status: retired Allergies Coded Allergies: Amoxicillin (Verified Allergy, Severe, SWELLING OF TONGUE AND THROAT, 09/16) Baclofen (Unverified Allergy, Unknown, VERY SLEEPY, 09/16/17) Daptomycin (Verified Allergy, Unknown, unknown, 09/16/17) Lethargy/ Weakness Omeprazole (Verified Allergy, Unknown, ?, 09/16/17) Phenobarbital (Verified Allergy, Unknown, ?, 09/16/17) Statins (Verified Allergy, Unknown, RASH, 09/16/17) Current Medications Home Meds and Scripts Medications Dose Route/Sig Max Daily Dose Days Date Category Potassium Chloride Er (Potassium Chloride) 10 Meq Tab 10 Meq PO DAILY 09/21/17 Reported Oxygen Gas 2 Liters NA PRN PRN 30 09/18/17 Rx Cipro (Ciprofloxacin Hcl) 500 Mg Tab 500 Mg PO BID 3 09/18/17 Rx Furosemide 20 Mg Tab 20 Mg PO DAILY 30 09/18/17 Rx Cyanocobalamin 1,000 Mcg/Ml Inj Unknown Dose MONTHLY 09/16/17 Reported Vitamin B-12 (Cyanocobalamin) 1,000 Mcg Sub 1,000 Mcg PO DAILY 05/02/17 Reported Tylenol (Acetaminophen) 325 Mg Tab 325 Mg PO PRN 05/02/17 Reported Phenergan (Promethazine Hcl) 12.5 Mg Tab 25 Mg PO Q6H PRN 05/02/17 Reported Zofran Odt (Ondansetron HCl) 4 Mg Tab 4 Mg SL Q6H 05/02/17 Reported Vitamin D (Cholecalciferol) 1,000 Unit Tab 1,000 Units PO DAILY 03/14/17 Reported Cozaar (Losartan Potassium) 50 Mg Tab 50 Mg PO DAILY 03/24/15 Reported Ditropan Xl (Oxybutynin Chloride) 10 Mg Tab 10 Mg PO DAILY 03/24/15 Reported Aspirin Ec (Aspirin) 81 Mg Tab 81 Mg PO DAILY 03/24/15 Reported Protonix (Pantoprazole Sodium) 40 Mg Tab 40 Mg PO DAILY 03/30/11 Reported Zantac (Ranitidine HCl) 150 Mg Tab 150 Mg PO BID PRN 03/30/11 Reported Review of Systems Constitutional: No fever, No chills, No sweats, No weight loss, No weakness Eyes: No eye pain, No redness ENT: No sore throat, No trouble swallowing, No pain on swallowing Respiratory: No cough, No wheezing, No shortness of breath, No dyspnea on exertion Cardiac: No chest pain, No edema, No palpitations Abdomen: + see HPI, + pain, + nausea (two episodes just prior to ), No vomiting , No diarrhea Neuro: No memory loss, No weakness, No numbness/tingling, No vertigo, No balance problems Psych: No depression symptoms, No anxiety, No insomnia Heme: No abnormal bleeding/bruising, No night sweats Endo: No excessive thirst, No excessive urination Skin: No rash, No itch, No new/changing skin lesions, No jaundice Physical Exam Date Time Temp Pulse Resp B/P (MAP) Pulse Ox O2 Delivery O2 Flow Rate FiO2 09/23/17 08:00 97 Nasal Cannula 2.0 09/23/17 07:50 36.8 105 18 154/84 (107) 96 09/23/17 04:00 Nasal Cannula 2.0 09/23/17 03:30 37.0 28 138/72 (94) 90 Room Air 2.0 09/22/17 23:59 Nasal Cannula 2.0 09/22/17 23:47 36.4 96 29 136/78 (97) 97 Nasal Cannula 2.0 09/22/17 20:00 97 Nasal Cannula 2.0 09/22/17 19:36 36.8 103 22 143/76 (98) 97 Nasal Cannula 2.0 09/22/17 16:15 100 Nasal Cannula 2.0 09/22/17 15:17 36.3 94 19 143/71 (95) 100 Nasal Cannula 2.0 09/22/17 12:00 97 Nasal Cannula 2.0 09/22/17 11:35 36.5 85 18 113/70 (84) 96 General Appearance: + mild distress ( mild SOB, appears weak) Eyes: normal inspection, EOMI Neck: supple, no adenopathy, thyroid normal Respiratory/Chest: chest non-tender, normal breath sounds, no accessory muscle use, + crackles (few at the bases) Cardiovascular: regular rate, rhythm, no JVD, no murmur Abdomen: normal bowel sounds, non tender, soft, no organomegaly Extremities: normal inspection, normal capillary refill, + pedal edema (trace bilat lower leg edema) Neurologic/Psych: alert, normal mood/affect, oriented x 3 Skin: normal color, no jaundice, warm/dry, no rash Laboratory Results Last 24 Hours Test 09/23/17 05:24 White Blood Count 6.54 K/uL Red Blood Count 3.87 M/uL Hemoglobin 11.2 g/dL Hematocrit 34.2 % Mean Corpuscular Volume 88.4 fL Mean Corpuscular Hemoglobin 28.9 pg Mean Corpuscular Hemoglobin Concent 32.7 g/dl Platelet Count 150 K/uL Mean Platelet Volume 10.2 fL Neutrophils (%) (Auto) 72.6 % Lymphocytes (%) (Auto) 6.9 % Monocytes (%) (Auto) 13.9 % Eosinophils (%) (Auto) 6.0 % Basophils (%) (Auto) 0.3 % Neutrophils # (Auto) 4.75 K/uL Lymphocytes # (Auto) 0.45 K/uL Monocytes # (Auto) 0.91 K/uL Eosinophils # (Auto) 0.39 K/uL Basophils # (Auto) 0.02 K/uL RDW Standard Deviation 49.0 fL RDW Coefficient of Variation 15.2 % Immature Granulocyte % (Auto) 0.3 % Immature Granulocyte # (Auto) 0.02 K/uL Sodium Level 134 mmol/L Potassium Level 4.4 mmol/L Chloride Level 100 mmol/L Carbon Dioxide Level 29 mmol/L Anion Gap 5.0 mmol/L Blood Urea Nitrogen 24 mg/dl Creatinine 1.34 mg/dl Est Creatinine Clear Calc Drug Dose 43.0 ml/min Estimated GFR () 55.2 Estimated GFR (Non- 47.6 BUN/Creatinine Ratio 17.6 Random Glucose 98 mg/dl Calcium Level 9.0 mg/dl Total Bilirubin 3.1 mg/dl Aspartate Amino Transf (AST/SGOT) 86 U/L Alanine Aminotransferase (ALT/SGPT) 72 U/L Alkaline Phosphatase 424 U/L Total Protein 5.9 gm/dl Albumin 2.7 gm/dl Globulin 3.2 gm/dl Albumin/Globulin Ratio 0.8 Impression Patient is a 87 year old male with nausea, poor po intake, elevated LFTs. These signs/symptoms can be caused by heart failure. Also considered are choledocholithiasis, drug induced liver injury, gastritis, duodenitis. His CT with a fluid filled lower esophagus may represent reflux or esophageal dysmotility and may be related to general poor health, subdural hematoma etc. Plan 1. MRCP/MRI of the pancreas. 2. Would consider EGD if MRCP/MRI normal, LFTs improve and nausea persist, but would recommend cardiac clearance prior to endoscopy. 3. Check LFTs tomorrow. 4. Will continue to follow closely. I have seen , examined and agree with the plan as outlined by LV Metz as above. -Exam reveals soft abd -Has several vague GI complaints, has elevated LFTs which may be due to right heart failure which he has been struggling with over the last couple months. -No dysphagia, and given his imaging findings it simply could be explained by reflux. -Certainly has complicating issues including presentation for infection, no source has been found, but he has improved, subdural hematoma that appears stable, and overall is improved but he still has persistent nausea. -Cardiac naik he seems to have labored breathing and some mild volume overload and his BNP is elevated to support cardiac consultation and opinion. -We will do an MRI to ensure that he does not have biliary obstruction, but however close CT scan reviewed does not show evidence of pancreatic mass, or common bile duct dilation. -Follow LFTs, consider EGD during hospital admission possibly as early as tomorrow
[2017-09-23] MEDS: ACETAMINOPHEN 325 MG TAB PO PRN ×2 (16:00→21:20)
[2017-09-23] MEDS ORDERED: VANCOMYCIN IV 1,500 MG in SODIUM CHLORIDE 0.9% 500ML 500 ML IV SCH (18:00)
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
[2017-09-23] MEDS: CEFEPIME IV 2,000 MG in SYRINGE 7.5 ML IV SCH (19:40)
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
--- NOTE | 2017-09-23 21:36 | DIAGNOSTIC IMAGING REPORT ---
MRCP CLINICAL HISTORY: 87 years-old Male presenting with nausea, elevated LFTs, r/o choledocho and pancreas mass. TECHNIQUE: Multisequence, multiplanar MR imaging of the abdomen was performed without the use of intravenous contrast. IV contrast: None. COMPARISON: CT from 09/21/2017. FINDINGS: Localizer images: Unremarkable. Lung bases: Minimal basilar opacities, likely atelectasis. Multichamber enlargement of the heart. Small right and trace left pleural effusions. Liver: Normal morphology. Multilobular T2 hyperintense lesion in the right hepatic lobe, likely cyst. Multiple additional smaller similar lesions, likely hepatic cysts or hamartomas. Biliary: No intrahepatic or extrahepatic biliary ductal dilatation. No evidence of choledocholithiasis. Gallbladder surgically absent. Pancreas: Parenchymal atrophy noted. Otherwise normal noncontrast appearance. No pancreatic ductal dilatation. Spleen: Normal noncontrast appearance. Adrenal glands: Normal noncontrast appearance. Kidneys and ureters: Multiple well-defined T2 hyperintense lesions in the kidneys likely simple cysts. Bowel: Circumferential bladder wall thickening suggest chronic bladder outlet obstruction. Peritoneal cavity: No free fluid or intraperitoneal gas. Lymph nodes: No gross lymphadenopathy allowing for noncontrast technique. Vasculature: Normal noncontrast appearance. Abdominal wall: Normal. Musculoskeletal: Scoliotic curvature of the spine with multilevel degenerative changes. IMPRESSION: 1. Status post cholecystectomy. No biliary ductal dilatation. No choledocholithiasis. 2. No pancreatic ductal dilatation. Parenchymal atrophy of the pancreas without evidence of mass allowing for noncontrast technique. 3. 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 4. Multiple hepatic and renal cysts. 5. Cardiomegaly. 6. Small right and trace left pleural effusions with associated bibasilar atelectasis. Electronically signed by: Yordy Gerard M.D. 09/23/2017 9:35 PM Dictated Date/Time: 09/23/2017 9:29 PM
[2017-09-24] VITALS (8 sets, daily range): BP systolic 144–178; BP diastolic 78–92; PULSE 85–100; TEMP 36.7–37.4; O2SAT 91–97; Ht 170.2 cm; Wt 90.3 kg
[2017-09-24] MEDS: DEXTROSE 5% 1000ML 1,000 ML IV SCH ×2 (00:45→23:56)
[2017-09-24 06:50] LABS: ALBUMIN 2.7 gm/dl (3.4-5.0)
[2017-09-24 06:59] LABS: TOTAL PROTEIN 5.8 gm/dl (6.4-8.2)
--- NOTE | 2017-09-24 08:39 | DIAGNOSTIC IMAGING REPORT ---
CERVICAL SPINE 5 VIEWS HISTORY: fall with increased neck pain (please do when pt has CT head) COMPARISON: None. FINDINGS: The cervical spine is visualized from C1 through the superior endplate of T1. Minimal anterior wedging within the C7 vertebral body. Moderate to severe degenerative disc disease from C4 through C7 with small endplate osteophytes. 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 Mild to moderate bilateral neural foraminal narrowing. No subluxation. Straightening of the cervical spine. Prevertebral soft tissues and the atlantodens interval are intact. IMPRESSION: Minimal anterior wedging within the C7 vertebral body. If the patient is complaining of lower cervical pain then consider follow-up cervical spine CT to exclude the less likely possibility of a mild compression fracture. Electronically signed by: Geoff Alford M.D. 09/24/2017 8:37 AM Dictated Date/Time: 09/24/2017 8:34 AM
--- NOTE | 2017-09-24 08:42 | DIAGNOSTIC IMAGING REPORT ---
HEAD CT NONCONTRAST CT DOSE: 537.48 mGy.cm HISTORY: Follow-up left-sided subdural hematoma. TECHNIQUE: Multiaxial CT images of the head were performed without the use of intravenous contrast. Automated exposure control was utilized for this study. A dose lowering technique was utilized adhering to the principles of ALARA. Comparison: Head CT 09/22/2017. Findings: The paranasal sinuses and mastoid air cells are clear. The calvarium and skull base are intact. No significant change in the small left-sided acute to subacute subdural hematoma. This measures a maximal thickness of 9 mm. No significant midline shift. Mild atrophy and microvascular ischemic changes are again noted. Impression: No significant change in the small acute/subacute left subdural hematoma. Electronically signed by: Geoff Alford M.D. 09/24/2017 8:41 AM Dictated Date/Time: 09/24/2017 8:37 AM
[2017-09-24] MEDS: LOSARTAN POTASSIUM 50 MG TAB PO SCH (08:44)
[2017-09-24] MEDS: POLYETHYLENE (MIRALAX) 17 GM PACK PO SCH (08:44)
[2017-09-24] MEDS: SENNA 8.6 MG TAB PO SCH (08:45)
[2017-09-24] MEDS: PANTOprazole SOD 40 MG TAB PO SCH (08:45)
[2017-09-24 09:21] LABS: CALCIUM 9.6 mg/dl (8.5-10.1); CREATININE 1.02 mg/dl (0.60-1.40); POTASSIUM 4.1 mmol/L (3.5-5.1)
--- NOTE | 2017-09-24 11:15 | Gastroenterology Progress Note ---
Progress Note Date of Service: Sep 24, 2017 Subjective Pt evaluation today including: conversation w/ patient, physical exam, chart review, lab review, review of studies, review of inpatient medication list Mr. Davidson is an 87 yr old male with CHF (EF55-60%), PVD, NAFLD, GERD who presented to [facility] on 09/21/17. He had fever on arrival and sepsis protocol was initiated. He has elevated LFTs. T Bili 2.6 on arrival (now 3.4), AST 158 ( today 78), ALT 74 (68 today), Alk Phos 638 (418). Cr back to baseline 1.02. He reports epigastric pain, though improved today compared to the past few days. Review of Systems Constitutional: No fever Abdomen: + pain, + nausea, No vomiting Male : No dysuria Neuro: + memory loss (though vague historian he is awake, alert, oriented to person/place/time.) Psych: No depression symptoms Heme: No abnormal bleeding/bruising Endo: + fatigue Skin: No rash, No jaundice Medications Current Inpatient Medications Medications (Trade) Dose Ordered Sig/Vicky Route Start Time Stop Time Status Last Admin Dose Admin Ioversol (Optiray 320) 100 ml UD PRN IV 09/21/17 21:00 09/25/17 20:59 Losartan Potassium (coZAAR TAB) 50 mg DAILY PO 09/22/17 09:00 10/22/17 08:59 09/24/17 08:44 50 MG Pantoprazole Sodium (Protonix Tab) 40 mg DAILY PO 09/22/17 09:00 10/22/17 08:59 09/24/17 08:45 40 MG Ranitidine HCl (zANTac TAB) 150 mg BID PRN PO 09/21/17 22:45 10/21/17 22:44 09/23/17 07:55 150 MG Acetaminophen (Tylenol Tab) 650 mg Q4H PRN PO 09/21/17 22:45 10/21/17 22:44 09/23/17 21:20 650 MG Nitroglycerin (Nitrostat Tab) 0.4 mg UD PRN SL 09/21/17 22:45 10/21/17 22:44 Tramadol HCl (Ultram Tab) 25 mg Q6H PRN PO 09/21/17 22:45 10/21/17 22:44 09/24/17 03:38 25 MG Hydromorphone HCl (Dilaudid Inj) 0.5 mg Q3H PRN IV 09/21/17 22:45 10/05/17 22:44 Prochlorperazine Edisylate 5 mg/ Syringe 5 ml @ 5 mls/min Q6H PRN IV 09/21/17 22:45 10/21/17 22:44 09/22/17 14:14 5 MLS/MIN Cefepime HCl (Consult) 1 ea DAILY PRN N/A 09/22/17 09:00 10/22/17 08:59 Miscellaneous Information (Consult) 1 ea UD PRN N/A 09/21/17 23:45 10/21/17 23:44 Ipratropium Wykoff (Atrovent 0.02% 0.5MG/2.5ML Neb) 0.5 mg Q4H PRN INH 09/21/17 23:45 10/21/17 23:44 Levalbuterol (Xopenex 1.25MG/ 0.5ML Neb) 1.25 mg Q4H PRN INH 09/21/17 23:45 10/21/17 23:44 Dextrose 1,000 ml @ 40 mls/hr Q24H IV 09/22/17 00:45 10/22/17 00:44 09/23/17 00:04 40 MLS/HR Cefepime HCl 2000 mg/Syringe 20 ml @ 5 mls/min Q24H IV 09/22/17 19:30 10/02/17 19:29 09/23/17 19:40 5 MLS/MIN Senna (Senokot Tab) 8.6 mg QAM PO 09/23/17 09:00 10/23/17 08:59 09/24/17 08:45 8.6 MG Polyethylene (Miralax Powder Packet) 17 gm DAILY PO 09/23/17 09:00 10/23/17 08:59 09/24/17 08:44 17 GM Vancomycin HCl 1500 mg/Sodium Chloride 530 ml @ 200 mls/hr Q24H IV 09/23/17 18:00 10/03/17 17:59 09/23/17 17:44 200 MLS/HR Objective Vital Signs Date Time Temp Pulse Resp B/P (MAP) Pulse Ox O2 Delivery O2 Flow Rate FiO2 09/24/17 08:00 Room Air 09/24/17 07:58 36.9 98 18 153/86 (108) 97 09/24/17 04:05 Room Air 09/24/17 03:41 36.9 100 17 165/90 (115) 91 Room Air 09/24/17 00:05 Room Air 09/23/17 23:13 36.7 96 23 156/81 (106) 92 Room Air 09/23/17 20:00 Room Air 09/23/17 18:52 36.7 108 30 162/81 (108) 90 Room Air 09/23/17 16:03 105 152/94 (113) 09/23/17 16:00 90 Room Air 09/23/17 15:23 37.0 101 30 168/79 (108) 90 Room Air 09/23/17 12:00 97 Nasal Cannula 2.0 09/23/17 11:49 36.8 93 18 138/75 (96) 96 Physical Exam General Appearance: no apparent distress Neck: no adenopathy, thyroid normal Respiratory/Chest: lungs clear Cardiovascular: regular rate, rhythm, + systolic murmur (2/6 systolic murmur) Abdomen: soft, + tenderness (minimal epigastric tenderness) Extremities: + pedal edema (trace bilat lower leg edema) Neurologic/Psych: alert, normal mood/affect, oriented x 3 Skin: no jaundice Laboratory Results Last 24 Hours Test 09/24/17 05:34 09/24/17 05:37 Creatinine 1.00 mg/dl 1.02 mg/dl Est Creatinine Clear Calc Drug Dose 56.8 ml/min 55.7 ml/min Estimated GFR () 78.6 76.8 Estimated GFR (Non- 67.8 66.2 Total Bilirubin 3.4 mg/dl Direct Bilirubin 2.2 mg/dl Aspartate Amino Transf (AST/SGOT) 78 U/L Alanine Aminotransferase (ALT/SGPT) 68 U/L Alkaline Phosphatase 418 U/L Total Protein 5.8 gm/dl Albumin 2.7 gm/dl Sodium Level 136 mmol/L Potassium Level 4.1 mmol/L Chloride Level 100 mmol/L Carbon Dioxide Level 28 mmol/L Anion Gap 7.0 mmol/L Blood Urea Nitrogen 21 mg/dl BUN/Creatinine Ratio 20.3 Random Glucose 94 mg/dl Calcium Level 9.6 mg/dl Assessment and Plan Mr. Davidson is an 87 yr old male with epigastric pain, nausea, elevated LFTs in the setting of sepsis w/o clear etiology. LFTs likely secondary to fatty liver and worsening as an effect of sepsis. CT with a fluid filled distal esophagus which may represent reflux or esophageal dysmotility. Plan: 1. EGD on Wednesday with Dr. Zavala. 2. May have regular consistency diet until Wednesday noon, then would do clear liquids Wednesday night and NPO after midnight. I have seen , examined and agree with the plan as outlined by LV Metz as above. -exam reveals soft abd -MRI was reviewed and normal without signs of biliary obstruction -Much improved with no abdominal complaints today plan on EGD on Wednesday. -Daily LFTs
--- NOTE | 2017-09-24 12:16 | Neurology Progress Notes ---
Neurology Progress Note Date of Service Sep 24, 2017. Subjective Medical history significant for chronic diastolic heart failure (EF 55-60% from 2D echo in [place] is a 87 year old male with PMH, HTN, PVD, fatty liver, reflux, chronic anemia, September 16 he was admitted for exertional hypoxia, acute on chronic diastolic CHF, UTI, bilateral hilar lymphadenopathy. This admission he was complaining of severe nausea with eating and was given vancomycin and cefepime for sepsis protocol. He had also had a mechanical fall over a cord on the floor which resulted in CHI. He was found to have a small SDH and his coagulation was held. He is scheduled to have an EDG Wednesday. denies CP, SOB, abdominal pain, weakness, numbness tingling, N, V. He states he is tolerating food at this time. Objective Date Time Temp Pulse Resp B/P (MAP) Pulse Ox O2 Delivery O2 Flow Rate FiO2 09/24/17 11:33 36.7 98 18 148/89 (108) 96 09/24/17 08:00 Room Air 09/24/17 07:58 36.9 98 18 153/86 (108) 97 09/24/17 04:05 Room Air 09/24/17 03:41 36.9 100 17 165/90 (115) 91 Room Air 09/24/17 00:05 Room Air 09/23/17 23:13 36.7 96 23 156/81 (106) 92 Room Air 09/23/17 20:00 Room Air 09/23/17 18:52 36.7 108 30 162/81 (108) 90 Room Air 09/23/17 16:03 105 152/94 (113) 09/23/17 16:00 90 Room Air 09/23/17 15:23 37.0 101 30 168/79 (108) 90 Room Air Last 24 Hours Test 09/24/17 05:34 09/24/17 05:37 Creatinine 1.00 mg/dl 1.02 mg/dl Est Creatinine Clear Calc Drug Dose 56.8 ml/min 55.7 ml/min Estimated GFR () 78.6 76.8 Estimated GFR (Non- 67.8 66.2 Total Bilirubin 3.4 mg/dl Direct Bilirubin 2.2 mg/dl Aspartate Amino Transf (AST/SGOT) 78 U/L Alanine Aminotransferase (ALT/SGPT) 68 U/L Alkaline Phosphatase 418 U/L Total Protein 5.8 gm/dl Albumin 2.7 gm/dl Sodium Level 136 mmol/L Potassium Level 4.1 mmol/L Chloride Level 100 mmol/L Carbon Dioxide Level 28 mmol/L Anion Gap 7.0 mmol/L Blood Urea Nitrogen 21 mg/dl BUN/Creatinine Ratio 20.3 Random Glucose 94 mg/dl Calcium Level 9.6 mg/dl Imaging: CT head- No significant change in the small acute/subacute left subdural hematoma C spine xray- Minimal anterior wedging within the C7 vertebral body. If the patient is complaining of lower cervical pain then consider follow-up cervical spine CT to exclude the less likely possibility of a mild compression fracture. Exam: Physical Exam: Constitutional: appearance nourished, healthy and normal Ears, Nose, Mouth and Throat: mucous membranes moist, no injection and skin normal, eyes normal Cardiovascular: normal S-1 and S-2 and regular rate and rhythm Respiratory:course breath sounds Musculoskeletal: no peripheral edema and good distal pulses Skin: no stigmata of neurocutaneous disease noted and normal and intact Eyes: extraocular muscles intact (EOMI) and pupils equal, round and reactive to light (PERRL) NEUROLOGIC EXAMINATION: Mental status: Alert and interactive Oriented to location Oriented to person Speech fluent with no evidence of aphasia Cranial Nerves smile eye brow raise symmetric Sensory: no deficit to light touch Coordination: no bi pass finger to nose Gait/Stance: sitting up in bed Motor: Negative for pronator drift of out stretched arms with eyes closed. Strength: biceps triceps hand monitor technician bilaterally 5/5, hip flex plantar flex ext 5/5 bilaterally Current Inpatient Medications Medications (Trade) Dose Ordered Sig/Vicky Route Start Time Stop Time Status Last Admin Dose Admin Ioversol (Optiray 320) 100 ml UD PRN IV 09/21/17 21:00 09/25/17 20:59 Losartan Potassium (coZAAR TAB) 50 mg DAILY PO 09/22/17 09:00 10/22/17 08:59 09/24/17 08:44 50 MG Pantoprazole Sodium (Protonix Tab) 40 mg DAILY PO 09/22/17 09:00 10/22/17 08:59 09/24/17 08:45 40 MG Ranitidine HCl (zANTac TAB) 150 mg BID PRN PO 09/21/17 22:45 10/21/17 22:44 09/23/17 07:55 150 MG Acetaminophen (Tylenol Tab) 650 mg Q4H PRN PO 09/21/17 22:45 10/21/17 22:44 09/23/17 21:20 650 MG Nitroglycerin (Nitrostat Tab) 0.4 mg UD PRN SL 09/21/17 22:45 10/21/17 22:44 Tramadol HCl (Ultram Tab) 25 mg Q6H PRN PO 09/21/17 22:45 10/21/17 22:44 09/24/17 03:38 25 MG Hydromorphone HCl (Dilaudid Inj) 0.5 mg Q3H PRN IV 09/21/17 22:45 10/05/17 22:44 Prochlorperazine Edisylate 5 mg/ Syringe 5 ml @ 5 mls/min Q6H PRN IV 09/21/17 22:45 10/21/17 22:44 09/22/17 14:14 5 MLS/MIN Cefepime HCl (Consult) 1 ea DAILY PRN N/A 09/22/17 09:00 10/22/17 08:59 Miscellaneous Information (Consult) 1 ea UD PRN N/A 09/21/17 23:45 10/21/17 23:44 Ipratropium Dalton (Atrovent 0.02% 0.5MG/2.5ML Neb) 0.5 mg Q4H PRN INH 09/21/17 23:45 10/21/17 23:44 Levalbuterol (Xopenex 1.25MG/ 0.5ML Neb) 1.25 mg Q4H PRN INH 09/21/17 23:45 10/21/17 23:44 Dextrose 1,000 ml @ 40 mls/hr Q24H IV 09/22/17 00:45 10/22/17 00:44 09/23/17 00:04 40 MLS/HR Cefepime HCl 2000 mg/Syringe 20 ml @ 5 mls/min Q24H IV 09/22/17 19:30 10/02/17 19:29 09/23/17 19:40 5 MLS/MIN Senna (Senokot Tab) 8.6 mg QAM PO 09/23/17 09:00 10/23/17 08:59 09/24/17 08:45 8.6 MG Polyethylene (Miralax Powder Packet) 17 gm DAILY PO 09/23/17 09:00 10/23/17 08:59 09/24/17 08:44 17 GM Vancomycin HCl 1500 mg/Sodium Chloride 530 ml @ 200 mls/hr Q24H IV 09/23/17 18:00 10/03/17 17:59 09/23/17 17:44 200 MLS/HR Impression 87 year old male with mechanical fall and small SDH Plan 1. CT head stable- would repeat if patient becomes somnolent otherwise in 1 week, may restart aspirin 81 mg [address] if stable. 2. GI with EDG Wednesday for reflux issues 4. PT/OT for discharge needs 5. if neck pain - radiology recommends CT cspine to r/o compression fracture C7 6. will sign off for now call with questions concerns. I have seen and discussed above patient with Dr Diana Jordan, neurology Pt seen and examined, asx re SDH, see rec as above. Rec CT neck due to fall, ongoing neck pain DEWEY Jordan MD
--- NOTE | 2017-09-24 13:38 | Progress Note ---
Progress Note Date of Service Sep 24, 2017. Progress Note Subjective: patient denies acute pain including neck pain or headache Physical Exam GENERAL: generally lays in the bed, verbal, awake and alert NECK: no JVD CHEST: CTABL, no wheezing HEART: regular rate ABDOMEN: no acute pain on palpation, positive bowel sounds EXTREMITIES: no gross edema, No tenderness. blood culture negative urine culture no growth patient on broad spectrum vancomycin and cefepime from admission for "Severe sepsis (SIRS plus encephalopathy post lactic acid elevation) secondary to complicated urinary tract infection". However the urine culture is negative also negative admission blood cultures continue broad spectrum antibiotic and requested infectious disease consultation History of trauma to the head in the past but not recent to the hospital admission Small acute/subacute left subdural hematoma: The admitting physician had discussed with [facility] neurosurgeon money laundering investigator, Dr. Choe, who recommends repeating CT of the head 12 hours from last study. The repeat CT head 12 hours from the admission imaging scan is unchanged Have re-discussed the case on 09/23/[address] Choe by phone and he advises avoiding aspirin and to have patient see neuro-trauma (neurosurgery) clinic in 2 to 3 weeks with Padma Lugo Also requesting neurology service on site at [facility] for follow up recommendations and neurology service ordered the third head CT scan on this admission and stable findings, CT neck 09/24/17 did show Minimal anterior wedging within the C7 vertebral body but patient has no neck symptoms Mildly distended and fluid-filled esophagus on 09/21/17 CT scans Speech/Swallow Recommendations 1. Full liquid diet 2. Aspiration and GERD precautions, straws OK Fully upright for meals and for 30 minutes afte rmeals. Head of the bed to be elevated to 30 degrees at all times, to include while sleepiong. 3. Small sips, rest breaks as needed. 4. Consider GI consult as appropriate for suspected esophageal dysfunction. 4. Speech will continue to follow. As patient does not have identifiable source of fever to date and no recent fevers since 09/21/17, have asked gastroenterology for further evaluation of reflux symptoms and other abnormal liver function labs: Gastroenterology advised MRCP/MRI of the pancreas which was performed on 09/23/17 which the following impressions but did not identify obvious infectious source 1. Status post cholecystectomy. No biliary ductal dilatation. No choledocholithiasis. 2. No pancreatic ductal dilatation. Parenchymal atrophy of the pancreas without evidence of mass allowing for noncontrast technique. 3. 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 4. Multiple hepatic and renal cysts. 5. Cardiomegaly. 6. Small right and trace left pleural effusions with associated bibasilar atelectasis. Patient was scheduled for EGD on 09/24/17 but ate breakfast. Gastroenterology to re-schedule EGD for Wednesday09/27/17 DVT prophylaxis, SCDs PT/OT evaluations Full code patient's [phone].
--- NOTE | 2017-09-24 13:55 | Progress Note ---
Progress Note Date of Service Sep 24, 2017. Progress Note ID Consult Dictated # [id number] A/P: 1. Fever - isolated, resolved -Likely related to subdural bleed -No infection found, all cultures negative, currently afebrile -Would follow off of abx, thank you
--- NOTE | 2017-09-24 14:14 | INFECT. DISEASE CONSULTATION ---
DATE OF CONSULTATION: 09/24/2017 HISTORY OF PRESENT ILLNESS: This is an 87-year-old gentleman who was admitted to the hospital after an episode of nausea and vomiting. He was recently hospitalized and was diagnosed with urinary tract infection and sent home on Cipro. He was not evaluated by infectious diseases at that time. He is feeling significantly better since admission to the hospital. He was found to have elevated LFTs; however, they are improving, his bilirubin is elevated at 3.4. He is being followed by GI and he is scheduled to have an upper endoscopy on Wednesday. He had one episode of fever on the of 39.2 and he has otherwise been afebrile. He was placed empirically on vancomycin and cefepime and he remains on these antibiotics. Infectious diseases was consulted for isolated fever. He did have a UA which had 10-30 wbc's and no bacteria. His urine culture was negative. Blood cultures were negative. A flu swab was negative. A CAT scan of the abdomen and pelvis was unremarkable and an MRCP was also unremarkable. He is feeling significantly better. He denies any fevers or chills. He denies any cough, shortness of breath, nausea, vomiting or diarrhea. A CAT scan of the head in the Emergency Room did show an acute to subacute subdural hematoma. He is being followed by neurology for this as well. His remaining review of systems is unremarkable. His family is at the bedside during my examination. PAST MEDICAL HISTORY: Significant for heart failure, hypertension, fatty liver disease, peripheral vascular disease, anemia. PAST SURGICAL HISTORY: Significant for hernia repair, appendectomy, gastrotomy, knee replacement and cholecystectomy. ALLERGIES: HE HAS ALLERGIES TO AMOXICILLIN, BACLOFEN, PHENOBARBITAL, OMEPRAZOLE, DAPTOMYCIN AND STATINS. FAMILY HISTORY: Noncontributory. SOCIAL HISTORY: Significant for a history of tobacco use. He denies any alcohol or drug use. MEDICATIONS: Include vancomycin, Senokot, MiraLax, cefepime, Cozaar, Protonix, Atrovent, Xopenex, Zantac, Tylenol, Ultram, and Dilaudid. PHYSICAL EXAMINATION: VITAL SIGNS: He is currently afebrile, pulse 90, respiratory rate 18, blood pressure 148/89, oxygen saturation is 96-97% on room air. GENERAL: He is awake, alert and oriented x3. He is in no acute distress. HEENT: Mucous membranes are moist. Extraocular muscles are intact. HEART: Without murmur. LUNGS: Clear. ABDOMEN: Soft, nontender, nondistended. EXTREMITIES: There is no edema. There is some jaundice. LABORATORY STUDIES: CBC reveals a white blood cell count of 6.5, hemoglobin of 11.2, platelets of 150. Chemistry panel reveals a sodium of 136, potassium 4.1, chloride 100, bicarbonate 28, BUN 21, creatinine 1.0, glucose 94. UA is as above. Flu swab is negative. Blood cultures are negative from the 3rd. Urine culture is negative and final imaging is as above. ASSESSMENT AND PLAN: Fever, likely related to subdural hematoma and not related to infection. Antibiotics can be discontinued from an infectious diseases' standpoint. Thank you for this consultation.
--- NOTE | 2017-09-24 17:09 | DIAGNOSTIC IMAGING REPORT ---
CERVICAL SPINE W/O CLINICAL HISTORY: 87 years-old Male presenting with evaluate for c7 compression fracture. TECHNIQUE: Multidetector CT of the cervical spine was performed without the use of intravenous contrast. IV contrast: None. A dose lowering technique was used consistent with the principles of ALARA (as low as reasonably achievable). COMPARISON: Plain radiographs of the cervical spine performed earlier the same day. CT DOSE (mGy.cm): The estimated cumulative dose is 212.25 mGy.cm. FINDINGS: Handle Bender topogram: Unremarkable. Straightening of normal cervical lordosis likely positional and secondary to multilevel degenerative changes. No compression deformity. No acute fracture or subluxation. Vertebral bodies maintain normal height and alignment. Intervertebral disc height loss noted from C4-5 to T1-2, where there are disc osteophyte complexes. Smaller disc osteophyte complexes without intervertebral disc height loss noted at C2-3 and C3-4. Minimal posterior bony spurring noted secondary to the disc osteophyte complexes at C5-6 and inferiorly. Facet arthropathy also noted. Disc osteophyte complexes in combination with facet arthropathy result in varying degrees of osseous neural foraminal narrowing. Lung apices clear. Paraspinal soft tissues within normal limits allowing for noncontrast technique. The cervical esophagus is distended with gas. IMPRESSION: 1. No acute osseous injury of the cervical spine. 2. Multilevel degenerative changes. Electronically signed by: Yordy Gerard M.D. 09/24/2017 5:08 PM Dictated Date/Time: 09/24/2017 5:03 PM
[2017-09-24] MEDS ORDERED: VANCOMYCIN TROUGH ONE (17:30)
[2017-09-24] MEDS: ACETAMINOPHEN 325 MG TAB PO PRN (23:45)
[2017-09-25 00:10] VITALS: O2SAT 93
[2017-09-25] MEDS ORDERED: NURSING VERBAL MED ORDER ONE (05:00)
[2017-09-25 07:56] VITALS: BP 144/65; PULSE 89; TEMP 36.8; O2SAT 90
[2017-09-25] MEDS: LOSARTAN POTASSIUM 50 MG TAB PO SCH (08:32)
[2017-09-25] MEDS: POLYETHYLENE (MIRALAX) 17 GM PACK PO SCH (08:32)
[2017-09-25] MEDS: SENNA 8.6 MG TAB PO SCH (08:33)
[2017-09-25] MEDS: PANTOprazole SOD 40 MG TAB PO SCH (08:33)
--- NOTE | 2017-09-25 10:13 | Gastroenterology Progress Note ---
Progress Note Date of Service: Sep 25, 2017 Subjective Pt evaluation today including: conversation w/ patient No complaint except wants to get out of bed Medications Current Inpatient Medications Medications (Trade) Dose Ordered Sig/Vicky Route Start Time Stop Time Status Last Admin Dose Admin Ioversol (Optiray 320) 100 ml UD PRN IV 09/21/17 21:00 09/25/17 20:59 Losartan Potassium (coZAAR TAB) 50 mg DAILY PO 09/22/17 09:00 10/22/17 08:59 09/25/17 08:32 50 MG Pantoprazole Sodium (Protonix Tab) 40 mg DAILY PO 09/22/17 09:00 10/22/17 08:59 09/25/17 08:33 40 MG Ranitidine HCl (zANTac TAB) 150 mg BID PRN PO 09/21/17 22:45 10/21/17 22:44 09/23/17 07:55 150 MG Acetaminophen (Tylenol Tab) 650 mg Q4H PRN PO 09/21/17 22:45 10/21/17 22:44 09/24/17 23:45 650 MG Nitroglycerin (Nitrostat Tab) 0.4 mg UD PRN SL 09/21/17 22:45 10/21/17 22:44 Tramadol HCl (Ultram Tab) 25 mg Q6H PRN PO 09/21/17 22:45 10/21/17 22:44 09/24/17 03:38 25 MG Hydromorphone HCl (Dilaudid Inj) 0.5 mg Q3H PRN IV 09/21/17 22:45 10/05/17 22:44 Prochlorperazine Edisylate 5 mg/ Syringe 5 ml @ 5 mls/min Q6H PRN IV 09/21/17 22:45 10/21/17 22:44 09/22/17 14:14 5 MLS/MIN Ipratropium [place] (Atrovent 0.02% 0.5MG/2.5ML Neb) 0.5 mg Q4H PRN INH 09/21/17 23:45 10/21/17 23:44 Levalbuterol (Xopenex 1.25MG/ 0.5ML Neb) 1.25 mg Q4H PRN INH 09/21/17 23:45 10/21/17 23:44 Senna (Senokot Tab) 8.6 mg QAM PO 09/23/17 09:00 10/23/17 08:59 09/25/17 08:33 8.6 MG Polyethylene (Miralax Powder Packet) 17 gm DAILY PO 09/23/17 09:00 10/23/17 08:59 09/25/17 08:32 17 GM Objective Vital Signs Date Time Temp Pulse Resp B/P (MAP) Pulse Ox O2 Delivery O2 Flow Rate FiO2 09/25/17 08:00 Room Air 09/25/17 07:56 36.8 89 18 144/65 (91) 90 Room Air 09/25/17 00:10 93 Room Air 09/24/17 23:42 37.1 91 20 144/78 (100) 93 Room Air 09/24/17 19:59 37.4 85 20 176/82 (113) 93 Room Air 09/24/17 19:30 Room Air 09/24/17 18:46 36.9 94 18 94 2.0 09/24/17 16:28 152/85 (107) 09/24/17 16:00 Room Air 09/24/17 15:06 36.9 94 18 178/92 (120) 94 Room Air 09/24/17 12:00 Room Air 09/24/17 11:33 36.7 98 18 148/89 (108) 96 Physical Exam General Appearance: WD/WN, no apparent distress Eyes: normal inspection ENT: normal ENT inspection Respiratory/Chest: chest non-tender, lungs clear Cardiovascular: regular rate, rhythm, no edema, no gallop Abdomen: normal bowel sounds, non tender, soft Extremities: normal range of motion, non-tender 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 Davidson is an 87 yr old male with epigastric pain, nausea, elevated LFTs in the setting of sepsis w/o clear etiology. LFTs likely secondary to fatty liver and worsening as an effect of sepsis. CT with a fluid filled distal esophagus which may represent reflux or esophageal dysmotility vs refulx. Plan: 1. EGD on Wednesday with Dr. Zavala potentially 2. May have regular consistency diet until Wednesday noon, then would do clear liquids Wednesday night and NPO after midnight. 3. MRI was reviewed and normal without signs of biliary obstruction 4. Much improved with no abdominal complaints today plan on EGD on Wednesday. 5. Daily LFTs ordered for tomorrow if still elevated will send serologies for viral illnesses. No evidence of decompensated liver disease
--- NOTE | 2017-09-25 10:30 | NEUROLOGY CONSULTATION ---
DATE OF CONSULTATION: 09/25/2017 I am seeing Mr. Davidson in followup of acute on subacute left subdural hematoma which has been essentially asymptomatic minus some headache. His CT of the head x3 showed no change. We had performed a cervical spine CT as the patient had fallen, it showed no acute osseous injury, multiple level degenerative changes. PHYSICAL EXAMINATION: On today's exam, the patient is awake and alert, oriented x3. There is no field cut. Normal facial symmetry. No dysarthria. Symmetric strength. IMPRESSION: Asymptomatic left acute on subacute subdural hematoma PLAN: 1. Recommend followup CT of the head, noncontrast, on approximately 10/01/2017, and then if stable and clinically stable, resume aspirin after 1 week thereafter. If the patient has been discharged, I would appreciate if the CT could be arranged and forwarded to my office so that I can interpret. 2. No evidence of cervical spine fracture. We will sign off at this point. [facility]
--- NOTE | 2017-09-25 14:09 | Progress Note ---
Internal Med Progress Note Date of Service: Sep 25, 2017. Provider Documentation: Subjective: Patient and his family members were present and we discussed treatment plans to date. Patient had solid food presented to him at the time. He ate some solid food. Did not choke or gag but continues to report that he does not have much appetite for solid foods or gives a vague description that solid food does not go down well. Patient's family member his also reporting patient's weight loss in the past secondary to history of poor appetite and history of bleeding ulcer. Patient prefers to have the upper endoscopy performed in the hospital stay to rule out an ulcer or a stomach mass Physical Exam GENERAL: sitting in chair verbal, awake and alert NECK: no JVD CHEST: CTABL, no wheezing HEART: regular rate ABDOMEN: no acute pain on palpation, positive bowel sounds EXTREMITIES: no gross edema, No tenderness. ASSESSMENT & PLAN: patient on broad spectrum vancomycin and cefepime from admission for "Severe sepsis (SIRS plus encephalopathy post lactic acid elevation) secondary to complicated urinary tract infection". However the urine culture is negative also negative admission blood cultures continue broad spectrum antibiotic and requested infectious disease consultation History of trauma to the head in the past but not recent to the hospital admission Small acute/subacute left subdural hematoma: The admitting physician had discussed with [facility] neurosurgeon weigher production, Dr. Choe, who recommends repeating CT of the head 12 hours from last study. The repeat CT head 12 hours from the admission imaging scan is unchanged Have re-discussed the case on 09/23/[address] Choe by phone and he advises avoiding aspirin and to have patient see neuro-trauma (neurosurgery) clinic in 2 to 3 weeks with Padma Lugo Also requesting neurology service on site at [facility] for follow up recommendations and neurology service ordered the third head CT scan on this admission and stable findings, CT neck 09/24/17 did show Minimal anterior wedging within the C7 vertebral body but patient has no neck symptoms Mildly distended and fluid-filled esophagus on 09/21/17 CT scans Speech/Swallow Recommendations 1. Full liquid diet 2. Aspiration and GERD precautions, straws OK Fully upright for meals and for 30 minutes afte rmeals. Head of the bed to be elevated to 30 degrees at all times, to include while sleepiong. 3. Small sips, rest breaks as needed. 4. Consider GI consult as appropriate for suspected esophageal dysfunction. 4. Speech will continue to follow. As patient does not have identifiable source of fever to date and no recent fevers since 09/21/17, have asked gastroenterology for further evaluation of reflux symptoms and other abnormal liver function labs: Gastroenterology advised MRCP/MRI of the pancreas which was performed on 09/23/17 which the following impressions but did not identify obvious infectious source 1. Status post cholecystectomy. No biliary ductal dilatation. No choledocholithiasis. 2. No pancreatic ductal dilatation. Parenchymal atrophy of the pancreas without evidence of mass allowing for noncontrast technique. 3. 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 4. Multiple hepatic and renal cysts. 5. Cardiomegaly. 6. Small right and trace left pleural effusions with associated bibasilar atelectasis. 09/24/17 Infectious disease service note evaluation that that the previous fevers noted in the beginning of the hospital admission as likely related to subdural hematoma and not related to infection. Antibiotics discontinued and patient to be watched off antibiotics Patient was scheduled for EGD on 09/24/17 but ate breakfast. Gastroenterology to re-schedule EGD for Wednesday09/27/17 GI follow up note 09/25/17: "elevated LFTs in the setting of sepsis w/o clear etiology. LFTs likely secondary to fatty liver and worsening as an effect of sepsis. CT with a fluid filled distal esophagus which may represent reflux or esophageal dysmotility vs reflux." Hospitalist physician have re-discussed with patient and patient's family members on 09/25/17 on the utility of EGD for the fever workup and patient's problems with eating solid food (no choking, no aspiration but reports of vague complaints that the solid food does not go down well compared to liquids) and the patient would like to have the EGD on Wednesday09/27/17 DVT prophylaxis, SCDs PT/OT have been evaluating the patient Full code patient's [phone]. Vital Signs: Date Time Temp Pulse Resp B/P (MAP) Pulse Ox O2 Delivery O2 Flow Rate FiO2 09/25/17 08:00 Room Air 09/25/17 07:56 36.8 89 18 144/65 (91) 90 Room Air 4/7/18 00:10 93 Room Air 09/24/17 23:42 37.1 91 20 144/78 (100) 93 Room Air 09/24/17 19:59 37.4 85 20 176/82 (113) 93 Room Air 09/24/17 19:30 Room Air 09/24/17 18:46 36.9 94 18 94 2.0 09/24/17 16:28 152/85 (107) 09/24/17 16:00 Room Air 09/24/17 15:06 36.9 94 18 178/92 (120) 94 Room Air
[2017-09-25 15:45] VITALS: BP 143/81; PULSE 94; TEMP 36.4; O2SAT 97
[2017-09-25] MEDS: ACETAMINOPHEN 325 MG TAB PO PRN (22:59)
[2017-09-25 23:14] VITALS: BP_SYST 176; BP_SYST 178; BP_DIAS 96; PULSE 98; TEMP 36.3; O2SAT 94
[2017-09-26] VITALS (7 sets, daily range): BP systolic 148–173; BP diastolic 75–89; PULSE 87–105; TEMP 36.7–37; O2SAT 91–94
[2017-09-26 06:57] LABS: BASO % 0.4 %; BASO ABS # 0.02 K/uL (0-0.2); EOS % 9.7 %; EOS ABS # 0.53 K/uL (0-0.5); HEMATOCRIT 34.4 % (42-52); HEMOGLOBIN 11.8 g/dL (14.0-18.0); IG# 0.02 K/uL (0.00-0.02); LYMPH % 14.2 %; LYMPH ABS # 0.78 K/uL (1.2-3.4); MEAN CELL VOLUME 85.1 fL (80-100); MEAN CORPUSCULAR HEMOGLOBIN 29.2 pg (25-34); MEAN CORPUSCULAR HGB CONC 34.3 g/dl (32-36); MEAN PLATELET VOLUME 10.4 fL (7.4-10.4); MONO ABS # 1.32 K/uL (0.11-0.59); NEUT % 51.3 %; NEUT ABS # 2.82 K/uL (1.4-6.5); PLATELET COUNT 216 K/uL (130-400); RED CELL DISTRIBUTION WIDTH CV 14.9 % (11.5-14.5); WHITE BLOOD COUNT 5.49 K/uL (4.8-10.8)
[2017-09-26 07:41] LABS: ALBUMIN 2.8 gm/dl (3.4-5.0); TOTAL PROTEIN 6.2 gm/dl (6.4-8.2)
[2017-09-26] MEDS: POLYETHYLENE (MIRALAX) 17 GM PACK PO SCH (08:11)
[2017-09-26] MEDS: PANTOprazole SOD 40 MG TAB PO SCH (08:12)
[2017-09-26] MEDS: SENNA 8.6 MG TAB PO SCH (08:12)
[2017-09-26] MEDS: LOSARTAN POTASSIUM 50 MG TAB PO SCH (08:12)
--- NOTE | 2017-09-26 10:37 | Progress Note ---
Internal Med Progress Note Date of Service: Sep 26, 2017. Provider Documentation: Subjective: Patient seen and examine this AM. Patient denies complaints. He reports that he ate his breakfast today without difficulties Physical Exam GENERAL: sitting in chair verbal, awake and alert NECK: no JVD CHEST: CTABL, no wheezing HEART: regular rate ABDOMEN: no acute pain on palpation, positive bowel sounds EXTREMITIES: no gross edema, No tenderness. ASSESSMENT & PLAN: patient on broad spectrum vancomycin and cefepime from admission for "Severe sepsis (SIRS plus encephalopathy post lactic acid elevation) secondary to complicated urinary tract infection". However the urine culture is negative also negative admission blood cultures continue broad spectrum antibiotic and requested infectious disease consultation History of trauma to the head in the past but not recent to the hospital admission Small acute/subacute left subdural hematoma: The admitting physician had discussed with [facility] neurosurgeon cotton farmer, Dr. Choe, who recommends repeating CT of the head 12 hours from last study. The repeat CT head 12 hours from the admission imaging scan is unchanged Have re-discussed the case on 09/23/[address] Choe by phone and he advises avoiding aspirin and to have patient see neuro-trauma (neurosurgery) clinic in 2 to 3 weeks with Padma Lugo Also requesting neurology service on site at [facility] for follow up recommendations and neurology service ordered the third head CT scan on this admission and stable findings, CT neck 09/24/17 did show Minimal anterior wedging within the C7 vertebral body but patient has no neck symptoms Mildly distended and fluid-filled esophagus on 09/21/17 CT scans Speech/Swallow Recommendations 1. Full liquid diet 2. Aspiration and GERD precautions, straws OK Fully upright for meals and for 30 minutes afte rmeals. Head of the bed to be elevated to 30 degrees at all times, to include while sleepiong. 3. Small sips, rest breaks as needed. 4. Consider GI consult as appropriate for suspected esophageal dysfunction. 4. Speech will continue to follow. As patient does not have identifiable source of fever to date and no recent fevers since 09/21/17, had asked gastroenterology for further evaluation of reflux symptoms and other abnormal liver function labs: Gastroenterology advised MRCP/MRI of the pancreas which was performed on 09/23/17 which the following impressions but did not identify obvious infectious source 1. Status post cholecystectomy. No biliary ductal dilatation. No choledocholithiasis. 2. No pancreatic ductal dilatation. Parenchymal atrophy of the pancreas without evidence of mass allowing for noncontrast technique. 3. 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 4. Multiple hepatic and renal cysts. 5. Cardiomegaly. 6. Small right and trace left pleural effusions with associated bibasilar atelectasis. 09/24/17 Infectious disease service note evaluation that that the previous fevers noted in the beginning of the hospital admission as likely related to subdural hematoma and not related to infection. Antibiotics discontinued and patient to be watched off antibiotics Patient was scheduled for EGD on 09/24/17 but ate breakfast. Gastroenterology to re-schedule EGD for Wednesday09/27/17 GI follow up note 09/25/17: "elevated LFTs in the setting of sepsis w/o clear etiology. LFTs likely secondary to fatty liver and worsening as an effect of sepsis. CT with a fluid filled distal esophagus which may represent reflux or esophageal dysmotility vs reflux." Hospitalist physician have re-discussed with patient and patient's family members on 09/25/17 on the utility of EGD for the fever workup and patient's problems with eating solid food (no choking, no aspiration but reports of vague complaints that the solid food does not go down well compared to liquids) and the patient would like to have the EGD on Wednesday09/27/17 Keep NPO after midnight for EGD on Wednesday09/26/17 DVT prophylaxis, SCDs PT/OT have been evaluating the patient Full code patient's [phone]. Upcoming outpatient appointments on [facility] 10/07/2017 1:00 PM Sagar Espinal DO Cardiology [facility] 10/11/2017 10:00 AM Nurse earl [place] Ancillary [facility] patient to see neuro-trauma (neurosurgery) clinic at [facility] at some point after hospital discharge Vital Signs: Date Time Temp Pulse Resp B/P (MAP) Pulse Ox O2 Delivery O2 Flow Rate FiO2 09/26/17 08:00 Room Air 09/26/17 07:26 37.0 87 18 160/86 (110) 91 Room Air 09/26/17 00:00 165/85 (111) 09/26/17 00:00 Room Air 09/25/17 23:14 36.3 98 20 176/96 (122) 94 Room Air 178/96 (123) 09/25/17 16:00 Room Air 09/25/17 15:45 36.4 94 20 143/81 (101) 97 Room Air Lab Results: Results Past 24 Hours Test 09/26/17 06:19 Range/Units White Blood Count 5.49 4.8-10.8 K/uL Red Blood Count 4.04 4.7-6.1 M/uL Hemoglobin 11.8 14.0-18.0 g/dL Hematocrit 34.4 42-52 % Mean Corpuscular Volume 85.1 80-100 fL Mean Corpuscular Hemoglobin 29.2 25-34 pg Mean Corpuscular Hemoglobin Concent 34.3 32-36 g/dl Platelet Count 216 130-400 K/uL Mean Platelet Volume 10.4 7.4-10.4 fL Neutrophils (%) (Auto) 51.3 % Lymphocytes (%) (Auto) 14.2 % Monocytes (%) (Auto) 24.0 % Eosinophils (%) (Auto) 9.7 % Basophils (%) (Auto) 0.4 % Neutrophils # (Auto) 2.82 1.4-6.5 K/uL Lymphocytes # (Auto) 0.78 1.2-3.4 K/uL Monocytes # (Auto) 1.32 0.11-0.59 K/uL Eosinophils # (Auto) 0.53 0-0.5 K/uL Basophils # (Auto) 0.02 0-0.2 K/uL RDW Standard Deviation 47.0 36.4-46.3 fL RDW Coefficient of Variation 14.9 11.5-14.5 % Immature Granulocyte % (Auto) 0.4 % Immature Granulocyte # (Auto) 0.02 0.00-0.02 K/uL Total Bilirubin 2.3 0.2-1 mg/dl Direct Bilirubin 0.9 0-0.2 mg/dl Aspartate Amino Transf (AST/SGOT) 40 15-37 U/L Alanine Aminotransferase (ALT/SGPT) 49 12-78 U/L Alkaline Phosphatase 378 45-117 U/L Total Protein 6.2 6.4-8.2 gm/dl Albumin 2.8 3.4-5.0 gm/dl
--- NOTE | 2017-09-26 11:47 | Gastroenterology Progress Note ---
Progress Note Date of Service: Sep 26, 2017 Subjective Pt evaluation today including: conversation w/ patient, conversation w/ family Feels much improved, is quite concerned about not having upper endoscopy tomorrow. Medications Current Inpatient Medications Medications (Trade) Dose Ordered Sig/Vicky Route Start Time Stop Time Status Last Admin Dose Admin Losartan Potassium (coZAAR TAB) 50 mg DAILY PO 09/22/17 09:00 10/22/17 08:59 09/26/17 08:12 50 MG Pantoprazole Sodium (Protonix Tab) 40 mg DAILY PO 09/22/17 09:00 10/22/17 08:59 09/26/17 08:12 40 MG Ranitidine HCl (zANTac TAB) 150 mg BID PRN PO 09/21/17 22:45 10/21/17 22:44 09/23/17 07:55 150 MG Acetaminophen (Tylenol Tab) 650 mg Q4H PRN PO 09/21/17 22:45 10/21/17 22:44 09/25/17 22:59 650 MG Nitroglycerin (Nitrostat Tab) 0.4 mg UD PRN SL 09/21/17 22:45 10/21/17 22:44 Tramadol HCl (Ultram Tab) 25 mg Q6H PRN PO 09/21/17 22:45 10/21/17 22:44 09/24/17 03:38 25 MG Hydromorphone HCl (Dilaudid Inj) 0.5 mg Q3H PRN IV 09/21/17 22:45 10/05/17 22:44 Prochlorperazine Edisylate 5 mg/ Syringe 5 ml @ 5 mls/min Q6H PRN IV 09/21/17 22:45 10/21/17 22:44 09/22/17 14:14 5 MLS/MIN Ipratropium [place] (Atrovent 0.02% 0.5MG/2.5ML Neb) 0.5 mg Q4H PRN INH 09/21/17 23:45 10/21/17 23:44 Levalbuterol (Xopenex 1.25MG/ 0.5ML Neb) 1.25 mg Q4H PRN INH 09/21/17 23:45 10/21/17 23:44 Senna (Senokot Tab) 8.6 mg QAM PO 09/23/17 09:00 10/23/17 08:59 09/26/17 08:12 8.6 MG Polyethylene (Miralax Powder Packet) 17 gm DAILY PO 09/23/17 09:00 10/23/17 08:59 09/26/17 08:11 17 GM Objective Vital Signs Date Time Temp Pulse Resp B/P (MAP) Pulse Ox O2 Delivery O2 Flow Rate FiO2 09/26/17 08:00 Room Air 09/26/17 07:26 37.0 87 18 160/86 (110) 91 Room Air 09/26/17 00:00 165/85 (111) 09/26/17 00:00 Room Air 09/25/17 23:14 36.3 98 20 176/96 (122) 94 Room Air 178/96 (123) 09/25/17 16:00 Room Air 09/25/17 15:45 36.4 94 20 143/81 (101) 97 Room Air Physical Exam General Appearance: WD/WN, no apparent distress ENT: normal ENT inspection Neck: supple Respiratory/Chest: chest non-tender, lungs clear Cardiovascular: regular rate, rhythm, no edema Abdomen: normal bowel sounds, non tender Extremities: normal range of motion, non-tender, no calf tenderness 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, no motor/sensory deficits Laboratory Results Last 24 Hours Test 09/26/17 06:19 09/26/17 10:30 White Blood Count 5.49 K/uL Red Blood Count 4.04 M/uL Hemoglobin 11.8 g/dL Hematocrit 34.4 % Mean Corpuscular Volume 85.1 fL Mean Corpuscular Hemoglobin 29.2 pg Mean Corpuscular Hemoglobin Concent 34.3 g/dl Platelet Count 216 K/uL Mean Platelet Volume 10.4 fL Neutrophils (%) (Auto) 51.3 % Lymphocytes (%) (Auto) 14.2 % Monocytes (%) (Auto) 24.0 % Eosinophils (%) (Auto) 9.7 % Basophils (%) (Auto) 0.4 % Neutrophils # (Auto) 2.82 K/uL Lymphocytes # (Auto) 0.78 K/uL Monocytes # (Auto) 1.32 K/uL Eosinophils # (Auto) 0.53 K/uL Basophils # (Auto) 0.02 K/uL RDW Standard Deviation 47.0 fL RDW Coefficient of Variation 14.9 % Immature Granulocyte % (Auto) 0.4 % Immature Granulocyte # (Auto) 0.02 K/uL Total Bilirubin 2.3 mg/dl Direct Bilirubin 0.9 mg/dl Aspartate Amino Transf (AST/SGOT) 40 U/L Alanine Aminotransferase (ALT/SGPT) 49 U/L Alkaline Phosphatase 378 U/L Total Protein 6.2 gm/dl Albumin 2.8 gm/dl Stool Occult Blood NEGATIVE Assessment and Plan Mr. Davidson is an 87 yr old male with epigastric pain, nausea, elevated LFTs in the setting of sepsis w/o clear etiology. LFTs likely secondary to fatty liver and worsening as an effect of sepsis. CT with a fluid filled distal esophagus which may represent reflux or esophageal dysmotility vs refulx. Plan: 1. EGD on Wednesday with Dr. Zavala n.p.o. after midnight 2. May have regular consistency diet until Wednesday noon, then would do clear liquids Wednesday night and NPO after midnight. 3. MRI was reviewed and normal without signs of biliary obstruction 4. Much improved with no abdominal complaints today plan on EGD on Wednesday. 5. LFTs are declining, he is improving. Will need to be followed to normalization by outpatient care provider.
[2017-09-26] MEDS ORDERED: HydrALAZINE HCL 20 MG/ML VIAL IV. PRN (15:30)
[2017-09-26] MEDS: ACETAMINOPHEN 325 MG TAB PO PRN (23:50)
[2017-09-27 06:15] LABS: BASO % 0.3 %; BASO ABS # 0.02 K/uL (0-0.2); EOS % 8.5 %; EOS ABS # 0.56 K/uL (0-0.5); HEMATOCRIT 33.9 % (42-52); HEMOGLOBIN 11.7 g/dL (14.0-18.0); IG# 0.05 K/uL (0.00-0.02); LYMPH % 14.6 %; LYMPH ABS # 0.96 K/uL (1.2-3.4); MEAN CELL VOLUME 85.2 fL (80-100); MEAN CORPUSCULAR HEMOGLOBIN 29.4 pg (25-34); MEAN CORPUSCULAR HGB CONC 34.5 g/dl (32-36); MEAN PLATELET VOLUME 9.7 fL (7.4-10.4); MONO % 21.7 %; MONO ABS # 1.43 K/uL (0.11-0.59); NEUT % 54.1 %; NEUT ABS # 3.56 K/uL (1.4-6.5); PLATELET COUNT 238 K/uL (130-400); RED CELL DISTRIBUTION WIDTH CV 15.3 % (11.5-14.5); RED CELL DISTRIBUTION WIDTH SD 47.5 fL (36.4-46.3); WHITE BLOOD COUNT 6.58 K/uL (4.8-10.8)
[2017-09-27 06:53] LABS: ALBUMIN 2.9 gm/dl (3.4-5.0); CALCIUM 10.5 mg/dl (8.5-10.1); CREATININE 0.98 mg/dl (0.60-1.40); POTASSIUM 3.7 mmol/L (3.5-5.1)
[2017-09-27 06:56] LABS: TOTAL PROTEIN 6.5 gm/dl (6.4-8.2)
[2017-09-27 07:53] VITALS: BP 163/86; PULSE 93; TEMP 36.9; O2SAT 93
[2017-09-27 08:00] VITALS: O2SAT 93
[2017-09-27] MEDS: POLYETHYLENE (MIRALAX) 17 GM PACK PO SCH (09:00)
[2017-09-27] MEDS: PANTOprazole SOD 40 MG TAB PO SCH (09:12)
[2017-09-27] MEDS: SENNA 8.6 MG TAB PO SCH (09:12)
[2017-09-27] MEDS: LOSARTAN POTASSIUM 50 MG TAB PO SCH (09:13)
--- NOTE | 2017-09-27 10:07 | Gastroenterology Progress Note ---
Progress Note Date of Service: Sep 27, 2017 Subjective Pt evaluation today including: conversation w/ patient, physical exam, chart review, lab review Pt is seen and evaluated, chart reviewed. No acute events noted overnight. Is NPO for EGD. Notes he has continued epigastric pain, nausea. No vomiting. Has been NPO since midnight. No fever, chills, CP, SOB. Review of Systems Constitutional: No fever, No chills Respiratory: + cough, No shortness of breath Cardiac: No chest pain, No edema Abdomen: + pain, + nausea, No vomiting, No diarrhea, No constipation, No GI bleeding Medications Current Inpatient Medications Medications (Trade) Dose Ordered Sig/Vicky Route Start Time Stop Time Status Last Admin Dose Admin Losartan Potassium (coZAAR TAB) 50 mg DAILY PO 09/22/17 09:00 10/22/17 08:59 09/27/17 09:13 50 MG Pantoprazole Sodium (Protonix Tab) 40 mg DAILY PO 09/22/17 09:00 10/22/17 08:59 09/27/17 09:12 40 MG Ranitidine HCl (zANTac TAB) 150 mg BID PRN PO 09/21/17 22:45 10/21/17 22:44 09/23/17 07:55 150 MG Acetaminophen (Tylenol Tab) 650 mg Q4H PRN PO 09/21/17 22:45 10/21/17 22:44 09/26/17 23:50 650 MG Nitroglycerin (Nitrostat Tab) 0.4 mg UD PRN SL 09/21/17 22:45 10/21/17 22:44 Tramadol HCl (Ultram Tab) 25 mg Q6H PRN PO 09/21/17 22:45 10/21/17 22:44 09/24/17 03:38 25 MG Hydromorphone HCl (Dilaudid Inj) 0.5 mg Q3H PRN IV 09/21/17 22:45 10/05/17 22:44 Prochlorperazine Edisylate 5 mg/ Syringe 5 ml @ 5 mls/min Q6H PRN IV 09/21/17 22:45 10/21/17 22:44 09/22/17 14:14 5 MLS/MIN Ipratropium [place] (Atrovent 0.02% 0.5MG/2.5ML Neb) 0.5 mg Q4H PRN INH 09/21/17 23:45 10/21/17 23:44 Levalbuterol (Xopenex 1.25MG/ 0.5ML Neb) 1.25 mg Q4H PRN INH 09/21/17 23:45 10/21/17 23:44 Senna (Senokot Tab) 8.6 mg QAM PO 09/23/17 09:00 10/23/17 08:59 09/27/17 09:12 8.6 MG Polyethylene (Miralax Powder Packet) 17 gm DAILY PO 09/23/17 09:00 10/23/17 08:59 09/26/17 08:11 17 GM Hydralazine HCl (HydrALAZINE INJ) 10 mg Q6 PRN IV. 09/26/17 15:30 10/26/17 15:29 09/26/17 18:00 10 MG Objective Vital Signs Date Time Temp Pulse Resp B/P (MAP) Pulse Ox O2 Delivery O2 Flow Rate FiO2 09/27/17 07:53 36.9 93 18 163/86 (111) 93 Room Air 09/27/17 00:00 Room Air 09/26/17 23:04 36.7 105 18 157/80 (105) 93 Room Air 09/26/17 21:15 102 154/89 (110) 09/26/17 20:00 Room Air 09/26/17 18:55 99 148/75 (99) 09/26/17 17:53 98 165/82 (109) 09/26/17 16:00 Room Air 09/26/17 15:25 36.8 94 18 173/83 (113) 94 Room Air Physical Exam General Appearance: no apparent distress Eyes: PERRL ENT: hearing grossly normal Neck: supple, trachea midline Respiratory/Chest: no accessory muscle use, + decreased breath sounds Cardiovascular: regular rate, rhythm, no JVD Abdomen: non tender, soft, no organomegaly, no pulsatile mass Neurologic/Psych: alert, normal mood/affect, oriented x 3 Skin: normal color Laboratory Results Last 24 Hours Test 09/26/17 10:30 09/27/17 05:54 Stool Occult Blood NEGATIVE White Blood Count 6.58 K/uL Red Blood Count 3.98 M/uL Hemoglobin 11.7 g/dL Hematocrit 33.9 % Mean Corpuscular Volume 85.2 fL Mean Corpuscular Hemoglobin 29.4 pg Mean Corpuscular Hemoglobin Concent 34.5 g/dl Platelet Count 238 K/uL Mean Platelet Volume 9.7 fL Neutrophils (%) (Auto) 54.1 % Lymphocytes (%) (Auto) 14.6 % Monocytes (%) (Auto) 21.7 % Eosinophils (%) (Auto) 8.5 % Basophils (%) (Auto) 0.3 % Neutrophils # (Auto) 3.56 K/uL Lymphocytes # (Auto) 0.96 K/uL Monocytes # (Auto) 1.43 K/uL Eosinophils # (Auto) 0.56 K/uL Basophils # (Auto) 0.02 K/uL RDW Standard Deviation 47.5 fL RDW Coefficient of Variation 15.3 % Immature Granulocyte % (Auto) 0.8 % Immature Granulocyte # (Auto) 0.05 K/uL Sodium Level 135 mmol/L Potassium Level 3.7 mmol/L Chloride Level 97 mmol/L Carbon Dioxide Level 31 mmol/L Anion Gap 7.0 mmol/L Blood Urea Nitrogen 15 mg/dl Creatinine 0.98 mg/dl Est Creatinine Clear Calc Drug Dose 58.0 ml/min Estimated GFR () 80.6 Estimated GFR (Non- 69.5 BUN/Creatinine Ratio 15.8 Random Glucose 104 mg/dl Calcium Level 10.5 mg/dl Total Bilirubin 2.0 mg/dl Aspartate Amino Transf (AST/SGOT) 35 U/L Alanine Aminotransferase (ALT/SGPT) 43 U/L Alkaline Phosphatase 343 U/L Total Protein 6.5 gm/dl Albumin 2.9 gm/dl Globulin 3.6 gm/dl Albumin/Globulin Ratio 0.8 Assessment and Plan 87 yr old male with epigastric pain, nausea, elevated LFTs in the setting of sepsis w/o clear etiology. LFTs likely secondary to fatty liver and worsening as an effect of sepsis. CT with a fluid filled distal esophagus which may represent reflux or esophageal dysmotility vs reflux. Continued mild upper abd pain, nausea no vomiting. Is NPO for EGD today. NPO EGD today Additional recommendations can be found in EGD report once completed. I performed a history and physical examination of the patient. I have discussed the patient's case, impression and plan with LV Viveros. Her note reflects my findings and plan. Given symptoms will arrange EGD. Kaleb Zavala MD
--- NOTE | 2017-09-27 11:17 | Endo History and Physical ---
History & Physical Date of Service: Sep 27, 2017. Chief Complaint: Referring Physician: Dr. Bermudez History of Present Illness abdominal pain Past Medical History Arthritis, Reflux, High Cholesterol, Hypertension Past Surgical History Hx Cardiac Surgery: No Hx Abdominal Surgery: Yes (hernia repair, appendectomy, cholecystectomy) Hx Post-Op Nausea and Vomiting: No Hx Cancer Surgery: No Hx Thoracic Surgery: No Hx Orthopedic: Yes (left TKA) Hx Urinary Tract Surgery: No Social History Smoking Status: Former Smoker Hx Substance Use: No Hx Alcohol Use: No Allergies Coded Allergies: Amoxicillin (Verified Allergy, Severe, SWELLING OF TONGUE AND THROAT, 09/16) Baclofen (Unverified Allergy, Unknown, VERY SLEEPY, 09/16/17) Daptomycin (Verified Allergy, Unknown, unknown, 09/16/17) Lethargy/ Weakness Omeprazole (Verified Allergy, Unknown, ?, 09/16/17) Phenobarbital (Verified Allergy, Unknown, ?, 09/16/17) Statins (Verified Allergy, Unknown, RASH, 09/16/17) Current Medications Reported Home Medications Medications Dose Route/Sig Max Daily Dose Days Date Category Potassium Chloride Er (Potassium Chloride) 10 Meq Tab 10 Meq PO DAILY 09/21/17 Reported Oxygen Gas 2 Liters NA PRN PRN 30 09/18/17 Rx Cipro (Ciprofloxacin Hcl) 500 Mg Tab 500 Mg PO BID 3 09/18/17 Rx Furosemide 20 Mg Tab 20 Mg PO DAILY 30 09/18/17 Rx Cyanocobalamin 1,000 Mcg/Ml Inj Unknown Dose MONTHLY 09/16/17 Reported Vitamin B-12 (Cyanocobalamin) 1,000 Mcg Sub 1,000 Mcg PO DAILY 05/02/17 Reported Tylenol (Acetaminophen) 325 Mg Tab 325 Mg PO PRN 05/02/17 Reported Phenergan (Promethazine Hcl) 12.5 Mg Tab 25 Mg PO Q6H PRN 05/02/17 Reported Zofran Odt (Ondansetron HCl) 4 Mg Tab 4 Mg SL Q6H 05/02/17 Reported Vitamin D (Cholecalciferol) 1,000 Unit Tab 1,000 Units PO DAILY 03/14/17 Reported Cozaar (Losartan Potassium) 50 Mg Tab 50 Mg PO DAILY 03/24/15 Reported Ditropan Xl (Oxybutynin Chloride) 10 Mg Tab 10 Mg PO DAILY 03/24/15 Reported Aspirin Ec (Aspirin) 81 Mg Tab 81 Mg PO DAILY 03/24/15 Reported Protonix (Pantoprazole Sodium) 40 Mg Tab 40 Mg PO DAILY 03/30/11 Reported Zantac (Ranitidine HCl) 150 Mg Tab 150 Mg PO BID PRN 03/30/11 Reported Vital Signs Weight (Kilograms): 90.300 Height (Feet): 5 Height (Inches): 7.00 Date Time Temp Pulse Resp B/P (MAP) Pulse Ox O2 Delivery O2 Flow Rate FiO2 09/27/17 07:53 36.9 93 18 163/86 (111) 93 Room Air 09/27/17 00:00 Room Air 09/26/17 23:04 36.7 105 18 157/80 (105) 93 Room Air 09/26/17 21:15 102 154/89 (110) 09/26/17 20:00 Room Air 09/26/17 18:55 99 148/75 (99) 09/26/17 17:53 98 165/82 (109) 09/26/17 16:00 Room Air 09/26/17 15:25 36.8 94 18 173/83 (113) 94 Room Air Physical Exam General Appearance: no apparent distress Respiratory/Chest: Auscultation: rhonchi Cardiovascular: Heart Auscultation: RRR Abdomen: Inspection & Palpation: soft Liver: non-tender Assessment and Plan stable for EGD
[2017-09-27] MEDS ORDERED: PROPOFOL IV EMULSION 10 MG/ML 20 ML VIAL IV ONE (12:11)
[2017-09-27] MEDS ORDERED: LIDOCAINE HCL 2% 2 ML VIAL (20MG/ML) ONE (12:11)
--- NOTE | 2017-09-27 12:48 | GI REPORT ---
Procedure Date: 09/27/2017 12:07 PM Procedure: Upper GI endoscopy Indications: Epigastric abdominal pain Medicines: See the Anesthesia note for documentation of the administered medications Complications: No immediate complications. Estimated Blood Loss: Estimated blood loss: none. Procedure: Pre-Anesthesia Assessment: - Prior to the procedure, a History and Physical was performed, and patient medications, allergies and sensitivities were reviewed. The patient's tolerance of previous anesthesia was reviewed. - The risks and benefits of the procedure and the sedation options and risks were discussed with the patient. All questions were answered and informed consent was obtained. - Patient identification and proposed procedure were verified prior to the procedure by the physician and the nurse. The procedure was verified in the pre-procedure area. - Pre-procedure physical examination revealed no contraindications to sedation. - After reviewing the risks and benefits, the patient was deemed in satisfactory condition to undergo the procedure. After obtaining informed consent, the endoscope was passed under direct vision. Throughout the procedure, the patient's blood pressure, pulse, and oxygen saturations were monitored continuously. The scope was introduced through the mouth, and advanced to the third part of duodenum. The upper GI endoscopy was accomplished without difficulty. The patient tolerated the procedure well. Findings: The esophagus was normal. The stomach was normal. The examined duodenum was normal. The cardia and gastric fundus were normal on retroflexion. Impression: - Normal esophagus. - Normal stomach. - Normal examined duodenum. - No specimens collected. Recommendation: - [facility] care. Kaleb Zavala M.D. Kaleb Zavala MD 09/27/2017 12:48:18 PM This report has been signed electronically. Note Initiated On: 09/27/2017 12:07 PM I attest to the content of the Intraoperative Record and orders documented therein, exceptions below
--- NOTE | 2017-09-27 15:34 | Progress Note ---
Internal Med Progress Note Date of Service: Sep 27, 2017. Provider Documentation: Subjective: Patient seen and examine this AM. Patient denies complaints. He reports that he ate his breakfast today without difficulties Physical Exam GENERAL: sitting in chair verbal, awake and alert NECK: no JVD CHEST: CTABL, no wheezing HEART: regular rate ABDOMEN: no acute pain on palpation, positive bowel sounds EXTREMITIES: no gross edema, No tenderness. ASSESSMENT & PLAN: Hospital course patient was on broad spectrum vancomycin and cefepime from admission for " Severe sepsis (SIRS plus encephalopathy post lactic acid elevation) secondary to complicated urinary tract infection". However the urine culture is negative also negative admission blood cultures 09/24/17 Infectious disease service note evaluation that that the previous fevers noted in the beginning of the hospital admission as likely related to subdural hematoma and not related to infection. Antibiotics discontinued and patient to be watched off antibiotics History of trauma to the head in the past but not recent to the hospital admission Small acute/subacute left subdural hematoma: The admitting physician had discussed [place] [facility] special education professional, Dr. Choe, who recommends repeating CT of the head 12 hours from last study. The repeat CT head 12 hours from the admission imaging scan is unchanged Have re-discussed the case on 09/23/[address] Choe by phone and he advises avoiding aspirin and to have patient see neuro-trauma (neurosurgery) clinic in 2 to 3 weeks with Padma Lugo Also requesting neurology service on site at [facility] for follow up recommendations and neurology service ordered the third head CT scan on this admission and stable findings, CT neck 09/24/17 did show Minimal anterior wedging within the C7 vertebral body but patient has no neck symptoms Mildly distended and fluid-filled esophagus on 09/21/17 CT scans Speech/Swallow Recommendations 1. Full liquid diet 2. Aspiration and GERD precautions, straws OK Fully upright for meals and for 30 minutes afte rmeals. Head of the bed to be elevated to 30 degrees at all times, to include while sleepiong. 3. Small sips, rest breaks as needed. 4. Consider GI consult as appropriate for suspected esophageal dysfunction. 4. Speech will continue to follow. As patient does not have identifiable source of fever to date and no recent fevers since 09/21/17, had asked gastroenterology for further evaluation of reflux symptoms and other abnormal liver function labs: Gastroenterology advised MRCP/MRI of the pancreas which was performed on 09/23/17 which the following impressions but did not identify obvious infectious source 1. Status post cholecystectomy. No biliary ductal dilatation. No choledocholithiasis. 2. No pancreatic ductal dilatation. Parenchymal atrophy of the pancreas without evidence of mass allowing for noncontrast technique. 3. 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 4. Multiple hepatic and renal cysts. 5. Cardiomegaly. 6. Small right and trace left pleural effusions with associated bibasilar atelectasis. 09/24/17 Infectious disease service note evaluation that that the previous fevers noted in the beginning of the hospital admission as likely related to subdural hematoma and not related to infection. Antibiotics discontinued and patient to be watched off antibiotics Patient was scheduled for EGD on 09/24/17 but ate breakfast. Gastroenterology to re-schedule EGD for Wednesday09/27/17 GI follow up note 09/25/17: "elevated LFTs in the setting of sepsis w/o clear etiology. LFTs likely secondary to fatty liver and worsening as an effect of sepsis. CT with a fluid filled distal esophagus which may represent reflux or esophageal dysmotility vs reflux." Hospitalist physician have re-discussed with patient and patient's family members on 09/25/17 on the utility of EGD for the fever workup and patient's problems with eating solid food (no choking, no aspiration but reports of vague complaints that the solid food does not go down well compared to liquids) and the patient would like to have the EGD on Wednesday09/27/17 EGD on Wednesday09/26/17 Findings: The esophagus was normal. The stomach was normal. The examined duodenum was normal. The cardia and gastric fundus were normal on retroflexion. Impression: - Normal esophagus. - Normal stomach. - Normal examined duodenum. - No specimens collected. Fecal occult blood negative 09/26/17 Patient to be discharged home with follow up to 10/04/2017 11:20 AM Bert Gresham MD Internal Medicine [facility] 10/07/2017 1:00 PM Sagar Espinal DO Cardiology [facility] 10/11/2017 10:00 AM Nurse [facility] patient to see neuro-trauma (neurosurgery) clinic at [facility] at some point after hospital discharge For any [facility] appointment questions [place] call [phone] Vital Signs: Date Time Temp Pulse Resp B/P (MAP) Pulse Ox O2 Delivery O2 Flow Rate FiO2 09/27/17 13:19 85 18 168/96 (120) 97 Room Air 09/27/17 13:04 87 18 162/92 (115) 95 Room Air 09/27/17 12:49 90 18 172/96 (121) 97 Room Air 09/27/17 11:54 36.6 90 16 155/90 (111) 95 Room Air 09/27/17 08:00 93 Room Air 09/27/17 07:53 36.9 93 18 163/86 (111) 93 Room Air 09/27/17 00:00 Room Air 09/26/17 23:04 36.7 105 18 157/80 (105) 93 Room Air 09/26/17 21:15 102 154/89 (110) 09/26/17 20:00 Room Air 09/26/17 18:55 99 148/75 (99) 09/26/17 17:53 98 165/82 (109) 09/26/17 16:00 Room Air Lab Results: Results Past 24 Hours Test 09/27/17 05:54 Range/Units White Blood Count 6.58 4.8-10.8 K/uL Red Blood Count 3.98 4.7-6.1 M/uL Hemoglobin 11.7 14.0-18.0 g/dL Hematocrit 33.9 42-52 % Mean Corpuscular Volume 85.2 80-100 fL Mean Corpuscular Hemoglobin 29.4 25-34 pg Mean Corpuscular Hemoglobin Concent 34.5 32-36 g/dl Platelet Count 238 130-400 K/uL Mean Platelet Volume 9.7 7.4-10.4 fL Neutrophils (%) (Auto) 54.1 % Lymphocytes (%) (Auto) 14.6 % Monocytes (%) (Auto) 21.7 % Eosinophils (%) (Auto) 8.5 % Basophils (%) (Auto) 0.3 % Neutrophils # (Auto) 3.56 1.4-6.5 K/uL Lymphocytes # (Auto) 0.96 1.2-3.4 K/uL Monocytes # (Auto) 1.43 0.11-0.59 K/uL Eosinophils # (Auto) 0.56 0-0.5 K/uL Basophils # (Auto) 0.02 0-0.2 K/uL RDW Standard Deviation 47.5 36.4-46.3 fL RDW Coefficient of Variation 15.3 11.5-14.5 % Immature Granulocyte % (Auto) 0.8 % Immature Granulocyte # (Auto) 0.05 0.00-0.02 K/uL Sodium Level 135 136-145 mmol/L Potassium Level 3.7 3.5-5.1 mmol/L Chloride Level 97 98-107 mmol/L Carbon Dioxide Level 31 21-32 mmol/L Anion Gap 7.0 3-11 mmol/L Blood Urea Nitrogen 15 7-18 mg/dl Creatinine 0.98 0.60-1.40 mg/dl Est Creatinine Clear Calc Drug Dose 58.0 ml/min Estimated GFR () 80.6 Estimated GFR (Non- 69.5 BUN/Creatinine Ratio 15.8 10-20 Random Glucose 104 70-99 mg/dl Calcium Level 10.5 8.5-10.1 mg/dl Total Bilirubin 2.0 0.2-1 mg/dl Aspartate Amino Transf (AST/SGOT) 35 15-37 U/L Alanine Aminotransferase (ALT/SGPT) 43 12-78 U/L Alkaline Phosphatase 343 45-117 U/L Total Protein 6.5 6.4-8.2 gm/dl Albumin 2.9 3.4-5.0 gm/dl Globulin 3.6 2.5-4.0 gm/dl Albumin/Globulin Ratio 0.8 0.9-2
--- NOTE | 2017-09-27 15:35 | Anesthesiology Progress Note ---
Anesthesia Post Op Note Date & Time Sep 27, 2017 at 15:35 Vital Signs Pain Intensity: 0 Vital Signs Past 12 Hours Date Time Temp Pulse Resp B/P (MAP) Pulse Ox O2 Delivery O2 Flow Rate FiO2 09/27/17 13:19 85 18 168/96 (120) 97 Room Air 09/27/17 13:04 87 18 162/92 (115) 95 Room Air 09/27/17 12:49 90 18 172/96 (121) 97 Room Air 09/27/17 11:54 36.6 90 16 155/90 (111) 95 Room Air 09/27/17 08:00 93 Room Air 09/27/17 07:53 36.9 93 18 163/86 (111) 93 Room Air Notes Mental Status: alert / awake / arousable, participated in evaluation Pt Amnestic to Procedure: Yes Nausea / Vomiting: adequately controlled Pain: adequately controlled Airway Patency, RR, SpO2: stable & adequate BP & HR: stable & adequate Hydration State: stable & adequate Anesthetic Complications: no major complications apparent
--- NOTE | 2017-09-27 15:35 | Discharge Instructions ---
Discharge Instructions Date of Service Sep 27, 2017. Admission Reason for Admission: Respiratory Failure, Acute Discharge Discharge Diagnosis / Problem: fever, subdural hematoma, transaminitis, normal EGD, NICKO Discharge Goals Goal(s): Improve function Activity Recommendations Activity Limitations: per Instructions/Follow-up section Shower/Bathe: no limitations . Instructions / Follow-Up Instructions / Follow-Up Hospital course patient was on broad spectrum vancomycin and cefepime from admission for " Severe sepsis (SIRS plus encephalopathy post lactic acid elevation) secondary to complicated urinary tract infection". However the urine culture is negative also negative admission blood cultures 09/24/17 Infectious disease service note evaluation that that the previous fevers noted in the beginning of the hospital admission as likely related to subdural hematoma and not related to infection. Antibiotics discontinued and patient to be watched off antibiotics History of trauma to the head in the past but not recent to the hospital admission Small acute/subacute left subdural hematoma: The admitting physician had discussed with [facility] neuro[place] home health clinical liaison, Dr. Choe, who recommends repeating CT of the head 12 hours from last study. The repeat CT head 12 hours from the admission imaging scan is unchanged Have re-discussed the case on 09/23/[address] Choe by phone and he advises avoiding aspirin and to have patient see neuro-trauma (neurosurgery) clinic in 2 to 3 weeks with Padma Lugo Also requesting neurology service on site at [facility] for follow up recommendations and neurology service ordered the third head CT scan on this admission and stable findings, CT neck 09/24/17 did show Minimal anterior wedging within the C7 vertebral body but patient has no neck symptoms Mildly distended and fluid-filled esophagus on 09/21/17 CT scans Speech/Swallow Recommendations 1. Full liquid diet 2. Aspiration and GERD precautions, straws OK Fully upright for meals and for 30 minutes afte rmeals. Head of the bed to be elevated to 30 degrees at all times, to include while sleepiong. 3. Small sips, rest breaks as needed. 4. Consider GI consult as appropriate for suspected esophageal dysfunction. 4. Speech will continue to follow. As patient does not have identifiable source of fever to date and no recent fevers since 09/21/17, had asked gastroenterology for further evaluation of reflux symptoms and other abnormal liver function labs: Gastroenterology advised MRCP/MRI of the pancreas which was performed on 09/23/17 which the following impressions but did not identify obvious infectious source 1. Status post cholecystectomy. No biliary ductal dilatation. No choledocholithiasis. 2. No pancreatic ductal dilatation. Parenchymal atrophy of the pancreas without evidence of mass allowing for noncontrast technique. 3. 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 4. Multiple hepatic and renal cysts. 5. Cardiomegaly. 6. Small right and trace left pleural effusions with associated bibasilar atelectasis. 09/24/17 Infectious disease service note evaluation that that the previous fevers noted in the beginning of the hospital admission as likely related to subdural hematoma and not related to infection. Antibiotics discontinued and patient to be watched off antibiotics Patient was scheduled for EGD on 09/24/17 but ate breakfast. Gastroenterology to re-schedule EGD for Wednesday09/27/17 GI follow up note 09/25/17: "elevated LFTs in the setting of sepsis w/o clear etiology. LFTs likely secondary to fatty liver and worsening as an effect of sepsis. CT with a fluid filled distal esophagus which may represent reflux or esophageal dysmotility vs reflux." Hospitalist physician have re-discussed with patient and patient's family members on 09/25/17 on the utility of EGD for the fever workup and patient's problems with eating solid food (no choking, no aspiration but reports of vague complaints that the solid food does not go down well compared to liquids) and the patient would like to have the EGD on Wednesday09/27/17 EGD on Wednesday09/26/17 Findings: The esophagus was normal. The stomach was normal. The examined duodenum was normal. The cardia and gastric fundus were normal on retroflexion. Impression: - Normal esophagus. - Normal stomach. - Normal examined duodenum. - No specimens collected. Fecal occult blood negative 09/26/17 Patient to be discharged home with follow up to 10/04/2017 11:20 AM Bert Gresham MD Internal Medicine [facility] 10/07/2017 1:00 PM Sagar Espinal DO Cardiology [facility] 10/11/2017 10:00 AM Nurse [facility] Anc[facility] patient to see neuro-trauma (neurosurgery) clinic at [facility] at some point after hospital discharge For any [facility] appointment questions pleas call [phone] Current Hospital Diet Patient's current hospital diet: Regular Diet Discharge Diet Recommended Diet: Regular Diet Pending Studies Studies pending at discharge: no Laboratory Results 09/27/17 05:54 Red Blood Count 3.98, Mean Corpuscular Volume 85.2, Mean Corpuscular Hemoglobin 29.4, Mean Corpuscular Hemoglobin Concent 34.5, Mean Platelet Volume 9.7, Neutrophils (%) (Auto) 54.1, Lymphocytes (%) (Auto) 14.6, Monocytes (%) (Auto) 21.7, Eosinophils (%) (Auto) 8.5, Basophils (%) (Auto) 0.3, Neutrophils # (Auto ) 3.56, Lymphocytes # (Auto) 0.96, Monocytes # (Auto) 1.43, Eosinophils # (Auto ) 0.56, Basophils # (Auto) 0.02 09/27/17 05:54 Test 09/21/17 17:00 09/21/17 17:40 09/21/17 20:08 09/21/17 20:13 Activated Partial Thromboplast Time 28.5 SECONDS (21.0-31.0) Partial Thromboplastin Ratio 1.1 Magnesium Level 1.4 mg/dl (1.8-2.4) Pro-B-Type Natriuretic Peptide 5244 pg/ml (0-1800) Lipase 130 U/L (73-393) Procalcitonin 1.53 ng/ml (0-0.5) Influenza Type A (RT-PCR) Neg for Influ A (NEG) Influenza Type B (RT-PCR) Neg for Influ B (NEG) Urine Color DK YELLOW Urine Appearance CLOUDY (CLEAR) Urine pH 5.0 (4.5-7.5) Urine Specific Lester 1.021 (1.000-1.030) Urine Protein 1+ (NEG) Urine Glucose (UA) NEG (NEG) Urine Ketones TRACE (NEG) Urine Occult Blood TRACE (NEG) Urine Nitrite POS (NEG) Urine Bilirubin 1+ (NEG) Urine Urobilinogen NEG (NEG) Urine Leukocyte Esterase MODERATE (NEG) Urine WBC (Auto) 10-30 /hpf (0-5) Urine RBC (Auto) 5-10 /hpf (0-4) Urine Hyaline Casts (Auto) 1-5 /lpf (0-5) Urine Epithelial Cells (Auto) >30 /lpf (0-5) Urine Bacteria (Auto) NEG (NEG) Urine Renal Epithelial Cells 0-5 /lpf (0-5) Urine Pathogenic Casts 0-3 WBC CASTS /lpf (0) Arterial Blood pH 7.44 (7.35-7.45) Arterial Blood Partial Pressure CO2 43 mmHg (35-46) Arterial Blood Partial Pressure O2 76 mm/Hg (80-95) Arterial Blood HCO3 28 mmol/L (19-24) Arterial Blood Oxygen Saturation 94.6 % (90-95) Arterial Blood Base Excess 3.7 mEq/L (-9-1.8) Arterial Blood Gas Delivery 2 LITERS Hiren Test POS (POS) Lactic Acid Level 1.6 mmol/L (0.4-2.0) Thyroid Stimulating Hormone (TSH) 1.230 uIu/ml (0.300-4.500) Test 09/22/17 06:06 09/26/17 06:19 09/26/17 10:30 09/27/17 05:54 Ammonia 29.0 umol/L (11-32) Troponin I < 0.015 ng/ml (0-0.045) Direct Bilirubin 0.9 mg/dl (0-0.2) Stool Occult Blood NEGATIVE (NEGATIVE) White Blood Count 6.58 K/uL (4.8-10.8) Red Blood Count 3.98 M/uL (4.7-6.1) Hemoglobin 11.7 g/dL (14.0-18.0) Hematocrit 33.9 % (42-52) Mean Corpuscular Volume 85.2 fL (80-100) Mean Corpuscular Hemoglobin 29.4 pg (25-34) Mean Corpuscular Hemoglobin Concent 34.5 g/dl (32-36) Platelet Count 238 K/uL (130-400) Mean Platelet Volume 9.7 fL (7.4-10.4) Neutrophils (%) (Auto) 54.1 % Lymphocytes (%) (Auto) 14.6 % Monocytes (%) (Auto) 21.7 % Eosinophils (%) (Auto) 8.5 % Basophils (%) (Auto) 0.3 % Neutrophils # (Auto) 3.56 K/uL (1.4-6.5) Lymphocytes # (Auto) 0.96 K/uL (1.2-3.4) Monocytes # (Auto) 1.43 K/uL (0.11-0.59) Eosinophils # (Auto) 0.56 K/uL (0-0.5) Basophils # (Auto) 0.02 K/uL (0-0.2) RDW Standard Deviation 47.5 fL (36.4-46.3) RDW Coefficient of Variation 15.3 % (11.5-14.5) Immature Granulocyte % (Auto) 0.8 % Immature Granulocyte # (Auto) 0.05 K/uL (0.00-0.02) Anion Gap 7.0 mmol/L (3-11) Est Creatinine Clear Calc Drug Dose 58.0 ml/min Estimated GFR () 80.6 Estimated GFR (Non- 69.5 BUN/Creatinine Ratio 15.8 (10-20) Calcium Level 10.5 mg/dl (8.5-10.1) Total Bilirubin 2.0 mg/dl (0.2-1) Aspartate Amino Transf (AST/SGOT) 35 U/L (15-37) Alanine Aminotransferase (ALT/SGPT) 43 U/L (12-78) Alkaline Phosphatase 343 U/L (45-117) Total Protein 6.5 gm/dl (6.4-8.2) Albumin 2.9 gm/dl (3.4-5.0) Globulin 3.6 gm/dl (2.5-4.0) Albumin/Globulin Ratio 0.8 (0.9-2) Date/Time Source Procedure Growth Status 09/21/17 18:15 Blood Blood Culture - Final NO GROWTH Complete 09/21/17 20:08 Urine , Clean Catch Urine Culture - Final NO GROWTH - LESS THAN 1,000 COLONIES/ML Complete Medical Emergencies . Who to Call and When: Medical Emergencies: If at any time you feel your situation is an emergency, please call 911 immediately. . Non-Emergent Contact Non-Emergency issues call your: Primary Care Provider Call Non-Emergent contact if: you have any medication questions . . "Provider Documentation" section prepared by Elieser Day. .
--- NOTE | 2017-09-27 15:43 | Discharge Summary ---
Discharge Summary Date of Service Sep 27, 2017. 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, transaminitis, evaluated for swallowing, normal EGD, acute kidney injury resolved Medication Reconciliation Continued Medications: Acetaminophen Tab (Tylenol) 325 Mg Tab 325 MG PO PRN for Headache, TAB Aspirin (Aspirin Ec) 81 Mg Tab 81 MG PO DAILY Cholecalciferol (Vitamin D) 1,000 Unit Tab 1000 UNITS PO DAILY Cyanocobalamin (Vitamin B-12) 1,000 Mcg Sub 1000 MCG PO DAILY Cyanocobalamin (Cyanocobalamin) 1,000 Mcg/Ml Inj Unknown Dose MONTHLY Furosemide (Furosemide) 20 Mg Tab 20 MG PO DAILY for 30 Days, #30 TAB Home O2 Therapy (Oxygen) Gas 2 LITERS NA PRN PRN for ambulation/exertion for 30 Days Losartan Potassium (Cozaar) 50 Mg Tab 50 MG PO DAILY, TAB Ondasetron Odt (Zofran Odt) 4 Mg Tab 4 MG SL Q6H for Nausea, TAB Oxybutynin Chloride Er (Ditropan Xl) 10 Mg Tab 10 MG PO DAILY, TAB Pantoprazole (Protonix) 40 Mg Tab 40 MG PO DAILY, 0 Refills Potassium Chloride (Potassium Chloride Er) 10 Meq Tab 10 MEQ PO DAILY Promethazine Hcl (Phenergan) 12.5 Mg Tab 25 MG PO Q6H PRN for Nausea or Vomiting, TAB Ranitidine (Zantac) 150 Mg Tab 150 MG PO BID PRN for GERD Discontinued Medications: Ciprofloxacin Hcl (Cipro) 500 Mg Tab 500 MG PO BID for 3 Days, #6 TAB Admission Information HPI (per Admitting provider): HISTORY OF PRESENT ILLNESS: History obtained from patient, , and records. Limited history from patient secondary to lethargy. Medical history significant for chronic diastolic heart failure (EF 55-60% from 2D echo in 2018), hypertension, PVD, fatty liver as per records, past tobacco abuse, reflux, chronic anemia (baseline hemoglobin of 11-13) Recent confinement last few days ago for decompensated heart failure. The patient also had UTI at that time, although urine cultures showed no growth. Patient sent home on Cipro: This afternoon, patient had shortness of breath, nausea, vomiting. Patient complaining of achy lower abdominal pain. No hematuria. Complaining of lightheadedness, dry cough. Patient denies headaches. At the Emergency Room, the patient given vancomycin and cefepime for sepsis Physical Exam (per Admitting): PHYSICAL EXAMINATION: VITAL SIGNS: Blood pressure was noted to be on 130/80, pulse rate noted to be 120, RR 18 temperature 37.6, sats 94 on 2 liters. GENERAL: Noted to be obese, lethargic, no respiratory distress. SKIN: Pallor, warm. HEENT: Alopecia. Pale palpebral conjunctiva. No ptosis. Dry mucosa. Nasal cannula in place. NECK: Short, supple. CHEST: Decreased effort. No tenderness. HEART: Tachycardic. No murmur. ABDOMEN: Minimal hypogastric tenderness, some distention. EXTREMITIES: Minimal LE edema present. No tenderness. NO gross deformity. NEUROLOGIC: Lethargic but coherent. No facial asymmetry. Gait and stance not assessed. Hospital Course Hospital course patient was on broad spectrum vancomycin and cefepime from admission for " Severe sepsis (SIRS plus encephalopathy post lactic acid elevation) secondary to complicated urinary tract infection". However the urine culture is negative also negative admission blood cultures 09/24/17 Infectious disease service note evaluation that that the previous fevers noted in the beginning of the hospital admission as likely related to subdural hematoma and not related to infection. Antibiotics discontinued and patient to be watched off antibiotics History of trauma to the head in the past but not recent to the hospital admission Small acute/subacute left subdural hematoma: The admitting physician had discussed with [facility] [place] emergency response officer, Dr. Choe, who recommends repeating CT of the head 12 hours from last study. The repeat CT head 12 hours from the admission imaging scan is unchanged Have re-discussed the case on 09/23/[address] Choe by phone and he advises avoiding aspirin and to have patient see neuro-trauma (neurosurgery) clinic in 2 to 3 weeks with Padma Lugo Also requesting neurology service on site at [facility] for follow up recommendations and neurology service ordered the third head CT scan on this admission and stable findings, CT neck 09/24/17 did show Minimal anterior wedging within the C7 vertebral body but patient has no neck symptoms Mildly distended and fluid-filled esophagus on 09/21/17 CT scans Speech/Swallow Recommendations 1. Full liquid diet 2. Aspiration and GERD precautions, straws OK Fully upright for meals and for 30 minutes afte rmeals. Head of the bed to be elevated to 30 degrees at all times, to include while sleepiong. 3. Small sips, rest breaks as needed. 4. Consider GI consult as appropriate for suspected esophageal dysfunction. 4. Speech will continue to follow. As patient does not have identifiable source of fever to date and no recent fevers since 09/21/17, had asked gastroenterology for further evaluation of reflux symptoms and other abnormal liver function labs: Gastroenterology advised MRCP/MRI of the pancreas which was performed on 09/23/17 which the following impressions but did not identify obvious infectious source 1. Status post cholecystectomy. No biliary ductal dilatation. No choledocholithiasis. 2. No pancreatic ductal dilatation. Parenchymal atrophy of the pancreas without evidence of mass allowing for noncontrast technique. 3. 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 4. Multiple hepatic and renal cysts. 5. Cardiomegaly. 6. Small right and trace left pleural effusions with associated bibasilar atelectasis. 09/24/17 Infectious disease service note evaluation that that the previous fevers noted in the beginning of the hospital admission as likely related to subdural hematoma and not related to infection. Antibiotics discontinued and patient to be watched off antibiotics Patient was scheduled for EGD on 09/24/17 but ate breakfast. Gastroenterology to re-schedule EGD for Wednesday09/27/17 GI follow up note 09/25/17: "elevated LFTs in the setting of sepsis w/o clear etiology. LFTs likely secondary to fatty liver and worsening as an effect of sepsis. CT with a fluid filled distal esophagus which may represent reflux or esophageal dysmotility vs reflux." Hospitalist physician have re-discussed with patient and patient's family members on 09/25/17 on the utility of EGD for the fever workup and patient's problems with eating solid food (no choking, no aspiration but reports of vague complaints that the solid food does not go down well compared to liquids) and the patient would like to have the EGD on Wednesday09/27/17 EGD on Wednesday09/26/17 Findings: The esophagus was normal. The stomach was normal. The examined duodenum was normal. The cardia and gastric fundus were normal on retroflexion. Impression: - Normal esophagus. - Normal stomach. - Normal examined duodenum. - No specimens collected. Fecal occult blood negative 09/26/17 Patient to be discharged home with follow up to 10/04/2017 11:20 AM Bert Gresham MD Internal Medicine [facility] 10/07/2017 1:00 PM Sagar Espinal DO Cardiology [facility] 10/11/2017 10:00 AM Nurse [facility] Ancillary [facility] patient to see neuro-trauma (neurosurgery) clinic at [facility] at some point after hospital discharge For any [facility] appointment questions pleas call [phone] Total time spent on discharge = 40 minutes This includes examination of the patient, discharge planning, medication reconciliation, and communication with other providers. Discharge Instructions see above
[2017-09-27 16:08] VITALS: BP 168/96; PULSE 85; TEMP 36.6; O2SAT 97
--- NOTE | 2017-10-05 05:56 | EDITING REQUIRED CODING QUERY ---
SEPSIS To promote full compliance with coding requirements relating to patient care, physician participation is requested in all cases of drosser uncertainty. Please assist us with the question(s) below: In responding to this query, please exercise your independent professional judgment. The fact that a question is asked does not imply that any particular answer is desired or expected. We appreciate your clarification on this issue. The following was documented on the discharge summary: Patient was on broad spectrum vancomycin and cefepime from admission for "Severe sepsis (SIRS plus encephalopathy post lactic acid elevation) secondary to complicated urinary tract infection". However the urine culture is negative also negative admission blood cultures 09/24/17 Infectious disease service note evaluation that that the previous fevers noted in the beginning of the hospital admission as likely related to subdural hematoma and not related to infection. Antibiotics discontinued and patient to be watched off antibiotics Please clarify below to the best of your knowledge. Thank you for your help! () Sepsis, present on admission () Sepsis, ruled-out (x) SIRS, due to chronic subdural hematoma, with acute organ dysfunction (NICKO during stay) () SIRS, without acute organ dysfunction () Other, patient has:
== END 2017-09-27 16:22 | disposition home or self-care (01) | DRG 64 ==
LOC: EDBD 17:13 → C.EDB 17:16 → C.2E 20:28 → ENRESERV 20:55 → C.MS2W 09-24 19:25
PROVIDERS: ADMIT Hospitalist; ATTEND Hospitalist
PROC: 0DJ08ZZ Inspection of Upper Intestinal Tract, Via Natural or Artificial Opening Endoscopic (ICD-10-PCS; principal; 2017-09-27 11:50)
DX: I62.00 Nontraumatic subdural hemorrhage, unspecified (principal); G93.40 Encephalopathy, unspecified; R65.11 Systemic inflammatory response syndrome (SIRS) of non-infectious origin with acute organ dysfunction; N39.0 Urinary tract infection, site not specified; I13.0 Hypertensive heart and chronic kidney disease with heart failure and stage 1 through stage 4 chronic kidney disease, or unspecified chronic kidney disease; I50.32 Chronic diastolic (congestive) heart failure; N17.9 Acute kidney failure, unspecified; N18.3 Chronic kidney disease, stage 3 (moderate); D64.9 Anemia, unspecified; E86.0 Dehydration; K21.9 Gastro-esophageal reflux disease without esophagitis; M10.9 Gout, unspecified; Z79.82 Long term (current) use of aspirin; Z79.899 Other long term (current) drug therapy; Z87.891 Personal history of nicotine dependence; Z88.1 Allergy status to other antibiotic agents; Z88.8 Allergy status to other drugs, medicaments and biological substances

== ENCOUNTER 2018-02-03 18:45 | Emergency (ER) | payer OTHER ==
[~2018-02-03] VITALS: Ht 170.2 cm; Wt 92.3 kg
[~2018-02-03 18:45] MED LIST changes: -CIPR-255 PO; +POTA-74 PO; -POTA10TA PO
[2018-02-03 18:54] VITALS: TEMP 36.4; Ht 170.2 cm; Wt 92.3 kg
[2018-02-03] MEDS ORDERED: MoRPHine SULFATE 4 MG/ML 1 ML CARP\\VIAL IV STA (19:36)
[2018-02-03] MEDS ORDERED: SODIUM CHLORIDE 0.9% 500ML 500 ML IV STA (19:36)
[2018-02-03] MEDS ORDERED: OPTIRAY 320 IV PRN (19:45)
[2018-02-03 20:14] LABS: BASO % 0.5 %; BASO ABS # 0.02 K/uL (0-0.2); EOS % 4.6 %; HEMOGLOBIN 13.1 g/dL (14.0-18.0); IG# 0.01 K/uL (0.00-0.02); LYMPH % 25.8 %; LYMPH ABS # 1.11 K/uL (1.2-3.4); MEAN CORPUSCULAR HEMOGLOBIN 29.9 pg (25-34); MEAN CORPUSCULAR HGB CONC 33.6 g/dl (32-36); MEAN PLATELET VOLUME 9.8 fL (7.4-10.4); MONO % 17.9 %; MONO ABS # 0.77 K/uL (0.11-0.59); PLATELET COUNT 162 K/uL (130-400); RED CELL DISTRIBUTION WIDTH CV 14.4 % (11.5-14.5); RED CELL DISTRIBUTION WIDTH SD 46.7 fL (36.4-46.3); WHITE BLOOD COUNT 4.31 K/uL (4.8-10.8)
[2018-02-03 20:39] LABS: ALBUMIN 3.7 gm/dl (3.4-5.0); CALCIUM 8.7 mg/dl (8.5-10.1); CREATININE 1.21 mg/dl (0.60-1.40); TOTAL PROTEIN 7.3 gm/dl (6.4-8.2)
[2018-02-03 22:11] LABS: AST/SGOT 22 U/L (15-37); POTASSIUM 4.5 mmol/L (3.5-5.1)
[2018-02-03] MEDS ORDERED: GI COCKTAIL PO STA (22:32)
[2018-02-03] MEDS ORDERED: ACETAMINOPHEN 325 MG TAB PO STA (22:32)
--- NOTE | 2018-02-03 22:35 | DIAGNOSTIC IMAGING REPORT ---
CT SCAN OF THE ABDOMEN AND PELVIS WITH IV CONTRAST CLINICAL HISTORY: Periumbilical abdominal pain. COMPARISON STUDY: Abdominal CT dated 09/21/2017. MRCP dated 09/23/2017. TECHNIQUE: Following the IV administration of 93 cc of Optiray 320, CT scan of the abdomen and pelvis is performed from the lung bases to the proximal femora. Images are reviewed in the axial, sagittal, and coronal planes. IV contrast was administered without complication. A dose lowering technique was utilized adhering to the principles of ALARA. The examination is degraded by motion artifact. CT DOSE: 1040.29 mGycm FINDINGS: Lung bases: The heart is enlarged and without pericardial effusion. The coronary arteries and mitral annulus are densely calcified. Chronic interstitial thickening and scarring/atelectasis are noted at the lung bases. No airspace consolidation or pleural effusion is seen. A tiny hiatal hernia is noted. Liver: The contrast-enhanced liver is normal in size, contour, and attenuation. There is mild central intrahepatic biliary ductal dilatation. The hepatic veins and portal veins are patent. Gallbladder: Surgically absent noting clips in the gallbladder fossa. Spleen: Normal in size and attenuation. Pancreas: Atrophic and grossly unremarkable. Adrenal glands: Unremarkable. Kidneys: The contrast enhanced kidneys atrophic and without hydronephrosis. The kidneys enhance symmetrically. Bilateral renal cysts measure up to 5.1 cm. Additional cortical hypodensities also likely cysts but are too small for definitive characterization. Nonobstructing left renal calculi measure up to 9 mm. Abdominal vasculature: There is advanced atherosclerotic calcification and ectasia of the abdominal aorta. 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 Bowel: There is mild to moderate colonic fecal retention. No bowel obstruction is seen. There are scattered colonic diverticula without CT evidence of acute diverticulitis. The appendix is not identified and reported surgically absent. Peritoneum: There is no intraperitoneal free air or abdominal ascites. There is evidence of previous ventral hernia repair. Lymphadenopathy: Prominent periportal lymph nodes have decreased in size from 09/21/2017. The largest node now measures 11 mm in short axis. There is no retroperitoneal, pelvic sidewall, mesenteric, or inguinal lymphadenopathy. Pelvic viscera: The prostate gland is enlarged and heterogeneous noting median lobe hypertrophy. The bladder wall is thickened and trabeculated indicating chronic outlet obstruction. Skeletal structures: The skeletal structures are osteopenic. There is moderate to advanced lumbosacral spondylosis and mild scoliosis. No lytic or blastic lesions are seen. IMPRESSION: 1. There are no acute infectious or inflammatory findings in the abdomen or pelvis. 2. There is mild/moderate colonic fecal retention. No bowel obstruction is seen. 3. Nonobstructing left renal calculi. 4. Cardiomegaly. 5. 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 6. Additional findings as above. Electronically signed by: Jesús Burnett M.D. 02/03/2018 10:33 PM Dictated Date/Time: 02/03/2018 10:23 PM
[2018-02-03] MEDS ORDERED: ALUMINUM/MAGNESIUM SUSP 30 ML UDC ONE (22:37)
[2018-02-03] MEDS ORDERED: LIDOCAINE HCL 2% VISC SOLN 20 ML UDC ONE (22:37)
[2018-02-03] MEDS ORDERED: FURO-85 PO (22:54)
[2018-02-03] MEDS ORDERED: ACET-1256 PO (22:54)
[2018-02-03] MEDS ORDERED: SENNTAB23 PO (22:54)
--- NOTE | 2018-02-03 23:14 | EMERGENCY ROOM VISIT NOTE ---
History Report prepared by Raymundo: Emily Messer Under the Supervision of: Dr. Chevy Schultz M.D. First contact with patient: 19:27 Chief Complaint: ABDOMINAL PAIN Stated Complaint: STOMACH PAIN Nursing Triage Summary: pt difficulty hearing. reports patient had mid abdominal pain that started last night. Pt tried to see his PCP today and was not able to get in. Pt with increasing pain today. Pt denies nausea, vomiting, diarrhea. History of Present Illness The patient is an 87 year old male with a past medical history of a bowel obstruction, hernia repair, carotid stenosis, CKD, GERD, HTN, sepsis, and Staphylococcus aureus septicemia who presents to the ED with a cc of constant abdominal pain beginning yesterday evening. The patient states that the pain is in his lower abdomen and he currently rates it as a 6/10 in severity. He notes that it doesn't feel like his past bowel obstruction. He states that it came on while he was eating dinner last evening. He notes that his last bowel movement was 7.5 hours ago and it was normal. Negative urinary symptoms, vomiting, taking anything for the pain, fevers, chills, cough, recent heavy lifting, recent strains, and eating making the pain worse. Source of History: patient Onset: yesterday evening Position: abdomen (lower) Symptom Intensity: 6/10 Timing: constant Associated Symptoms: No fevers, No chills, No cough, No vomiting, No urinary symptoms Note: The patient denies taking anything for pain, recent strains, recent heavy lifting, and eating making the pain worse. Review of Systems See HPI for pertinent positives and negatives. A total of ten systems were reviewed and were otherwise negative. Past Medical & Surgical Medical Problems: (1) Carotid artery stenosis (2) CKD (chronic kidney disease), stage III (3) GERD (gastroesophageal reflux disease) (4) Gout (5) HTN (hypertension) (6) Inguinal hernia (7) Respiratory failure, acute (8) Sepsis due to coagulase-negative staphylococcal infection (9) Staphylococcus aureus septicemia Surgical Problems: (1) Hx of inguinal hernia surgery (2) S/P appendectomy (3) S/P cholecystectomy (4) S/P repair of ventral hernia (5) Status post total left knee replacement Family History Insignificant due to advanced age Social History Smoking Status: Former Smoker Smokeless Tobacco Use: No Alcohol Use: none Drug Use: none Marital Status: Housing Status: lives with family Occupation Status: retired Current/Historical Medications Scheduled Acetaminophen (Tylenol), 1,000 MG PO PRN UD Aspirin (Aspirin Ec), 81 MG PO DAILY Losartan Potassium (Cozaar), 50 MG PO DAILY Potassium Chloride (Potassium Chloride Er), 10 MEQ PO DAILY Sennosides-Docusate Sodium (Stool Softener), 1 TAB PO DAILY Scheduled PRN Furosemide (Lasix), 20 MG PO DAILY PRN for EDEMA Ranitidine (Zantac), 150 MG PO DAILY PRN for GERD Allergies Coded Allergies: Amoxicillin (Verified Allergy, Severe, SWELLING OF TONGUE AND THROAT, 09/16) Baclofen (Unverified Allergy, Unknown, VERY SLEEPY, 09/16/17) Daptomycin (Verified Allergy, Unknown, unknown, 09/16/17) Lethargy/ Weakness Omeprazole (Verified Allergy, Unknown, ?, 09/16/17) Phenobarbital (Verified Allergy, Unknown, ?, 09/16/17) Statins (Verified Allergy, Unknown, RASH, 09/16/17) Physical Exam Vital Signs Date Time Temp Pulse Resp B/P (MAP) Pulse Ox O2 Delivery O2 Flow Rate FiO2 02/04/18 00:10 67 18 188/90 98 02/03/18 22:06 71 18 96 02/03/18 22:01 186/88 02/03/18 21:51 74 20 94 02/03/18 21:36 71 15 96 02/03/18 21:31 169/84 02/03/18 21:30 86 16 94 02/03/18 21:25 86 18 95 02/03/18 21:20 87 17 93 02/03/18 20:50 69 16 02/03/18 20:45 69 18 02/03/18 20:40 71 15 02/03/18 20:35 70 14 02/03/18 20:34 171/77 02/03/18 20:31 171/77 02/03/18 20:30 68 16 02/03/18 20:27 87 02/03/18 20:25 82 14 02/03/18 20:22 197/87 02/03/18 18:54 36.4 101 18 202/106 98 Room Air Physical Exam GENERAL: Awake, alert, well-appearing, NAD, wearing glasses. HENT: Normocephalic, atraumatic. EYES: Normal conjunctiva. Sclera non-icteric. PERRL. No anisocoria. NECK: Supple. No nuchal rigidity. FROM. RESPIRATORY: CTAB, no rhonchi, wheezing, crackles CARDIAC: RRR, no MRG ABDOMEN: Soft, nondistended, BS+, periumbilical pain, midline vertical incisional scar, not peritonitic. MSK: No chest wall TTP, no LE edema NEURO: GCS 15, CN 2-12 intact, moves all 4s on command SKIN: No rash or jaundice noted. Medical Decision & Procedures ER Provider Diagnostic Interpretation: Radiology results as stated below per my review and radiologist interpretation: CT SCAN OF THE ABDOMEN AND PELVIS WITH IV CONTRAST CLINICAL HISTORY: Periumbilical abdominal pain. COMPARISON STUDY: Abdominal CT dated 09/21/2017. MRCP dated 09/23/2017. TECHNIQUE: Following the IV administration of 93 cc of Optiray 320, CT scan of the abdomen and pelvis is performed from the lung bases to the proximal femora. Images are reviewed in the axial, sagittal, and coronal planes. IV contrast was administered without complication. A dose lowering technique was utilized adhering to the principles of ALARA. The examination is degraded by motion artifact. CT DOSE: 1040.29 mGycm FINDINGS: Lung bases: The heart is enlarged and without pericardial effusion. The coronary arteries and mitral annulus are densely calcified. Chronic interstitial thickening and scarring/atelectasis are noted at the lung bases. No airspace consolidation or pleural effusion is seen. A tiny hiatal hernia is noted. Liver: The contrast-enhanced liver is normal in size, contour, and attenuation. There is mild central intrahepatic biliary ductal dilatation. The hepatic veins and portal veins are patent. Gallbladder: Surgically absent noting clips in the gallbladder fossa. Spleen: Normal in size and attenuation. Pancreas: Atrophic and grossly unremarkable. Adrenal glands: Unremarkable. Kidneys: The contrast enhanced kidneys atrophic and without hydronephrosis. The kidneys enhance symmetrically. Bilateral renal cysts measure up to 5.1 cm. Additional cortical hypodensities also likely cysts but are too small for definitive characterization. Nonobstructing left renal calculi measure up to 9 mm. Abdominal vasculature: There is advanced atherosclerotic calcification and ectasia of the abdominal aorta. 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 Bowel: There is mild to moderate colonic fecal retention. No bowel obstruction is seen. There are scattered colonic diverticula without CT evidence of acute diverticulitis. The appendix is not identified and reported surgically absent. Peritoneum: There is no intraperitoneal free air or abdominal ascites. There is evidence of previous ventral hernia repair. Lymphadenopathy: Prominent periportal lymph nodes have decreased in size from 09/21/2017. The largest node now measures 11 mm in short axis. There is no retroperitoneal, pelvic sidewall, mesenteric, or inguinal lymphadenopathy. Pelvic viscera: The prostate gland is enlarged and heterogeneous noting median lobe hypertrophy. The bladder wall is thickened and trabeculated indicating chronic outlet obstruction. Skeletal structures: The skeletal structures are osteopenic. There is moderate to advanced lumbosacral spondylosis and mild scoliosis. No lytic or blastic lesions are seen. IMPRESSION: 1. There are no acute infectious or inflammatory findings in the abdomen or pelvis. 2. There is mild/moderate colonic fecal retention. No bowel obstruction is seen. 3. Nonobstructing left renal calculi. 4. Cardiomegaly. 5. 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 6. Additional findings as above. Electronically signed by: Jesús Burnett M.D. 02/03/2018 10:33 PM Dictated Date/Time: 02/03/2018 10:23 PM Laboratory Results 02/03/18 20:07 Red Blood Count 4.38, Mean Corpuscular Volume 89.0, Mean Corpuscular Hemoglobin 29.9, Mean Corpuscular Hemoglobin Concent 33.6, Mean Platelet Volume 9.8, Neutrophils (%) (Auto) 51.0, Lymphocytes (%) (Auto) 25.8, Monocytes (%) (Auto) 17.9, Eosinophils (%) (Auto) 4.6, Basophils (%) (Auto) 0.5, Neutrophils # (Auto ) 2.20, Lymphocytes # (Auto) 1.11, Monocytes # (Auto) 0.77, Eosinophils # (Auto ) 0.20, Basophils # (Auto) 0.02 02/03/18 20:07 02/03/18 21:31 Test 02/03/18 20:07 02/03/18 21:31 White Blood Count 4.31 K/uL (4.8-10.8) Red Blood Count 4.38 M/uL (4.7-6.1) Hemoglobin 13.1 g/dL (14.0-18.0) Hematocrit 39.0 % (42-52) Mean Corpuscular Volume 89.0 fL (80-100) Mean Corpuscular Hemoglobin 29.9 pg (25-34) Mean Corpuscular Hemoglobin Concent 33.6 g/dl (32-36) Platelet Count 162 K/uL (130-400) Mean Platelet Volume 9.8 fL (7.4-10.4) Neutrophils (%) (Auto) 51.0 % Lymphocytes (%) (Auto) 25.8 % Monocytes (%) (Auto) 17.9 % Eosinophils (%) (Auto) 4.6 % Basophils (%) (Auto) 0.5 % Neutrophils # (Auto) 2.20 K/uL (1.4-6.5) Lymphocytes # (Auto) 1.11 K/uL (1.2-3.4) Monocytes # (Auto) 0.77 K/uL (0.11-0.59) Eosinophils # (Auto) 0.20 K/uL (0-0.5) Basophils # (Auto) 0.02 K/uL (0-0.2) RDW Standard Deviation 46.7 fL (36.4-46.3) RDW Coefficient of Variation 14.4 % (11.5-14.5) Immature Granulocyte % (Auto) 0.2 % Immature Granulocyte # (Auto) 0.01 K/uL (0.00-0.02) Venous Blood pH 7.36 (7.36-7.41) Venous Blood Partial Pressure CO2 50 mmHg (38.0-50.0) Venous Blood Partial Pressure O2 35 mmHg Venous Blood HCO3 28 mmol/L Venous Blood Oxygen Saturation 62.7 % Venous Blood Base Excess 1.5 mEq/L Anion Gap 5.0 mmol/L (3-11) Est Creatinine Clear Calc Drug Dose 47.5 ml/min Estimated GFR () 62.5 Estimated GFR (Non- 53.9 BUN/Creatinine Ratio 15.5 (10-20) Lactic Acid Level 1.1 mmol/L (0.4-2.0) Calcium Level 8.7 mg/dl (8.5-10.1) Total Bilirubin 1.3 mg/dl (0.2-1) Alanine Aminotransferase (ALT/SGPT) 18 U/L (12-78) Alkaline Phosphatase 48 U/L (45-117) Total Protein 7.3 gm/dl (6.4-8.2) Albumin 3.7 gm/dl (3.4-5.0) Lipase 119 U/L (73-393) Direct Bilirubin 0.3 mg/dl (0-0.2) Aspartate Amino Transf (AST/SGOT) 22 U/L (15-37) Troponin I < 0.015 ng/ml (0-0.045) Laboratory results reviewed by me Medications Administered Medications (Trade) Dose Ordered Sig/Vicky Route Start Time Stop Time Status Last Admin Dose Admin Morphine Sulfate (MoRPHine SULFATE INJ) 4 mg NOW STAT IV 02/03/18 19:36 02/03/18 19:39 DC 02/03/18 20:29 4 MG Sodium Chloride 500 ml @ 500 mls/hr Q1H STAT IV 02/03/18 19:36 02/03/18 20:35 DC 02/03/18 20:27 500 MLS/HR Acetaminophen (Tylenol Tab) 650 mg NOW STAT PO 02/03/18 22:32 02/03/18 22:33 DC 02/03/18 22:42 650 MG Miscellaneous Medication (Gi Cocktail) 24 ml ONE STAT PO 02/03/18 22:32 02/03/18 22:33 DC 02/03/18 22:42 24 ML ECG Per My Interpretation Indication: abdominal pain Rate (beats per minute): 71 Rhythm: normal sinus Findings: T-wave inversion (Anterior), left axis deviation, other (normal intervals) Comparison ECG Date: 09/22/2017 Change: TWI are new. ED Course 1928: The patient was evaluated in room C2B. A complete history and physical exam was performed. 2221: I reevaluated the patient and he is doing well. 2301: I reevaluated the patient and updated him on his test results. We are awaiting a troponin. 2355: I reevaluated the patient. Discussed results and discharge instructions: He verbalized understanding and agreement. The patient is ready for discharge. Medical Decision The patient is an 87 year old male with a past medical history of a bowel obstruction, hernia repair, carotid stenosis, CKD, GERD, HTN, sepsis, and Staphylococcus aureus septicemia who presents to the ED with a cc of constant abdominal pain beginning yesterday evening. Nursing notes reviewed. Ancillary studies and prior records reviewed. Differential diagnosis: Etiologies such as appendicitis, diverticulitis, PUD, biliary pathology, UTI, pancreatitis, obstruction, mesenteric ischemia, aortic pathology, infections, inflammatory bowel disease, renal colic, as well as others were entertained. Patient was seen and evaluated the bedside. Patient was complaining some abdominal pain beginning yesterday after eating. The patient was able to tolerate 2 subsequent meals thereafter. The patient has not had any nausea vomiting chest pain or shortness of breath. Patient does have reproducible periumbilical tenderness. The patient does have prior history of a ventral hernia which was repaired in the past. Patient no longer has a gallbladder or appendix. Patient did have blood work completed along with a gas and lactate the patient was given medications for symptom control. Patient's blood work is fairly unremarkable. Patient is a normal white blood cell count, gas, and lactic acid. Patient has normal kidney function LFTs and lipase. Patient's EKG did show T-wave inversion in the anterior leads. The patient did have a troponin added but the patient only had reproducible abdominal discomfort does not have any chest pain shortness of breath or lower extremity swelling. The patient's troponin was negative. Less likely ACS. The patient CT of the abdomen pelvis that showed the patient does have kidney stones but none that are within the ureters. The patient does have some increased stool burden but the patient has had recent bowel movements. Patient was informed of all findings and the patient was feeling improved after a GI cocktail. Patient is suitable for outpatient follow-up and treatment at this time. Patient was given strict follow-up, discharge, and return precautions. All questions were answered. Patient was deemed suitable for outpatient follow-up at this time. Patient agreed with the plan of care and was safely discharged home. Medication Reconcilliation Current Medication List: was personally reviewed by me Blood Pressure Screening Patient's blood pressure: Elevated blood pressure Blood pressure disposition: Referred to PCP Impression Primary Impression: Dyspepsia Additional Impressions: Abdominal adhesions Constipation Scribe Attestation The scribe's documentation has been prepared under my direction and personally reviewed by me in its entirety. I confirm that the note above accurately reflects all work, treatment, procedures, and medical decision making performed by me. Departure Information Dispostion Home / Self-Care Referrals Bert Gresham M.D. (PCP) Forms HOME CARE DOCUMENTATION FORM, IMPORTANT VISIT INFORMATION Patient Instructions My [facility] Additional Instructions Please return to the emergency department if you have worsening or recurrent symptoms not amenable to at-home treatment. Please call for a follow-up appointment with her primary care physician. Please take your medications as prescribed. If you have other concerns and/or complaints please feel free to also call your primary care physician's office or return the ED for further evaluation, management, and treatment. You may take tylenol 650 mg every 6 hours as needed for pain/fever unless told by your physician to not take it or have liver problems. Take your medications as prescribed. You have been examined and treated today on an emergency basis only. This is not a substitute for, or an effort to provide, complete comprehensive medical care. It is impossible to recognize and treat all injuries or illnesses in a single emergency department visit. It is therefore important that you follow up closely with [facility], your PCP, and/or your specialist(s). Call as soon as possible for an appointment. Thank you for your time and consideration. I look forward to speaking with you again soon. Please don't hesitate to call us if you have any questions. Problem Qualifiers Additional Impressions: Constipation Constipation type: unspecified constipation type Qualified Codes: K59.00 - Constipation, unspecified
[2018-02-04 00:10] VITALS: BP 188/90; PULSE 67; O2SAT 98
== END 2018-02-04 00:11 | disposition home or self-care (01) ==
LOC: C.EDB 18:45 → C.EDC 02-04 00:11
DX: K66.0 Peritoneal adhesions (postprocedural) (postinfection) (principal); K59.00 Constipation, unspecified; K21.9 Gastro-esophageal reflux disease without esophagitis; I12.9 Hypertensive chronic kidney disease with stage 1 through stage 4 chronic kidney disease, or unspecified chronic kidney disease; N18.3 Chronic kidney disease, stage 3 (moderate); M10.9 Gout, unspecified; Z90.49 Acquired absence of other specified parts of digestive tract; Z96.652 Presence of left artificial knee joint; Z87.891 Personal history of nicotine dependence; Z79.82 Long term (current) use of aspirin; Z79.899 Other long term (current) drug therapy; Z88.0 Allergy status to penicillin; Z88.8 Allergy status to other drugs, medicaments and biological substances

== ENCOUNTER 2020-03-17 10:35 | Inpatient (IN) ==
--- OUTSIDE RECORDS SUMMARY | 2020-03-17 10:38 | External Medical Summary | Continuity of Care Document ---
:1930 Author Name Evelyn Mayer Address Unavailable Unavailable , Care Team Providers Name Role Phone Mumtaz DO Unavailable [email or web address] PILGRAM, A Unavailable Unavailable Unavailable Unavailable Unavailable Problems Sepsis (038.9) (A41.9) Benign essential hypertension (401.1) (I10) Pernicious anemia (281.0) (D51.0) Carotid artery stenosis (433.10) (I65.29) IBS (irritable bowel syndrome) (564.1) (K58.9) CKD (chronic kidney disease) (585.9) (N18.9) Gout (274.9) (M10.9) Fatty liver (571.8) (K76.0) Mild degeneration of cervical intervertebral disc (722.4) (M 50.30) Chronic reflux esophagitis (530.11) (K21.0) Vitamin D deficiency (268.9) (E55.9) Aftercare following surgery (V58.89) (Z48.89) Allergies and Adverse Reactions amoxicillin (Allergy) atorvastatin (Allergy) morphine (Allergy) Reaction: Confusion omeprazole (Allergy) PHENobarbital TABS (Allergy) Reaction: R anila Medications Furosemide 20 MG Oral Tablet; TAKE 1 TABLET DAILY NEEDED. Start: 17-May-2017 Refills: 0 Oxybutynin Chloride ER 10 MG Oral Tablet Extended Release 24 Hour; TAKE 1 TABLET DAILY. Start: 17-May-2017 Refills: 0 raNITIdine HCl - 150 MG Oral Capsule; TAKE 1 CAPSULE EVERY 1 2 HOURS DAILY. Start: 17-May-2017 Refills: 0 Losartan Potassium 50 MG Oral Tablet; TAKE 1 TABLET DAILY. Start: 17-May-2017 Refills: 0 30 Tablet Bottle Vitamin D 1000 UNIT TABS; TAKE 1 TABLET DAILY. Start: 17-May-2017 Refills: 0 Tylenol 325 MG Oral Capsule Start: Refills: 0 Ondansetron HCl - 4 MG Oral Tablet; One tablet every 6 hours as needed for nausea Start: 17-May-2017 Quantity: 20 Refills: 0 Promethazine HCl - 25 MG Oral Tablet; TAKE 1 TABLET 3 TIMES DAILY NEEDED. Start: 17-May-2017 Refills: 0 Vitamin Deficiency System-B12 1000 MCG/ML Injection Kit Start: 17-May-2017 Refills: 0 Aspirin 325 MG Oral Tablet; TAKE 1 TABLET DAILY. Start: 13-Jan-2013 Refills: 0 Protonix 40 MG Oral Tablet Delayed Release; TAKE 1 TABLET DA KIP. Start: 13-Jan-2013 Refills: 0 Procedures History of inguinal hernia repair Status : Completed 02-May-2017 0:00 History of knee replacement Status: Comp leted History of appendectomy Status: Complete d History of gallbladder surgery Status: C ompleted History of cataract surgery Status: Comp leted Immunizations Immunizations not documented Family History Mother Family history of No known health problems (V49.89) (Z78.9) Status: Active Father Family history of No known health problems (V49.89) (Z78.9) Status: Active Social History - Smoking Status Never smoked tobacco Plan of Treatment Planned Observations Planned Goals not documented Results No Known Results Results not documented
[2020-03-17] MEDS ORDERED: SODIUM CHLORIDE 0.9% 500 ML IV ONE ×2 (10:52→13:08)
--- NOTE | 2020-03-17 11:02 | Emergency Department Note ---
Impression & Plan Weakness on left side of face, Stroke-like symptoms, Generalized weakness, HTN (hypertension), CKD (chronic kidney disease), stage III ED Provider Note NAME: JESS ESCUDERO AGE: 89 SEX: M ARRIVES VIA: Ambulance INFORMANT: Patient, ED PROVIDER(S): Dago Martinez MD CHIEF COMPLAINT: Left sided weakness PLAN: Disposition: Admit MEDICAL DECISION MAKING: The patient is a pleasant 89-year-old gentleman with a past medical history of chronic diastolic heart failure, hypertension, PVD, fatty liver, previous tobacco abuse, acid reflux, chronic anemia with baseline hemoglobin 11-13 who presents emergency department via EMS for evaluation of left sided weakness with left facial droop that is reported to have started on Wednesday morning and has not improved. The patient is a poor historian but does remember his symptoms s tarting on Wednesday but hopes able to get better. He now realizes that he may have had a stroke. Otherwise he denies fevers, chills, cough, congestion, nausea, vomiting, diarrhea, urinary symptoms. On arrival the patient is fatigued appearing but no acute distress, afebrile with elevated blood pressure 230s/120s and vital signs otherwise stable. On my exam the patient appears to have symmetric strength in all extremities with 4+/5 strength. Intact [id number]. He does have subtle left facial droop with equivocal eyelid involvement. EKG without overt acute ischemia. Chest x-ray negative for acute process. WBC, H/H and platelets within normal limits. Chemistry without acidosis. LFTs unremarkable. Troponin negative/undetectable. TSH within normal limits. UA without evidence of infection. Lyme screen was positive for IgG antibody. CT of the head and CT of the head neck was performed and demonstrates 1.6 cm hypodensity within the colby that is suspicious for infarct though could be artifactual. Additionally note is made of carotid artery disease with 80% stenosis of the proximal right ICA. Upon reevaluation the patient was improved appearing though still with facial droop. Given the equivocal eyelid involvement with positive IgG antibody for Lyme disease will treat with Rocephin. However reasonable to admit the patient for further stroke evaluation. Patient and his at the bedside are agreeable. [facility] the patient for [facility]. Triage Nursing notes reviewed and agree them. Prior medical records reviewed Vital Signs: reviewed and remarkable for hypertension. Differential diagnosis: Infection, dehydration, metabolic abnormality, hypo/hyperglycemia, electrolyte disturbance, anemia, hypoxia, cardiac sources, intracerebral event, toxicologic, neurologic, as well as other pathologies. ER treatment provided: See below. Diagnostics interpreted by me: ECG: Normal sinus rhythm, 83 bpm, no ectopy, left anterior fascicular block, incomplete right bundle branch block, LVH, no overt ST elevation or depression, QTC 458, QRS 120. Similar to 02/03/2018. Cardiac Monitoring: An order for continuous cardiac monitoring was placed and demonstrated normal sinus rhythm, 83 bpm, no ectopy. Laboratory studies: See below Imaging studies: XR chest 1V portable CLINICAL HISTORY: weakness COMPARISON STUDY: Chest radiograph and chest CT September 21, 2017. FINDINGS: There is no pneumothorax or pleural effusion. Lung volumes are mildly diminished. This is unchanged. Mild cardiomegaly and pulmonary vascular congestion are similar to prior exam as well. The appearance of the chest is unchanged. IMPRESSION: No change in appearance of the chest. Mild cardiomegaly and pulmonary vascular congestion. -- CT OF THE HEAD WITHOUT CONTRAST CLINICAL HISTORY: Stroke evaluation COMPARISON STUDY: Head CT September 24, 2017. TECHNIQUE: Helical axial images of the head were obtained without IV contrast. Automated exposure control was utilized for the study. A dose lowering technique was utilized adhering to the principles of ALARA. FINDINGS: No acute intracranial hemorrhage, midline shift or mass effect is present. Ventricular system is unremarkable. The basilar cisterns are patent. Prominence of the extra-axial spaces is due to atrophy. Note is made of a 1.6 cm hypodensity within the right anterior aspect of the colby on axial image 12 of 32. White matter hypodensity suggests small vessel disease. There is no calvarial fracture. Visualized portions of the sinuses and mastoid air cells are clear. IMPRESSION: 1. No acute intracranial hemorrhage. 2. 1.6 cm hypodensity within the right aspect of the colby. This is likely artifactual however an age indeterminate infarct could appear similar. - CTA ANGIOGRAPHY OF THE HEAD CLINICAL HISTORY: Stroke evaluation COMPARISON STUDY: Head CT September 24, 2017. TECHNIQUE: Helical axial images of the head were obtained following uneventful intravenous administration of 120 cc of Optiray 320. Sagittal and coronal reconstructions were viewed as well as maximal intensity projections on an independent 3-D workstation. Automated exposure control was utilized for the study. A dose lowering technique was utilized adhering to the principles of ALARA. CT DOSE: 1194.70 mGy.cm FINDINGS: No acute intracranial hemorrhage, midline shift or mass effect is present. Ventricular system is unremarkable. The basilar cisterns are patent. There is moderate plaque within the bilateral cavernous carotids without significant stenosis. No central vessel occlusion is noted. There is no intraluminal thrombus. There is mild stenosis of the basilar artery. Multiple additional mild stenosis within the intracranial vessels are noted. IMPRESSION: 1. No central vessel occlusion. No intracranial aneurysm. 2. Mild multifocal stenoses within the intracranial vessels. --- CT ANGIOGRAPHY OF THE NECK WITH CONTRAST CLINICAL HISTORY: Stroke evaluation COMPARISON STUDY: No previous studies for comparison. Technique: CT angiography of the carotid and vertebral arteries was obtained using Sp[employer]cast[employer] 320 IV and 3D reconstruction on an independent workstation. NASCET criteria was utilized. Automated exposure control was utilized for the study. A dose lowering technique was utilized adhering to the principles of ALARA. Findings: Lung apices are clear. There is no cervical spine fracture. There is no cervical lymphadenopathy. There is moderate stenosis at the origin of the left vertebral artery. No dissection within the major vessels of the neck. The right vertebral artery is patent. There is extensive plaque within the proximal right internal carotid artery. At site of narrowing, the right internal carotid artery measures 1.2 mm in caliber. This vessel measures 4.8 mm distally. There is also extensive plaque within the proximal left internal carotid artery. At site of narrowing, the vessel measures 2.6 mm in caliber. This vessel measures 4.4 mm distally. There is no intraluminal thrombus. IMPRESSION: 1. Extensive plaque within the proximal bilateral internal carotid arteries. 80% stenosis of the proximal right internal carotid artery. 2. 40% stenosis of the proximal left internal carotid artery. 3. Moderate stenosis at the origin of the left vertebral artery. Consultation(s): Case was [facility] who will [facility] the patient for admission. HPI: The patient is a pleasant 89-year-old gentleman with a past medical history of chronic diastolic heart failure, hypertension, PVD, fatty liver, previous tobacco abuse, acid reflux, chronic anemia with baseline hemoglobin 11-13 who presents emergency department via EMS for evaluation of left sided weakness with left facial droop that is reported to have started on Wednesday morning and has not improved. The patient is a poor historian but does remember his symptoms starting on Wednesday but hopes able to get better. He now realizes that he may have had a stroke. Otherwise he denies fevers, chills, cough, congestion, nausea, vomiting, diarrhea, urinary symptoms. ROS: See above HPI for pertinent positives & negatives. A total of 10 systems reviewed and were otherwise negative. PAST MEDICAL HISTORY:See Below PAST SURGICAL HISTORY:See Below FAMILY HISTORY:See Below SOCIAL HISTORY:See Below HOME MEDICATIONS:See Below ALLERGIES:See Below VITALS:See Below PHYSICAL EXAMINATION: GENERAL: Awake, alert, fatigued-appearing, in no distress HENT: Normocephalic, atraumatic. Oropharynx with dry mucous membranes and otherwise unremarkable. . EYES: Normal conjunctiva. Sclera non-icteric. EOMI. No nystamgus. PEARRL. NECK: Supple. No nuchal rigidity. FROM. No JVD. RESPIRATORY: Clear to auscultation. CARDIAC: Regular rate, normal rhythm. Extremities warm and well perfused. Pulses equal. ABDOMEN: Soft, non-distended. No tenderness to palpation. No rebound or guarding. No masses. RECTAL: Deferred. MUSCULOSKELETAL: Chest examination reveals no tenderness. The back is symmetrical on inspection without obvious abnormality. There is no CVA tenderness to palpation. No joint edema. LOWER EXTREMITIES: Calves are equal size bilaterally and non-tender. No edema. No discoloration. NEURO: Subtle left sided facial droop at rest with equivocal eyelid involvement. 4+/5 strength in all extremities. Intact finger to nose. SKIN: No rash or jaundice noted. Dago Martinez MD Past Med/Surg History Medical History BPH (benign prostatic hyperplasia) Carotid artery stenosis "50-69% MADALYN, < 50% LICA 01/2014 " CKD (chronic kidney disease), stage III Diastolic heart failure Fatty liver GERD (gastroesophageal reflux disease) Gout HTN (hypertension) Pernicious anemia Surgical History S/P appendectomy S/P cholecystectomy S/P repair of ventral hernia Status post total left knee replacement Family History Other Family history non-contributory Social History Smoking Status: Unknown if ever smoked Do You Dip or Chew Tobacco: No; Hx Alcohol Use: No Hx Substance Use: No Preferred Language: Jamaican Communication Ability: Effective Regional Marketing Manager Required: No Beliefs That Will Affect Care: None Current Living Situation: Spouse Other Information That Helps Us Care for You: No Feels Safe at Home: Yes Safety Concerns: Feels Safe At This Time Assistive Devices: Denture - Upper, Denture - Lower and Glasses Allergies Allergies Allergy/AdvReac Type Severity Reaction Status Date / Time amoxicillin Allergy Severe SWELLING Verified 03/17/20 11:14 OF TONGUE AND THROAT baclofen Allergy Unknown VERY SLEEPY Unverified 03/17/20 11:14 daptomycin Allergy Unknown unknown Verified 03/17/20 11:14 omeprazole Allergy Unknown ? Verified 03/17/20 11:14 phenobarbital Allergy Unknown ? Verified 03/17/20 11:14 Waccasm-Mqr-Aya Reductase Allergy Unknown RASH Verified 03/17/20 11:14 Inhibitor Home Meds Home Medications Medication Instructions Recorded Confirmed acetaminophen [Tylenol Extra 1,500 mg PO Q6H PRN 08/27/18 03/17/20 Strength] aspirin 81 mg PO QAM 08/27/18 03/17/20 losartan 50 mg PO QAM 08/27/18 03/17/20 sennosides-docusate sodium 1 tab PO QAM 08/27/18 03/17/20 famotidine 20 mg PO DAILY 03/17/20 03/17/20 oxybutynin chloride 10 mg PO WM 03/17/20 03/17/20 Results & Data (ED) Vital Signs Vital Signs - 24 hr 03/17/20 10:42 03/17/20 12:19 03/17/20 12:30 Temperature 36.7 C Temperature Source Oral Pulse Rate 87 77 82 Pulse Rate from SpO2 Sensor 77 82 Respiratory Rate 20 23 22 Blood Pressure 238/122 H 192/99 H 189/117 H Blood Pressure Mean 160 132 140 Pulse Oximetry 95 96 97 Oxygen Delivery Method Room Air Sepsis Recent Fever Within 48 Hours No Sepsis New/Unexplained Change in Mental Status No Sepsis Action Taken by Nursing No Action Required 03/17/20 13:00 03/17/20 13:30 03/17/20 14:00 Temperature Temperature Source Pulse Rate 75 82 75 Pulse Rate from SpO2 Sensor 75 81 79 Respiratory Rate 28 H 22 19 Blood Pressure 186/101 H 192/108 H 210/103 H Blood Pressure Mean 139 138 134 Pulse Oximetry 95 96 96 Oxygen Delivery Method Sepsis Recent Fever Within 48 Hours Sepsis New/Unexplained Change in Mental Status Sepsis Action Taken by Nursing Laboratory Data Attestation: I reviewed the patient's lab results. Result diagrams: 03/17/20 10:55 03/17/20 10:55 Lab Results 03/17/20 03/17/20 03/17/20 Range/Units 10:55 10:55 10:55 WBC 6.39 (4.8-10.8) K/uL RBC 5.11 (4.7-6.1) M/uL Hgb 15.4 (14.0-18.0) g/dL POC Hgb (14.0-18.0) g/dl Hct 46.3 (42-52) % POC Hct (42-52) % MCV 90.6 (80-100) fL MCH 30.1 (25-34) pg MCHC 33.3 (32-36) g/dL RDW Std Deviation 45.5 (36.4-46.3) fL RDW Coeff of Mere 13.8 (11.5-14.5) % Plt Count 172 (130-400) K/uL MPV 10.1 (7.4-10.4) fL Immature Gran % (Auto) 0.3 % Neut % (Auto) 67.6 % Lymph % (Auto) 16.6 % Winn % (Auto) 11.7 % Eos % (Auto) 3.6 % Baso % (Auto) 0.2 % Neut # (Auto) 4.32 (1.4-6.5) K/uL Lymph # (Auto) 1.06 L (1.2-3.4) K/uL Winn # (Auto) 0.75 H (0.11-0.59) K/uL Eos # (Auto) 0.23 (0-0.5) K/uL Baso # (Auto) 0.01 (0-0.2) K/uL Immature Gran # (Auto) 0.02 (0.00-0.02) K/uL Absolute Nucleated RBC 0.00 (0-0) K/uL Nucleated RBC % (auto) 0.0 % PT 10.9 (9.0-12.0) Seconds INR 1.0 (0.9-1.1) APTT 28.9 (21.0-31.0) Seconds PTT Ratio 1.0 POC Sodium (135-144) mmol/L Sodium 139 (136-145) mmol/L POC Potassium (3.3-5.0) mmol/L Potassium 4.6 (3.5-5.1) mmol/L POC Chloride (101-112) mmol/L Chloride 104 (98-107) mmol/L Carbon Dioxide 29 (21-32) mmol/L POC Total CO2 (24-31) mmol/L Anion Gap 6.0 (3-11) POC Anion Gap (16-25) mmol/L POC BUN (7-18) mg/dl BUN 18 (7-18) mg/dl Creatinine 1.19 (0.6-1.4) mg/dl POC Creatinine (0.6-1.3) mg/dl Est Cr Clr Drug Dosing 47.3 ml/min Est GFR ( Amer) 62.4 Est GFR (Non-Af Amer) 53.8 BUN/Creatinine Ratio 15.3 (10-20) Glucose 100 H (70-99) mg/dl POC Glucose (other) (70-99) mg/dl Calcium 8.9 (8.5-10.1) mg/dl POC Ioniz Calcium [place] (1.12-1.32) mmol/l Phosphorus 2.4 L (2.5-4.9) mg/dl Magnesium 2.1 (1.8-2.4) mg/dl Total Bilirubin 1.4 H (0.2-1) mg/dl AST 16 (15-37) U/L ALT 15 (12-78) U/L Alkaline Phosphatase 63 (45-117) U/L Troponin I < 0.015 (0-0.045) ng/ml Total Protein 7.5 (6.4-8.2) gm/dl Albumin 3.8 (3.4-5.0) gm/dl Globulin 3.7 (2.5-4.0) gm/dl Albumin/Globulin Ratio 1.0 (0.9-2) TSH 1.490 (0.300-4.500) uIu/ml Urine Color Urine Appearance (Clear) Urine pH (4.5-7.5) Ur Specific [place] (1.000-1.030) Urine Protein (Negative) Urine Glucose (UA) (Negative) Urine Ketones (Negative) Urine Blood (Negative) Urine Nitrite (Negative) Urine Bilirubin (Negative) Urine Urobilinogen (Negative) Ur Leukocyte Esterase (Negative) Urine WBC (Auto) (0-5) /hpf Urine RBC (Auto) (0-4) /hpf U Hyaline Cast (Auto) (0-5) /lpf U Epithel Cells (Auto) (0-5) /lpf Urine Bacteria (Auto) (Negative) Anaplasma Smear See Comment Lyme Disease IgG Ab (Negative) Lyme Disease IgM Ab (Negative) 03/17/20 03/17/20 03/17/20 Range/Units 10:55 11:01 12:10 WBC (4.8-10.8) K/uL RBC (4.7-6.1) M/uL Hgb (14.0-18.0) g/dL POC Hgb 16.3 (14.0-18.0) g/dl Hct (42-52) % POC Hct 48 (42-52) % MCV (80-100) fL MCH (25-34) pg MCHC (32-36) g/dL RDW Std Deviation (36.4-46.3) fL RDW Coeff of Mere (11.5-14.5) % Plt Count (130-400) K/uL MPV (7.4-10.4) fL Immature Gran % (Auto) % Neut % (Auto) % Lymph % (Auto) % Winn % (Auto) % Eos % (Auto) % Baso % (Auto) % Neut # (Auto) (1.4-6.5) K/uL Lymph # (Auto) (1.2-3.4) K/uL Winn # (Auto) (0.11-0.59) K/uL Eos # (Auto) (0-0.5) K/uL Baso # (Auto) (0-0.2) K/uL Immature Gran # (Auto) (0.00-0.02) K/uL Absolute Nucleated RBC (0-0) K/uL Nucleated RBC % (auto) % PT (9.0-12.0) Seconds INR (0.9-1.1) APTT (21.0-31.0) Seconds PTT Ratio POC Sodium 138 (135-144) mmol/L Sodium (136-145) mmol/L POC Potassium 4.7 (3.3-5.0) mmol/L Potassium (3.5-5.1) mmol/L POC Chloride 103 (101-112) mmol/L Chloride (98-107) mmol/L Carbon Dioxide (21-32) mmol/L POC Total CO2 26 (24-31) mmol/L Anion Gap (3-11) POC Anion Gap 14.0 L (16-25) mmol/L POC BUN 20 H (7-18) mg/dl BUN (7-18) mg/dl Creatinine (0.6-1.4) mg/dl POC Creatinine 1.1 (0.6-1.3) mg/dl Est Cr Clr Drug Dosing ml/min Est GFR ( Amer) Est GFR (Non-Af Amer) BUN/Creatinine Ratio (10-20) Glucose (70-99) mg/dl POC Glucose (other) 101 H (70-99) mg/dl Calcium (8.5-10.1) mg/dl POC Ioniz Calcium [place] 1.11 L (1.12-1.32) mmol/l Phosphorus (2.5-4.9) mg/dl Magnesium (1.8-2.4) mg/dl Total Bilirubin (0.2-1) mg/dl AST (15-37) U/L ALT (12-78) U/L Alkaline Phosphatase (45-117) U/L Troponin I (0-0.045) ng/ml Total Protein (6.4-8.2) gm/dl Albumin (3.4-5.0) gm/dl Globulin (2.5-4.0) gm/dl Albumin/Globulin Ratio (0.9-2) TSH (0.300-4.500) uIu/ml Urine Color Yellow Urine Appearance Clear (Clear) Urine pH 8.0 H (4.5-7.5) Ur Specific [place] 1.026 (1.000-1.030) Urine Protein Negative (Negative) Urine Glucose (UA) Negative (Negative) Urine Ketones Negative (Negative) Urine Blood Negative (Negative) Urine Nitrite Negative (Negative) Urine Bilirubin Negative (Negative) Urine Urobilinogen Negative (Negative) Ur Leukocyte Esterase Negative (Negative) Urine WBC (Auto) 0 (0-5) /hpf Urine RBC (Auto) 0-4 (0-4) /hpf U Hyaline Cast (Auto) 1-5 (0-5) /lpf U Epithel Cells (Auto) 5-10 H (0-5) /lpf Urine Bacteria (Auto) Negative (Negative) Anaplasma Smear Lyme Disease IgG Ab Positive A (Negative) Lyme Disease IgM Ab Negative (Negative) Administered Medications Lorazepam (Lorazepam 0.5 Mg Tab) 0.5 mg PO TODAY@1800 KITTY Stop: 03/18/20 17:59 Last Admin: 03/17/20 21:04 Dose: Not Given Documented by: [id number] Polyethylene Glycol (Polyethylene (Miralax) 17 Gm Pack) 17 gm PO DAILY KITTY Stop: 04/16/20 18:44 Last Admin: 03/17/20 21:04 Dose: Not Given Documented by: [id number] Discontinued Medications Clopidogrel Bisulfate (Clopidogrel Bisulfate 75 Mg Tab) 75 mg PO NOW ONE Stop: 03/17/20 18:37 Last Admin: 03/17/20 21:04 Dose: Not Given Documented by: [id number] Diphenhydramine HCl (Diphenhydramine Hcl 50 Mg/Ml Vial) 12.5 mg IV ONE ONE Stop: 03/17/20 14:49 Last Admin: 03/17/20 21:04 Dose: Not Given Documented by: [id number] Sodium Chloride (Nss) 500 mls @ 999 mls/hr IV .Q31M ONE Stop: 03/17/20 11:22 Last Infusion: 03/17/20 11:52 Dose: 0 mls/hr Documented by: [id number] Admin: 03/17/20 11:21 Dose: 999 mls/hr Documented by: [id number] Sodium Chloride (Nss) 500 mls @ 999 mls/hr IV .Q31M ONE Stop: 03/17/20 13:38 Last Infusion: 03/17/20 14:01 Dose: 0 mls/hr Documented by: [id number] Admin: 03/17/20 13:30 Dose: 999 mls/hr Documented by: [id number] Ceftriaxone Sodium (Rocephin) 2,000 mg in 70 mls @ 140 mls/hr IV NOW STA Stop: 03/17/20 14:06 Last Infusion: 03/17/20 15:08 Dose: 0 mls/hr Documented by: [id number] Admin: 03/17/20 13:57 Dose: 140 mls/hr Documented by: [id number] Ioversol (Optiray 320 125ml) 120 ml IV ONCE ONE Stop: 03/17/20 11:15 Last Admin: 03/17/20 11:14 Dose: 120 ml Documented by: [id number] Labetalol HCl (Labetalol Hcl Iv 5 Mg/Ml 20ml) 5 mg IV NOW STA Stop: 03/17/20 14:27 Last Admin: 03/17/20 14:45 Dose: Not Given Documented by: [id number] Blood Pressure Blood Pressure Findings: Elevated blood pressure Blood Pressure Disposition: further management by hospitalist Discharge Plan Visit Data Chief Complaint: Stroke/CVA Symptoms Stated Complaint: stroke symptoms ED Provider: Dago Martinez Discharge Problem: Weakness on left side of face, Stroke-like symptoms, Generalized weakness, HTN (hypertension), CKD (chronic kidney disease), stage III Patient Disposition: Admitted As Inpatient Discharge Instructions Interventions: ED Discharge Assessment Last Done: 03/17/20 15:15
[2020-03-17 11:06] LABS: Basophils # (auto) 0.01 K/uL (0-0.2); Basophils % (auto) 0.2 %; Eosinophils # (auto) 0.23 K/uL (0-0.5); Eosinophils % (auto) 3.6 %; Hematocrit (blood only) 46.3 % (42-52); Hemoglobin 15.4 g/dL (14.0-18.0); Immature Granulocytes # (auto) 0.02 K/uL (0.00-0.02); Immature Granulocytes % (auto) 0.3 %; Lymphocytes # (auto) 1.06 K/uL (1.2-3.4); Lymphocytes % (auto) 16.6 %; Mean Corpuscular Hemoglobin 30.1 pg (25-34); Mean Corpuscular Hgb Conc 33.3 g/dL (32-36); Mean Corpuscular Volume 90.6 fL (80-100); Mean Platelet Volume 10.1 fL (7.4-10.4); Monocytes # (auto) 0.75 K/uL (0.11-0.59); Monocytes % (auto) 11.7 %; Neutrophils # (auto) 4.32 K/uL (1.4-6.5); Neutrophils % (auto) 67.6 %; Platelet Count 172 K/uL (130-400); RDW Coefficient of Variation 13.8 % (11.5-14.5); RDW Standard Deviation 45.5 fL (36.4-46.3); Red Blood Count 5.11 M/uL (4.7-6.1); White Blood Count 6.39 K/uL (4.8-10.8)
[2020-03-17] MEDS ORDERED: OPTIRAY 320 125ml IV ONE (11:14)
[2020-03-17 11:18] LABS: Partial Thromboplastin Time 28.9 Seconds (21.0-31.0); Prothrombin Time 10.9 Seconds (9.0-12.0)
[2020-03-17 11:24] LABS: Alanine Aminotransferase 15 U/L (12-78); Albumin Level 3.8 gm/dl (3.4-5.0); Aspartate Aminotransferase 16 U/L (15-37); BUN Creatinine Ratio 15.3 (10-20); Blood Urea Nitrogen 18 mg/dl (7-18); Calcium 8.9 mg/dl (8.5-10.1); Carbon Dioxide 29 mmol/L (21-32); Chloride 104 mmol/L (98-107); Creatinine Clr Calc Pharmacy 47.3 ml/min; Est GFR (African American) 62.4; Est GFR (Non-African American) 53.8; Glucose 100 mg/dl (70-99); Magnesium 2.1 mg/dl (1.8-2.4); Potassium 4.6 mmol/L (3.5-5.1); Sodium 139 mmol/L (136-145)
[2020-03-17 11:35] LABS: Alkaline Phosphatase 63 U/L (45-117); Bilirubin,Total 1.4 mg/dl (0.2-1); Globulin 3.7 gm/dl (2.5-4.0); Phosphorus 2.4 mg/dl (2.5-4.9); Total Protein 7.5 gm/dl (6.4-8.2); Troponin I < 0.015 ng/ml (0-0.045)
--- NOTE | 2020-03-17 11:51 | CT Scan Report ---
CT OF THE HEAD WITHOUT CONTRAST CLINICAL HISTORY: Stroke evaluation COMPARISON STUDY: Head CT September 24, 2017. TECHNIQUE: Helical axial images of the head were obtained without IV contrast. Automated exposure con trol was utilized for the study. A dose lowering technique was utilized adhering to the principles o f ALARA. FINDINGS: No acute intracranial hemorrhage, midline shift or mass effect is present. Ventricular syst em is unremarkable. The basilar cisterns are patent. Prominence of the extra-axial spaces is due to a trophy. Note is made of a 1.6 cm hypodensity within the right anterior aspect of the colby on axial im age 13 of 33. White matter hypodensity suggests small vessel disease. There is no calvarial fracture. Visualized portions of the sinuses and mastoid air cells are clear. IMPRESSION: 1. No acute intracranial hemorrhage. 2. 1.6 cm hypodensity within the right aspect of the colby. This is likely artifactual however an age indeterminate infarct could appear similar. ACT 112: Negative or not required by law. Electronically signed by: Justino Power M.D. 03/17/2020 11:50 AM
--- NOTE | 2020-03-17 11:57 | Electrocardiogram Report ---
Test Reason : Blood Pressure : / mmHG Vent. Rate : 083 BPM Atrial Rate : 083 BPM P-R Int : 172 ms QRS Dur : 120 ms QT Int : 390 ms P-R-T Axes : 063 -56 062 degrees QTc Int : 458 ms Normal sinus rhythm Left anterior fascicular block Incomplete right bundle branch block Left ventricular hypertrophy with QRS widening and repolarization abnormality Abnormal ECG When compared with ECG of 03-FEB-2018 20:41, No significant change was found Confirmed by Willis Lewis ([id number]) on 03/17/2020 11:56:42 AM Referred By: REFERRED SELF Confirmed By:Willis Lewis
--- NOTE | 2020-03-17 12:05 | CT Scan Report ---
CT ANGIOGRAPHY OF THE NECK WITH CONTRAST CLINICAL HISTORY: Stroke evaluation COMPARISON STUDY: No previous studies for comparison. Technique: CT angiography of the carotid and vertebral arteries was obtained using [employer] 320 IV and 3D reconstruction on an independent workstation. NASCET criteria was utilized. Automated exposure c ontrol was utilized for the study. A dose lowering technique was utilized adhering to the principles of ALARA. Findings: Lung apices are clear. There is no cervical spine fracture. There is no cervical lymphadeno tray. There is moderate stenosis at the origin of the left vertebral artery. No dissection within th e major vessels of the neck. The right vertebral artery is patent. There is extensive plaque within t he proximal right internal carotid artery. At site of narrowing, the right internal carotid artery me asures 1.2 mm in caliber. This vessel measures 4.8 mm distally. There is also extensive plaque within the proximal left internal carotid artery. At site of narrowing, the vessel measures 2.6 mm in calib er. This vessel measures 4.4 mm distally. There is no intraluminal thrombus. IMPRESSION: 1. Extensive plaque within the proximal bilateral internal carotid arteries. 80% stenosis of the prox imal right internal carotid artery. 2. 40% stenosis of the proximal left internal carotid artery. 3. Moderate stenosis at the origin of the left vertebral artery. ACT 112: Negative or not required by law. Electronically signed by: Justino Power M.D. 03/17/2020 12:04 PM
--- NOTE | 2020-03-17 12:09 | CT Scan Report ---
CTA ANGIOGRAPHY OF THE HEAD CLINICAL HISTORY: Stroke evaluation COMPARISON STUDY: Head CT September 24, 2017. TECHNIQUE: Helical axial images of the head were obtained following uneventful intravenous administr ation of 120 cc of Optiray 320. Sagittal and coronal reconstructions were viewed as well as maximal i ntensity projections on an independent 3-D workstation. Automated exposure control was utilized for the study. A dose lowering technique was utilized adhering to the principles of ALARA. CT DOSE: 1194.70 mGy.cm FINDINGS: No acute intracranial hemorrhage, midline shift or mass effect is present. Ventricular syst em is unremarkable. The basilar cisterns are patent. There is moderate plaque within the bilateral ca vernous carotids without significant stenosis. No central vessel occlusion is noted. There is no intr aluminal thrombus. There is mild stenosis of the basilar artery. Multiple additional mild stenosis wi thin the intracranial vessels are noted. IMPRESSION: 1. No central vessel occlusion. No intracranial aneurysm. 2. Mild multifocal stenoses within the intracranial vessels. ACT 112: Negative or not required by law. Electronically signed by: Justino Power M.D. 03/17/2020 12:08 PM
[2020-03-17 12:36] LABS: Appearance Urine Clear (Clear); Bacteria Urine Automated Negative (Negative); Bilirubin Urine Negative (Negative); Blood Urine Negative (Negative); Color Urine Yellow; Glucose Urine UA Negative (Negative); Ketones Urine Negative (Negative); Leukocyte Esterase Urine Negative (Negative); Nitrite Urine Negative (Negative); RBC Urine Automated 0-4 /hpf (0-4); Specific Gravity Urine 1.026 (1.000-1.030); Urobilinogen Urine Negative (Negative); WBC Urine Automated 0 /hpf (0-5)
--- NOTE | 2020-03-17 12:40 | XRay Report ---
XR chest 1V portable CLINICAL HISTORY: weakness COMPARISON STUDY: Chest radiograph and chest CT September 21, 2017. FINDINGS: There is no pneumothorax or pleural effusion. Lung volumes are mildly diminished. This is u nchanged. Mild cardiomegaly and pulmonary vascular congestion are similar to prior exam as well. The appearance of the chest is unchanged. IMPRESSION: No change in appearance of the chest. Mild cardiomegaly and pulmonary vascular congestio n. ACT 112: Negative or not required by law. Electronically signed by: Justino Power M.D. 03/17/2020 12:38 PM
[2020-03-17 12:45] LABS: Protein Urine Negative (Negative); Sulfosalicylic Acid Urine Negative (Negative)
[2020-03-17 13:22] LABS: Lyme Ab IgM w/WB Rflx Negative (Negative)
[2020-03-17 13:24] LABS: Lyme Ab IgG w/WB Rflx Positive (Negative)
[2020-03-17] MEDS ORDERED: cefTRIAXone SODIUM 2,000 MG/70 ML BAG IV STA (13:37)
[2020-03-17] MEDS ORDERED: PHARMACIST DISCHARGE MED REC CONSULT PRN (14:18)
[2020-03-17] MEDS ORDERED: ACETAMINOPHEN 325 MG TAB PO PRN (14:25)
[2020-03-17] MEDS ORDERED: LABETALOL HCL IV 5 MG/ML 20ML IV STA (14:26)
--- NOTE | 2020-03-17 14:47 | History & Physical Report ---
Date of Service March 17, 2020 Assessment & Plan (1) Stroke-like symptoms: (2) Weakness on left side of face: (3) Generalized weakness: Patient presents with generalized weakness and left facial droop On physical exam, there is no weakness in his upper or lower extremities noted per my exam or per ED physician's exam, however patient continues to complain of weakness He does have slight left facial droop, noted especially at the corner of his mouth, eyebrows raise seem normal bilaterally Head CT did not show acute intracranial hemorrhage. It showed 1.6 cm hypodensity within the right aspect of the colby, which could be possibly due to infarct or artifact. CT neck showed extensive plaque within the proximal bilateral internal carotid arteries. 80% stenosis of the proximal right internal carotid artery, and 40% stenosis of the proximal left internal carotid artery. Moderate stenosis at the origin of the left vertebral artery. ECG showed sinus rhythm, w/left anterior fascicular block and incomplete right bundle branch block, no significant change from previous ECG Patient took a full aspirin on Wednesday and Wednesday, he took baby aspirin today We will admit patient to telemetry We will obtain brain MRI We will obtain echocardiogram Neurology consult Patient hypertensive in ED SBP in 200s, will allow for permissive hypertension for now, will closely monitor ICA stenosis noted, patient has known history of ICA stenosis, will consult vascular surgery Dysphasia evaluation, if he passes patient will be started on home medications and Plavix, patient has allergy to statins We will obtain fasting LDL, hemoglobin A1c Lyme panel was ordered in ED, IgG is positive and patient received 1 dose of Rocephin, will continue for now until results available Blood smear ordered as well as Anaplasma PCR PT OT (4) HTN (hypertension): -Continue to closely monitor as above -At home patient is on losartan, which he already took this morning (5) Carotid artery stenosis: -Patient with known ICA stenosis, will consult with vascular surgery as above (6) CKD (chronic kidney disease), stage III: -Continue to monitor, try to avoid nephrotoxic agents -Patient received contrast for brain imaging (7) GERD (gastroesophageal reflux disease): -Continue PPI while inpt Dispo: likely home after PT/OT eval DVT ppx: SCDs Code: full History of Present Illness Chief Complaint: Generalized weakness, left facial droop Primary Care Provider: Bert Gresham MD Patient is an 89-year-old male, with history of hypertension, PVD, chronic diastolic heart failure, fatty liver, previous tobacco user, history of pernicious anemia, who presents with generalized weakness and left facial droop. Initially per EMR record, it was reported that patient had left-sided weakness and left-sided facial droop, however after discussing with the patient and his at the bedside, patient insists that he feels weakness in both of his legs and arms, weakness started Wednesday in the morning. Patient and his report that patient was still mowing his lawn on , he says that he did not feel like doing it but he still updated and was okay. However on Wednesday morning he felt like he cannot do anything. He reports that he felt better on Wednesday however he was not doing anything on Wednesday. Today after urging of his , patient presented to the hospital as he felt he was not getting any better. reports that she gave him full dose of aspirin 325 on Wednesday and Wednesday, and patient was hopeful that he will feel better and did not want to go to hosp ital. In emergency room, CT of the head, CTA of head and neck were performed and Lyme panel was ordered as well. Head CT did not show acute intracranial hemorrhage. It showed 1.6 cm hypodensity within the right aspect of the colby, which could be possibly due to infarct or artifact. CT neck showed extensive plaque within the proximal bilateral internal carotid arteries. 80% stenosis of the proximal right internal carotid artery, and 40% stenosis of the proximal left internal carotid artery. Moderate stenosis at the origin of the left vertebral artery. Patient was also found quite hypertensive in the emergency room, with systolic blood pressures in 200s. He received IV fluids. Patient reports he already took all his home medications including baby aspirin this morning and losartan. He has listed allergy to atorvastatin, patient does not remember this, however in our EMR it states that he had a rash. Allergies Allergy/AdvReac Type Severity Reaction Status Date / Time amoxicillin Allergy Severe SWELLING Verified 03/17/20 11:14 OF TONGUE AND THROAT baclofen Allergy Unknown VERY SLEEPY Unverified 03/17/20 11:14 daptomycin Allergy Unknown unknown Verified 03/17/20 11:14 omeprazole Allergy Unknown ? Verified 03/17/20 11:14 phenobarbital Allergy Unknown ? Verified 03/17/20 11:14 Jkgknhv-Eof-Lti Reductase Allergy Unknown RASH Verified 03/17/20 11:14 Inhibitor Home Medications Home Medications Medication Instructions Recorded Confirmed Type acetaminophen [Tylenol Extra 1,500 mg PO Q6H PRN 08/27/18 03/17/20 History Strength] aspirin 81 mg PO QAM 08/27/18 03/17/20 History losartan 50 mg PO QAM 08/27/18 03/17/20 History sennosides-docusate sodium 1 tab PO QAM 08/27/18 03/17/20 History famotidine 20 mg PO DAILY 03/17/20 03/17/20 History oxybutynin chloride 10 mg PO WM 03/17/20 03/17/20 History Past Med/Surg History Medical History (Updated 03/17/20 @ 15:26 by Johnson Quan MD) BPH (benign prostatic hyperplasia) Carotid artery stenosis "50-69% MADALYN, < 50% LICA 01/2014 " CKD (chronic kidney disease), stage III Diastolic heart failure Fatty liver GERD (gastroesophageal reflux disease) Gout HTN (hypertension) Pernicious anemia Surgical History S/P appendectomy S/P cholecystectomy S/P repair of ventral hernia Status post total left knee replacement Family History Other Family history non-contributory Social History Smoking Status: Unknown if ever smoked Do You Dip or Chew Tobacco: No; Hx Alcohol Use: No Hx Substance Use: No Preferred Language: Botswanan Communication Ability: Effective Supervisor D[employer] Required: No Beliefs That Will Affect Care: None Current Living Situation: Spouse Other Information That Helps Us Care for You: No Feels Safe at Home: Yes Safety Concerns: Feels Safe At This Time Assistive Devices: Denture - Upper, Denture - Lower and Glasses Review of Systems Review of Systems: All systems reviewed & are unremarkable except as noted in HPI & below Constitutional: + weakness (Generalized); no fever and no chills Eyes: no problem reported Ear, Nose, Mouth, Throat: no problem reported Respiratory: no problem reported Cardiovascular: no chest pain, no palpitations and no edema Gastrointestinal: + constipation; no abdominal pain, no nausea and no vomiting Poor appetite Genitourinary: no problem reported Musculoskeletal: + muscle weakness Integumentary: no problem reported Neurologic: + generalized weakness Left facial droop Psychiatric: no problem reported Endocrine: no problem reported Hematologic / Lymphatic: no problem reported Physical Exam Physical Exam: Elderly male sitting up in the bed, in no acute distress, very hard of hearing Constitutional: WD/WN, vitals as above no acute distress Eyes: PERRL, conjunctivae normal, anicteric sclerae EOM intact bilaterally ENMT: external ear and nose normal, oropharynx normal Left facial droop noted Neck: trachea midline, no thyromegaly normal visual inspection Respiratory: normal respiratory effort, lungs clear to auscultation Auscultation: no crackles, no rhonchi and no wheezes Cardiovascular: RRR, no murmur, no edema Chest (Breasts): Chest: normal inspection of chest Gastrointestinal (Abdomen): Inspection/Auscultation: abdomen normal to inspection and normal bowel sounds; abdomen not distended Percussion/Palpation: abdomen soft; abdomen nontender, no guarding and abdomen not rigid Musculoskeletal: Head/Neck/Chest: normocephalic and head atraumatic Extremities: extremities normal to inspection Skin: no rashes, warm and dry Neurologic: moves all extremities Speech fluent, very hard of hearing, left facial droop slight noted, EOMI, PERRL, eyebrows raise equal, tongue midline, moves all 4 extremities spontaneously and without difficulty, strength 5 out of 5 in all major muscle groups, no sensory loss noted, [id number] normal bilaterally, [id number] normal bilaterally, gait was not assessed Psychiatric: A+Ox3, euthymic affect Genitourinary: no CVA tenderness Results & Data Results & Data ([facility]) Vital Signs (Past 12 Hours) Vital Signs Temp Pulse Resp BP Pulse Ox 03/17/20 14:00 75 19 210/103 H 96 03/17/20 13:30 82 22 192/108 H 96 03/17/20 13:00 75 28 H 186/101 H 95 03/17/20 12:30 82 22 189/117 H 97 03/17/20 12:19 77 23 192/99 H 96 03/17/20 10:42 36.7 C 87 20 238/122 H 95 Laboratory Results 03/17/20 03/17/20 03/17/20 Range/Units 12:10 10:55 10:55 WBC (4.8-10.8) K/uL RBC (4.7-6.1) M/uL Hgb (14.0-18.0) g/dL Hct (42-52) % MCV (80-100) fL MCH (25-34) pg MCHC (32-36) g/dL RDW Std Deviation (36.4-46.3) fL RDW Coeff of Mere (11.5-14.5) % Plt Count (130-400) K/uL MPV (7.4-10.4) fL Immature Gran % (Auto) % Neut % (Auto) % Lymph % (Auto) % [place] % (Auto) % Eos % (Auto) % Baso % (Auto) % Neut # (Auto) (1.4-6.5) K/uL Lymph # (Auto) (1.2-3.4) K/uL [place] # (Auto) (0.11-0.59) K/uL Eos # (Auto) (0-0.5) K/uL Baso # (Auto) (0-0.2) K/uL Immature Gran # (Auto) (0.00-0.02) K/uL PT (9.0-12.0) Seconds INR (0.9-1.1) APTT (21.0-31.0) Seconds PTT Ratio Sodium (136-145) mmol/L Potassium (3.5-5.1) mmol/L Chloride (98-107) mmol/L Carbon Dioxide (21-32) mmol/L Anion Gap (3-11) BUN (7-18) mg/dl Creatinine (0.6-1.4) mg/dl Est Cr Clr Drug Dosing ml/min Est GFR ( Amer) Est GFR (Non-Af Amer) BUN/Creatinine Ratio (10-20) Glucose (70-99) mg/dl Calcium (8.5-10.1) mg/dl Phosphorus (2.5-4.9) mg/dl Magnesium (1.8-2.4) mg/dl Total Bilirubin (0.2-1) mg/dl AST (15-37) U/L ALT (12-78) U/L Alkaline Phosphatase (45-117) U/L Troponin I (0-0.045) ng/ml Total Protein (6.4-8.2) gm/dl Albumin (3.4-5.0) gm/dl Globulin (2.5-4.0) gm/dl Albumin/Globulin Ratio (0.9-2) TSH (0.300-4.500) uIu/ml Urine Color Yellow Urine Appearance Clear (Clear) Urine pH 8.0 H (4.5-7.5) Ur Specific [place] 1.026 (1.000-1.030) Urine Protein Negative (Negative) Urine Glucose (UA) Negative (Negative) Urine Ketones Negative (Negative) Urine Blood Negative (Negative) Urine Nitrite Negative (Negative) Urine Bilirubin Negative (Negative) Urine Urobilinogen Negative (Negative) Ur Leukocyte Esterase Negative (Negative) Urine WBC (Auto) 0 (0-5) /hpf Urine RBC (Auto) 0-4 (0-4) /hpf U Hyaline Cast (Auto) 1-5 (0-5) /lpf U Epithel Cells (Auto) 5-10 H (0-5) /lpf Urine Bacteria (Auto) Negative (Negative) Lyme Disease IgG Ab Positive A (Negative) Lyme IgG (Western Blot) Pending Lyme IgG 18 kDa Band Pending Lyme IgG 23 kDa Band Pending Lyme IgG 28 kDa Band Pending Lyme IgG 30 kDa Band Pending Lyme IgG 39 kDa Band Pending Lyme IgG 41 kDa Band Pending Lyme IgG 45 kDa Band Pending Lyme IgG 58 kDa Band Pending Lyme IgG 66 kDa Band Pending Lyme IgG 93 kDa Band Pending Lyme IgM Ab (WB) Pending Lyme Disease IgM Ab Negative (Negative) Lyme IgM 23 kDa Band Pending Lyme IgM 39 kDa Band Pending Lyme IgM 41 kDa Band Pending 03/17/20 03/17/20 03/17/20 Range/Units 10:55 10:55 10:55 WBC 6.39 (4.8-10.8) K/uL RBC 5.11 (4.7-6.1) M/uL Hgb 15.4 (14.0-18.0) g/dL Hct 46.3 (42-52) % MCV 90.6 (80-100) fL MCH 30.1 (25-34) pg MCHC 33.3 (32-36) g/dL RDW Std Deviation 45.5 (36.4-46.3) fL RDW Coeff of Mere 13.8 (11.5-14.5) % Plt Count 172 (130-400) K/uL MPV 10.1 (7.4-10.4) fL Immature Gran % (Auto) 0.3 % Neut % (Auto) 67.6 % Lymph % (Auto) 16.6 % [place] % (Auto) 11.7 % Eos % (Auto) 3.6 % Baso % (Auto) 0.2 % Neut # (Auto) 4.32 (1.4-6.5) K/uL Lymph # (Auto) 1.06 L (1.2-3.4) K/uL [place] # (Auto) 0.75 H (0.11-0.59) K/uL Eos # (Auto) 0.23 (0-0.5) K/uL Baso # (Auto) 0.01 (0-0.2) K/uL Immature Gran # (Auto) 0.02 (0.00-0.02) K/uL PT 10.9 (9.0-12.0) Seconds INR 1.0 (0.9-1.1) APTT 28.9 (21.0-31.0) Seconds PTT Ratio 1.0 Sodium 139 (136-145) mmol/L Potassium 4.6 (3.5-5.1) mmol/L Chloride 104 (98-107) mmol/L Carbon Dioxide 29 (21-32) mmol/L Anion Gap 6.0 (3-11) BUN 18 (7-18) mg/dl Creatinine 1.19 (0.6-1.4) mg/dl Est Cr Clr Drug Dosing 47.3 ml/min Est GFR ( Amer) 62.4 Est GFR (Non-Af Amer) 53.8 BUN/Creatinine Ratio 15.3 (10-20) Glucose 100 H (70-99) mg/dl Calcium 8.9 (8.5-10.1) mg/dl Phosphorus 2.4 L (2.5-4.9) mg/dl Magnesium 2.1 (1.8-2.4) mg/dl Total Bilirubin 1.4 H (0.2-1) mg/dl AST 16 (15-37) U/L ALT 15 (12-78) U/L Alkaline Phosphatase 63 (45-117) U/L Troponin I < 0.015 (0-0.045) ng/ml Total Protein 7.5 (6.4-8.2) gm/dl Albumin 3.8 (3.4-5.0) gm/dl Globulin 3.7 (2.5-4.0) gm/dl Albumin/Globulin Ratio 1.0 (0.9-2) TSH 1.490 (0.300-4.500) uIu/ml Urine Color Urine Appearance (Clear) Urine pH (4.5-7.5) Ur Specific [place] (1.000-1.030) Urine Protein (Negative) Urine Glucose (UA) (Negative) Urine Ketones (Negative) Urine Blood (Negative) Urine Nitrite (Negative) Urine Bilirubin (Negative) Urine Urobilinogen (Negative) Ur Leukocyte Esterase (Negative) Urine WBC (Auto) (0-5) /hpf Urine RBC (Auto) (0-4) /hpf U Hyaline Cast (Auto) (0-5) /lpf U Epithel Cells (Auto) (0-5) /lpf Urine Bacteria (Auto) (Negative) Lyme Disease IgG Ab (Negative) Lyme IgG (Western Blot) Lyme IgG 18 kDa Band Lyme IgG 23 kDa Band Lyme IgG 28 kDa Band Lyme IgG 30 kDa Band Lyme IgG 39 kDa Band Lyme IgG 41 kDa Band Lyme IgG 45 kDa Band Lyme IgG 58 kDa Band Lyme IgG 66 kDa Band Lyme IgG 93 kDa Band Lyme IgM Ab (WB) Lyme Disease IgM Ab (Negative) Lyme IgM 23 kDa Band Lyme IgM 39 kDa Band Lyme IgM 41 kDa Band Diagnostic Findings Head CT 03/17/20 IMPRESSION: 1. No acute intracranial hemorrhage. 2. 1.6 cm hypodensity within the right aspect of the colby. This is likely brad factual however an age indeterminate infarct could appear similar. CTA Head 03/17/20 IMPRESSION: 1. No central vessel occlusion. No intracranial aneurysm. 2. Mild multifocal stenoses within the intracranial vessels. CTA Neck 03/17/20 IMPRESSION: 1. Extensive plaque within the proximal bilateral internal carotid arteries. 80% stenosis of the proximal right internal carotid artery. 2. 40% stenosis of the proximal left internal carotid artery. 3. Moderate stenosis at the origin of the left vertebral artery.
[2020-03-17] MEDS ORDERED: DiphenhydrAMINE HCL 50 MG/ML VIAL IV ONE (14:48)
--- NOTE | 2020-03-17 16:43 | Communication Note ---
Date of Service: March 17, 2020 Kathya Davidson is 89 years old is a patient of Dr. Bert Gresham uppercase here and [place] and presented today with a complaint of 3 days of generalized weakness without any subjective unilateral predominance and left facial weakness with slight slurring of his speech which he was to some degree unaware. He claims weakness is all over he does not have any double vision headaches numbness or tingling and seemed to be unaware of the facial asymmetry until pointed out none he seemed to recognize it and his speech has a slightly dysarthric quality to it of which she is also unaware This occurs in the setting of diastolic heart failure gastroesophageal reflux disease hypertension gout chronic stage III renal disease apparently known carotid stenosis, history of staph sepsis, history of bleeding from PICC line, and inguinal hernia, status post ventral hernia repair, status post cholecystectomy, status post total left knee replacement, status post appendectomy and history of an acute respiratory failure His home medications are listed as extra strength Tylenol aspirin 81 mg famotidine, losartan, oxybutynin and senna Family history and social history are as recorded on the chart Review of systems reveals no recent fever sweats chills weight loss weight gain new issues referable to HEENT, cardiovascular pulmonary gastrointestinal genitourinary musculoskeletal dermatologic hematologic or endocrinologic systems Evaluation thus far includes CT angiography of the neck revealing an 80% stenosis of the right internal carotid and a 40% stenosis of left internal carotid, scattered intracranial vascular stenoses of the insignificant degree and a CT scan of the head that shows a suspicious low-density area in the right ventral colby that might have been a subacute infarct versus artifact MRI is pending but the patient is really adamant that he needs sedated to have this done I would assume an echocardiogram has been ordered On exam blood pressure is 213/113 pulse was 101 and regular respirations are 20 temperature 36.7 O2 saturations 92% all obtained in the emergency room prior to his arrival on the floor When I see him he is sitting comfortably in bed watching television is alert is a reasonable historian stating that all of this began 3 days ago and he was fine before that. He has a dysarthric speech pattern a left upper motor neuron facial paresis, some intermittent neglect of left-sided visual stimuli without overt field cut that I can document, he denies any loss of facial sensation tongue protrudes in midline he may have a subtle drift of the left arm but also tends to level take the right arm and I really do not shrimp picker any significant loss of facility rapid repetitive motions in the left arm or leg do not notice any hyperreflexia on that side there is no Jonel sign or toe sign and I can document and strength appears to be good. There is no sensory neglect of bilateral presenting stimuli and no primary sensory loss in any modalities other than some age-dependent vibratory loss of the distal lower extremities I suspect this man's had a right hemispheric stroke possibly deep but there are some elements on exam and suggest some neglect and perhaps some visual neglect which makes me suspicious of a right posterior parietal event I cannot state for certain that the pontine lesion is not responsible for this but it is quite large and I would have expected a pretty dense left hemiparesis which I do not see so I agree with radiology that clinically this is likely an artifact He needs an MRI he should have Plavix added to his aspirin he needs an echocardiogram I will follow-up tomorrow afternoon and will check the results of these above studies by computer as they come in from my remote location at home and in the clinic Gibson Brambila MD
[2020-03-17] MEDS ORDERED: LORazepam 0.5 MG TAB PO SCH (18:00)
[2020-03-17] MEDS ORDERED: CLOPIDOGREL BISULFATE 75 MG TAB PO ONE (18:36)
[2020-03-17 19:24] LABS: iSTAT Creatinine 1.1 mg/dl (0.6-1.3); iSTAT Hemoglobin 16.3 g/dl (14.0-18.0); iSTAT Ionized Calcium 1.11 mmol/l (1.12-1.32); iSTAT Potassium 4.7 mmol/L (3.3-5.0)
[2020-03-17] MEDS ORDERED: LORazepam 0.5 MG/1 ML VIAL IV ONE (20:22)
[2020-03-17] MEDS: POLYETHYLENE (MIRALAX) 17 GM PACK PO SCH (21:04)
[2020-03-18] MEDS ORDERED: PROMETHAZINE HCL 12.5 MG in SODIUM CHLORIDE 0.9% 50 ML IV PRN (02:21)
[2020-03-18] MEDS ORDERED: METOPROLOL TARTRATE 1 MG/ML VIAL IV STA (02:30)
[2020-03-18] MEDS: DEXTROSE 5% 1,000 ML IV SCH (03:08)
[2020-03-18 06:20] LABS: Basophils # (auto) 0.01 K/uL (0-0.2); Basophils % (auto) 0.1 %; Eosinophils # (auto) 0.09 K/uL (0-0.5); Eosinophils % (auto) 1.2 %; Hemoglobin 13.8 g/dL (14.0-18.0); Immature Granulocytes # (auto) 0.02 K/uL (0.00-0.02); Immature Granulocytes % (auto) 0.3 %; Lymphocytes % (auto) 10.5 %; Mean Corpuscular Hemoglobin 29.2 pg (25-34); Mean Corpuscular Hgb Conc 32.1 g/dL (32-36); Mean Corpuscular Volume 90.9 fL (80-100); Mean Platelet Volume 9.6 fL (7.4-10.4); Monocytes # (auto) 0.87 K/uL (0.11-0.59); Monocytes % (auto) 11.4 %; Neutrophils # (auto) 5.86 K/uL (1.4-6.5); Neutrophils % (auto) 76.5 %; Platelet Count 173 K/uL (130-400); RDW Coefficient of Variation 13.6 % (11.5-14.5); Red Blood Count 4.73 M/uL (4.7-6.1); White Blood Count 7.65 K/uL (4.8-10.8)
[2020-03-18 06:44] LABS: BUN Creatinine Ratio 14.6 (10-20); Calcium 8.9 mg/dl (8.5-10.1); Creatinine Clr Calc Pharmacy 52.1 ml/min; Est GFR (African American) 70.2; Est GFR (Non-African American) 60.5; Potassium 4.1 mmol/L (3.5-5.1)
[2020-03-18 07:01] LABS: Estimated Average Glucose 100 mg/dl; Hemoglobin A1C 5.1 % (4.5-5.6)
--- NOTE | 2020-03-18 09:42 | Consultation ---
Date of Consultation March 18, 2020 Assessment & Plan (1) Carotid stenosis, right: R ICA stenosis of 80% noted on CTA neck. If symptomatic, then would consider for R CEA in next 2 weeks. If asymptomatic, would reeval in office to discuss elective procedure. Will await MRI results and reeval by neurology before making further recommendations. History of Present Illness Reason for Consultation: R ICA stenosis Attending Physician: Julianna Diaz MD History of Present Illness 89 yo m with hx of HTN, CKD III, gout, GERD, carotid stenosis, osteoarthritis, admitted with generalized weakness, seen in consultation today for R ICA stenosis noted on CTA neck. Pt is poor historian, but states he was feeling ge nerally weak for 2-3 days prior to admission. Describes it as both arms and legs and having difficulty ambulating d/t the weakness. Denies definite balance problems, dizziness, or vertigo. Denies associated confusion, speech changes, GAMBOA, numbness, difficulty swallowing. Denies chest pain, palpitations, abd pain, N/V, rest pain, claudication, other complaints. CTA neck demonstrates R ICA stenosis of 80%, L ICA stenosis 40-50%. CT head demonstrates no hemorrhage, but does demonstrate possible R colby abnormality vs artifact. Allergies Allergy/AdvReac Type Severity Reaction Status Date / Time amoxicillin Allergy Severe SWELLING Verified 03/17/20 11:14 OF TONGUE AND THROAT baclofen Allergy Unknown VERY SLEEPY Unverified 03/17/20 11:14 daptomycin Allergy Unknown unknown Verified 03/17/20 11:14 omeprazole Allergy Unknown ? Verified 03/17/20 11:14 phenobarbital Allergy Unknown ? Verified 03/17/20 11:14 Harjihj-Jye-Wwk Reductase Allergy Unknown RASH Verified 03/17/20 11:14 Inhibitor Home Medications Home Medications Medication Instructions Recorded Confirmed Type acetaminophen [Tylenol Extra 1,500 mg PO Q6H PRN 08/27/18 03/17/20 History Strength] aspirin 81 mg PO QAM 08/27/18 03/17/20 History losartan 50 mg PO QAM 08/27/18 03/17/20 History sennosides-docusate sodium 1 tab PO QAM 08/27/18 03/17/20 History famotidine 20 mg PO DAILY 03/17/20 03/17/20 History oxybutynin chloride 10 mg PO WM 03/17/20 03/17/20 History Patient History Medical History BPH (benign prostatic hyperplasia) Carotid artery stenosis "50-69% MADALYN, < 50% LICA 01/2014 " CKD (chronic kidney disease), stage III Diastolic heart failure Fatty liver GERD (gastroesophageal reflux disease) Gout HTN (hypertension) Pernicious anemia Surgical History S/P appendectomy S/P cholecystectomy S/P repair of ventral hernia Status post total left knee replacement Family History Other Family history non-contributory Social History Smoking Status: Unknown if ever smoked Do You Dip or Chew Tobacco: No; Hx Alcohol Use: No Hx Substance Use: No Preferred Language: Sami Communication Ability: Effective Retread Builder Required: No Beliefs That Will Affect Care: None Current Living Situation: Spouse Other Information That Helps Us Care for You: No Feels Safe at Home: Yes Safety Concerns: Feels Safe At This Time Assistive Devices: Denture - Upper, Denture - Lower and Glasses Review of Systems Review of Systems: All systems reviewed & are unremarkable except as noted in HPI & below Physical Exam Constitutional: WD/WN, vitals as above healthy appearing and cooperative; not in distress Eyes: PERRL, conjunctivae normal, anicteric sclerae ENMT: Ears: + hearing impairment (mild); no external ear abnormality Neck: normal visual inspection and trachea midline Respiratory: normal respiratory effort, lungs clear to auscultation Auscultation: + diminished lung sounds Cardiovascular: Rate/Rhythm: regular rate and regular rhythm Vessels: + carotid bruit, femoral pulses present, posterior tibial pulses present (nonpalapble), dorsalis pedis pulses present (nonpalpable) and radial pulses present; + abnormal peripheral pulses Extremities: normal capillary refill; no edema Gastrointestinal (Abdomen): normal bowel sounds, soft, nontender, no hepatosplenomegaly Musculoskeletal: no cyanosis or clubbing, extremities motor strength 5/5 Skin: no rashes, warm and dry Neurologic: moves all extremities and awake; no focal motor deficits and not confused Psychiatric: Orientation: alert and oriented x 3 Affect: + flat affect Results & Data ([facility]) Vital Signs (Past 12 Hours) Vital Signs Temp Pulse Pulse Resp BP BP Pulse Ox 03/18/20 08:00 36.7 C 63 16 171/81 H 93 03/18/20 07:52 66 03/18/20 03:20 36.8 C 65 20 180/79 H 93 03/18/20 02:18 36.9 C 103 H 20 183/99 H 93 03/17/20 23:20 36.6 C 91 H 20 181/90 H 94
[2020-03-18] MEDS: CLOPIDOGREL BISULFATE 75 MG TAB PO SCH (12:25)
[2020-03-18] MEDS: ASPIRIN 81 MG ECTAB PO SCH (12:26)
[2020-03-18] MEDS: FAMOTIDINE 20 MG TAB PO SCH (12:26)
[2020-03-18] MEDS: DOCUSATE SODIUM/SENNA 50/8.6MG TAB PO SCH (12:26)
[2020-03-18] MEDS: LOSARTAN POTASSIUM 50 MG TAB PO SCH (12:26)
[2020-03-18] MEDS: POLYETHYLENE (MIRALAX) 17 GM PACK PO SCH (12:27)
[2020-03-18] MEDS ORDERED: LORazepam 0.5 MG/1 ML VIAL IV ONE (12:30)
--- NOTE | 2020-03-18 13:37 | Magnetic Resonance Report ---
Brain MRI WITHOUT CONTRAST HISTORY: Facial droop. Difficulty speaking. Assess for stroke. TECHNIQUE: Multiplanar multisequence MRI of the brain was performed without the use of contrast. COMPARISON STUDY: Head and neck CTA 03/17/2020. FINDINGS: There is a 1.5 cm focus of restricted diffusion within the right hemipons consistent with a n acute infarct. The remaining midline structures are intact. Minimal left-sided dural thickening is likely chronic. No mass, hematoma, midline shift. Moderate atrophy and microvascular ischemic changes are noted. The major vascular flow voids at the skull base are well-maintained. Paranasal sinuses an d mastoid air cells are clear. IMPRESSION: Acute right pontine infarct. ACT 112: Negative or not required by law. Electronically signed by: Geoff Alford M.D. 03/18/2020 1:36 PM
[2020-03-18] MEDS ORDERED: cefTRIAXone SODIUM 2,000 MG in DEXTROSE 5% 50 ML IV SCH (14:00)
--- NOTE | 2020-03-18 15:57 | Communication Note ---
Date of Service: March 18, 2020 I saw Mr. Davidson again today. His was visiting. His speech is still dysarthric and is a left upper motor neuron facial paresis with minimal weakness of the left arm no sensory complaints and an MRI that does confirm the presence of a right pontine infarction but indicates that it is smaller than was indicated on the CT scan and seemingly has just picked off the upper motor neuron fibers supplying the facial nerve and has extended slightly dorsally into the colby but has not spread out to involve other motor pathways I would continue his aspirin and Plavix at this point He does have a significant stenosis of the right internal carotid artery but this is asymptomatic at present and has a moderate stenosis of the left internal carotid artery Vascular surgery could be consulted regarding future management of these lesions but I think at this point with a brainstem infarction both of them are asymptomatic and do not need any urgent part of intervention He does need rehabilitation or least assist for potential rehabilitation The echocardiogram is still pending as I would like to be sure there is no clear-cut source of embolization but frankly the infarction looks like a primary small vessel event involving median perforating vessels At this point neurology is going to sign off with recommendations that the patient be continued on dual antiplatelet therapy for 21 days and then Plavix alone be continued and that he follow-up with neurology in about 4 weeks Gibson Brambila MD
--- NOTE | 2020-03-18 19:18 | Hospitalist Progress Note ---
Date of Service March 18, 2020 Assessment & Plan (1) Stroke-like symptoms: (2) Weakness on left side of face: (3) Generalized weakness: Acute right pontine infarct Patient presents with generalized weakness and left facial droop CT head on admission showed no acute intracranial hemorrhage. 1.6 cm hypodensity within the right aspect of the colby. CT head showed no central vessel occlusion. No intracranial aneurysm.Mild multifocal stenoses within the intracranial vessels. CTA neck showed extensive plaque within the proximal bilateral internal carotid arteries. 80% stenosis of the proximal right internal carotid artery. 40% stenosis of the proximal left internal carotid artery. MRI head showed acute right pontine infarct Echo showed no LV wall motion abnormality with EF 55 to 60% Cholesterol 154, LDL 88 and HDL 47 Allergies with statin - rash Neuro on board recommended aspirin and plavis therapy for 21 days then, plavix alone to be continued Continue PT/OT eval Will d/c Rocephin IV since lyme IgM negative Speech on board (4) HTN (hypertension): BP stable Continue Losartan (5) Carotid artery stenosis: CTA neck showed showed extensive plaque within the proximal bilateral i nternal carotid arteries. 80% stenosis of the proximal right internal carotid artery. 40% stenosis of the proximal left internal carotid artery. Vascular surgery on board (6) CKD (chronic kidney disease), stage III: Creatinine stable (7) GERD (gastroesophageal reflux disease): Continue PPI while inpt Dispo: Continue monitor closely DVT ppx: SCDs Will heparin subq Code: full Admission and Anticipated Discharge Date Admission Date: March 17, 2020 Subjective Pt was seen and examined Lying in bed with no distress with at bedside Pt said that he continues to feel weak said that his speech alittle improves Denies any chest pain, palpitation, dizziness and SOB Physical Exam Physical Exam: General- No acute distress Head- atraumatic Eyes- PERRL, EOMI, ENT- oropharynx clear, +decrease hearing function Neck- no JVD, +carotid bruit Lungs- No wheezing Heart- regular rhythm; no murmur Abdomen- normal bowel sounds, soft, nontender Extremities- no calf tenderness Neuro- alert, oriented x 3; PERRL, EOMI; no sensation deficit , +mil dysarthria Skin- warm & dry Results & Data Results & Data ([facility]) Vital Signs (Past 12 Hours) Vital Signs Temp Pulse Pulse Resp BP Pulse Ox 03/18/20 18:41 81 03/18/20 14:55 36.9 C 81 16 139/73 93 03/18/20 11:07 37.0 C 61 125/70 94 03/18/20 10:43 36.8 C 85 16 143/89 H 93 03/18/20 08:00 36.7 C 63 16 171/81 H 93 03/18/20 07:52 66
[2020-03-18] MEDS: HEPARIN SOD 5,000 UNIT/0.5 ML VIAL SQ SCH (21:53)
[2020-03-19] MEDS: DEXTROSE 5% 1,000 ML IV SCH (04:22)
[2020-03-19] MEDS: HEPARIN SOD 5,000 UNIT/0.5 ML VIAL SQ SCH ×2 (05:04→16:00)
[2020-03-19 07:16] LABS: Basophils # (auto) 0.02 K/uL (0-0.2); Basophils % (auto) 0.4 %; Eosinophils # (auto) 0.26 K/uL (0-0.5); Eosinophils % (auto) 5.3 %; Hematocrit (blood only) 41.3 % (42-52); Hemoglobin 13.5 g/dL (14.0-18.0); Immature Granulocytes # (auto) 0.01 K/uL (0.00-0.02); Immature Granulocytes % (auto) 0.2 %; Lymphocytes # (auto) 0.98 K/uL (1.2-3.4); Lymphocytes % (auto) 20.2 %; Mean Corpuscular Hemoglobin 29.5 pg (25-34); Mean Corpuscular Hgb Conc 32.7 g/dL (32-36); Mean Corpuscular Volume 90.4 fL (80-100); Mean Platelet Volume 9.5 fL (7.4-10.4); Monocytes # (auto) 0.67 K/uL (0.11-0.59); Monocytes % (auto) 13.8 %; Neutrophils # (auto) 2.92 K/uL (1.4-6.5); Neutrophils % (auto) 60.1 %; Platelet Count 167 K/uL (130-400); RDW Coefficient of Variation 13.8 % (11.5-14.5); RDW Standard Deviation 45.9 fL (36.4-46.3); Red Blood Count 4.57 M/uL (4.7-6.1); White Blood Count 4.86 K/uL (4.8-10.8)
[2020-03-19 07:45] LABS: BUN Creatinine Ratio 17.4 (10-20); Calcium 8.4 mg/dl (8.5-10.1); Creatinine Clr Calc Pharmacy 38.2 ml/min; Est GFR (Non-African American) 43.1; Potassium 3.9 mmol/L (3.5-5.1)
[2020-03-19] MEDS: ASPIRIN 81 MG ECTAB PO SCH (08:36)
[2020-03-19] MEDS: FAMOTIDINE 20 MG TAB PO SCH (08:36)
[2020-03-19] MEDS: POLYETHYLENE (MIRALAX) 17 GM PACK PO SCH (08:36)
[2020-03-19] MEDS: CLOPIDOGREL BISULFATE 75 MG TAB PO SCH (08:36)
[2020-03-19] MEDS: DOCUSATE SODIUM/SENNA 50/8.6MG TAB PO SCH (08:36)
[2020-03-19] MEDS: LOSARTAN POTASSIUM 50 MG TAB PO SCH (09:06)
--- NOTE | 2020-03-19 09:50 | Communication Note ---
Date of Service: March 19, [address] Orr, who also reviewed MRI results and neuro recommendations. Pt is currently asymptomatic from his R ICA stenosis. No plans for vascular surgical intervention at this time. Will reeval in 3 months in office with carotid US. Discussed with pt, he is agreeable to the plan.
--- NOTE | 2020-03-19 16:13 | Hospitalist Progress Note ---
Date of Service March 19, 2020 Assessment & Plan (1) Stroke-like symptoms: (2) Weakness on left side of face: (3) Generalized weakness: Acute right pontine infarct Patient presents with generalized weakness and left facial droop CT head on admission showed no acute intracranial hemorrhage. 1.6 cm hypodensity within the right aspect of the colby. CT head showed no central vessel occlusion. No intracranial aneurysm.Mild multifocal stenoses within the intracranial vessels. CTA neck showed extensive plaque within the proximal bilateral internal carotid arteries. 80% stenosis of the proximal right internal carotid artery. 40% stenosis of the proximal left internal carotid artery. MRI head showed acute right pontine infarct Echo showed no LV wall motion abnormality with EF 55 to 60% Cholesterol 154, LDL 88 and HDL 47 Allergies with statin - rash Neuro on board recommended aspirin and plavis therapy for 21 days then, plavix alone to be continued Continue physical and occupational therapy with home health services Speech on board Follow up with Neurology in 3 to 4 weeks (4) HTN (hypertension): BP stable Continue Losartan (5) Carotid artery stenosis: CTA neck showed showed extensive plaque within the proximal bilateral internal carotid arteries. 80% stenosis of the proximal right internal carotid artery. 40% stenosis of the proximal left internal carotid artery. Vascular surgery on board recommended outpatient follow up Will need carotid ultrasound in 3 months (vascular will order it) (6) CKD (chronic kidney disease), stage III: Creatinine 1.4 today Received gentle IVF Check BMP within 1 week (7) GERD (gastroesophageal reflux disease): Continue PPI while inpt Dispo: Continue monitor closely DVT ppx: SCDs Will heparin subq Code: full Disposition Follow up with primary care provider within 1 week Follow up with neurology within 3 to 4 weeks Admission and Anticipated Discharge Date Admission Date: March 17, 2020 Subjective Pt was seen and examined Sitting in chair with no distress with at bedside Pt said that he feels much better He said that he walked around with therapy Denies any chest pain, palpitation, dizziness and SOB Physical Exam Physical Exam: General- No acute distress Head- atraumatic Eyes- PERRL, EOMI, ENT- oropharynx clear, +decrease hearing function Neck- no JVD, +carotid bruit Lungs- No wheezing Heart- regular rhythm; no murmur Abdomen- normal bowel sounds, soft, nontender Extremities- no calf tenderness Neuro- alert, oriented x 3; PERRL, EOMI; no sensation deficit , +mil dysarthria Skin- warm & dry Results & Data Results & Data ([facility]) Vital Signs (Past 12 Hours) Vital Signs Temp Pulse Pulse Resp BP Pulse Ox 03/19/20 15:07 36.4 C L 78 18 161/84 H 97 03/19/20 11:00 36.3 C L 69 18 164/76 H 97 03/19/20 08:00 69 03/19/20 07:00 36.6 C 96 H 18 150/76 H 95
[2020-03-19] MEDS ORDERED: STROKE PATIENT DISCHARGE STA (16:33)
--- NOTE | 2020-03-19 17:16 | Pharmacy Report ---
Pharmacist Stroke Counseling - Date of Service March 19, 2020 - Scope: Pharmacy has been consulted to provide medication discharge counseling for this patient admitted with ischemic stroke/transient ischemic attack as per the Pharmacist Discharge Counseling for Stroke Patients Protocol. - Medications on Discharge: Home Medications Medication Instructions Recorded Confirmed acetaminophen [Tylenol Extra 1,500 mg PO Q6H PRN 08/27/18 03/17/20 Strength] losartan 50 mg PO QAM 08/27/18 03/17/20 sennosides-docusate sodium 1 tab PO QAM 08/27/18 03/17/20 famotidine 20 mg PO DAILY 03/17/20 03/17/20 oxybutynin chloride 10 mg PO WM 03/17/20 03/17/20 New Rx's Medication Instructions Recorded aspirin 81 mg PO QAM 30 Days #30 tab 03/19/20 clopidogrel 75 mg PO QAM 30 Days #30 tab 03/19/20 - Action: The above medications, specifically ones for stroke treatment/prophylaxis, have been reviewed in detail with the patient and/or patient accounts receivable representative(s) prior to discharge. This includes indication, common adverse reactions, drug interactions, and medication administration. Medication counseling has been employed using the teach-back method to ensure understanding. - Outcome: The patient and/or patient accounts receivable representative(s) have demonstrated understanding of the medications. Additional comments: Met with patient and his prior to discharge. Reviewed new medications to prevent stroke including Aspirin and clopidogrel. Discussed why they are being used and common side effects in great detail. Reviewed how to use the medications, what to do if doses are missed, common drug interactions, common side effects, what to watch out for while using the medications, and how to store the medications. Pt & verbalized understanding and restated the moreira points of each medication. Pt is not ordered a statin d/t allergy. Of note, patient did take aspirin (baby aspirin) POST HOLE DIGGER. Thank you for allowing pharmacy to be involved in the care of this patient. Please call [phone] with any additional questions
[2020-03-20 21:37] LABS: 18KDIGG Band NON-REACTIVE; 23KDIGG Band NON-REACTIVE; 23KDIGM Band NON-REACTIVE; 28KDIGG Band NON-REACTIVE; 30KDIGG Band NON-REACTIVE; 39KDIGG Band NON-REACTIVE; 39KDIGM Band NON-REACTIVE; 41KDIGG Band REACTIVE; 41KDIGM Band NON-REACTIVE; 45KDIGG Band NON-REACTIVE; 58KDIGG Band NON-REACTIVE; 66KDIGG Band NON-REACTIVE; 93KDIGG Band NON-REACTIVE; Lyme Antibodies, WB IgG NEGATIVE (NEGATIVE); Lyme Antibodies, WB IgM NEGATIVE (NEGATIVE)
--- NOTE | 2020-03-21 00:18 | Discharge Summary ---
Date of Service March 19, 2020 Admission HPI Per Admitting Provider Patient is an 89-year-old male, with history of hypertension, PVD, chronic diastolic heart failure, fatty liver, previous tobacco user, history of pernicious anemia, who presents with generalized weakness and left facial droop. Initially per EMR record, it was reported that patient had left-sided weakness and left-sided facial droop, however after discussing with the patient and his at the bedside, patient insists that he feels weakness in both of his legs and arms, weakness started Wednesday in the morning. Patient and his report that patient was still mowing his lawn on , he says that he did not feel like doing it but he still updated and was okay. However on Wednesday morning he felt like he cannot do anything. He reports that he felt better on Wednesday however he was not doing anything on Wednesday. Today after urging of his , patient presented to the hospital as he felt he was not getting any better. reports that she gave him full dose of aspirin 325 on Wednesday and Wednesday, and patient was hopeful that he will feel better and did not want to go to hospital. In emergency room, CT of the head, CTA of head and neck were performed and Lyme panel was ordered as well. Head CT did not show acute intracranial hemorrhage. It showed 1.6 cm hypodensity within the right aspect of the colby, which could be possibly due to infarct or artifact. CT neck showed extensive plaque within the proximal bilateral internal carotid arteries. 80% stenosis of the proximal right internal carotid artery, and 40% stenosis of the proximal left internal carotid artery. Moderate stenosis at the origin of the left vertebral artery. Patient was also found quite hypertensive in the emergency room, with systolic blood pressures in 200s. He received IV fluids. Patient reports he already took all his home medications including baby aspirin this morning and losartan. He has listed allergy to atorvastatin, patient does not remember this, however in our EMR it states that he had a rash. Admission Exam Per Admitting Provider Physical Exam: Elderly male sitting up in the bed, in no acute distress, very hard of hearing Constitutional: WD/WN, vitals as above no acute distress Eyes: PERRL, conjunctivae normal, anicteric sclerae EOM intact bilaterally ENMT: external ear and nose normal, oropharynx normal Left facial droop noted Neck: trachea midline, no thyromegaly normal visual inspection Respiratory: normal respiratory effort, lungs clear to auscultation Auscultation: no crackles, no rhonchi and no wheezes Cardiovascular: RRR, no murmur, no edema Chest (Breasts): Chest: normal inspection of chest Gastrointestinal (Abdomen): Inspection/Auscultation: abdomen normal to inspection and normal bowel sounds; abdomen not distended Percussion/Palpation: abdomen soft; abdomen nontender, no guarding and abdomen not rigid Musculoskeletal: Head/Neck/Chest: normocephalic and head atraumatic Extremities: extremities normal to inspection Skin: no rashes, warm and dry Neurologic: moves all extremities Speech fluent, very hard of hearing, left facial droop slight noted, EOMI, PERRL, eyebrows raise equal, tongue midline, moves all 4 extremities spontaneously and without difficulty, strength 5 out of 5 in all major muscle groups, no sensory loss noted, czqh-wc-gfrs normal bilaterally, srqhht-pf-nbko normal bilaterally, gait was not assessed Psychiatric: A+Ox3, euthymic affect Genitourinary: no CVA tenderness Principal Diagnosis (1) Stroke-like symptoms: (2) Weakness on left side of face: (3) Generalized weakness: (4) Acute right pontine infarct (5) HTN (hypertension): (6) Carotid artery stenosis: (7) CKD (chronic kidney disease), stage III: (8) GERD (gastroesophageal reflux disease): Discharge Exam General- No acute distress Head- atraumatic Eyes- PERRL, EOMI, ENT- oropharynx clear, +decrease hearing function Neck- no JVD, +carotid bruit Lungs- No wheezing Heart- regular rhythm; no murmur Abdomen- normal bowel sounds, soft, nontender Extremities- no calf tenderness Neuro- alert, oriented x 3; PERRL, EOMI; no sensation deficit , +mil dysarthria Skin- warm & dry Discharge Data Allergies Allergy/AdvReac Type Severity Reaction Status Date / Time amoxicillin Allergy Severe SWELLING Verified 03/17/20 11:14 OF TONGUE AND THROAT baclofen Allergy Unknown VERY SLEEPY Unverified 03/17/20 11:14 daptomycin Allergy Unknown unknown Verified 03/17/20 11:14 omeprazole Allergy Unknown ? Verified 03/17/20 11:14 phenobarbital Allergy Unknown ? Verified 03/17/20 11:14 Dsacwgo-Mzs-Iwh Reductase Allergy Unknown RASH Verified 03/17/20 11:14 Inhibitor Consultations 03/17/20 13:37 ED Decision to Admit Stat 03/17/20 14:19 Consult Case Management - Discharge Planning Routine 03/17/20 15:36 Consult Neurology Routine 03/18/20 08:00 Consult Vascular Surgery Routine Ordered Studies 03/17/20 10:52 CT angio head w con Stat CT angio neck with con Stat CT head/brain wo con Stat 03/18/20 03:15 MR brain wo con Routine Brain MRI WITHOUT CONTRAST HISTORY: Facial droop. Difficulty speaking. Assess for stroke. TECHNIQUE: Multiplanar multisequence MRI of the brain was performed without the use of contrast. COMPARISON STUDY: Head and neck CTA 03/17/2020. FINDINGS: There is a 1.5 cm focus of restricted diffusion within the right hemipons consistent with an acute infarct. The remaining midline structures are intact. Minimal left-sided dural thickening is likely chronic. No mass, hematoma, midline shift. Moderate atrophy and microvascular ischemic changes are noted. The major vascular flow voids at the skull base are well-maintained. Paranasal sinuses and mastoid air cells are clear. IMPRESSION: Acute right pontine infarct. ACT 112: Negative or not required by law. Electronically signed by: Geoff Alford M.D. 03/18/2020 1:36 PM Dictated: 03/18/20 1331 Transcribed: 03/18/[address] ANGIOGRAPHY OF THE NECK WITH CONTRAST CLINICAL HISTORY: Stroke evaluation COMPARISON STUDY: No previous studies for comparison. Technique: CT angiography of the carotid and vertebral arteries was obtained using VertroraCÜR 320 IV and 3D reconstruction on an independent workstation. NASCET criteria was utilized. Automated exposure control was utilized for the study. A dose lowering technique was utilized adhering to the principles of ALARA. Findings: Lung apices are clear. There is no cervical spine fracture. There is no cervical lymphadenopathy. There is moderate stenosis at the origin of the left vertebral artery. No dissection within the major vessels of the neck. The right vertebral artery is patent. There is extensive plaque within the proximal right internal carotid artery. At site of narrowing, the right internal carotid artery measures 1.2 mm in caliber. This vessel measures 4.8 mm distally. There is also extensive plaque within the proximal left internal carotid artery. At site of narrowing, the vessel measures 2.6 mm in caliber. This vessel measures 4.4 mm distally. There is no intraluminal thrombus. IMPRESSION: 1. Extensive plaque within the proximal bilateral internal carotid arteries. 80% stenosis of the proximal right internal carotid artery. 2. 40% stenosis of the proximal left internal carotid artery. 3. Moderate stenosis at the origin of the left vertebral artery. ACT 112: Negative or not required by law. Electronically signed by: Justino Power M.D. 03/17/2020 12:04 PM Dictated: 03/17/20 1159 Transcribed: 03/17/20 1159 [place], [place] [phone] CT Scan Report Patient: JESS ESCUDERO WAdmit Date: 03/17/20 MR#: [id number]: [address] Acct ID:[id number]: Date: 1930[facility] Zip: [place] [address] Age: 89Location: ED Sex: MRoom/Bed: Att Phy:Diagnosis: stroke symptoms Winnie Phy: Bert Gresham, MDService Date: 03/17/20 Fam Phy:Interpreting Phy: Justino Power MD Admit Phy: Ordering Phy: Dago Martinez M.D. cc: ~ CTA ANGIOGRAPHY OF THE HEAD CLINICAL HISTORY: Stroke evaluation COMPARISON STUDY: Head CT September 24, 2017. TECHNIQUE: Helical axial images of the head were obtained following uneventful intravenous administration of 120 cc of Optiray 320. Sagittal and coronal reconstructions were viewed as well as maximal intensity projections on an independent 3-D workstation. Automated exposure control was utilized for the study. A dose lowering technique was utilized adhering to the principles of ALARA. CT DOSE: 1194.70 mGy.cm FINDINGS: No acute intracranial hemorrhage, midline shift or mass effect is present. Ventricular system is unremarkable. The basilar cisterns are patent. There is moderate plaque within the bilateral cavernous carotids without significant stenosis. No central vessel occlusion is noted. There is no intraluminal thrombus. There is mild stenosis of the basilar artery. Multiple additional mild stenosis within the intracranial vessels are noted. IMPRESSION: 1. No central vessel occlusion. No intracranial aneurysm. 2. Mild multifocal stenoses within the intracranial vessels. ACT 112: Negative or not required by law. Electronically signed by: Justino Power M.D. 03/17/2020 12:08 PM Dictated: 03/17/20 1205 Transcribed: 03/17/[address] OF THE HEAD WITHOUT CONTRAST CLINICAL HISTORY: Stroke evaluation COMPARISON STUDY: Head CT September 24, 2017. TECHNIQUE: Helical axial images of the head were obtained without IV contrast. Automated exposure control was utilized for the study. A dose lowering technique was utilized adhering to the principles of ALARA. FINDINGS: No acute intracranial hemorrhage, midline shift or mass effect is present. Ventricular system is unremarkable. The basilar cisterns are patent. Prominence of the extra-axial spaces is due to atrophy. Note is made of a 1.6 cm hypodensity within the right anterior aspect of the colby on axial image 13 of 33. White matter hypodensity suggests small vessel disease. There is no calvarial fracture. Visualized portions of the sinuses and mastoid air cells are clear. IMPRESSION: 1. No acute intracranial hemorrhage. 2. 1.6 cm hypodensity within the right aspect of the colby. This is likely artifactual however an age indeterminate infarct could appear similar. ACT 112: Negative or not required by law. Electronically signed by: Justino Power M.D. 03/17/2020 11:50 AM Dictated: 03/17/20 1145 Transcribed: 03/17/[address] OF THE HEAD WITHOUT CONTRAST CLINICAL HISTORY: Stroke evaluation COMPARISON STUDY: Head CT September 24, 2017. TECHNIQUE: Helical axial images of the head were obtained without IV contrast. Automated exposure control was utilized for the study. A dose lowering technique was utilized adhering to the principles of ALARA. FINDINGS: No acute intracranial hemorrhage, midline shift or mass effect is present. Ventricular system is unremarkable. The basilar cisterns are patent. Prominence of the extra-axial spaces is due to atrophy. Note is made of a 1.6 cm hypodensity within the right anterior aspect of the colby on axial image 13 of 33. White matter hypodensity suggests small vessel disease. There is no calvarial fracture. Visualized portions of the sinuses and mastoid air cells are clear. IMPRESSION: 1. No acute intracranial hemorrhage. 2. 1.6 cm hypodensity within the right aspect of the colby. This is likely artifactual however an age indeterminate infarct could appear similar. ACT 112: Negative or not required by law. Electronically signed by: Justino Power M.D. 03/17/2020 11:50 AM Dictated: 03/17/20 1145 Transcribed: 03/17/20 1145 Hospital Course (1) Stroke-like symptoms: (2) Weakness on left side of face: (3) Generalized weakness: Acute right pontine infarct Patient presents with generalized weakness and left facial droop CT head on admission showed no acute intracranial hemorrhage. 1.6 cm hypodensity within the right aspect of the colby. CT head showed no central vessel occlusion. No intracranial aneurysm.Mild multifocal stenoses within the intracranial vessels. CTA neck showed extensive plaque within the proximal bilateral internal carotid arteries. 80% stenosis of the proximal right internal carotid artery. 40% stenosis of the proximal left internal carotid artery. MRI head showed acute right pontine infarct Echo showed no LV wall motion abnormality with EF 55 to 60% Cholesterol 154, LDL 88 and HDL 47 Allergies with statin - rash Neuro on board recommended aspirin and plavis therapy for 21 days then, plavix alone to be continued Continue physical and occupational therapy with home health services Speech on board Follow up with Neurology in 3 to 4 weeks (4) HTN (hypertension): BP stable Continue Losartan (5) Carotid artery stenosis: CTA neck showed showed extensive plaque within the proximal bilateral internal carotid arteries. 80% stenosis of the proximal right internal carotid artery. 40% stenosis of the proximal left internal carotid artery. Vascular surgery on board recommended outpatient follow up Will need carotid ultrasound in 3 months (vascular will order it) (6) CKD (chronic kidney disease), stage III: Creatinine 1.4 today Received gentle IVF Check BMP within 1 week (7) GERD (gastroesophageal reflux disease): Continue PPI while inpt Dispo: Continue monitor closely DVT ppx: SCDs Will heparin subq Code: full Disposition Follow up with primary care provider within 1 week Follow up with neurology within 3 to 4 weeks Total Time Total Time Spent Total Time Spent (In Minutes): 35 minutes Total Time Includes: Examination of the Patient, Discharge Planning, Medication Reconciliation, Communication With Other Providers and Other Discharge Plan Discharge Items Patient Disposition: Home - Home Health Services Reason For Visit: CVA Discharge Diagnosis: (1) Stroke-like symptoms: (2) Weakness on left side of face: (3) Generalized weakness: (4) Acute right pontine infarct (5) HTN (hypertension): (6) Carotid artery stenosis: (7) CKD (chronic kidney disease), stage III: (8) GERD (gastroesophageal reflux disease): Activity: Resume your previous activity Non-emergency contact: Primary Care Provider Call non-emergency contact if: you have any medication questions Follow-up/Referrals: Bert Gresham MD [Primary Care Provider] - 03/25/20 11:20 am (Date & Time 03/25/2020 11:20 AM Provider Bert Gresham MD Department Internal Medicine [facility] ) Diet: Heart Healthy Addtl Attending Provider Instructions: Follow up with your primary care provider Dr. Gresham on 03/25 @ 11:20 AM Follow up with neurology Dr. Brambila in 3 to 4 weeks (Please call for the appo intment ) Follow up with vascular surgery Dr. Orr (Vascular suregy will order an carotid ultrasound in 3 months ) call [phone] to schedule the appointment Continue physical and occupational therapy Continue plavix and aspirin for 21 days, then after 21 days continue plavix alone Check BMP within 1 week to monitor your renal function Avoid any NSAID such as (motrin, aleve, statin, naproxen, advil, ..) due to the risks of bleeding while on plavix and aspirin Fall precaution Pending Studies at Discharge: No Stand-Alone Forms: Medications to Prevent Stroke, My [facility], Smoking Cessation Medications and DC Order Prescriptions: New clopidogrel 75 mg Tablet 75 mg PO QAM 30 Days Qty: 30 RF: 0 Continued losartan 50 mg tablet 50 mg PO QAM RF: 0 sennosides-docusate sodium 8.6-50 mg Tablet 1 tab PO QAM RF: 0 acetaminophen [Tylenol Extra Strength] 500 mg Tablet 1,500 mg PO Q6H PRN (Reason: Pain) RF: 0 oxybutynin chloride 10 mg tablet extended release 24hr 10 mg PO WM RF: 0 famotidine 20 mg tablet 20 mg PO DAILY RF: 0 aspirin 81 mg Tablet,Delayed Release (Dr/Ec) 81 mg PO QAM 30 Days Qty: 30 RF: 0 Discharge Orders: Discharge Order (Routine); Ordered 03/19/20 Ordered By: Julianna Upton/Other Patient Handouts: Symptoms of Stroke, Stroke: Taking Medicines, 5 Steps for Eating Healthier, Preparing Your Home After Stroke, Stroke: Resources and Support, Stroke Prevention Activity Admission Data Admit Date/Time: 03/17/20 14:25 Attending Provider: Julianna Diaz Admit Provider: Johnson Quan Primary Care Provider: Bert Gresham Other Providers: Johnson Quan ; Gibson Brambila Eugene J
== END 2020-03-19 17:36 | disposition home health service (06) | DRG 65 ==
LOC: ED 10:35 → 2N 14:25 → SUATTDRO 14:25 → 2N 15:15

== ENCOUNTER 2020-12-03 09:57 | Inpatient (IN) ==
--- NOTE | 2020-12-03 11:12 | Emergency Department Note ---
History of Present Illness General Chief complaint: Eye Problems Stated complaint: CAN'T SEE OUT OF RIGHT EYE Time Seen by Provider: 12/03/20 10:51 Source: patient and family (Spouse is at the bedside) Mode of arrival: ambulatory Limitations: no limitations History of Present Illness This patient is a 89-year-old male who had sudden visual loss around 9:00 last evening as right eye he said it felt like something black came down he could not see anything since then he has regained a lot of the vision he says it is like a jigsaw puzzle with pieces missing he can see through. No eye pain or trauma. Besides this he is asymptomatic he is on Plavix. He has no numbness weakness no headache neck pain or stiffness. No fever chills no trauma. He had a Covid vaccine. No neck pain. No difficulty speaking or swallowing. Home Medications Medication Instructions Recorded Confirmed Type acetaminophen [Tylenol Extra 1,500 mg PO Q6H PRN 08/27/18 12/03/20 History Strength] sennosides-docusate sodium 1 tab PO QAM 08/27/18 12/03/20 History famotidine 20 mg PO DAILY 03/17/20 12/03/20 History oxybutynin chloride 10 mg PO WM 03/17/20 12/03/20 History aspirin 81 mg PO QAM 30 Days #30 tab 03/19/20 12/03/20 Rx amlodipine 10 mg PO DAILY 12/03/20 12/03/20 History clopidogrel 75 mg PO DAILY 12/03/20 12/03/20 History losartan 100 mg PO DAILY 12/03/20 12/03/20 History Allergies Allergy/AdvReac Type Severity Reaction Status Date / Time amoxicillin Allergy Severe SWELLING Verified 03/17/20 11:14 OF TONGUE AND THROAT baclofen Allergy Unknown VERY SLEEPY Unverified 03/17/20 11:14 daptomycin Allergy Unknown unknown Verified 03/17/20 11:14 omeprazole Allergy Unknown ? Verified 03/17/20 11:14 phenobarbital Allergy Unknown ? Verified 03/17/20 11:14 Tuirthw-Oyt-Lti Reductase Allergy Unknown RASH Verified 03/17/20 11:14 Inhibitor Past Med/Surg History Medical History BPH (benign prostatic hyperplasia) Carotid artery stenosis "50-69% MADALYN, < 50% LICA 01/2014 " CKD (chronic kidney disease), stage III Diastolic heart failure Fatty liver GERD (gastroesophageal reflux disease) Gout HTN (hypertension) Pernicious anemia Surgical History S/P appendectomy S/P cholecystectomy S/P repair of ventral hernia Status post total left knee replacement Family History Other Family history non-contributory Social History Smoking Status: Never smoker Hx Alcohol Use: No Hx Substance Use: No Preferred Language: [place] Communication Ability: Impaired Nylon Hot Wire Cutter Required: No Beliefs That Will Affect Care: None Current Living Situation: Spouse Feels Safe at Home: Yes Assistive Devices: Denture - Upper, Denture - Lower and Glasses Review of Systems A total of 10 systems reviewed and were otherwise negative Physical Exam Vital Signs Vital Signs - 24 hr 12/03/20 10:10 12/03/20 12:00 12/03/20 12:19 Temperature 36.5 C Temperature Source Skin Pulse Rate 84 98 H Pulse Rate from SpO2 Sensor 96 H Respiratory Rate 18 17 Respiratory Effort / Characteristics Non-Labored Spontaneous Respiratory Depth Normal Respiratory Pattern Regular Blood Pressure 164/89 H 154/106 H Blood Pressure Mean 114 122 Blood Pressure Position Sitting Pulse Oximetry 95 94 96 Oxygen Delivery Method Room Air Room Air Sepsis Recent Fever Within 48 Hours No Sepsis New/Unexplained Change in Mental Status N/A Sepsis Action Taken by Nursing No Action Required 12/03/20 12:30 12/03/20 12:31 12/03/20 13:00 Temperature Temperature Source Pulse Rate 96 H 99 H 92 H Pulse Rate from SpO2 Sensor 96 H 97 H 92 H Respiratory Rate 17 22 18 Respiratory Effort / Characteristics Respiratory Depth Respiratory Pattern Blood Pressure 147/103 H 179/102 H Blood Pressure Mean 117 127 Blood Pressure Position Pulse Oximetry 95 97 95 Oxygen Delivery Method Sepsis Recent Fever Within 48 Hours Sepsis New/Unexplained Change in Mental Status Sepsis Action Taken by Nursing 12/03/20 13:01 12/03/20 13:30 12/03/20 13:32 Temperature Temperature Source Pulse Rate 91 H 77 Pulse Rate from SpO2 Sensor 90 78 74 Respiratory Rate 17 23 12 Respiratory Effort / Characteristics Respiratory Depth Respiratory Pattern Blood Pressure 162/100 H Blood Pressure Mean 120 Blood Pressure Position Pulse Oximetry 94 93 95 Oxygen Delivery Method Sepsis Recent Fever Within 48 Hours Sepsis New/Unexplained Change in Mental Status Sepsis Action Taken by Nursing 12/03/20 13:33 12/03/20 14:00 12/03/20 14:01 Temperature Temperature Source Pulse Rate 85 75 85 Pulse Rate from SpO2 Sensor 82 76 88 Respiratory Rate 16 13 17 Respiratory Effort / Characteristics Respiratory Depth Respiratory Pattern Blood Pressure 161/99 H Blood Pressure Mean 119 Blood Pressure Position Pulse Oximetry 95 96 96 Oxygen Delivery Method Sepsis Recent Fever Within 48 Hours Sepsis New/Unexplained Change in Mental Status Sepsis Action Taken by Nursing 12/03/20 14:30 12/03/20 15:00 12/03/20 15:01 Temperature Temperature Source Pulse Rate 92 H 92 H Pulse Rate from SpO2 Sensor 93 H 93 H 88 Respiratory Rate 20 17 19 Respiratory Effort / Characteristics Respiratory Depth Respiratory Pattern Blood Pressure 183/107 H Blood Pressure Mean 132 Blood Pressure Position Pulse Oximetry 97 97 97 Oxygen Delivery Method Sepsis Recent Fever Within 48 Hours Sepsis New/Unexplained Change in Mental Status Sepsis Action Taken by Nursing 12/03/20 15:30 12/03/20 15:31 12/03/20 16:00 Temperature Temperature Source Pulse Rate 96 H Pulse Rate from SpO2 Sensor 96 H 97 H 95 H Respiratory Rate 16 19 23 Respiratory Effort / Characteristics Respiratory Depth Respiratory Pattern Blood Pressure 184/103 H Blood Pressure Mean 130 Blood Pressure Position Pulse Oximetry 98 98 95 Oxygen Delivery Method Sepsis Recent Fever Within 48 Hours Sepsis New/Unexplained Change in Mental Status Sepsis Action Taken by Nursing 12/03/20 16:03 Temperature Temperature Source Pulse Rate 95 H Pulse Rate from SpO2 Sensor 95 H Respiratory Rate 20 Respiratory Effort / Characteristics Respiratory Depth Respiratory Pattern Blood Pressure 172/77 H Blood Pressure Mean 108 Blood Pressure Position Pulse Oximetry 96 Oxygen Delivery Method Sepsis Recent Fever Within 48 Hours Sepsis New/Unexplained Change in Mental Status Sepsis Action Taken by Nursing General: Well developed well nourished not ill-appearing older male who is very hard of hearing but in no acute distress, breathing comfortably on room air. Normal speech HEENT: Normal cephalic atraumatic. Pupils are equal round and reactive to light. Extraocular movements are intact. Oropharynx is pink with moist mucous membranes. No swelling of the mouth lips or tongue. Neck: Supple with a midline trachea. No meningeal signs or stiffness, no JVD or bruits. No Stridor. No facial asymmetry or droop Chest: Clear to auscultation bilaterally. No wheezes or rhonchi. No increased work of breathing. Heart: Regular rate and rhythm without murmurs or gallops. Abdomen: Soft nontender, nondistended without rebound guarding or rigidity. Extremities: No cyanosis clubbing or edema. No calf tenderness or assymetry Spine/Back. Non tender to palpation. No CVA tenderness Skin: Good turgor without rashes. Neurologic exam: Cranial nerves two through 12 are intact. Motor and sensation are intact and symmetrical throughout. Course Administered Medications Discontinued Medications Ioversol (Optiray 350 500ml) 108 ml IV ONCE ONE Stop: 12/03/20 11:59 Last Admin: 12/03/20 12:02 Dose: 108 ml Documented by: [id number] Medical Decision Making Differential Diagnosis Amaurosis fugax, TIA, CVA, posterior hemorrhage, retinal tear, glaucoma Medical Records Attestation: I reviewed the patient's medical records. Home Medications Current Medication List: was personally reviewed by me Laboratory Data Attestation: I reviewed the patient's lab results. Result diagrams: 12/03/20 11:04 12/03/20 11:04 Lab Results 12/03/20 12/03/20 12/03/20 Range/Units 11:04 11:04 11:04 WBC 5.27 (4.8-10.8) K/uL RBC 4.75 (4.7-6.1) M/uL Hgb 14.4 (14.0-18.0) g/dL POC Hgb (14.0-18.0) g/dl Hct 42.0 (42-52) % POC Hct (42-52) % MCV 88.4 (80-100) fL MCH 30.3 (25-34) pg MCHC 34.3 (32-36) g/dL RDW Std Deviation 44.6 (36.4-46.3) fL RDW Coeff of Mere 13.8 (11.5-14.5) % Plt Count 213 (130-400) K/uL MPV 9.4 (7.4-10.4) fL Immature Gran % (Auto) 0.4 % Neut % (Auto) 63.0 % Lymph % (Auto) 18.4 % [place] % (Auto) 12.1 % Eos % (Auto) 5.7 % Baso % (Auto) 0.4 % Neut # (Auto) 3.32 (1.4-6.5) K/uL Lymph # (Auto) 0.97 L (1.2-3.4) K/uL [place] # (Auto) 0.64 H (0.11-0.59) K/uL Eos # (Auto) 0.30 (0-0.5) K/uL Baso # (Auto) 0.02 (0-0.2) K/uL Immature Gran # (Auto) 0.02 (0.00-0.02) K/uL ESR (0-20) mm/hr PT 9.9 (9.0-12.0) Seconds INR 1.0 (0.9-1.1) POC Sodium (135-144) mmol/L Sodium 137 (136-145) mmol/L POC Potassium (3.3-5.0) mmol/L Potassium 4.0 (3.5-5.1) mmol/L POC Chloride (101-112) mmol/L Chloride 105 (98-107) mmol/L Carbon Dioxide 28 (21-32) mmol/L POC Total CO2 (24-31) mmol/L Anion Gap 4.0 (3-11) POC Anion Gap (16-25) mmol/L POC BUN (7-18) mg/dl BUN 23 H (7-18) mg/dl Creatinine 1.34 (0.6-1.4) mg/dl POC Creatinine (0.6-1.3) mg/dl Est Cr Clr Drug Dosing 42.8 ml/min Est GFR ( Amer) 54.1 ml/min Est GFR (Non-Af Amer) 46.6 ml/min BUN/Creatinine Ratio 16.8 (10-20) Glucose 101 H (70-99) mg/dl POC Glucose (other) (70-99) mg/dl Calcium 9.0 (8.5-10.1) mg/dl POC Ioniz Calcium [place] (1.12-1.32) mmol/l Total Bilirubin 1.4 H (0.2-1) mg/dl AST 19 (15-37) U/L ALT 16 (12-78) U/L Alkaline Phosphatase 65 (45-117) U/L Troponin I < 0.015 (0-0.045) ng/ml C-Reactive Protein 0.90 H (0-0.29) mg/dl Total Protein 8.3 H (6.4-8.2) gm/dl Albumin 4.3 (3.4-5.0) gm/dl Globulin 4.0 (2.5-4.0) gm/dl Albumin/Globulin Ratio 1.1 (0.9-2) TSH 2.910 (0.300-4.500) uIu/ml Urine Color Urine Appearance (Clear) Urine pH (4.5-7.5) Ur Specific [place] (1.000-1.030) Urine Protein (Negative) Urine Glucose (UA) (Negative) Urine Ketones (Negative) Urine Blood (Negative) Urine Nitrite (Negative) Urine Bilirubin (Negative) Urine Urobilinogen (Negative) Ur Leukocyte Esterase (Negative) Urine WBC (Auto) (0-5) /hpf Urine RBC (Auto) (0-4) /hpf U Hyaline Cast (Auto) (0-5) /lpf U Epithel Cells (Auto) (0-5) /lpf Urine Bacteria (Auto) (Negative) COVID-19 Eval Order SARS-CoV-2 (PCR) (Negative) 12/03/20 12/03/20 12/03/20 Range/Units 11:04 11:23 12:20 WBC (4.8-10.8) K/uL RBC (4.7-6.1) M/uL Hgb (14.0-18.0) g/dL POC Hgb 15.0 (14.0-18.0) g/dl Hct (42-52) % POC Hct 44 (42-52) % MCV (80-100) fL MCH (25-34) pg MCHC (32-36) g/dL RDW Std Deviation (36.4-46.3) fL RDW Coeff of Mere (11.5-14.5) % Plt Count (130-400) K/uL MPV (7.4-10.4) fL Immature Gran % (Auto) % Neut % (Auto) % Lymph % (Auto) % [place] % (Auto) % Eos % (Auto) % Baso % (Auto) % Neut # (Auto) (1.4-6.5) K/uL Lymph # (Auto) (1.2-3.4) K/uL [place] # (Auto) (0.11-0.59) K/uL Eos # (Auto) (0-0.5) K/uL Baso # (Auto) (0-0.2) K/uL Immature Gran # (Auto) (0.00-0.02) K/uL ESR 28 H (0-20) mm/hr PT (9.0-12.0) Seconds INR (0.9-1.1) POC Sodium 139 (135-144) mmol/L Sodium (136-145) mmol/L POC Potassium 4.0 (3.3-5.0) mmol/L Potassium (3.5-5.1) mmol/L POC Chloride 100 L (101-112) mmol/L Chloride (98-107) mmol/L Carbon Dioxide (21-32) mmol/L POC Total CO2 26 (24-31) mmol/L Anion Gap (3-11) POC Anion Gap 18.0 (16-25) mmol/L POC BUN 24 H (7-18) mg/dl BUN (7-18) mg/dl Creatinine (0.6-1.4) mg/dl POC Creatinine 1.5 H (0.6-1.3) mg/dl Est Cr Clr Drug Dosing ml/min Est GFR ( Amer) ml/min Est GFR (Non-Af Amer) ml/min BUN/Creatinine Ratio (10-20) Glucose (70-99) mg/dl POC Glucose (other) 107 H (70-99) mg/dl Calcium (8.5-10.1) mg/dl POC Ioniz Calcium [place] 1.20 (1.12-1.32) mmol/l Total Bilirubin (0.2-1) mg/dl AST (15-37) U/L ALT (12-78) U/L Alkaline Phosphatase (45-117) U/L Troponin I (0-0.045) ng/ml C-Reactive Protein (0-0.29) mg/dl Total Protein (6.4-8.2) gm/dl Albumin (3.4-5.0) gm/dl Globulin (2.5-4.0) gm/dl Albumin/Globulin Ratio (0.9-2) TSH (0.300-4.500) uIu/ml Urine Color Yellow Urine Appearance Clear (Clear) Urine pH 7.0 (4.5-7.5) Ur Specific [place] 1.020 (1.000-1.030) Urine Protein 1+ H (Negative) Urine Glucose (UA) Negative (Negative) Urine Ketones Negative (Negative) Urine Blood Negative (Negative) Urine Nitrite Negative (Negative) Urine Bilirubin Negative (Negative) Urine Urobilinogen Negative (Negative) Ur Leukocyte Esterase Negative (Negative) Urine WBC (Auto) 1-5 (0-5) /hpf Urine RBC (Auto) 0-4 (0-4) /hpf U Hyaline Cast (Auto) 1-5 (0-5) /lpf U Epithel Cells (Auto) 5-10 H (0-5) /lpf Urine Bacteria (Auto) Negative (Negative) COVID-19 Eval Order SARS-CoV-2 (PCR) (Negative) 12/03/20 12/03/20 Range/Units 13:34 13:34 WBC (4.8-10.8) K/uL RBC (4.7-6.1) M/uL Hgb (14.0-18.0) g/dL POC Hgb (14.0-18.0) g/dl Hct (42-52) % POC Hct (42-52) % MCV (80-100) fL MCH (25-34) pg MCHC (32-36) g/dL RDW Std Deviation (36.4-46.3) fL RDW Coeff of Mere (11.5-14.5) % Plt Count (130-400) K/uL MPV (7.4-10.4) fL Immature Gran % (Auto) % Neut % (Auto) % Lymph % (Auto) % [place] % (Auto) % Eos % (Auto) % Baso % (Auto) % Neut # (Auto) (1.4-6.5) K/uL Lymph # (Auto) (1.2-3.4) K/uL [place] # (Auto) (0.11-0.59) K/uL Eos # (Auto) (0-0.5) K/uL Baso # (Auto) (0-0.2) K/uL Immature Gran # (Auto) (0.00-0.02) K/uL ESR (0-20) mm/hr PT (9.0-12.0) Seconds INR (0.9-1.1) POC Sodium (135-144) mmol/L Sodium (136-145) mmol/L POC Potassium (3.3-5.0) mmol/L Potassium (3.5-5.1) mmol/L POC Chloride (101-112) mmol/L Chloride (98-107) mmol/L Carbon Dioxide (21-32) mmol/L POC Total CO2 (24-31) mmol/L Anion Gap (3-11) POC Anion Gap (16-25) mmol/L POC BUN (7-18) mg/dl BUN (7-18) mg/dl Creatinine (0.6-1.4) mg/dl POC Creatinine (0.6-1.3) mg/dl Est Cr Clr Drug Dosing ml/min Est GFR ( Amer) ml/min Est GFR (Non-Af Amer) ml/min BUN/Creatinine Ratio (10-20) Glucose (70-99) mg/dl POC Glucose (other) (70-99) mg/dl Calcium (8.5-10.1) mg/dl POC Ioniz Calcium [place] (1.12-1.32) mmol/l Total Bilirubin (0.2-1) mg/dl AST (15-37) U/L ALT (12-78) U/L Alkaline Phosphatase (45-117) U/L Troponin I (0-0.045) ng/ml C-Reactive Protein (0-0.29) mg/dl Total Protein (6.4-8.2) gm/dl Albumin (3.4-5.0) gm/dl Globulin (2.5-4.0) gm/dl Albumin/Globulin Ratio (0.9-2) TSH (0.300-4.500) uIu/ml Urine Color Urine Appearance (Clear) Urine pH (4.5-7.5) Ur Specific [place] (1.000-1.030) Urine Protein (Negative) Urine Glucose (UA) (Negative) Urine Ketones (Negative) Urine Blood (Negative) Urine Nitrite (Negative) Urine Bilirubin (Negative) Urine Urobilinogen (Negative) Ur Leukocyte Esterase (Negative) Urine WBC (Auto) (0-5) /hpf Urine RBC (Auto) (0-4) /hpf U Hyaline Cast (Auto) (0-5) /lpf U Epithel Cells (Auto) (0-5) /lpf Urine Bacteria (Auto) (Negative) COVID-19 Eval Order Covid19 at [facility] SARS-CoV-2 (PCR) NEGATIVE (Negative) Imaging Data Attestation: I personally reviewed and interpreted this imaging study as follows: Radiologist's Impression: Chest X-Ray 12/03/20 11:04 SINGLE VIEW CHEST CLINICAL HISTORY: Generalized weakness. FINDINGS: An AP, portable, upright chest radiograph is compared to study dated 03/17/2020 and correlated with chest CT dated 09/21/2017. The heart is enlarged noting atherosclerotic calcification of the thoracic aorta. The pulmonary vasculature is noncongested. There is bibasilar scarring/atelectasis. No airspace consolidation or large pleural effusion is identified. No pneumothorax is seen. The skeletal structures are osteopenic. The bony thorax is grossly intact. IMPRESSION: Cardiomegaly with no acute cardiopulmonary abnormality. ACT 112: Negative or not required by law. Electronically signed by: Jesús Burnett M.D. 12/03/2020 11:[address] 12/03/20 11:[address], HEAD CTA HISTORY: vision loss rt eye TECHNIQUE: Multiaxial CT images of the head were performed both before and after the intravenous administration of contrast to evaluate the major cerebral vessels. Maximum intensity projection images were also obtained. A dose lowering technique was utilized adhering to the principles of ALARA. COMPARISON: Head CT 03/17/2020 FINDINGS: There is no mass, hematoma, midline shift, or acute infarct. 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 Small focal hypodensity within the periphery the right frontal lobe on image 14. This favors a subacute infarct. Atrophy and microvascular ischemic changes are again noted. Small right extra axial low density fluid at the high convexity has increased. 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 There is moderate plaque within the bilateral cavernous carotids without significant stenosis. No central vessel occlusion is noted. There is no intraluminal thrombus. There is mild stenosis of the basilar artery. Multiple additional mild stenosis within the intracranial vessels are noted. IMPRESSION: 1. Small focal hypodensity within the right frontal lobe as described above. This favors a subacute infarct. Follow-up brain MRI can be used for confirmation. 2. 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 3. Mild multifocal stenoses within the intracranial vessels, unchanged. 4. Prominence of the right frontal extraaxial space which has slightly progressed. 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 ACT 112: Negative or not required by law. Electronically signed by: Geoff Alford M.D. 12/03/2020 12:43 PM Head CTA 12/03/20 11:[address], HEAD CTA HISTORY: vision loss rt eye TECHNIQUE: Multiaxial CT images of the head were performed both before and after the intravenous administration of contrast to evaluate the major cerebral vessels. Maximum intensity projection images were also obtained. A dose lowering technique was utilized adhering to the principles of ALARA. COMPARISON: Head CT 03/17/2020 FINDINGS: There is no mass, hematoma, midline shift, or acute infarct. 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 Small focal hypodensity within the periphery the right frontal lobe on image 14. This favors a subacute infarct. Atrophy and microvascular ischemic changes are again noted. Small right extra axial low density fluid at the high convexity has increased. 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 There is moderate plaque within the bilateral cavernous carotids without significant stenosis. No central vessel occlusion is noted. There is no intraluminal thrombus. There is mild stenosis of the basilar artery. Multiple additional mild stenosis within the intracranial vessels are noted. IMPRESSION: 1. Small focal hypodensity within the right frontal lobe as described above. This favors a subacute infarct. Follow-up brain MRI can be used for confirmation. 2. 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 3. Mild multifocal stenoses within the intracranial vessels, unchanged. 4. Prominence of the right frontal extraaxial space which has slightly progressed. 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 ACT 112: Negative or not required by law. Electronically signed by: Geoff Alford M.D. 12/03/2020 12:43 PM Neck CTA 12/03/20 11:25 CT ANGIOGRAPHY OF THE NECK WITH CONTRAST CLINICAL HISTORY: rt eye visual loss COMPARISON STUDY: No previous studies for comparison. Technique: CT angiography of the carotid and vertebral arteries was obtained using Optiray 320 IV and 3D reconstruction on an independent workstation. NASCET criteria was utilized. Automated exposure control was utilized for the study. A dose lowering technique was utilized adhering to the principles of ALARA. Findings: Lung apices are clear. There is no cervical spine fracture. There is no cervical lymphadenopathy. There is moderate stenosis at the origin of the left vertebral artery. No dissection within the major vessels of the neck. The right vertebral artery is patent. There is extensive plaque within the proximal right internal carotid artery. This now demonstrates greater than 90% focal stenosis which has progressed in the interval. There is approximately 60% focal stenosis at the takeoff of the proximal left internal carotid artery. This has also slightly progressed. The mid to distal bilateral internal carotid arteries and left common carotid artery are patent. There is approximately 60% focal stenosis at the distal right common carotid carotid artery. This is also slightly progressed in the interval. IMPRESSION: 1. Extensive plaque within the proximal bilateral internal carotid arteries with greater than 90% stenosis of the proximal right internal carotid artery. This is progressed. 2. Approximately 60% stenosis of the proximal left internal carotid artery. 3. Moderate stenosis at the origin of the left vertebral artery. 4. Approximately 60% stenosis within the distal right common carotid artery which is also progressed. ACT 112: Negative or not required by law. Electronically signed by: Geoff Alford M.D. 12/03/2020 12:57 PM ECG Data Attestation: I personally reviewed and interpreted this ECG as follows: Indication: + weakness Rate (beats per minute): 89 Rhythm: + normal sinus ECG Intervals/blocks: + Left anterior fascicular block, + Normal QT and + Normal LA ECG Junction: + Normal ECG ST segments: + Normal ST segments ECG Findings: no PACs and no PVCs Comparison ECG Date: from (03/17/20) Change: no significant change MDM Narrative This patient comes in as described above he had painless vision loss over 14 h ours ago. It is starting to get better. He is I external he looks only is normal pupil exam and extraocular movements he has no other neurologic deficits. I am concerned that he does have a history of significant carotid stenosis and it may be this was more of a stroke/amaurosis fugax type picture. IV access was established and blood work was obtained. EKG and neuro imaging was obtained as well. I did discuss the case with the digital director on-call Dr. Booth who does agree that the neurologic work-up needs to be done first. I did a CT with CTA of the head and neck. Also EKG which does not show any ischemia. Multiple blood testing was obtained. He has no white count or fever discussed infection is no signal electrolyte or metabolic abnormality. Covid testing was negative. CAT scan shows significant stenosis of both carotid arteries with 90% on the right and 60% on left he also has an area in the frontal lobe on the right which could be a subacute infarct. I am concerned given his significant vascular disease that this was more of a stroke. I do think he needs to be admitted for further treatment and evaluation and stroke work-up. He did take his aspirin this morning prior to arrival Impression & Plan Visual changes, Stroke, Carotid artery stenosis, Lab test negative for COVID-19 virus Discharge Plan Visit Data Chief Complaint: Eye Problems Stated Complaint: CAN'T SEE OUT OF RIGHT EYE ED Provider: Humble Berkowitz Discharge Problem: Visual changes, Stroke, Carotid artery stenosis, Lab test negative for COVID-19 virus Forms Stand Alone Forms: [facility] Prescriptions Prescriptions: No Action sennosides-docusate sodium 8.6-50 mg Tablet 1 tab PO QAM RF: 0 acetaminophen [Tylenol Extra Strength] 500 mg Tablet 1,500 mg PO Q6H PRN (Reason: Pain) RF: 0 oxybutynin chloride 10 mg tablet extended release 24hr 10 mg PO WM RF: 0 famotidine 20 mg tablet 20 mg PO DAILY RF: 0 aspirin 81 mg Tablet,Delayed Release (Dr/Ec) 81 mg PO QAM 30 Days Qty: 30 RF: 0 clopidogrel 75 mg tablet 75 mg PO DAILY RF: 0 amlodipine 10 mg tablet 10 mg PO DAILY RF: 0 losartan 100 mg tablet 100 mg PO DAILY RF: 0 Discharge Problem: Stroke Qualifiers: CVA mechanism: unspecified Qualified Code(s): I63.9 - Cerebral infarction, unspecified Carotid artery stenosis Qualifiers: Laterality: bilateral Qualified Code(s): I65.23 - Occlusion and stenosis of bilateral carotid arteries
[2020-12-03 11:31] LABS: Basophils # (auto) 0.02 K/uL (0-0.2); Basophils % (auto) 0.4 %; Eosinophils % (auto) 5.7 %; Hemoglobin 14.4 g/dL (14.0-18.0); Immature Granulocytes # (auto) 0.02 K/uL (0.00-0.02); Immature Granulocytes % (auto) 0.4 %; Lymphocytes # (auto) 0.97 K/uL (1.2-3.4); Lymphocytes % (auto) 18.4 %; Mean Corpuscular Hemoglobin 30.3 pg (25-34); Mean Corpuscular Hgb Conc 34.3 g/dL (32-36); Mean Corpuscular Volume 88.4 fL (80-100); Mean Platelet Volume 9.4 fL (7.4-10.4); Monocytes # (auto) 0.64 K/uL (0.11-0.59); Monocytes % (auto) 12.1 %; Neutrophils # (auto) 3.32 K/uL (1.4-6.5); Platelet Count 213 K/uL (130-400); RDW Coefficient of Variation 13.8 % (11.5-14.5); RDW Standard Deviation 44.6 fL (36.4-46.3); Red Blood Count 4.75 M/uL (4.7-6.1); White Blood Count 5.27 K/uL (4.8-10.8)
[2020-12-03 11:37] LABS: iSTAT Creatinine 1.5 mg/dl (0.6-1.3); iSTAT Ionized Calcium 1.2 mmol/l (1.12-1.32)
[2020-12-03 11:39] LABS: Prothrombin Time 9.9 Seconds (9.0-12.0)
--- NOTE | 2020-12-03 11:47 | XRay Report ---
SINGLE VIEW CHEST CLINICAL HISTORY: Generalized weakness. FINDINGS: An AP, portable, upright chest radiograph is compared to study dated 03/17/2020 and correlat ed with chest CT dated 09/21/2017. The heart is enlarged noting atherosclerotic calcification of the th oracic aorta. The pulmonary vasculature is noncongested. There is bibasilar scarring/atelectasis. No airspace consolidation or large pleural effusion is identified. No pneumothorax is seen. The skeletal structures are osteopenic. The bony thorax is grossly intact. IMPRESSION: Cardiomegaly with no acute cardiopulmonary abnormality. ACT 112: Negative or not required by law. Electronically signed by: Jesús Burnett M.D. 12/03/2020 11:46 AM
[2020-12-03] MEDS ORDERED: OPTIRAY 350 500ml IV ONE (11:58)
[2020-12-03 12:02] LABS: Albumin Level 4.3 gm/dl (3.4-5.0); Aspartate Aminotransferase 19 U/L (15-37); BUN Creatinine Ratio 16.8 (10-20); Blood Urea Nitrogen 23 mg/dl (7-18); Carbon Dioxide 28 mmol/L (21-32); Chloride 105 mmol/L (98-107); Creatinine Clr Calc Pharmacy 42.8 ml/min; Est GFR (African American) 54.1 ml/min; Est GFR (Non-African American) 46.6 ml/min; Glucose 101 mg/dl (70-99); Sodium 137 mmol/L (136-145)
[2020-12-03 12:13] LABS: Alanine Aminotransferase 16 U/L (12-78); Albumin Globulin Ratio 1.1 (0.9-2); Alkaline Phosphatase 65 U/L (45-117); Bilirubin,Total 1.4 mg/dl (0.2-1); Total Protein 8.3 gm/dl (6.4-8.2); Troponin I < 0.015 ng/ml (0-0.045)
--- NOTE | 2020-12-03 12:15 | Electrocardiogram Report ---
Test Reason : Blood Pressure : / mmHG Vent. Rate : 084 BPM Atrial Rate : 084 BPM P-R Int : 194 ms QRS Dur : 122 ms QT Int : 388 ms P-R-T Axes : 045 -50 047 degrees QTc Int : 458 ms Normal sinus rhythm Left anterior fascicular block Poor R wave progression, consider anterior IL vs. lead placement vs. LVH Abnormal ECG When compared with ECG of 17-MAR-2020 10:45, No significant change was found Confirmed by Carlos Hull ([id number]) on 12/03/2020 12:15:06 PM Referred By: REFERRED SELF Confirmed By:Alec Hull
[2020-12-03 12:40] LABS: Appearance Urine Clear (Clear); Bacteria Urine Automated Negative (Negative); Bilirubin Urine Negative (Negative); Blood Urine Negative (Negative); Color Urine Yellow; Glucose Urine UA Negative (Negative); Ketones Urine Negative (Negative); Leukocyte Esterase Urine Negative (Negative); Nitrite Urine Negative (Negative); Protein Urine 1+ (Negative); RBC Urine Automated 0-4 /hpf (0-4); Urobilinogen Urine Negative (Negative)
--- NOTE | 2020-12-03 12:45 | CT Scan Report ---
Noncontrast head CT, HEAD CTA HISTORY: vision loss rt eye TECHNIQUE: Multiaxial CT images of the head were performed both before and after the intravenous admi nistration of contrast to evaluate the major cerebral vessels. Maximum intensity projection images we re also obtained. A dose lowering technique was utilized adhering to the principles of ALARA. COMPARISON: Head CT 03/17/2020 FINDINGS: There is no mass, hematoma, midline shift, or acute infarct. 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 Sma ll focal hypodensity within the periphery the right frontal lobe on image 14. This favors a subacute infarct. Atrophy and microvascular ischemic changes are again noted. Small right extra axial low dens ity fluid at the high convexity has increased. 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 There is moderat e plaque within the bilateral cavernous carotids without significant stenosis. No central vessel occl usion is noted. There is no intraluminal thrombus. There is mild stenosis of the basilar artery. Mult iple additional mild stenosis within the intracranial vessels are noted. IMPRESSION: 1. Small focal hypodensity within the right frontal lobe as described above. This favors a subacute i nfarct. Follow-up brain MRI can be used for confirmation. 2. 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 3. Mild multifocal stenoses within the intracranial vessels, unchanged. 4. Prominence of the right frontal extraaxial space which has slightly progressed. 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 ACT 112: Negative or not required by law. Electronically signed by: Geoff Alford M.D. 12/03/2020 12:43 PM
--- NOTE | 2020-12-03 12:58 | CT Scan Report ---
CT ANGIOGRAPHY OF THE NECK WITH CONTRAST CLINICAL HISTORY: rt eye visual loss COMPARISON STUDY: No previous studies for comparison. Technique: CT angiography of the carotid and vertebral arteries was obtained using [employer] 320 IV and 3D reconstruction on an independent workstation. NASCET criteria was utilized. Automated exposure c ontrol was utilized for the study. A dose lowering technique was utilized adhering to the principles of ALARA. Findings: Lung apices are clear. There is no cervical spine fracture. There is no cervical lymphadeno tray. There is moderate stenosis at the origin of the left vertebral artery. No dissection within th e major vessels of the neck. The right vertebral artery is patent. There is extensive plaque within t he proximal right internal carotid artery. This now demonstrates greater than 90% focal stenosis whic h has progressed in the interval. There is approximately 60% focal stenosis at the takeoff of the pro ximal left internal carotid artery. This has also slightly progressed. The mid to distal bilateral in ternal carotid arteries and left common carotid artery are patent. There is approximately 60% focal s tenosis at the distal right common carotid carotid artery. This is also slightly progressed in the in terval. IMPRESSION: 1. Extensive plaque within the proximal bilateral internal carotid arteries with greater than 90% woodrow nosis of the proximal right internal carotid artery. This is progressed. 2. Approximately 60% stenosis of the proximal left internal carotid artery. 3. Moderate stenosis at the origin of the left vertebral artery. 4. Approximately 60% stenosis within the distal right common carotid artery which is also progressed. ACT 112: Negative or not required by law. Electronically signed by: Geoff Alford M.D. 12/03/2020 12:57 PM
--- NOTE | 2020-12-03 13:34 | History & Physical Report ---
Date of Service December 03, 2020 Assessment & Plan (1) Carotid artery stenosis: (2) Visual changes: This is an 89 yo M with a PMH of diastolic heart failure, history of CVA in 2019, history of bilateral ICA stenosis, HTN, LBBB, CKD III who presents with visual loss of R eye starting around 2100 last evening. In setting of progressively worsened bilateral ICA stenosis, R > left, with 90% and 60% stenosis respectively Head CTA with right frontal lobe lesion that favors a subacute infarct ED physician discussed case with inspector canned food reconditioning on-call who was concerned with underlying CVA and carotid stenosis as primary cause vs. ophthalmological Discussed case with vascular surgery- Dr. Orr recommending R CEA to be performed WEDNESDAY morning in [place] Brain MRI w/wo, echo with bubble study pending, routine neuro consult Continue aspirin, plavix, pravastatin PT/OT/speech consults Passed dysphagia screen so will advance diet (3) Diastolic heart failure: Peripheral edema on exam at baseline, per patient Denies SOB, orthopnea, CXR without acute cardiopulmonary abnormality Low-sodium diet, continue home dose Lasix (4) HTN (hypertension): BP elevated 161/99 in setting of progressively worsening carotid stenosis, subacute infarct on imaging Home regimen includes amlodipine and losartan in AM Will hold above medications for now to allow for permissive HTN, per discussion with neuro (5) CKD (chronic kidney disease), stage III: Kidney function at baseline Monitor daily BMP DVT Ppx: SCDs for now in setting of h/o subdural bleed, possible OR Code status: FULL PCP: Mp Dispo: Admitted to PCU. Discharge planning ordered Patient seen in collaboration with Dr. Quan. Please see addendum. History of Present Illness Chief Complaint: R visual changes Primary Care Provider: Bert Gresham MD This is an 89 yo M with a PMH of diastolic heart failure, history of CVA in 2019, history of bilateral ICA stenosis, HTN, LBBB, CKD III who presents with visual loss of R eye starting around 2100 last evening. First noticed his right eye going completely black followed by some recovery of the visual field in lateral quadrants but has remained cloudy. Denies any lightheadedness, headache, near syncope or new onset weakness or senstory deficits in extremities. Does have some residual lower extremity weakness from CVA in 2019. Also some residual dysphagia as a result of 2019 infarct. Does have history of R ICA stenosis of 80% on Feb 2020 CTA, L ICA stenosis 40-50%. Was evaluated by vascular surgery at that point with consideration of R CEA but patient remained asymptomatic and vascular surgery saw in office for follow up. Has been taking aspirin 162mg daily as well as plavix and pravastatin. No fever, chills, chest pain, shortness of breath, nausea, vomiting, abdominal pain, dysuria or diarrhea. Ongoing issues with constipation but has home bowel regimen. Allergies Allergy/AdvReac Type Severity Reaction Status Date / Time amoxicillin Allergy Severe SWELLING Verified 03/17/20 11:14 OF TONGUE AND THROAT baclofen Allergy Unknown VERY SLEEPY Unverified 03/17/20 11:14 daptomycin Allergy Unknown unknown Verified 03/17/20 11:14 omeprazole Allergy Unknown ? Verified 03/17/20 11:14 phenobarbital Allergy Unknown ? Verified 03/17/20 11:14 Dasgigp-Dgv-Tyx Reductase Allergy Unknown RASH Verified 03/17/20 11:14 Inhibitor Home Medications Medication Instructions Recorded Confirmed Type acetaminophen [Tylenol Extra 1,500 mg PO Q6H PRN 08/27/18 12/03/20 History Strength] sennosides-docusate sodium 1 tab PO QAM 08/27/18 12/03/20 History famotidine 20 mg PO DAILY 03/17/20 12/03/20 History oxybutynin chloride 10 mg PO WM 03/17/20 12/03/20 History aspirin 81 mg PO QAM 30 Days #30 tab 03/19/20 12/03/20 Rx amlodipine 10 mg PO DAILY 12/03/20 12/03/20 History clopidogrel 75 mg PO DAILY 12/03/20 12/03/20 History losartan 100 mg PO DAILY 12/03/20 12/03/20 History pravastatin 10 mg PO HS #30 tab 12/09/20 Rx Past Med/Surg History Medical History (Updated 12/10/20 @ 00:05 by Johan Spence) Amaurosis fugax of right eye Anemia BPH (benign prostatic hyperplasia) Carotid artery stenosis "50-69% MADALYN, < 50% LICA 01/2014 " CKD (chronic kidney disease), stage III Diastolic heart failure Fatty liver GERD (gastroesophageal reflux disease) Gout HTN (hypertension) Obesity Pernicious anemia Postoperative hypoxia Symptomatic stenosis of right carotid artery Surgical History (Updated 12/06/20 @ 10:09 by Jennifer Dominguez PA-C) S/P appendectomy S/P cholecystectomy S/P repair of ventral hernia Status post carotid endarterectomy Status post total left knee replacement Family History Other Family history non-contributory Social History Smoking Status: Never smoker Hx Alcohol Use: No Hx Substance Use: No Preferred Language: Tajik Communication Ability: Effective Boiler Cleaner Required: No Beliefs That Will Affect Care: None marital status: Current Living Situation: Spouse Feels Safe at Home: Yes Assistive Devices: Glasses, Oxygen - Continuous and Walker Review of Systems Review of Systems: At least ten systems reviewed and negative except as noted in the HPI. Physical Exam Physical Exam: General Appearance: WD/WN, vitals as above, NAD, sitting up in bed, pleasant, conversing easily Head: normocephalic, atraumatic Eyes: normal inspection, PERRL, conjunctivae normal, anicteric sclerae ENT: external ear and nose normal, oropharynx normal Neck: normal visual inspection, trachea midline, no thyromegaly Respiratory: normal respiratory effort, lungs clear to auscultation, no wheeze, rales, rhonchi. No accessory muscle use Cardiovascular: regular rate, rhythm, no murmur, normal peripheral pulses, 2+ BLE edema. Vessels: no JVD Chest: normal inspection of chest Abdomen/GI: normal bowel sounds, soft, nontender, no hepatosplenomegaly Extremities/Musculoskeletal: no cyanosis or clubbing, BUE strength 5/5, BLE strength 4/5 (chronic, residual from previous stroke) Neurologic: PERRL, EOMI, accommodation nl, no face palsy. + significantly decreased acuity R eye. L eye acuity intact. No dysarthria, CN's III-XI intact bilaterally and moves all extremities Psychiatric: A+Ox3, euthymic affect Skin: no rashes, normal color, warm/dry Results & Data Results & Data ([facility]) Vital Signs (Past 12 Hours) Vital Signs Temp Pulse Resp BP Pulse Ox 12/03/20 12:31 99 H 22 97 12/03/20 12:30 96 H 17 147/103 H 95 12/03/20 12:19 98 H 17 154/106 H 96 12/03/20 12:00 94 12/03/20 10:10 36.5 C 84 18 164/89 H 95 Laboratory Results Short CBC 12/03/20 Range/Units 11:04 WBC 5.27 (4.8-10.8) K/uL Hgb 14.4 (14.0-18.0) g/dL Hct 42.0 (42-52) % Plt Count 213 (130-400) K/uL BMP 12/03/20 11:04 Sodium 137 Potassium 4.0 Chloride 105 Carbon Dioxide 28 BUN 23 H Creatinine 1.34 Glucose 101 H Calcium 9.0 Cardiac Enzymes 12/03/20 Range/Units 11:04 Troponin I < 0.015 (0-0.045) ng/ml Liver Function 12/03/20 Range/Units 11:04 Total Bilirubin 1.4 H (0.2-1) mg/dl AST 19 (15-37) U/L ALT 16 (12-78) U/L Alkaline Phosphatase 65 (45-117) U/L Albumin 4.3 (3.4-5.0) gm/dl Urine 12/03/20 Range/Units 12:20 Urine Color Yellow Urine Appearance Clear (Clear) Urine pH 7.0 (4.5-7.5) Ur Specific [place] 1.020 (1.000-1.030) Urine Protein 1+ H (Negative) Urine Glucose (UA) Negative (Negative) Diagnostic Findings Chest X-Ray 12/03/20 11:04 SINGLE VIEW CHEST CLINICAL HISTORY: Generalized weakness. FINDINGS: An AP, portable, upright chest radiograph is compared to study dated 03/17/2020 and correlated with chest CT dated 09/21/2017. The heart is enlarged noting atherosclerotic calcification of the thoracic aorta. The pulmonary vasculature is noncongested. There is bibasilar scarring/atelectasis. No airspace consolidation or large pleural effusion is identified. No pneumothorax is seen. The skeletal structures are osteopenic. The bony thorax is grossly intact. IMPRESSION: Cardiomegaly with no acute cardiopulmonary abnormality. ACT 112: Negative or not required by law. Electronically signed by: Jesús Burnett M.D. 12/03/2020 11:[address] 12/03/20 11:[address], HEAD CTA HISTORY: vision loss rt eye TECHNIQUE: Multiaxial CT images of the head were performed both before and after the intravenous administration of contrast to evaluate the major cerebral vessels. Maximum intensity projection images were also obtained. A dose lowering technique was utilized adhering to the principles of ALARA. COMPARISON: Head CT 03/17/2020 FINDINGS: There is no mass, hematoma, midline shift, or acute infarct. 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 Small focal hypodensity within the periphery the right frontal lobe on image 14. This favors a subacute infarct. Atrophy and microvascular ischemic changes are again noted. Small right extra axial low density fluid at the high convexity has increased. 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 There is moderate plaque within the bilateral cavernous carotids without significant stenosis. No central vessel occlusion is noted. There is no intraluminal thrombus. There is mild stenosis of the basilar artery. Multiple additional mild stenosis within the intracranial vessels are noted. IMPRESSION: 1. Small focal hypodensity within the right frontal lobe as described above. This favors a subacute infarct. Follow-up brain MRI can be used for confirmation. 2. 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 3. Mild multifocal stenoses within the intracranial vessels, unchanged. 4. Prominence of the right frontal extraaxial space which has slightly progressed. 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 ACT 112: Negative or not required by law. Electronically signed by: Geoff Alford M.D. 12/03/2020 12:43 PM Head CTA 12/03/20 11:[address], HEAD CTA HISTORY: vision loss rt eye TECHNIQUE: Multiaxial CT images of the head were performed both before and after the intravenous administration of contrast to evaluate the major cerebral vessels. Maximum intensity projection images were also obtained. A dose lowering technique was utilized adhering to the principles of ALARA. COMPARISON: Head CT 03/17/2020 FINDINGS: There is no mass, hematoma, midline shift, or acute infarct. 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 Small focal hypodensity within the periphery the right frontal lobe on image 14. This favors a subacute infarct. Atrophy and microvascular ischemic changes are again noted. Small right extra axial low density fluid at the high convexity has increased. 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 There is moderate plaque within the bilateral cavernous carotids without significant stenosis. No central vessel occlusion is noted. There is no intraluminal thrombus. There is mild stenosis of the basilar artery. Multiple additional mild stenosis within the intracranial vessels are noted. IMPRESSION: 1. Small focal hypodensity within the right frontal lobe as described above. This favors a subacute infarct. Follow-up brain MRI can be used for co nfirmation. 2. 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 3. Mild multifocal stenoses within the intracranial vessels, unchanged. 4. Prominence of the right frontal extraaxial space which has slightly progressed. 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 ACT 112: Negative or not required by law. Electronically signed by: Geoff Alford M.D. 12/03/2020 12:43 PM Neck CTA 12/03/20 11:25 CT ANGIOGRAPHY OF THE NECK WITH CONTRAST CLINICAL HISTORY: rt eye visual loss COMPARISON STUDY: No previous studies for comparison. Technique: CT angiography of the carotid and vertebral arteries was obtained using [employer] 320 IV and 3D reconstruction on an independent workstation. NASCET criteria was utilized. Automated exposure control was utilized for the study. A dose lowering technique was utilized adhering to the principles of ALARA. Findings: Lung apices are clear. There is no cervical spine fracture. There is no cervical lymphadenopathy. There is moderate stenosis at the origin of the left vertebral artery. No dissection within the major vessels of the neck. The right vertebral artery is patent. There is extensive plaque within the proximal right internal carotid artery. This now demonstrates greater than 90% focal stenosis which has progressed in the interval. There is approximately 60% focal stenosis at the takeoff of the proximal left internal carotid artery. This has also slightly progressed. The mid to distal bilateral internal carotid arteries and left common carotid artery are patent. There is approximately 60% focal stenosis at the distal right common carotid carotid artery. This is also slightly progressed in the interval. IMPRESSION: 1. Extensive plaque within the proximal bilateral internal carotid arteries with greater than 90% stenosis of the proximal right internal carotid artery. This is progressed. 2. Approximately 60% stenosis of the proximal left internal carotid artery. 3. Moderate stenosis at the origin of the left vertebral artery. 4. Approximately 60% stenosis within the distal right common carotid artery which is also progressed. ACT 112: Negative or not required by law. Electronically signed by: Geoff Alford M.D. 12/03/2020 12:57 PM Code Status & VTE Plan VTE Prophylaxis Plan VTE Prophylaxis will be ordered: Yes Supervising Physician Co-Signing Physician Notes Pt seen and examined by me, care coordinated with Pricila Prieto PA-C, pls refer to her note above for further detail. This is an 89 yo M with diastolic heart failure, history of CVA in 2019, history of bilateral ICA stenosis, HTN, LBBB, CKD III who presents with visual loss of R eye starting around 2100 last evening. In setting of progressively worsened bilateral ICA stenosis, R > left, with 90% and 60% stenosis respectively. Head CTA with right frontal lobe lesion that favors a subacute infarct. ED physician discussed case with inspector canned food reconditioning on-call who was concerned with underlying CVA and carotid stenosis as primary cause vs. ophthalmological. Pt is currently sitting up in bed in NAD, watching TV, eating dinner. He is alert and oriented and answering questions appropriately. +R eye vision acuity deficit. Face seems symmetric and speech is fluent. Lungs clear to auscultation b/l w/o any wheezing, rhonchi or crackles. Heart sounds regular. Abdomen soft, obese, nontender, + bowel sounds. Pt moves extremities. Skin is warm dry. Discussed case with vascular surgery- Dr. Orr recommending R CEA to be performed WEDNESDAY morning in [place]. Brain MRI, echo, Neurology consulted. Pablo Quan MD
--- NOTE | 2020-12-03 15:01 | Consultation ---
Date of Consultation December 03, 2020 Assessment & Plan (1) Symptomatic stenosis of right carotid artery: Pt discussed with Dr Orr, who also reviewed neck CTA. Recommends R CEA to be performed WEDNESDAY morning in OR. Procedure discussed with pt and . Pt and agreeable. Patient was seen, examined, and chart reviewed. Agree with exam and treatment plan of the Vascular PA. History of Present Illness Reason for Consultation: RICAS, R eye amaurosis History of Present Illness 89 yo m with hx of JOSE ANTONIO, CVA, BPH, HTN, diastolic heart failure, admitted with R eye vision loss which occurred last night, seen in consultation today for RICAS of approx 90% noted on CTA. Pt previously seen by Dr Orr in Feb 2020 after generalized weakness and pontine infarct, and was to follow up in officein 3 months, but canceled appt as he was referred to Dr Rocha at [facility]. Pt states he did not ever end up seeing Dr Rocha. Pt presents today with R eye complete vision loss which occurred around 2100 last evening. States a black "blob" came down over his R eye til his vision was gone. States upon waking today, he has some return of vision in inner corner, but vision still mostly gone in R eye. Denies GAMBOA, fever, facial droop, difficulty speaking or swallowing, unilateral extremity weakness numbness or tingling, chest pain, SOB, abd pain, N/V, rest pain, claudication, other complaints. CTA neck demonstrates approx 90% R ICA. Allergies Allergy/AdvReac Type Severity Reaction Status Date / Time amoxicillin Allergy Severe SWELLING Verified 03/17/20 11:14 OF TONGUE AND THROAT baclofen Allergy Unknown VERY SLEEPY Unverified 03/17/20 11:14 daptomycin Allergy Unknown unknown Verified 03/17/20 11:14 omeprazole Allergy Unknown ? Verified 03/17/20 11:14 phenobarbital Allergy Unknown ? Verified 03/17/20 11:14 Khxxfnk-Jjr-Wsp Reductase Allergy Unknown RASH Verified 03/17/20 11:14 Inhibitor Home Medications Medication Instructions Recorded Confirmed Type acetaminophen [Tylenol Extra 1,500 mg PO Q6H PRN 08/27/18 12/03/20 History Strength] sennosides-docusate sodium 1 tab PO QAM 08/27/18 12/03/20 History famotidine 20 mg PO DAILY 03/17/20 12/03/20 History oxybutynin chloride 10 mg PO WM 03/17/20 12/03/20 History aspirin 81 mg PO QAM 30 Days #30 tab 03/19/20 12/03/20 Rx amlodipine 10 mg PO DAILY 12/03/20 12/03/20 History clopidogrel 75 mg PO DAILY 12/03/20 12/03/20 History losartan 100 mg PO DAILY 12/03/20 12/03/20 History Patient History Medical History BPH (benign prostatic hyperplasia) Carotid artery stenosis "50-69% MADALYN, < 50% LICA 01/2014 " CKD (chronic kidney disease), stage III Diastolic heart failure Fatty liver GERD (gastroesophageal reflux disease) Gout HTN (hypertension) Pernicious anemia Surgical History S/P appendectomy S/P cholecystectomy S/P repair of ventral hernia Status post total left knee replacement Family History Other Family history non-contributory Social History Smoking Status: Never smoker Hx Alcohol Use: No Hx Substance Use: No Preferred Language: [place] Communication Ability: Impaired Communication Ability Comment: vision impairment Data Management Analyst Required: No Beliefs That Will Affect Care: None Current Living Situation: Spouse Other Information That Helps Us Care for You: No Feels Safe at Home: Yes Safety Concerns: Feels Safe At This Time Assistive Devices: Glasses Review of Systems Review of Systems: All systems reviewed & are unremarkable except as noted in HPI & below Physical Exam Constitutional: WD/WN, vitals as above + obese, healthy appearing, cooperative and comfortable; not in distress ENMT: Ears: no hearing impairment Neck: trachea midline Respiratory: normal respiratory effort, lungs clear to auscultation Auscultation: + diminished lung sounds Cardiovascular: Rate/Rhythm: regular rate and regular rhythm Vessels: + carotid bruit, femoral pulses present, posterior tibial pulses present, dorsalis pedis pulses present, brachial pulses present and radial pulses present; + abnormal peripheral pulses Extremities: normal capillary refill and + edema Gastrointestinal (Abdomen): normal bowel sounds, soft, nontender, no hepatosplenomegaly Musculoskeletal: no cyanosis or clubbing, extremities motor strength 5/5 Skin: no rashes, warm and dry Neurologic: moves all extremities and awake; no focal motor deficits and not confused Psychiatric: A+Ox3, euthymic affect Results & Data ([facility]) Vital Signs (Past 12 Hours) Vital Signs Temp Pulse Resp BP Pulse Ox 12/03/20 14:01 85 17 96 12/03/20 14:00 75 13 161/99 H 96 12/03/20 13:33 85 16 95 12/03/20 13:32 77 12 162/100 H 95 12/03/20 13:30 23 93 12/03/20 13:01 91 H 17 94 12/03/20 13:00 92 H 18 179/102 H 95 12/03/20 12:31 99 H 22 97 12/03/20 12:30 96 H 17 147/103 H 95 12/03/20 12:19 98 H 17 154/106 H 96 12/03/20 12:00 94 12/03/20 10:10 36.5 C 84 18 164/89 H 95
[2020-12-03] MEDS ORDERED: POLYETHYLENE (MIRALAX) 17 GM PACK PO PRN (17:48)
[2020-12-03] MEDS ORDERED: PHARMACIST DISCHARGE MED REC CONSULT PRN (17:48)
[2020-12-03] MEDS ORDERED: ACETAMINOPHEN HOME PACK 500 MG TABLET PO PRN (17:48)
[2020-12-03] MEDS: OXYBUTYNIN CHLORIDE XL 5 MG TABCR PO SCH (18:33)
[2020-12-04] MEDS ORDERED: CLINDAMYCIN 600 MG/54 ML BAG IV SCH (06:00)
[2020-12-04 07:08] LABS: Hematocrit (blood only) 38.3 % (42-52); Hemoglobin 12.9 g/dL (14.0-18.0); Mean Corpuscular Hemoglobin 29.7 pg (25-34); Mean Corpuscular Hgb Conc 33.7 g/dL (32-36); Mean Corpuscular Volume 88.2 fL (80-100); Mean Platelet Volume 9.2 fL (7.4-10.4); Platelet Count 188 K/uL (130-400); RDW Coefficient of Variation 13.8 % (11.5-14.5); RDW Standard Deviation 44.8 fL (36.4-46.3); Red Blood Count 4.34 M/uL (4.7-6.1); White Blood Count 5.41 K/uL (4.8-10.8)
[2020-12-04 07:39] LABS: Estimated Average Glucose 105 mg/dl; Hemoglobin A1C 5.3 % (4.5-5.6)
[2020-12-04 07:44] LABS: BUN Creatinine Ratio 15.2 (10-20); Calcium 8.9 mg/dl (8.5-10.1); Creatinine Clr Calc Pharmacy 45.2 ml/min; Est GFR (African American) 57.1 ml/min; Est GFR (Non-African American) 49.3 ml/min; Potassium 4.2 mmol/L (3.5-5.1)
[2020-12-04] MEDS: FAMOTIDINE 20 MG TAB PO SCH (07:52)
[2020-12-04] MEDS: ASPIRIN 81 MG ECTAB PO SCH (07:52)
[2020-12-04] MEDS: CLOPIDOGREL BISULFATE 75 MG TAB PO SCH (07:53)
[2020-12-04] MEDS: DOCUSATE SODIUM/SENNA 50/8.6MG TAB PO SCH (07:53)
--- NOTE | 2020-12-04 11:23 | Surgery Progress Note ---
Date of Service December 04, 2020 Assessment & Plan (1) Carotid artery stenosis: Recommended a right carotid enterectomy for his amaurosis fugax. I have discussed the risks options and benefits of the procedure with the patient. The patient understands the risks options and benefits and agrees to the procedure. This will be done tomorrow morning. Admission and Anticipated Discharge Date Admission Date: December 03, 2020 Subjective Patient claims that his vision is back. Its only minimal haziness but he can see out of his right eye without difficulty. Physical Exam Physical Exam: No changes in physical exam. Other than his right he is neurologically intact. Results & Data ([facility]) Vital Signs (Past 12 Hours) Vital Signs Temp Pulse Pulse Resp BP Pulse Ox 12/04/20 07:48 36.1 C L 85 18 172/74 H 91 12/04/20 07:28 63 12/04/20 02:41 36.8 C 95 H 20 168/75 H 92 12/03/20 23:24 75 (1) Carotid artery stenosis Laterality: bilateral Qualified Code(s): I65.23 - Occlusion and stenosis of bilateral carotid arteries
--- NOTE | 2020-12-04 12:07 | Neurology Consultation ---
Date of Consultation December 04, 2020 Assessment & Plan (1) Visual changes: 1. CT head- right frontal lobe infarct would not explain symptoms 2. MRI would be more sensative but he is refusing 3. will defer blood pressure parameters to vascular surgery 4. currently on aspirin 81 mg and plavix 75 mg - will defer to vascular surgery for management 5. surgery schedule for tomorrow NPO after midnight no further neurologic intervention needed will be available for questions concerns. no outpatient follow up with neurology needed - prn follow up Present on Admission?: Yes Supervising Physician Co-Signing Physician Notes Patient was seen and examined. 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 Agree with right CEA. Appreciate vascular surgery help. Continue ASA and PLavix. Permissive HTN for now, treat for SBP> 185, DBP>110 mm Hg. Will defer to vascular surgery for blood pressure recommendations after CEA. Patient would benefit from optho follow up as outpatient. Please call with any additional questions or concerns. History of Present Illness Reason for Consultation: R visual changes, R frontal lobe lesion Requesting Physician: Christiano Rubin MD Attending Physician: Christiano Rubin MD History of Present Illness Kathya is a 89 year old male with PMH - diastolic heart failure, history of CVA in 2019, history of bilateral ICA stenosis, HTN, LBBB, CKD III who presents with visual loss of R eye starting around 2100 12/03/2020. First noticed his right eye going completely black followed by some recovery of the visual field in lateral quadrants but has remained cloudy. Does have some residual lower extremity weakness from CVA in 2019. Also some residual dysphagia as a result of 2019 infarct. He also had a history of R ICA stenosis of 80% on Feb 2020 CTA, L ICA stenosis 40-50% and was evaluated by vascular surgery at that point with consideration of R CEA but patient remained asymptomatic and vascular surgery saw in office for follow up. Has been taking aspirin 162mg daily as well as plavix and pravastatin. His vision has somewhat improve on the right but there is still "areas that are black". He is aware Dr Majano is doing surger tomorrow. denies CP, SOB, abdominal pain, one sided weakness, numbness tingling N, V. Allergies Allergy/AdvReac Type Severity Reaction Status Date / Time amoxicillin Allergy Severe SWELLING Verified 03/17/20 11:14 OF TONGUE AND THROAT baclofen Allergy Unknown VERY SLEEPY Unverified 03/17/20 11:14 daptomycin Allergy Unknown unknown Verified 03/17/20 11:14 omeprazole Allergy Unknown ? Verified 03/17/20 11:14 phenobarbital Allergy Unknown ? Verified 03/17/20 11:14 Rxsewfw-Fku-Pds Reductase Allergy Unknown RASH Verified 03/17/20 11:14 Inhibitor Home Medications Medication Instructions Recorded Confirmed Type acetaminophen [Tylenol Extra 1,500 mg PO Q6H PRN 08/27/18 12/03/20 History Strength] sennosides-docusate sodium 1 tab PO QAM 08/27/18 12/03/20 History famotidine 20 mg PO DAILY 03/17/20 12/03/20 History oxybutynin chloride 10 mg PO WM 03/17/20 12/03/20 History aspirin 81 mg PO QAM 30 Days #30 tab 03/19/20 12/03/20 Rx amlodipine 10 mg PO DAILY 12/03/20 12/03/20 History clopidogrel 75 mg PO DAILY 12/03/20 12/03/20 History losartan 100 mg PO DAILY 12/03/20 12/03/20 History Patient History Medical History (Updated 12/04/20 @ 13:37 by Geoff Bills MD) Anemia BPH (benign prostatic hyperplasia) Carotid artery stenosis "50-69% MADALYN, < 50% LICA 01/2014 " CKD (chronic kidney disease), stage III Diastolic heart failure Fatty liver GERD (gastroesophageal reflux disease) Gout HTN (hypertension) Obesity Pernicious anemia Symptomatic stenosis of right carotid artery Surgical History S/P appendectomy S/P cholecystectomy S/P repair of ventral hernia Status post total left knee replacement Family History Other Family history non-contributory Social History Smoking Status: Never smoker Hx Alcohol Use: No Hx Substance Use: No Preferred Language: Mauritanian Communication Ability: Effective Communication Ability Comment: vision impairment Fire Operations 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 Required: No Beliefs That Will Affect Care: None marital status: Current Living Situation: Spouse Other Information That Helps Us Care for You: No Feels Safe at Home: Yes Safety Concerns: Feels Safe At This Time Assistive Devices: Glasses Review of Systems Review of Systems: All systems reviewed & are unremarkable except as noted in HPI & below Physical Exam Physical Exam: Physical Exam: Constitutional: appearance over nourished, healthy and very pleasant man Ears, Nose, Mouth and Throat: mucous membranes moist, no injection and skin normal, eyes normal Cardiovascular: normal S-1 and S-2 and regular rate and rhythm Respiratory: clear to auscultation (CTA) and no rales, rhonchi or wheeze Musculoskeletal: no peripheral edema and good distal pulses Skin: no stigmata of neurocutaneous disease noted and normal and intact Eyes: extraocular muscles intact (EOMI) and pupils equal, round and reactive to light (PERRL), gross peripheral vision intact NEUROLOGIC EXAMINATION: Mental status: Alert and interactive Oriented to full date and location Oriented to person Speech fluent with no evidence of aphasia Cranial Nerves smile eye brow raise symmetric Reflexes: Deep tendon reflexes were symmetrical decreased Sensory: light and cool touch Coordination: finger to nose no bipass bilaterally Gait/Stance: Posture normal. Gait did not assess Motor: Negative for pronator drift of out stretched arms with eyes closed. 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 bilaterally hip flex 5/5 bilaterally Results & Data ([facility]) Vital Signs (Past 12 Hours) Vital Signs Temp Pulse Pulse Resp BP Pulse Ox 12/04/20 11:44 36.3 C L 74 20 179/75 H 96 12/04/20 07:48 36.1 C L 85 18 172/74 H 91 12/04/20 07:28 63 12/04/20 02:41 36.8 C 95 H 20 168/75 H 92 Laboratory Results Abnormal lab results 12/03/20 12/03/20 12/03/20 Range/Units 11:04 11:04 12:20 RBC (4.7-6.1) M/uL Hgb (14.0-18.0) g/dL Hct (42-52) % ESR 28 H (0-20) mm/hr BUN (7-18) mg/dl Total Bilirubin 1.4 H (0.2-1) mg/dl C-Reactive Protein 0.90 H (0-0.29) mg/dl Total Protein 8.3 H (6.4-8.2) gm/dl Urine Protein 1+ H (Negative) U Epithel Cells (Auto) 5-10 H (0-5) /lpf 12/04/20 12/04/20 Range/Units 06:54 06:54 RBC 4.34 L (4.7-6.1) M/uL Hgb 12.9 L (14.0-18.0) g/dL Hct 38.3 L (42-52) % ESR (0-20) mm/hr BUN 19 H (7-18) mg/dl Total Bilirubin (0.2-1) mg/dl C-Reactive Protein (0-0.29) mg/dl Total Protein (6.4-8.2) gm/dl Urine Protein (Negative) U Epithel Cells (Auto) (0-5) /lpf Diagnostic Findings CXR- cardiomegaly with no acute cardiopulmonary abnormality. CT /CTA head- Small focal hypodensity within the right frontal lobe as described above. This favors a subacute infarct. Follow-up brain MRI can be used for confirmation. Old pontine infarct. Mild multifocal stenoses within the intracranial vessels, unchanged. Prominence of the right frontal extraaxial space which has slightly progressed. 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 CTA neck- Extensive plaque within the proximal bilateral internal carotid arteries with greater than 90% stenosis of the proximal right internal carotid artery. This is progressed. Approximately 60% stenosis of the proximal left internal carotid artery. Moderate stenosis at the origin of the left vertebral artery. Approximately 60% stenosis within the distal right common carotid artery which is also progressed.
[2020-12-04] MEDS ORDERED: Nursing to Pharmacy Communication SCH (13:00)
[2020-12-04] MEDS: OXYBUTYNIN CHLORIDE XL 5 MG TABCR PO SCH (16:51)
--- NOTE | 2020-12-04 19:00 | Hospitalist Progress Note ---
Date of Service December 04, 2020 Assessment & Plan (1) Carotid artery stenosis: (2) Visual changes: Patient is an 89 yr male with H/O diastolic heart failure, history of CVA in 2019, history of bilateral ICA stenosis, HTN, LBBB, CKD III who presents with visual loss of R eye starting around 2100 last evening. Carotid artery stenosis Amaurosis fugax Subacute CVA -Head CTA:Small focal hypodensity within the right frontal lobe as described above. This favors a subacute infarct. Follow-up brain MRI can be used for confirmation. 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 Mild multifocal stenoses within the intracranial vessels, unchanged. Prominence of the right frontal extraaxial space which has slightly progressed. 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 -Neck CTA: . Extensive plaque within the proximal bilateral internal carotid arteries with greater than 90% stenosis of the proximal right internal carotid artery. This is progressed. Approximately 60% stenosis of the proximal left internal carotid artery. Moderate stenosis at the origin of the left vertebral artery. Approximately 60% stenosis within the distal right common carotid artery which is also progressed. -ECHO: EF 55 to 60%. Aortic valve is moderately calcified. Moderate valvular aortic stenosis. There is moderate mitral annular calcification. Grade 1 diastolic dysfunction. --Patient refuses MRI given significant claustrophobia -Patient neurology, vascular surgery input -Plan for right carotid endarterectomy tomorrow Continue aspirin, Plavix Consider statin PT OT eval (3) Diastolic heart failure: CXR without acute cardiopulmonary abnormality Low-sodium diet Monitor volume status (4) HTN (hypertension): Resume amlodipine, losartan as able (5) CKD (chronic kidney disease), stage III: Renal function at baseline Monitor daily BMP DVT Px: SCDs for now Code status: FULL CODE Admission and Anticipated Discharge Date Admission Date: December 03, 2020 Subjective Patient is seen and examined at bedside States having right eye blurry vision No new complaints Denies chest pain, shortness of breath, dizziness, nausea, abdominal pain Offers no new complaints Review of Systems Review of Systems: All systems reviewed & are unremarkable except as noted in HPI & below Physical Exam Physical Exam: Physical Exam: Vitals signs as noted above General Appearance:Obese, no apparent distress Head: normocephalic, Atraumatic Eyes: normal inspection, EOMI, R eye blurry Neck: supple, Trachea midline Respiratory/Chest: Normal breath sounds, CTA Cardiovascular: S1, S2, No murmur Abdomen/GI:Soft, Non tender, Bowel sounds present Extremities/Musculoskeletal:normal inspection, no edema Neurologic/Psych:AAOX3, grossly no focal neurological deficits, R eye blurry Skin: normal color, warm Results & Data Results & Data ([facility]) Vital Signs (Past 12 Hours) Vital Signs Temp Pulse Pulse Resp BP Pulse Ox 12/04/20 16:54 152/75 H 12/04/20 15:48 36.4 C L 77 20 189/82 H 93 12/04/20 15:20 73 12/04/20 11:44 36.3 C L 74 20 179/75 H 96 12/04/20 07:48 36.1 C L 85 18 172/74 H 91 12/04/20 07:28 63 Laboratory Results Short CBC 12/04/20 Range/Units 06:54 WBC 5.41 (4.8-10.8) K/uL Hgb 12.9 L (14.0-18.0) g/dL Hct 38.3 L (42-52) % Plt Count 188 (130-400) K/uL BMP 12/04/20 06:54 Sodium 137 Potassium 4.2 Chloride 104 Carbon Dioxide 26 BUN 19 H Creatinine 1.28 Glucose 99 Calcium 8.9
[2020-12-05] MEDS ORDERED: CLINDAMYCIN 600 MG/54 ML BAG IV SCH (06:00)
[2020-12-05 06:56] LABS: Hemoglobin 13.4 g/dL (14.0-18.0); Mean Corpuscular Hemoglobin 30.1 pg (25-34); Mean Corpuscular Hgb Conc 33.5 g/dL (32-36); Mean Corpuscular Volume 89.9 fL (80-100); Mean Platelet Volume 9.3 fL (7.4-10.4); Platelet Count 216 K/uL (130-400); RDW Coefficient of Variation 13.7 % (11.5-14.5); RDW Standard Deviation 45.8 fL (36.4-46.3); Red Blood Count 4.45 M/uL (4.7-6.1); White Blood Count 5.78 K/uL (4.8-10.8)
--- NOTE | 2020-12-05 07:05 | History & Physical Bridge Note ---
Date of Service December 05, 2020 History & Physical Bridge Note Patient for a right CEA today. I have discussed the risks options and benefits of the procedure with the patient. The patient understands the risks options and benefits and agrees to the procedure. I have examined the patient, reviewed the History & Physical and in the interval since the performance of the History & Physical I have noted the following changes of clinical significance: no changes noted
[2020-12-05 07:12] LABS: BUN Creatinine Ratio 15.8 (10-20); Calcium 9.2 mg/dl (8.5-10.1); Creatinine Clr Calc Pharmacy 46.1 ml/min; Est GFR (African American) 58.8 ml/min; Est GFR (Non-African American) 50.7 ml/min; Potassium 4.2 mmol/L (3.5-5.1)
[2020-12-05] MEDS: CLOPIDOGREL BISULFATE 75 MG TAB PO SCH (08:29)
[2020-12-05] MEDS: FAMOTIDINE 20 MG TAB PO SCH (08:29)
[2020-12-05] MEDS: DOCUSATE SODIUM/SENNA 50/8.6MG TAB PO SCH (08:29)
[2020-12-05] MEDS: ASPIRIN 81 MG ECTAB PO SCH (08:29)
[2020-12-05] MEDS ORDERED: LABETALOL HCL IV 5 MG/ML 20ML IV PRN (08:46)
[2020-12-05] MEDS ORDERED: ATROPINE SULFATE 0.1 MG/ML 10ML SYR IV PRN (08:46)
[2020-12-05] MEDS ORDERED: PHENYLEPHRINE 100MCG/ML 5ML SYR IV PRN (08:46)
[2020-12-05] MEDS ORDERED: ePHEDrine sulfate 50 MG/ML AMP IV PRN (08:46)
[2020-12-05] MEDS ORDERED: MEPERIDINE HCL 25 MG/ML CARP/VIAL IV PRN (08:46)
[2020-12-05] MEDS ORDERED: ONDANSETRON INJ 2 MG/ML 2 ML VIAL IV PRN (08:46)
[2020-12-05] MEDS ORDERED: HYDROmorphone INJ 1 MG/ML SYRINGE IV PRN (08:46)
[2020-12-05] MEDS ORDERED: NITROGLYCERIN 5 MG/ML 10 ML VIAL ONE ×2 (09:43→12:42)
[2020-12-05] MEDS ORDERED: ROCURONIUM BROMIDE 10 MG/ML 5 ML VIAL IV ONE (09:43)
[2020-12-05] MEDS ORDERED: PROPOFOL IV EMULSION 10 MG/ML 20 ML VIAL IV ONE (09:43)
[2020-12-05] MEDS ORDERED: fentaNYL citrate 100 MCG/2 ML VIAL ONE (09:43)
[2020-12-05] MEDS ORDERED: PHENYLEPHRINE HCL 10 MG/ML VIAL ONE (09:43)
[2020-12-05] MEDS ORDERED: LIDOCAINE 2% 2 ML VIAL/AMP(20MG/ML) INFIL ONE (09:47)
[2020-12-05] MEDS ORDERED: HEPARIN (PORCINE) 1000 UNIT/ML 10 ML (CATH LAB USE ONLY) ONE (09:58)
[2020-12-05] MEDS ORDERED: THROMBIN FOR SOLN 20000 UNIT KIT ONE (09:58)
[2020-12-05] MEDS ORDERED: LIDOCAINE 1% LOCAL 20 ML VIAL ONE (09:58)
[2020-12-05] MEDS ORDERED: BUPIVACAINE/EPINEPHRINE 0.5% MPF 1:200,000 30 ML VIAL ONE (09:58)
--- NOTE | 2020-12-05 10:09 | Anesthesiology Consultation ---
Date of Service December 05, 2020 Assessment & Plan (1) Encounter for pre-operative examination: Chart Review Chart Review: Acceptable Risk for Surgery (high risk but necessary surgery) and Patient NOT seen in Pre Admission Testing Consults Requested none medicine and neurology are following History Surgery Operation Date: 12/05/20 10:00 Proposed Procedures p Right Carotid Endarterectomy - Johnathan Orr MD Height/Weight Height: 5 ft 6 in Weight: 107.8 kg Allergies Allergy/AdvReac Type Severity Reaction Status Date / Time amoxicillin Allergy Severe SWELLING Verified 03/17/20 11:14 OF TONGUE AND THROAT baclofen Allergy Unknown VERY SLEEPY Unverified 03/17/20 11:14 daptomycin Allergy Unknown unknown Verified 03/17/20 11:14 omeprazole Allergy Unknown ? Verified 03/17/20 11:14 phenobarbital Allergy Unknown ? Verified 03/17/20 11:14 Skspybb-Jyl-Dwj Reductase Allergy Unknown RASH Verified 03/17/20 11:14 Inhibitor Medications Home Medications Medication Instructions Recorded Confirmed Last Taken acetaminophen [Tylenol Extra 1,500 mg PO Q6H PRN 08/27/18 12/03/20 03/17/20 Strength] sennosides-docusate sodium 1 tab PO QAM 08/27/18 12/03/20 03/17/20 famotidine 20 mg PO DAILY 03/17/20 12/03/20 03/17/20 oxybutynin chloride 10 mg PO WM 03/17/20 12/03/20 03/17/20 aspirin 81 mg PO QAM 30 Days #30 tab 03/19/20 12/03/20 Unknown amlodipine 10 mg PO DAILY 12/03/20 12/03/20 Unknown clopidogrel 75 mg PO DAILY 12/03/20 12/03/20 Unknown losartan 100 mg PO DAILY 12/03/20 12/03/20 Unknown Active Medications Generic Name Dose Route Start Last Admin Trade Name Freq PRN Reason Stop Dose Admin Aspirin 81 mg 12/04/20 09:00 12/05/20 08:29 Aspirin 81 Mg Ectab PO 01/03/21 08:59 Not Given QAM [facility] Clopidogrel Bisulfate 75 mg 12/04/20 09:00 12/05/20 08:29 Clopidogrel Bisulfate 75 Mg Tab PO 01/03/21 08:59 Not Given DAILY KITTY Famotidine 20 mg 12/04/20 09:00 12/05/20 08:29 Famotidine 20 Mg Tab PO 01/03/21 08:59 Not Given DAILY KITTY Oxybutynin Chloride 10 mg 12/03/20 18:00 12/04/20 16:51 Oxybutynin Chloride Xl 5 Mg Tabcr PO 01/02/21 17:59 10 mg DAILY@1800 KITTY Administration Senna/Docusate Sodium 1 tab 12/04/20 09:00 12/05/20 08:29 Docusate Sodium/Senna 50/8.6mg Tab PO 01/03/21 08:59 Not Given QAM KITTY NPO Date Last Intake of Fluids: 12/04/20 Time Last Intake of Fluids: 18:00 Date Last Intake of Solids: 12/04/20 Time Last Intake of Solids: 18:00 Past Medical History Medical History Anemia BPH (benign prostatic hyperplasia) Carotid artery stenosis "50-69% MADALYN, < 50% LICA 01/2014 " CKD (chronic kidney disease), stage III Diastolic heart failure Fatty liver GERD (gastroesophageal reflux disease) Gout HTN (hypertension) Obesity Pernicious anemia Symptomatic stenosis of right carotid artery Past Family History Family History Other Family history non-contributory Past Surgical History Surgical History S/P appendectomy S/P cholecystectomy S/P repair of ventral hernia Status post total left knee replacement Social History Smoking Status: Never smoker Hx Alcohol Use: No Hx Substance Use: No substance use type: does not use Physical Exam Vital Signs Last Vital Signs Temp 36.4 C L 12/05/20 09:16 Pulse 100 H 12/05/20 09:16 Resp 18 12/05/20 09:16 BP 170/98 H 12/05/20 09:16 Pulse Ox 96 12/05/20 09:16 Testing Laboratory Results 12/05/20 06:35 12/05/20 06:35 PT 9.9 Seconds (9.0-12.0) 12/03/20 11:04 INR 1.0 (0.9-1.1) 12/03/20 11:04 Hemoglobin A1c 5.3 % (4.5-5.6) 12/04/20 06:54 Urine Color Yellow 12/03/20 12:20 Urine Appearance Clear (Clear) 12/03/20 12:20 Urine pH 7.0 (4.5-7.5) 12/03/20 12:20 Ur Specific [place] 1.020 (1.000-1.030) 12/03/20 12:20 Urine Protein 1+ (Negative) H 12/03/20 12:20 Urine Glucose (UA) Negative (Negative) 12/03/20 12:20 Urine Ketones Negative (Negative) 12/03/20 12:20 Urine Nitrite Negative (Negative) 12/03/20 12:20 Ur Leukocyte Esterase Negative (Negative) 12/03/20 12:20 Urine WBC (Auto) 1-5 /hpf (0-5) 12/03/20 12:20 Urine RBC (Auto) 0-4 /hpf (0-4) 12/03/20 12:20 U Hyaline Cast (Auto) 1-5 /lpf (0-5) 12/03/20 12:20 U Epithel Cells (Auto) 5-10 /lpf (0-5) H 12/03/20 12:20 Urine Bacteria (Auto) Negative (Negative) 12/03/20 12:20 Blood Type A Positive 12/04/20 16:02 Antibody Screen NEGATIVE 12/04/20 16:02 Electrocardiogram Date: 12/03/20 Findings: + NSR @ (84) left anterior fascicle block, poor R wave progression, no change from February 2020 Chest X-Ray Date: 12/03/20 SINGLE VIEW CHEST CLINICAL HISTORY: Generalized weakness. FINDINGS: An AP, portable, upright chest radiograph is compared to study dated 03/17/2020 and correlated with chest CT dated 09/21/2017. The heart is enlarged noting atherosclerotic calcification of the thoracic aorta. The pulmonary vasculature is noncongested. There is bibasilar scarring/atelectasis. No airspace consolidation or large pleural effusion is identified. No pneumothorax is seen. The skeletal structures are osteopenic. The bony thorax is grossly intact. IMPRESSION: Cardiomegaly with no acute cardiopulmonary abnormality. ACT 112: Negative or not required by law. Electronically signed by: Jesús Burnett M.D. 12/03/2020 11:46 AM Dictated: 12/03/20 1146Transcribed: 12/03/20 1146 Echocardiogram Date: 12/04/20 EF: 55-60 Other Findings: + diastolic dysfunction (grade 1) Valvular Disease: + (moderate) Other Testing CT ANGIOGRAPHY OF THE NECK WITH CONTRAST CLINICAL HISTORY: rt eye visual loss COMPARISON STUDY: No previous studies for comparison. Technique: CT angiography of the carotid and vertebral arteries was obtained using [employer] 320 IV and 3D reconstruction on an independent workstation. NASCET criteria was utilized. Automated exposure control was utilized for the study. A dose lowering technique was utilized adhering to the principles of ALARA. Findings: Lung apices are clear. There is no cervical spine fracture. There is no cervical lymphadenopathy. There is moderate stenosis at the origin of the left vertebral artery. No dissection within the major vessels of the neck. The right vertebral artery is patent. There is extensive plaque within the proximal right internal carotid artery. This now demonstrates greater than 90% focal stenosis which has progressed in the interval. There is approximately 60% focal stenosis at the takeoff of the proximal left internal carotid artery. This has also slightly progressed. The mid to distal bilateral internal carotid arteries and left common carotid artery are patent. There is approximately 60% focal stenosis at the distal right common carotid carotid artery. This is also slightly progressed in the interval. IMPRESSION: 1. Extensive plaque within the proximal bilateral internal carotid arteries with greater than 90% stenosis of the proximal right internal carotid artery. This is progressed. 2. Approximately 60% stenosis of the proximal left internal carotid artery. 3. Moderate stenosis at the origin of the left vertebral artery. 4. Approximately 60% stenosis within the distal right common carotid artery which is also progressed. ACT 112: Negative or not required by law. Electronically signed by: Geoff Alford M.D. 12/03/2020 12:57 PM Dictated: 12/03/20 1243Transcribed: 12/03/[address] [facility], [id number] CT Scan Report Patient: JESS ESCUDEROdmit Date: 12/03/20#: [id number]: [address]Acct ID:[id number]: Date: 1930[facility] Zip: [place] [id number]: 89Location: EDSex: MRoom/Bed:Att Phy:Diagnosis: CAN'T SEE OUT OF RIGHT EYEPri Phy: Bert Gresham, MDService Date: 12/03/20Fa Phy:Interpreting Phy: Geoff Alford MDAdmit Phy: Ordering Phy: Humble eBrkowitz M.D. cc: ~ Noncontrast head CT, HEAD CTA HISTORY: vision loss rt eye TECHNIQUE: Multiaxial CT images of the head were performed both before and after the intravenous administration of contrast to evaluate the major cerebral vessels. Maximum intensity projection images were also obtained. A dose lowering technique was utilized adhering to the principles of ALARA. COMPARISON: Head CT 03/17/2020 FINDINGS: There is no mass, hematoma, midline shift, or acute infarct. 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 Small focal hypodensity within the periphery the right frontal lobe on image 14. This favors a subacute infarct. Atrophy and microvascular ischemic changes are again noted. Small right extra axial low density fluid at the high convexity has increased. 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 There is moderate plaque within the bilateral cavernous carotids without significant stenosis. No central vessel occlusion is noted. There is no intraluminal thrombus. There is mild stenosis of the basilar artery. Multiple additional mild stenosis within the intracranial vessels are noted. IMPRESSION: 1. Small focal hypodensity within the right frontal lobe as described above. This favors a subacute infarct. Follow-up brain MRI can be used for confirmation. 2. 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 3. Mild multifocal stenoses within the intracranial vessels, unchanged. 4. Prominence of the right frontal extraaxial space which has slightly progressed. 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 ACT 112: Negative or not required by law. Electronically signed by: Geoff Alford M.D. 12/03/2020 12:43 PM Dictated: 12/03/20 121Transcribed: 12/03/201209
[2020-12-05] MEDS ORDERED: ePHEDrine sulfate 50 MG/ML AMP ONE (10:55)
[2020-12-05] MEDS ORDERED: HEPARIN SOD (PORCINE) 1000 UNIT/ML ONE (10:59)
[2020-12-05] MEDS: GELATIN SPONGE SZ 100 ONE ×2 (12:14→12:53)
[2020-12-05] MEDS ORDERED: PROTAMINE SULFATE 10 MG/ML 5 ML VIAL ONE (12:38)
--- NOTE | 2020-12-05 13:14 | Operative Report ---
Post Operative Report Pre & Post Diagnosis Operation Date: 12/05/20 10:00 Pre-Op Diagnosis: Right Carotid Artery Stenosis Post-Op Diagnosis: Right Carotid Artery Stenosis I identified the patient and participated in the time-out.: Yes Procedure Operation Date: 12/05/20 10:00 Actual Procedures p Right Carotid Endarterectomy(Right) with bovine patch- Johnathan Orr MD Surgeon Johnathan Orr MD Stucco Worker None Estimated Blood Loss 200 Findings Consistent with Post-Op Diagnosis Specimens Plaque right carotid artery Anesthesia Type General Complications none Disposition Accompanied Patient To Recovery: No Disposition: Recovery Room Indications This is a 89-year-old gentleman who presented with amaurosis fugax of the right eye. He has a known stenosis of the right carotid artery which is worsened. His vision recovered except for some minimal blurriness. Right carotid endarterectomy is recommended. I have discussed the risks options and benefits of the procedure with the patient. The patient understands the risks options and benefits and agrees to the procedure. Description of Procedure The patient was taken to the operating room and placed in supine position. After general anesthesia was accomplished the right side of the neck was prepped and draped in a sterile manner. The patient was identified and a timeout performed. A longitudinal neck incision was then made coursing along the medial border of the sternocleidomastoid muscle. The incision was taken down through the platysmal layer. The facial vein was identified, ligated, and divided. The common carotid artery was then seen. It was dissected free down to the omohyoid muscle. The dissection was carried upward until the external carotid artery and superior thyroid artery was seen. The superior thyroid artery was slung with a 2-0 silk suture. The external carotid was slung with a red rubber vessel loop. Next the dissection was carried up along the internal carotid artery. This was carried upward to beyond the area of narrowing. The hypoglossal nerve was seen and preserved. The patient was heparinized. After adequate heparinization was accomplished, the internal, external, and common carotid arteries were clamped. A longitudinal arteriotomy was started on the common carotid artery and extended upward along the internal carotid artery to a point beyond the area of narrowing. There was calcified plaque of the internal carotid artery origin causing approximately 90% narrowing with intraplaque hemorrhage which appeared to be fresh.. A Doppler shunt was then placed in the internal, followed by the common carotid artery and held in place with Seamus clamps. There was good back bleeding seen from the internal carotid artery. The endarterectomy was then started in the appropriate plane on the common carotid artery. This was carried upward and the external carotid was everted and endarterectomized. The endarterectomy was then carried up along the internal carotid artery till a nice feathering breakoff point was accomplished beyond the end of the plaque. The endarterectomy was then carried down further on the common carotid artery. At end of the arteriotomy, the plaque was then transected. Under loop magnification, all loose debris and flaps were removed. There is no distal flap seen at the end of the endarterectomy site. The arteriotomy then closed using a bovine patch with 6-0 Prolene suture suture. This was done in the usual vascular fashion. Prior to completing the closure, the doppler shunt was removed and the internal and common carotid arteries were reclamped. Backbleeding and forward bleeding was allowed to occur. The flow surface was irrigated with heparinized saline. The final few sutures were then placed and securely tied. Clamps were then removed off the external and common carotid arteries. The clamp was then removed the internal carotid artery. Good distal flow was seen. Adequate hemostasis was seen of the patch. The wound was inspected and adequate hemostasis was obtained. The wound was irrigated with antibiotic solution. It was then closed with a running 3-0 Vicryl suture for the platysmal layer and papito for the skin edges. 4 x 4's and micropore tape was used for dressing.. The patient left the operation room in satisfactory condition and tolerated the procedure well. All needle and sponge counts were correct at the end of the procedure. Dr. Orr was present and scrubbed for the entire procedure. I attest to the content of the Intraoperative Record and any orders documented therein. Any exceptions are noted below.
[2020-12-05] MEDS ORDERED: NEOSTIGMINE METHYLSULFATE 1 MG/ML 10ML VIAL ONE (13:33)
[2020-12-05] MEDS ORDERED: GLYCOPYRROLATE 0.2 MG/ML VIAL ONE (13:33)
[2020-12-05] MEDS: fentaNYL citrate 100 MCG/2 ML VIAL IV PRN ×3 (13:46→13:54)
[2020-12-05] MEDS: ONDANSETRON INJ 2 MG/ML 2 ML VIAL IV PRN (14:30)
--- NOTE | 2020-12-05 14:39 | Anesthesiology Progress Note ---
Date of Service December 05, 2020 Anesthesia Post Procedure Vital Signs Vital Signs: Temp Pulse Pulse Pulse Resp BP BP 12/05/20 14:20 84 15 126/63 130/55 L 12/05/20 14:10 36.4 C L 86 17 131/87 145/63 H 12/05/20 14:00 74 12 127/70 133/57 L 12/05/20 13:50 86 18 104/69 111/57 L 12/05/20 13:40 87 18 97/66 L 97/44 L 12/05/20 13:30 86 19 128/70 131/62 12/05/20 13:22 36.2 C L 91 H 19 100/65 107/54 L 12/05/20 09:16 36.4 C L 100 H 18 170/98 H 12/05/20 08:00 66 12/05/20 07:50 36.6 C 90 17 164/90 H 12/05/20 03:25 36.6 C 91 H 19 163/93 H 12/04/20 23:15 80 12/04/20 22:43 36.8 C 78 18 166/81 H 12/04/20 19:13 36.6 C 79 18 170/83 H 12/04/20 16:54 152/75 H 12/04/20 15:48 36.4 C L 77 20 189/82 H 12/04/20 15:20 73 Pulse Ox 12/05/20 14:20 98 12/05/20 14:10 97 12/05/20 14:00 94 12/05/20 13:50 97 12/05/20 13:40 100 12/05/20 13:30 100 12/05/20 13:22 100 12/05/20 09:16 96 12/05/20 08:00 12/05/20 07:50 94 12/05/20 03:25 95 12/04/20 23:15 12/04/20 22:43 94 12/04/20 19:13 93 12/04/20 16:54 12/04/20 15:48 93 12/04/20 15:20 Pain Intensity Right Neck: Pain Intensity: 5 Transfer of Care Handoff Completed per policy Notes Mental Status: alert / awake / arousable Patient Amnestic to Procedure: Yes Nausea / Vomiting: adequately controlled Pain: adequately controlled Airway Patency, RR, SpO2: stable & adequate BP & HR: stable & adequate Hydration State: stable & adequate Anesthetic Complications: no major complications apparent and Pt Satisfied with anesthetic care Notes: The patient tolerated the procedure well. He had some surgical site pain in the PACU but was otherwise doing well. He was able to stick out his tongue and move all extremities on command. His vital signs are stable. He will be in the ICU overnight. Sign out was given to the ICU team.
[2020-12-05] MEDS: LACTATED RINGER'S 1,000 ML IV SCH ×2 (15:30→22:47)
--- NOTE | 2020-12-05 17:06 | Critical Care Consultation ---
Date of Consultation December 05, 2020 Assessment & Plan (1) Carotid artery stenosis: 89-year-old male with a history of moderate aortic stenosis, hypertension, CKD stage III, hyperlipidemia and diastolic CHF who is currently in the ICU for postoperative management of a right carotid artery endarterectomy. He is hemodynamically stable at present. He has mild hypoxia currently on 4 L of oxygen. He is saturating 98%. Continue to wean oxygen to maintain saturations of 92 to 94%. Postop hypoxia likely related to hypoventilation from sedatives and pain medications. Will use incentive spirometer. Out of bed to chair. Blood pressure control per vascular surgery. Neurology is following the patient for his stroke. Continue physical therapy and Occupational Therapy. Likely will be stable to transfer to the floor tomorrow. (2) Symptomatic stenosis of right carotid artery: (3) Postoperative hypoxia: (4) Amaurosis fugax of right eye: History of Present Illness Reason for Consultation: Post endarterectomy care Attending Physician: Christiano Rubin MD History of Present Illness 89-year-old male with a history of bilateral carotid artery stenosis, right greater than left on aspirin and Plavix who was admitted to the hospital with right vision loss. 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 High-grade right carotid artery stenosis was noted. Carotid endarterectomy was recommended. He underwent a right carotid endarterectomy today by Dr. Orr. He had some postoperative confusion and hypoxia. He had a lot of pain postop and required multiple doses of fentanyl. He is currently hemodynamically stable. He is somewhat lethargic but arouses easily. He has some soreness in his right neck. His is at bedside. He currently has a sitter. Allergies Allergy/AdvReac Type Severity Reaction Status Date / Time amoxicillin Allergy Severe SWELLING Verified 03/17/20 11:14 OF TONGUE AND THROAT baclofen Allergy Unknown VERY SLEEPY Unverified 03/17/20 11:14 daptomycin Allergy Unknown unknown Verified 03/17/20 11:14 omeprazole Allergy Unknown ? Verified 03/17/20 11:14 phenobarbital Allergy Unknown ? Verified 03/17/20 11:14 Lmsrjgf-Fws-Hre Reductase Allergy Unknown RASH Verified 03/17/20 11:14 Inhibitor Home Medications Medication Instructions Recorded Confirmed Type acetaminophen [Tylenol Extra 1,500 mg PO Q6H PRN 08/27/18 12/03/20 History Strength] sennosides-docusate sodium 1 tab PO QAM 08/27/18 12/03/20 History famotidine 20 mg PO DAILY 03/17/20 12/03/20 History oxybutynin chloride 10 mg PO WM 03/17/20 12/03/20 History aspirin 81 mg PO QAM 30 Days #30 tab 03/19/20 12/03/20 Rx amlodipine 10 mg PO DAILY 12/03/20 12/03/20 History clopidogrel 75 mg PO DAILY 12/03/20 12/03/20 History losartan 100 mg PO DAILY 12/03/20 12/03/20 History Patient History Medical History Anemia BPH (benign prostatic hyperplasia) Carotid artery stenosis "50-69% MADALYN, < 50% LICA 01/2014 " CKD (chronic kidney disease), stage III Diastolic heart failure Fatty liver GERD (gastroesophageal reflux disease) Gout HTN (hypertension) Obesity Pernicious anemia Symptomatic stenosis of right carotid artery Surgical History S/P appendectomy S/P cholecystectomy S/P repair of ventral hernia Status post total left knee replacement Family History Other Family history non-contributory Social History Smoking Status: Never smoker Hx Alcohol Use: No Hx Substance Use: No Preferred Language: Greenlandic Communication Ability: Effective Communication Ability Comment: vision impairment Elementary Supervisor Required: No Beliefs That Will Affect Care: None marital status: Current Living Situation: Spouse Other Information That Helps Us Care for You: No Feels Safe at Home: Yes Safety Concerns: Feels Safe At This Time Assistive Devices: Denture - Upper, Denture - Lower and Glasses Review of Systems Review of Systems: All systems reviewed & are unremarkable except as noted in HPI & below Physical Exam Constitutional: WD/WN, vitals as above Eyes: PERRL, conjunctivae normal, anicteric sclerae ENMT: external ear and nose normal, oropharynx normal Respiratory: normal respiratory effort, lungs clear to auscultation Cardiovascular: RRR, no murmur, no edema Gastrointestinal (Abdomen): normal bowel sounds, soft, nontender, no hepatosplenomegaly Musculoskeletal: no cyanosis or clubbing, extremities motor strength 5/5 Skin: no rashes, warm and dry Neurologic: Lethargic. Nonfocal. Psychiatric: A+Ox3, euthymic affect Results & Data Results & Data ([facility]) Vital Signs (Past 12 Hours) Vital Signs Temp Pulse Pulse Pulse Resp BP BP 12/05/20 16:15 57 L 14 12/05/20 16:00 60 16 12/05/20 15:45 65 17 12/05/20 15:34 68 13 12/05/20 15:33 67 17 114/68 12/05/20 15:30 68 16 12/05/20 15:15 72 19 12/05/20 15:00 70 18 12/05/20 14:45 98.1 F 68 15 12/05/20 14:20 84 15 126/63 12/05/20 14:10 97.5 F L 86 17 131/87 12/05/20 14:00 74 12 127/70 12/05/20 13:50 86 18 104/69 12/05/20 13:40 87 18 97/66 L 12/05/20 13:30 86 19 128/70 12/05/20 13:22 97.2 F L 91 H 19 100/65 12/05/20 09:16 97.5 F L 100 H 18 170/98 H 12/05/20 08:00 66 12/05/20 07:50 97.9 F 90 17 164/90 H BP Pulse Ox 12/05/20 16:15 98 12/05/20 16:00 96 12/05/20 15:45 96 12/05/20 15:34 96 12/05/20 15:33 96 12/05/20 15:30 96 12/05/20 15:15 98 12/05/20 15:00 94 12/05/20 14:45 91 12/05/20 14:20 130/55 L 98 12/05/20 14:10 145/63 H 97 12/05/20 14:00 133/57 L 94 12/05/20 13:50 111/57 L 97 12/05/20 13:40 97/44 L 100 12/05/20 13:30 131/62 100 12/05/20 13:22 107/54 L 100 12/05/20 09:16 96 12/05/20 08:00 12/05/20 07:50 94 vital signs, labs and imaging reviewed Coding Level of Care Code 50744 Inpt Consult Level 3 Diagnoses Carotid artery stenosis I65.23 Laterality: bilateral Symptomatic stenosis of right carotid artery I65.21 Postoperative hypoxia R09.02; Z98.890 Amaurosis fugax of right eye G45.3 (1) Carotid artery stenosis Laterality: bilateral Qualified Code(s): I65.23 - Occlusion and stenosis of bilateral carotid arteries
[2020-12-05] MEDS: CLINDAMYCIN 600 MG in DEXTROSE 5% 50 ML IV SCH (17:20)
[2020-12-05] MEDS: OXYBUTYNIN CHLORIDE XL 5 MG TABCR PO SCH (17:24)
--- NOTE | 2020-12-05 17:26 | Hospitalist Progress Note ---
Date of Service December 05, 2020 Assessment & Plan (1) Carotid artery stenosis: (2) Visual changes: Patient is an 89 yr male with H/O diastolic heart failure, history of CVA in 2019, history of bilateral ICA stenosis, HTN, LBBB, CKD III who presents with visual loss of R eye starting around 2100 last evening. Carotid artery stenosis Amaurosis fugax Subacute CVA -Head CTA:Small focal hypodensity within the right frontal lobe as described above. This favors a subacute infarct. Follow-up brain MRI can be used for confirmation. 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 Mild multifocal stenoses within the intracranial vessels, unchanged. Prominence of the right frontal extraaxial space which has slightly progressed. 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 -Neck CTA: . Extensive plaque within the proximal bilateral internal carotid arteries with greater than 90% stenosis of the proximal right internal carotid artery. This is progressed. Approximately 60% stenosis of the proximal left internal carotid artery. Moderate stenosis at the origin of the left vertebral artery. Approximately 60% stenosis within the distal right common carotid artery which is also progressed. -ECHO: EF 55 to 60%. Aortic valve is moderately calcified. Moderate valvular aortic stenosis. There is moderate mitral annular calcification. Grade 1 diastolic dysfunction. --Patient refuses MRI given significant claustrophobia --S/P right carotid endarterectomy with bovine patch on 12/05/20 by -Patient neurology, vascular surgery input -Continue aspirin, Plavix -Consider statin if appropriate -PT OT eval (3) Diastolic heart failure: CXR without acute cardiopulmonary abnormality Low-sodium diet Monitor volume status (4) HTN (hypertension): Resume amlodipine, losartan as able (5) CKD (chronic kidney disease), stage III: Renal function at baseline Monitor daily BMP DVT Px: SCDs for now Code status: FULL CODE Admission and Anticipated Discharge Date Admission Date: December 03, 2020 Subjective Patient is seen and examined at bedside Patient had right carotid endarterectomy today States having headache postoperatively " I have difficulty swallowing" Family at bedside Denies chest pain, shortness of breath Review of Systems Review of Systems: All systems reviewed & are unremarkable except as noted in HPI & below Physical Exam Physical Exam: Physical Exam: Vitals signs as noted above General Appearance:Obese, no apparent distress Head: normocephalic, Atraumatic Eyes: normal inspection, EOMI, R eye blurry Neck: supple, Trachea midline, Surgical site in dressing Respiratory/Chest: Normal breath sounds, CTA Cardiovascular: S1, S2, No murmur Abdomen/GI:Soft, Non tender, Bowel sounds present Extremities/Musculoskeletal:normal inspection, no edema Neurologic/Psych:AAOX3, grossly no focal neurological deficits, R eye blurry Skin: normal color, warm Results & Data Results & Data ([facility]) Vital Signs (Past 12 Hours) Vital Signs Temp Pulse Pulse Pulse Resp BP BP 12/05/20 16:15 57 L 14 12/05/20 16:00 60 16 12/05/20 15:45 65 17 12/05/20 15:34 68 13 12/05/20 15:33 67 17 114/68 12/05/20 15:30 68 16 12/05/20 15:15 72 19 12/05/20 15:00 70 18 12/05/20 14:45 36.7 C 68 15 12/05/20 14:20 84 15 126/63 12/05/20 14:10 36.4 C L 86 17 131/87 12/05/20 14:00 74 12 127/70 12/05/20 13:50 86 18 104/69 12/05/20 13:40 87 18 97/66 L 12/05/20 13:30 86 19 128/70 12/05/20 13:22 36.2 C L 91 H 19 100/65 12/05/20 09:16 36.4 C L 100 H 18 170/98 H 12/05/20 08:00 66 12/05/20 07:50 36.6 C 90 17 164/90 H BP Pulse Ox 12/05/20 16:15 98 12/05/20 16:00 96 12/05/20 15:45 96 12/05/20 15:34 96 12/05/20 15:33 96 12/05/20 15:30 96 12/05/20 15:15 98 12/05/20 15:00 94 12/05/20 14:45 91 12/05/20 14:20 130/55 L 98 12/05/20 14:10 145/63 H 97 12/05/20 14:00 133/57 L 94 12/05/20 13:50 111/57 L 97 12/05/20 13:40 97/44 L 100 12/05/20 13:30 131/62 100 12/05/20 13:22 107/54 L 100 12/05/20 09:16 96 12/05/20 08:00 12/05/20 07:50 94 Laboratory Results Short CBC 12/05/20 Range/Units 06:35 WBC 5.78 (4.8-10.8) K/uL Hgb 13.4 L (14.0-18.0) g/dL Hct 40.0 L (42-52) % Plt Count 216 (130-400) K/uL BMP 12/05/20 06:35 Sodium 138 Potassium 4.2 Chloride 105 Carbon Dioxide 27 BUN 20 H Creatinine 1.25 Glucose 100 H Calcium 9.2
[2020-12-05] MEDS: ACETAMINOPHEN 325 MG TAB PO PRN (19:40)
[2020-12-05] MEDS: MoRPHine SULFATE 4 MG/ML 1 ML CARP\\VIAL IV PRN (22:46)
[2020-12-06] MEDS: ONDANSETRON INJ 2 MG/ML 2 ML VIAL IV PRN (00:46)
[2020-12-06] MEDS: CLINDAMYCIN 600 MG in DEXTROSE 5% 50 ML IV SCH (02:06)
[2020-12-06] MEDS: FAMOTIDINE 20 MG TAB PO SCH (04:57)
[2020-12-06 05:05] LABS: Basophils # (auto) 0.01 K/uL (0-0.2); Basophils % (auto) 0.1 %; Eosinophils # (auto) 0.07 K/uL (0-0.5); Eosinophils % (auto) 0.9 %; Hematocrit (blood only) 32.2 % (42-52); Hemoglobin 10.7 g/dL (14.0-18.0); Immature Granulocytes # (auto) 0.02 K/uL (0.00-0.02); Immature Granulocytes % (auto) 0.3 %; Lymphocytes # (auto) 0.64 K/uL (1.2-3.4); Lymphocytes % (auto) 8.4 %; Mean Corpuscular Hemoglobin 30.4 pg (25-34); Mean Corpuscular Hgb Conc 33.2 g/dL (32-36); Mean Corpuscular Volume 91.5 fL (80-100); Mean Platelet Volume 9.3 fL (7.4-10.4); Monocytes # (auto) 1.27 K/uL (0.11-0.59); Monocytes % (auto) 16.7 %; Neutrophils # (auto) 5.59 K/uL (1.4-6.5); Neutrophils % (auto) 73.6 %; Platelet Count 179 K/uL (130-400); RDW Coefficient of Variation 13.9 % (11.5-14.5); RDW Standard Deviation 46.7 fL (36.4-46.3); Red Blood Count 3.52 M/uL (4.7-6.1)
[2020-12-06 05:22] LABS: BUN Creatinine Ratio 15.5 (10-20); Calcium 7.9 mg/dl (8.5-10.1); Creatinine Clr Calc Pharmacy 40.9 ml/min; Est GFR (African American) 51.3 ml/min; Est GFR (Non-African American) 44.2 ml/min; Potassium 4.3 mmol/L (3.5-5.1)
[2020-12-06] MEDS: LACTATED RINGER'S 1,000 ML IV SCH (06:09)
[2020-12-06] MEDS: CLOPIDOGREL BISULFATE 75 MG TAB PO SCH (09:05)
[2020-12-06] MEDS: DOCUSATE SODIUM/SENNA 50/8.6MG TAB PO SCH (09:05)
[2020-12-06] MEDS: ASPIRIN 81 MG ECTAB PO SCH (09:05)
--- NOTE | 2020-12-06 09:54 | XRay Report ---
SINGLE VIEW CHEST CLINICAL HISTORY: Hypoxia. FINDINGS: An AP, portable, upright chest radiograph is compared to study dated 12/03/2020 and correlat ed with chest CT dated 09/21/2017. The examination is degraded by portable technique and patient rotati on. Skin clips project over the right lower neck. The heart is markedly enlarged noting atherosclerot ic calcification of the thoracic aorta. The pulmonary vasculature is noncongested. There is bibasilar atelectasis. No airspace consolidation or large pleural effusion is identified. No pneumothorax is s een. The skeletal structures are osteopenic. The bony thorax is grossly intact. Degenerative change i s noted in the shoulders and thoracic spine. IMPRESSION: Cardiomegaly with no acute cardiopulmonary abnormality. ACT 112: Negative or not required by law. Electronically signed by: Jesús Burnett M.D. 12/06/2020 9:52 AM
--- NOTE | 2020-12-06 10:13 | Surgery Progress Note ---
Date of Service December 06, 2020 Assessment & Plan (1) Status post carotid endarterectomy: Pt POD#1 after R CEA. Doing well from vascular standpoint and ok for transfer to PCU vs med telemetry. Will allow medicine to decide transfer in light of hypoxia. Will see in office in 10 days for staple removal. Please call if needed. (2) Carotid artery stenosis: Pt now s/p R CEA. Admission and Anticipated Discharge Date Admission Date: December 03, 2020 Subjective 89 yo m POD #1 after R CEA, seen in f/u today. Pt admits some discomfort in R neck incision, but states overall feeling well. States his R eye vision is significantly improved, with only a small area of blindness. No new complaints of extremity weakness tingling or numbness, facial droop, difficulty speaking or swallowing, confusion, other new complaints. Review of Systems Review of Systems: All systems reviewed & are unremarkable except as noted in HPI & below Physical Exam Constitutional: WD/WN, vitals as above healthy appearing Neck: R neck C/D/I with papito. Mild local edema and tenderness. Neurologic: moves all extremities and awake; no focal motor deficits and not confused Psychiatric: A+Ox3, euthymic affect Results & Data ([facility]) Vital Signs (Past 12 Hours) Vital Signs Temp Pulse Resp BP Pulse Ox 12/06/20 08:00 82 141/74 H 12/06/20 06:33 70 13 133/63 95 12/06/20 06:00 67 14 96 12/06/20 05:33 67 16 158/70 H 95 12/06/20 04:33 66 14 142/64 H 94 12/06/20 04:00 36.8 C 69 15 92 12/06/20 03:33 78 19 141/63 H 91 12/06/20 03:00 72 16 93 12/06/20 02:33 73 14 148/63 H 93 12/06/20 02:00 75 16 92 12/06/20 01:33 73 16 118/60 92 12/06/20 01:00 90 18 92 12/06/20 00:33 74 25 H 136/63 92 12/06/20 00:00 70 15 92 12/05/20 23:34 72 14 91 12/05/20 23:33 70 13 141/59 H 92 06/17/21 23:07 66 12/05/20 23:00 75 16 91 12/05/20 22:50 36.9 C 12/05/20 22:33 72 14 122/57 L 93 (1) Carotid artery stenosis Laterality: bilateral Qualified Code(s): I65.23 - Occlusion and stenosis of bilateral carotid arteries
--- NOTE | 2020-12-06 10:25 | Critical Care Progress Note ---
Date of Service December 06, 2020 Assessment & Plan (1) Carotid artery stenosis: 89-year-old male with a history of moderate aortic stenosis, hypertension, CKD stage III, hyperlipidemia and diastolic CHF who is currently in the ICU for postoperative management of a right carotid artery endarterectomy. He is hemodynamically stable at present. Mild hypoxia postop. Atelectasis noted in the left lower lobe. CPT will be initiated. Continue incentive spirometer and out of bed to chair. Continue to wean oxygen to maintain saturations of 92 to 94%. Blood pressure control per vascular surgery. Neurology is following the patient for his stroke. Continue physical therapy and Occupational Therapy. Stable for transfer to the floor. (2) Symptomatic stenosis of right carotid artery: (3) Postoperative hypoxia: (4) Amaurosis fugax of right eye: Admission and Anticipated Discharge Date Admission Date: December 03, 2020 Subjective Patient seen and examined this morning. He is awake and alert. Sitting up in a chair. Has some mild soreness in his right neck. Denies any chest pain. No fevers or chills overnight. He still has some blurry vision in his right eye. His vision loss is greatly improved. No confusion noted today. Still requiring supplemental oxygen. Review of Systems Review of Systems: All systems reviewed & are unremarkable except as noted in HPI & below Physical Exam Constitutional: WD/WN, vitals as above Eyes: PERRL, conjunctivae normal, anicteric sclerae ENMT: external ear and nose normal, oropharynx normal Respiratory: normal respiratory effort Auscultation: + diminished lung sounds Cardiovascular: RRR, no murmur, no edema Gastrointestinal (Abdomen): normal bowel sounds, soft, nontender, no hepatosplenomegaly Musculoskeletal: no cyanosis or clubbing, extremities motor strength 5/5 Skin: no rashes, warm and dry Neurologic: Lethargic. Nonfocal. Psychiatric: A+Ox3, euthymic affect Results & Data Results & Data ([facility]) Vital Signs (Past 12 Hours) Vital Signs Temp Pulse Resp BP Pulse Ox 12/06/20 08:00 82 141/74 H 12/06/20 06:33 70 13 133/63 95 12/06/20 06:00 67 14 96 12/06/20 05:33 67 16 158/70 H 95 12/06/20 04:33 66 14 142/64 H 94 12/06/20 04:00 98.2 F 69 15 92 12/06/20 03:33 78 19 141/63 H 91 12/06/20 03:00 72 16 93 12/06/20 02:33 73 14 148/63 H 93 12/06/20 02:00 75 16 92 12/06/20 01:33 73 16 118/60 92 12/06/20 01:00 90 18 92 12/06/20 00:33 74 25 H 136/63 92 12/06/20 00:00 70 15 92 12/05/20 23:34 72 14 91 12/05/20 23:33 70 13 141/59 H 92 12/05/20 23:07 66 12/05/20 23:00 75 16 91 12/05/20 22:50 98.4 F 12/05/20 22:33 72 14 122/57 L 93 Vital signs, labs and imaging reviewed Coding Level of Care Code 09535 Subseq Hosp Care Lvl 2 Diagnoses Carotid artery stenosis I65.23 Laterality: bilateral Symptomatic stenosis of right carotid artery I65.21 Postoperative hypoxia R09.02; Z98.890 Amaurosis fugax of right eye G45.3 (1) Carotid artery stenosis Laterality: bilateral Qualified Code(s): I65.23 - Occlusion and stenosis of bilateral carotid arteries
--- NOTE | 2020-12-06 15:19 | Hospitalist Progress Note ---
Date of Service December 06, 2020 Assessment & Plan (1) Carotid artery stenosis: (2) Visual changes: Patient is an 89 yr male with H/O diastolic heart failure, history of CVA in 2019, history of bilateral ICA stenosis, HTN, LBBB, CKD III who presents with visual loss of R eye starting around 2100 last evening. Carotid artery stenosis Amaurosis fugax Subacute CVA -Head CTA:Small focal hypodensity within the right frontal lobe as described above. This favors a subacute infarct. Follow-up brain MRI can be used for confirmation. 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 Mild multifocal stenoses within the intracranial vessels, unchanged. Prominence of the right frontal extraaxial space which has slightly progressed. 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 -Neck CTA: . Extensive plaque within the proximal bilateral internal carotid arteries with greater than 90% stenosis of the proximal right internal carotid artery. This is progressed. Approximately 60% stenosis of the proximal left internal carotid artery. Moderate stenosis at the origin of the left vertebral artery. Approximately 60% stenosis within the distal right common carotid artery which is also progressed. -ECHO: EF 55 to 60%. Aortic valve is moderately calcified. Moderate valvular aortic stenosis. There is moderate mitral annular calcification. Grade 1 diastolic dysfunction. --Patient refuses MRI given significant claustrophobia --S/P right carotid endarterectomy with bovine patch on 12/05/20 by -Patient neurology, vascular surgery input -Continue aspirin, Plavix, statin -PT OT eval Needs follow-up with vascular surgery upon discharge Urinary retention Bladder scan as needed Hold oxybutynin Hypoxia Developed postoperatively Likely due to atelectasis left lower lobe Continue chest PT Intensive spirometry Wean off of supplemental oxygen as able (3) Diastolic heart failure: CXR without acute cardiopulmonary abnormality Low-sodium diet Monitor volume status (4) HTN (hypertension): Continue amlodipine Resume losartan as able (5) CKD (chronic kidney disease), stage III: Renal function at baseline Monitor daily BMP DVT Px: SCDs for now Code status: FULL CODE Admission and Anticipated Discharge Date Admission Date: December 03, 2020 Subjective Patient is seen and examined at bedside States having some neck soreness at site of surgery Vision improved Developed hypoxia, urinary retention postoperatively Denies shortness of breath Chest x-ray showed no acute findings Also denies chest pain, dizziness, nausea, abdominal pain Review of Systems Review of Systems: All systems reviewed & are unremarkable except as noted in HPI & below Physical Exam Physical Exam: Physical Exam: Vitals signs as noted above General Appearance:Obese, no apparent distress Head: normocephalic, Atraumatic Eyes: normal inspection, EOMI Neck: supple, Trachea midline, Surgical site in [place] Respiratory/Chest: Normal breath sounds, CTA Cardiovascular: S1, S2, No murmur Abdomen/GI:Soft, Non tender, Bowel sounds present Extremities/Musculoskeletal:normal inspection, no edema Neurologic/Psych:AAOX3, grossly no focal neurological deficits, Right eye visual defect Skin: normal color, warm Results & Data Results & Data ([facility]) Vital Signs (Past 12 Hours) Vital Signs Temp Pulse Resp BP Pulse Ox 12/06/20 11:00 72 17 96 12/06/20 10:33 76 7 L 124/68 96 12/06/20 10:00 71 21 97 12/06/20 09:33 85 16 145/79 H 96 12/06/20 09:00 76 13 97 12/06/20 08:33 76 19 141/74 H 96 12/06/20 08:21 75 16 153/64 H 98 12/06/20 08:00 74 19 141/74 H 94 12/06/20 06:33 70 13 133/63 95 12/06/20 06:00 67 14 96 12/06/20 05:33 67 16 158/70 H 95 12/06/20 04:33 66 14 142/64 H 94 12/06/20 04:00 36.8 C 69 15 92 12/06/20 03:33 78 19 141/63 H 91 Laboratory Results Short CBC 12/06/20 Range/Units 04:24 WBC 7.60 (4.8-10.8) K/uL Hgb 10.7 L (14.0-18.0) g/dL Hct 32.2 L (42-52) % Plt Count 179 (130-400) K/uL BMP 12/06/20 04:24 Sodium 137 Potassium 4.3 Chloride 102 Carbon Dioxide 28 BUN 22 H Creatinine 1.40 Glucose 112 H Calcium 7.9 L
[2020-12-06] MEDS: MoRPHine SULFATE 4 MG/ML 1 ML CARP\\VIAL IV PRN (15:32)
[2020-12-06] MEDS: OXYBUTYNIN CHLORIDE XL 5 MG TABCR PO SCH (18:16)
[2020-12-06] MEDS: PRAVASTATIN SOD 10 MG TAB PO SCH (20:18)
[2020-12-07 06:39] LABS: Hematocrit (blood only) 33.5 % (42-52); Hemoglobin 11.2 g/dL (14.0-18.0); Mean Corpuscular Hemoglobin 30.5 pg (25-34); Mean Corpuscular Hgb Conc 33.4 g/dL (32-36); Mean Corpuscular Volume 91.3 fL (80-100); Mean Platelet Volume 9.4 fL (7.4-10.4); Platelet Count 180 K/uL (130-400); RDW Coefficient of Variation 13.8 % (11.5-14.5); RDW Standard Deviation 45.9 fL (36.4-46.3); Red Blood Count 3.67 M/uL (4.7-6.1); White Blood Count 6.76 K/uL (4.8-10.8)
[2020-12-07 07:21] LABS: BUN Creatinine Ratio 14.6 (10-20); Calcium 8.1 mg/dl (8.5-10.1); Creatinine Clr Calc Pharmacy 48.8 ml/min; Est GFR (Non-African American) 54.4 ml/min; Potassium 4.4 mmol/L (3.5-5.1)
[2020-12-07] MEDS: ASPIRIN 81 MG ECTAB PO SCH (09:44)
[2020-12-07] MEDS: CLOPIDOGREL BISULFATE 75 MG TAB PO SCH (09:44)
[2020-12-07] MEDS: FAMOTIDINE 20 MG TAB PO SCH (09:44)
[2020-12-07] MEDS: amLODIPine BESYLATE 5 MG TAB PO SCH (09:45)
[2020-12-07] MEDS: DOCUSATE SODIUM/SENNA 50/8.6MG TAB PO SCH (09:50)
--- NOTE | 2020-12-07 14:41 | Hospitalist Progress Note ---
Date of Service December 07, 2020 Assessment & Plan (1) Carotid artery stenosis: (2) Visual changes: Patient is an 89 yr male with H/O diastolic heart failure, history of CVA in 2019, history of bilateral ICA stenosis, HTN, LBBB, CKD III who presents with visual loss of R eye starting around 2100 last evening. Carotid artery stenosis Amaurosis fugax Subacute CVA -Head CTA:Small focal hypodensity within the right frontal lobe as described above. This favors a subacute infarct. Follow-up brain MRI can be used for confirmation. 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 Mild multifocal stenoses within the intracranial vessels, unchanged. Prominence of the right frontal extraaxial space which has slightly progressed. 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 -Neck CTA: . Extensive plaque within the proximal bilateral internal carotid arteries with greater than 90% stenosis of the proximal right internal carotid artery. This is progressed. Approximately 60% stenosis of the proximal left internal carotid artery. Moderate stenosis at the origin of the left vertebral artery. Approximately 60% stenosis within the distal right common carotid artery which is also progressed. -ECHO: EF 55 to 60%. Aortic valve is moderately calcified. Moderate valvular aortic stenosis. There is moderate mitral annular calcification. Grade 1 diastolic dysfunction. --Patient refuses MRI given significant claustrophobia --S/P right carotid endarterectomy with bovine patch on 12/05/20 by -Patient neurology, vascular surgery input -Continue aspirin, Plavix, statin -PT OT eval Needs follow-up with vascular surgery upon discharge Monitor neck swelling at surgical site Hb stable Urinary retention Bladder scan as needed Hold oxybutynin for now Hypoxia Developed postoperatively Likely due to atelectasis left lower lobe Continue Pulmonary Hygiene Weaned off of supplemental oxygen Saturating low 90s on room air (3) Diastolic heart failure: CXR without acute cardiopulmonary abnormality Low-sodium diet Monitor volume status (4) HTN (hypertension): Continue amlodipine, losartan (5) CKD (chronic kidney disease), stage III: Renal function at baseline Monitor DVT Px: SCDs Encourage to ambulate Code status: FULL CODE Admission and Anticipated Discharge Date Admission Date: December 03, 2020 Subjective Patient is seen and examined at bedside Developed some swelling at the site of CEA Denies any significant pain Saturating low 90s on room air Denies chest pain, dyspnea, dizziness, nausea, abdominal pain Review of Systems Review of Systems: All systems reviewed & are unremarkable except as noted in HPI & below Physical Exam Physical Exam: Physical Exam: Vitals signs as noted above General Appearance:Obese, no apparent distress Head: normocephalic, Atraumatic Eyes: normal inspection, EOMI Neck: supple, Trachea midline, Surgical site in [place], +swelling, minimal ecchymosis Respiratory/Chest: Normal breath sounds, CTA Cardiovascular: S1, S2, No murmur Abdomen/GI:Soft, Non tender, Bowel sounds present Extremities/Musculoskeletal:normal inspection, no edema Neurologic/Psych:AAOX3, grossly no focal neurological deficits, Right eye visual defect Skin: normal color, warm Results & Data Results & Data ([place]) Vital Signs (Past 12 Hours) Vital Signs Temp Pulse Resp BP BP Pulse Ox 12/07/20 12:16 36.6 C 85 19 162/80 H 92 12/07/20 06:23 37.2 C 84 18 159/78 H 96 12/07/20 03:49 36.6 C 76 18 152/96 H 97 Laboratory Results Short CBC 12/07/20 Range/Units 06:09 WBC 6.76 (4.8-10.8) K/uL Hgb 11.2 L (14.0-18.0) g/dL Hct 33.5 L (42-52) % Plt Count 180 (130-400) K/uL BMP 12/07/20 06:09 Sodium 136 Potassium 4.4 Chloride 101 Carbon Dioxide 29 BUN 17 Creatinine 1.18 Glucose 101 H Calcium 8.1 L
[2020-12-07] MEDS: LOSARTAN POTASSIUM 50 MG TAB PO SCH (15:47)
[2020-12-07] MEDS: PRAVASTATIN SOD 10 MG TAB PO SCH (19:18)
[2020-12-08 06:27] LABS: Hematocrit (blood only) 33.1 % (42-52)
[2020-12-08] MEDS: FAMOTIDINE 20 MG TAB PO SCH (09:20)
[2020-12-08] MEDS: CLOPIDOGREL BISULFATE 75 MG TAB PO SCH (09:20)
[2020-12-08] MEDS: amLODIPine BESYLATE 5 MG TAB PO SCH (09:20)
[2020-12-08] MEDS: ASPIRIN 81 MG ECTAB PO SCH (09:21)
[2020-12-08] MEDS: LOSARTAN POTASSIUM 50 MG TAB PO SCH (09:21)
[2020-12-08] MEDS: DOCUSATE SODIUM/SENNA 50/8.6MG TAB PO SCH (09:22)
--- NOTE | 2020-12-08 16:09 | Hospitalist Progress Note ---
Date of Service December 08, 2020 Assessment & Plan (1) Carotid artery stenosis: (2) Visual changes: Patient is an 89 yr male with H/O diastolic heart failure, history of CVA in 2019, history of bilateral ICA stenosis, HTN, LBBB, CKD III who presents with visual loss of R eye starting around 2100 last evening. Carotid artery stenosis Amaurosis fugax Subacute CVA -Head CTA:Small focal hypodensity within the right frontal lobe as described above. This favors a subacute infarct. Follow-up brain MRI can be used for confirmation. 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 Mild multifocal stenoses within the intracranial vessels, unchanged. Prominence of the right frontal extraaxial space which has slightly progressed. 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 -Neck CTA: . Extensive plaque within the proximal bilateral internal carotid arteries with greater than 90% stenosis of the proximal right internal carotid artery. This is progressed. Approximately 60% stenosis of the proximal left internal carotid artery. Moderate stenosis at the origin of the left vertebral artery. Approximately 60% stenosis within the distal right common carotid artery which is also progressed. -ECHO: EF 55 to 60%. Aortic valve is moderately calcified. Moderate valvular aortic stenosis. There is moderate mitral annular calcification. Grade 1 diastolic dysfunction. --Patient refuses MRI given significant claustrophobia --S/P right carotid endarterectomy with bovine patch on 12/05/20 by -Patient neurology, vascular surgery input -Continue aspirin, Plavix, statin -PT OT eval Needs follow-up with vascular surgery upon discharge Monitor CBC Urinary retention Bladder scan as needed Hold oxybutynin for now Resolved Hypoxia Developed postoperatively Likely due to atelectasis left lower lobe Continue Pulmonary Hygiene Weaned off of supplemental oxygen Saturating well on room air Consider 2 step if required prior to discharge (3) Diastolic heart failure: CXR without acute cardiopulmonary abnormality Low-sodium diet Monitor volume status (4) HTN (hypertension): Continue amlodipine, losartan (5) CKD (chronic kidney disease), stage III: Renal function at baseline Monitor DVT Px: SCDs Encourage to ambulate Code status: FULL CODE Admission and Anticipated Discharge Date Admission Date: December 03, 2020 Subjective Patient is seen and examined at bedside No significant change from yesterday Saturating well on room air Eager to get discharged Mild soreness at surgical site Denies chest pain, dyspnea, dizziness, nausea, abdominal pain Review of Systems Review of Systems: All systems reviewed & are unremarkable except as noted in HPI & below Physical Exam Physical Exam: Physical Exam: Vitals signs as noted above General Appearance:Obese, no apparent distress Head: normocephalic, Atraumatic Eyes: normal inspection, EOMI Neck: supple, Trachea midline, Surgical site in [place], +swelling, minimal ecchymosis Respiratory/Chest: Normal breath sounds, CTA Cardiovascular: S1, S2, No murmur Abdomen/GI:Soft, Non tender, Bowel sounds present Extremities/Musculoskeletal:normal inspection, no edema Neurologic/Psych:AAOX3, grossly no focal neurological deficits, Right eye visual defect Skin: normal color, warm Results & Data Results & Data ([facility]) Vital Signs (Past 12 Hours) Vital Signs Temp Pulse Resp BP BP Pulse Ox 12/08/20 15:44 36.6 C 84 18 162/90 H 95 12/08/20 11:01 36.5 C 79 18 150/75 H 93 12/08/20 06:38 36.7 C 85 17 153/72 H 99 Laboratory Results Short CBC 12/08/20 Range/Units 05:56 Hgb 11.0 L (14.0-18.0) g/dL Hct 33.1 L (42-52) %
[2020-12-08] MEDS: PRAVASTATIN SOD 10 MG TAB PO SCH (21:30)
[2020-12-09] MEDS: ACETAMINOPHEN 325 MG TAB PO PRN ×2 (01:31→09:18)
[2020-12-09 08:39] LABS: BUN Creatinine Ratio 18.9 (10-20); Calcium 8.8 mg/dl (8.5-10.1); Creatinine Clr Calc Pharmacy 41.1 ml/min; Est GFR (African American) 55.6 ml/min; Est GFR (Non-African American) 47.9 ml/min; Potassium 4.5 mmol/L (3.5-5.1)
[2020-12-09] MEDS: FAMOTIDINE 20 MG TAB PO SCH (09:01)
[2020-12-09] MEDS: LOSARTAN POTASSIUM 50 MG TAB PO SCH (09:01)
[2020-12-09] MEDS: ASPIRIN 81 MG ECTAB PO SCH (09:01)
[2020-12-09] MEDS: amLODIPine BESYLATE 5 MG TAB PO SCH (09:01)
[2020-12-09] MEDS: CLOPIDOGREL BISULFATE 75 MG TAB PO SCH (09:01)
[2020-12-09] MEDS: DOCUSATE SODIUM/SENNA 50/8.6MG TAB PO SCH (09:03)
--- NOTE | 2020-12-09 09:49 | Surgery Progress Note ---
Date of Service December 09, 2020 Assessment & Plan (1) Status post carotid endarterectomy: Pt POD#4 after R CEA. Doing well from vascular standpoint and ok for d/c home. Will see in office in 7 days for staple removal. Please call if needed. (2) Carotid artery stenosis: Pt now s/p R CEA. Admission and Anticipated Discharge Date Admission Date: December 03, 2020 Subjective 89 yo m POD # 4 after R CEA d/t amaurosis, seen in f/u today. Pt anxious for d/c, states would like to go home. Denies any new complaints. Review of Systems Review of Systems: All systems reviewed & are unremarkable except as noted in HPI & below Physical Exam Constitutional: WD/WN, vitals as above + obese, cooperative and comfortable Neck: trachea midline Skin: no rashes, warm and dry + incision (R neck C/D/I papito, +mild local ecchymosis/soft edema) Neurologic: moves all extremities and awake; no focal motor deficits and not confused Psychiatric: A+Ox3, euthymic affect Results & Data ([facility]) Vital Signs (Past 12 Hours) Vital Signs Temp Pulse Resp BP BP Pulse Ox 12/09/20 07:37 36.5 C 115 H 18 168/81 H 92 12/09/20 04:20 36.8 C 101 H 18 156/83 H 91 12/08/20 23:29 36.5 C 94 H 16 164/84 H 92 (1) Carotid artery stenosis Laterality: bilateral Qualified Code(s): I65.23 - Occlusion and stenosis of bilateral carotid arteries
--- NOTE | 2020-12-09 12:17 | Hospitalist Progress Note ---
Date of Service December 09, 2020 Assessment & Plan (1) Carotid artery stenosis: (2) Visual changes: Patient is an 89 yr male with H/O diastolic heart failure, history of CVA in 2019, history of bilateral ICA stenosis, HTN, LBBB, CKD III who presents with visual loss of R eye starting around 2100 last evening. Carotid artery stenosis Amaurosis fugax Subacute CVA -Head CTA:Small focal hypodensity within the right frontal lobe as described above. This favors a subacute infarct. Follow-up brain MRI can be used for confirmation. 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 Mild multifocal stenoses within the intracranial vessels, unchanged. Prominence of the right frontal extraaxial space which has slightly progressed. 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 -Neck CTA: . Extensive plaque within the proximal bilateral internal carotid arteries with greater than 90% stenosis of the proximal right internal carotid artery. This is progressed. Approximately 60% stenosis of the proximal left internal carotid artery. Moderate stenosis at the origin of the left vertebral artery. Approximately 60% stenosis within the distal right common carotid artery which is also progressed. -ECHO: EF 55 to 60%. Aortic valve is moderately calcified. Moderate valvular aortic stenosis. There is moderate mitral annular calcification. Grade 1 diastolic dysfunction. --Patient refuses MRI given significant claustrophobia --S/P right carotid endarterectomy with bovine patch on 12/05/20 by -Patient neurology, vascular surgery input -Continue aspirin, Plavix, statin -PT OT eval Needs follow-up with vascular surgery upon discharge in 1 week Urinary retention Bladder scan as needed Resume oxybutynin as able Resolved Hypoxia Developed postoperatively Likely due to atelectasis left lower lobe Continue Pulmonary Hygiene Weaned off of supplemental oxygen Saturating well on room air Resolved (3) Diastolic heart failure: CXR without acute cardiopulmonary abnormality Low-sodium diet Monitor volume status (4) HTN (hypertension): Continue amlodipine, losartan (5) CKD (chronic kidney disease), stage III: Renal function at baseline Monitor DVT Px: SCDs Encourage to ambulate Code status: FULL CODE Admission and Anticipated Discharge Date Admission Date: December 03, 2020 Subjective Patient is seen and examined at bedside Doing well Eager to discharge Discussed with vascular surgery today Denies chest pain, dyspnea, dizziness, nausea, abdominal pain Review of Systems Review of Systems: All systems reviewed & are unremarkable except as noted in HPI & below Physical Exam Physical Exam: Physical Exam: Vitals signs as noted above General Appearance:Obese, no apparent distress Head: normocephalic, Atraumatic Eyes: normal inspection, EOMI Neck: supple, Trachea midline, Surgical site in [place], +swelling, minimal ecchymosis Respiratory/Chest: Normal breath sounds, CTA Cardiovascular: S1, S2, No murmur Abdomen/GI:Soft, Non tender, Bowel sounds present Extremities/Musculoskeletal:normal inspection, no edema Neurologic/Psych:AAOX3, grossly no focal neurological deficits, Right eye visual defect Skin: normal color, warm Results & Data Results & Data ([facility]) Vital Signs (Past 12 Hours) Vital Signs Temp Pulse Resp BP BP Pulse Ox 12/09/20 07:37 36.5 C 115 H 18 168/81 H 92 12/09/20 04:20 36.8 C 101 H 18 156/83 H 91 Laboratory Results [facility] 12/09/20 07:48 Sodium 135 L Potassium 4.5 Chloride 102 Carbon Dioxide 28 BUN 25 H Creatinine 1.31 Glucose 123 H Calcium 8.8
[2020-12-09] MEDS ORDERED: STROKE PATIENT DISCHARGE STA (12:21)
--- NOTE | 2020-12-09 12:22 | Discharge Summary ---
Date of Service December 09, 2020 Admission HPI Per Admitting Provider This is an 89 yo M with a PMH of diastolic heart failure, history of CVA in 2019, history of bilateral ICA stenosis, HTN, LBBB, CKD III who presents with visual loss of R eye starting around 2100 last evening. First noticed his right eye going completely black followed by some recovery of the visual field in lateral quadrants but has remained cloudy. Denies any lightheadedness, headache, near syncope or new onset weakness or senstory deficits in extremities. Does have some residual lower extremity weakness from CVA in 2019. Also some residual dysphagia as a result of 2019 infarct. Does have history of R ICA stenosis of 80% on Feb 2020 CTA, L ICA stenosis 40-50%. Was evaluated by vascular surgery at that point with consideration of R CEA but patient remained asymptomatic and vascular surgery saw in office for follow up. Has been taking aspirin 162mg daily as well as plavix and pravastatin. No fever, chills, chest pain, shortness of breath, nausea, vomiting, abdominal pain, dysuria or diarrhea. Ongoing issues with constipation but has home bowel regimen. Admission Exam Per Admitting Provider Physical Exam Physical Exam: General Appearance: WD/WN, vitals as above, NAD, sitting up in bed, pleasant, conversing easily Head: normocephalic, atraumatic Eyes: normal inspection, PERRL, conjunctivae normal, anicteric sclerae ENT: external ear and nose normal, oropharynx normal Neck: normal visual inspection, trachea midline, no thyromegaly Respiratory: normal respiratory effort, lungs clear to auscultation, no wheeze, rales, rhonchi. No accessory muscle use Cardiovascular: regular rate, rhythm, no murmur, normal peripheral pulses, 2+ BLE edema. Vessels: no JVD Chest: normal inspection of chest Abdomen/GI: normal bowel sounds, soft, nontender, no hepatosplenomegaly Extremities/Musculoskeletal: no cyanosis or clubbing, BUE strength 5/5, BLE strength 4/5 (chronic, residual from previous stroke) Neurologic: PERRL, EOMI, accommodation nl, no face palsy. + significantly decreased acuity R eye. L eye acuity intact. No dysarthria, CN's III-XI intact bilaterally and moves all extremities Psychiatric: A+Ox3, euthymic affect Skin: no rashes, normal color, warm/dry Principal Diagnosis Carotid artery stenosis Subacute CVA Atelectasis Discharge Data Allergies Allergy/AdvReac Type Severity Reaction Status Date / Time amoxicillin Allergy Severe SWELLING Verified 03/17/20 11:14 OF TONGUE AND THROAT baclofen Allergy Unknown VERY SLEEPY Unverified 03/17/20 11:14 daptomycin Allergy Unknown unknown Verified 03/17/20 11:14 omeprazole Allergy Unknown ? Verified 03/17/20 11:14 phenobarbital Allergy Unknown ? Verified 03/17/20 11:14 Rbfmxpt-Rbe-Lhm Reductase Allergy Unknown RASH Verified 03/17/20 11:14 Inhibitor Consultations 12/03/20 13:06 ED Decision to Admit Stat 12/03/20 17:48 Consult Anesthesiology Stat Consult Neurology Routine Consult Vascular Surgery Routine 12/05/20 15:16 Consult Manufacturing Helper Routine Procedures Performed Operation Date: 12/05/20 10:00 Actual Procedures p Right Carotid Endarterectomy(Right) - Johnathan Orr MD Ordered Studies 12/03/20 11:04 CT head/brain wo con Stat 12/03/20 11:25 CT angio head w con Stat CT angio neck with con Stat -Head CTA:Small focal hypodensity within the right frontal lobe as described above. This favors a subacute infarct. Follow-up brain MRI can be used for confirmation. 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 Mild multifocal stenoses within the intracranial vessels, unchanged. Prominence of the right frontal extraaxial space which has slightly progressed. 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 -Neck CTA: . Extensive plaque within the proximal bilateral internal carotid arteries with greater than 90% stenosis of the proximal right internal carotid artery. This is progressed. Approximately 60% stenosis of the proximal left internal carotid artery. Moderate stenosis at the origin of the left vertebral artery. Approximately 60% stenosis within the distal right common carotid artery which is also progressed. -ECHO: EF 55 to 60%. Aortic valve is moderately calcified. Moderate valvular aortic stenosis. There is moderate mitral annular calcification. Grade 1 diastolic dysfunction. Hospital Course (1) Visual changes: Patient is an 89 yr male with H/O diastolic heart failure, history of CVA in 2019, history of bilateral ICA stenosis, HTN, LBBB, CKD III who presents with visual loss of R eye starting around 2100 last evening. Carotid artery stenosis Amaurosis fugax Subacute CVA -Head CTA:Small focal hypodensity within the right frontal lobe as described above. This favors a subacute infarct. Follow-up brain MRI can be used for confirmation. 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 Mild multifocal stenoses within the intracranial vessels, unchanged. Prominence of the right frontal extraaxial space which has slightly progressed. 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 -Neck CTA: . Extensive plaque within the proximal bilateral internal carotid arteries with greater than 90% stenosis of the proximal right internal carotid artery. This is progressed. Approximately 60% stenosis of the proximal left internal carotid artery. Moderate stenosis at the origin of the left vertebral artery. Approximately 60% stenosis within the distal right common carotid artery which is also progressed. -ECHO: EF 55 to 60%. Aortic valve is moderately calcified. Moderate valvular aortic stenosis. There is moderate mitral annular calcification. Grade 1 diastolic dysfunction. --Patient refuses MRI given significant claustrophobia --S/P right carotid endarterectomy with bovine patch on 12/05/20 by -Patient neurology, vascular surgery input -Continue aspirin, Plavix, statin -PT OT eval Needs follow-up with vascular surgery upon discharge in 1 week Urinary retention Bladder scan as needed Resume oxybutynin as able Resolved Hypoxia Developed postoperatively Likely due to atelectasis left lower lobe Continue Pulmonary Hygiene Weaned off of supplemental oxygen Saturating well on room air Resolved (2) Diastolic heart failure: CXR without acute cardiopulmonary abnormality Low-sodium diet Monitor volume status Total Time Total Time Spent Total Time Spent (In Minutes): 42 minutes Total Time Includes: Examination of the Patient, Discharge Planning, Medication Reconciliation, Communication With Other Providers and Other Discharge Plan Discharge Items Patient Disposition: Home - Self-Care Reason For Visit: R VISUAL CHANGES, PROGRESSING BILAT ICA STENOSIS, Discharge Diagnosis: Carotid artery stenosis Subacute Stroke Atelectasis Activity: Per Instructions section Exercise/Sports: Wait until after follow-up appointment Non-emergency contact: Primary Care Provider, Surgeon and Neurologist Call non-emergency contact if: you have any medication questions, your symptoms worsen, your pain is concerning for you, you have a fever, your wound has increased redness, your wound has increased drainage and your wound pain has increased Follow-up/Referrals: Bert Gresham MD [Primary Care Provider] - (Date & Time 12/16/2020 11:00 AM Provider Diane Richardson PA-C Department Family Medicine [facility] ) Diet: Heart Healthy [facility] Attending Provider Instructions: Follow-up with your primary care physician on 12/16/2020 at 11:00 AM Follow-up with your vascular surgeon Dr. Johnathan Orr in 1 week Follow-up with your neurologist Blanca in 4 weeks Seek immediate medical attention if your symptoms reoccur or worsen Please take all medications as instructed on discharge list below. Please call if you have any questions or problems. You can reach a [facility] hospitalist on duty at [facility] 24 hours a day by calling [phone] Risk Factors for Stroke: You can reduce your chances of stroke by working with your medical provider to adopt a healthy lifestyle. Some specific ways to lower your chance of stroke are: * If you are a smoker, now is the time to stop smoking cigarettes * If you are diabetic, improve the control of your blood sugars * Avoid excessive amounts of alcohol * Control high blood pressure * Lose weight if you are overweight * Be sure to lead an active lifestyle * Eat a healthy diet low in salt, cholesterol and fat You should know about other risk factors for stroke that you are unable to control. These include: * Age 55 years or older * Male gender * Certain racial groups: , or / * Family History of Stroke, Mini stroke or Heart Attack * Sickle Cell Disease Follow Up: It is important for you to keep your follow up appointments with your medical provider. Who to Call and When: Medical Emergencies: Call 911 immediately if you experience any of the following warning signs and symptoms of Stroke: * Sudden numbness or weakness of the face, arm or leg, especially on one side of the body * Sudden confusion, trouble speaking or understanding * Sudden trouble seeing in one or both eyes * Sudden trouble walking, dizziness, loss of balance or coordination * Sudden severe headache with no cause Do not delay calling 911 if you experience any warning signs or symptoms of a stroke. Delay in seeking medical attention may affect what treatments can be given to you. . Pending Studies at Discharge: No Stand-Alone Forms: [facility], Smoking Cessation Medications and DC Order Prescriptions: Continued sennosides-docusate sodium 8.6-50 mg Tablet 1 tab PO QAM RF: 0 acetaminophen [Tylenol Extra Strength] 500 mg Tablet 1,500 mg PO Q6H PRN (Reason: Pain) RF: 0 oxybutynin chloride 10 mg tablet extended release 24hr 10 mg PO WM RF: 0 famotidine 20 mg tablet 20 mg PO DAILY RF: 0 aspirin 81 mg Tablet,Delayed Release (Dr/Ec) 81 mg PO QAM 30 Days Qty: 30 RF: 0 clopidogrel 75 mg tablet 75 mg PO DAILY RF: 0 amlodipine 10 mg tablet 10 mg PO DAILY RF: 0 losartan 100 mg tablet 100 mg PO DAILY RF: 0 pravastatin 10 mg tablet 10 mg PO HS Qty: 30 RF: 1 Discharge Orders: Discharge Order (Routine); Ordered 12/09/20 Ordered By: Christiano Rubin Admission Data Admit Date/Time: 12/03/20 13:30 Attending Provider: Christiano Rubin Admit Provider: Johnson Quan Primary Care Provider: Bert Gresham Other Providers: Johnson Quan ; Enriqueta Riley ; Evelyn Moore ; Flor Campbell ; Dionna Ndiaye ; Christi Valdez ; Ricci Kumari ; Titi Lam ; Sagar Boudreaux ; Geoff Bills ; Kayy Bills ; Humble Mei ; Catalina Alva ; Kannan Loja ; Elieser Dawn ; Ramsey Delgado ; Noble Sampson ; Danika Medrano ; Dre Peter ; Kristi Nielsen ; Rosalind Peter ; Cu[place]emoc Copeland ; Genevieve Baldwin ; Arturo Reyes ; Yuly Dupont ; Mojgan Davidson ; Genevieve Dash ; Sandrita Glass ; Juan Ramon Decker ; Lisa Ortega ; Lisa Aguilar ; Rossy Bhardwaj ; Felicia Garcia ; Jaun Garcia V ; Christopher Madison ; Evelyn Yoon ; Balwinder Hooker ; Luis F Medrano ; Helena Robles ; Emilie Covarrubias ; Jaun Abbasi ; Kaden Medrano ; Ryan Hester ; Keeley Claudio ; Rossy Seymour ; Freddy Jiménez ; Gibson Sampson ; Mirta Carlos ; Piero Martin ; Ana Torres ; James Ulrich ; Javier Hopkins ; Piero Ward ; Ricci Frank Jr ; Cuauhtemoc Reyna ; Johnathan Orr ; Jesús Nickerson ; Humble Claros ; Amish Hendrix ; Jai Ty ; Gold Oconnor ; Jose Carlos Donis ; Hamida Luna Other Interventions: Discharge Summary Assessment (RN) Last Done: 12/09/20 12:32
--- NOTE | 2020-12-09 15:04 | Electrocardiogram Report ---
Test Reason : Blood Pressure : / mmHG Vent. Rate : 091 BPM Atrial Rate : 091 BPM P-R Int : 168 ms QRS Dur : 118 ms QT Int : 368 ms P-R-T Axes : 066 -60 075 degrees QTc Int : 452 ms Normal sinus rhythm Incomplete right bundle branch block Left anterior fascicular block Nonspecific T wave abnormality Abnormal ECG When compared with ECG of 03-DEC-2020 11:09, No significant change was found Confirmed by Souleymane Rodriguez ([id number]) on 12/09/2020 3:04:06 PM Referred By: REFERRED SELF Confirmed By:Souleymane Rodriguez
== END 2020-12-09 13:05 | disposition home or self-care (01) | DRG 37 ==
LOC: ED 09:57 → 2S 13:30 → SUATTDRO 13:30 → 2S 17:29 → 1E 12-05 13:14 → 2E 12-06 18:29 → 2W 12-08 17:06